=== PATIENT | male | born 1955 | race Caucasian/White ===

== ENCOUNTER 2017-08-30 18:12 | Observation (INO) | payer SELFPAY ==
[~2017-08-30] VITALS: Ht 167.6 cm; Wt 107.2 kg
[~2017-08-30 18:12] MED LIST: ALBUTEROL SULF8.5 GM INH; AMOXICILLIN500 MG PO; ASPIRIN EC81 MG PO; BENZONATATE100 MG PO; BUPROPION HCL100 MG PO; CARDIZEM CD120 MG PO; ELIQUIS5 MG PO; FLECAINIDE ACE150 MG PO; IBUPROFEN600 MG PO; LIPITOR20 MG PO; LISINOPRIL10 MG PO; NORCO 10-325 T1 EACH PO; NORCO 5-325 TA1 EACH PO; PRADAXA75 MG PO; PREDNISONE20 MG PO; TAMIFLU75 MG PO; VENTOLIN HFA18 GM INH; ZYRTEC10 MG PO
[2017-08-30] MEDS ORDERED: OXYCODONE HCL5 MG PO (18:23)
[2017-08-30] MEDS ORDERED: LISINOPRIL10 MG PO (18:23)
--- NOTE | 2017-08-30 22:35 | NUR ---
PT HAS ARRIVED ON FLOOR.
--- NOTE | 2017-08-30 23:25 | NUR ---
TOOK PT A SAND BOX AND A FRUIT PLATE PER HIS RN. PT REQUESTED A WARM BLANKET. I GOT HIM TWO. PT NEEDS NOTHING ELSE AT THIS TIME. CALL LIGHT AND BEDSIDE TABLE WITHIN REACH.
--- NOTE | 2017-08-31 01:01 | NUR ---
PT AT THIS TIME IS AWAKE IN BED.
--- NOTE | 2017-08-31 01:04 | NUR ---
PT IS SLEEPING AT THIS TIME.
--- NOTE | 2017-08-31 02:10 | NUR ---
MD JOSHI WAS CALLED DUE TO LOW SBP AND DBP WITH ORTHO V/S. I WAS ADVISED TO KEEP MONITORING.
--- NOTE | 2017-08-31 04:01 | NUR ---
PT IS SLEEPING AT THIS TIME.
--- NOTE | 2017-08-31 06:06 | NUR ---
V/S ARE WDL, PT HAS BEEN SLEEPING MOST OF THIS SHIFT. ORTHO V/S WERE DONE, MD JOSHI WAS CALLED IN REGARDS TO LOW SBP/DBP. MD JOSHI SAID TO MONITOR. IV BOLUS WAS GIVEN, URINE OUTPUT IS ADEQUATE, ALL LOBES ARE CLEAR, NO EDEMA NOTED, IV FLUIDS ARE RUNNING. PT IS ON 2L OF O2 NC.
--- NOTE | 2017-08-31 06:44 | NUR ---
MANUAL BP WAS TAKEN THIS MORNING DUE TO LOW BP PER MONITOR. MANUAL BP WAS 94/62, MD JOSHI ORDERED ANOTHER LR 1000ML BOLUS/HR. BP HAS TO BE RETAKEN WHEN BOLUS IS DONE. ALSO, HOLD 0900 LISINOPRIL TODAY.
--- NOTE | 2017-08-31 07:00 | NUR ---
PRIMARY RN NIGHAT NOTIFIED DR JOSHI VIA PHONE ABOUT PT C/O "SEEING DOUBLE OF EVERYTHING". MDS RESPONSE, RECHECK BP". PRIMARY RN AND ONCOMING AM RN IN ROOM ASSESSING PT
--- NOTE | 2017-08-31 07:16 | NUR ---
RECIEVED BEDSIDE REPORT FROM LUCERO GARCIA. PT AWAKE AND ALERT AT THIS TIME. MANUAL BP 100/64. O2 AT 2L BY NC. LR BOLUS RUNNING. TELE #3, HR 95, IRREGULAR. PT REPORTS DOUBLE VISION, MD AWARE. ORTHO BP DUE AT 1400.
--- NOTE | 2017-08-31 07:19 | NUR ---
BP WAS 100/64 AT THIS TIME. MD JOSHI WILL BE CALLED.
--- NOTE | 2017-08-31 10:06 | NUR ---
PATIENT WENT TO GET A MRI DONE. CHANGED BED LINENS. SET HIM UP FOR A SHOWER TODAY.
--- NOTE | 2017-08-31 11:20 | NUR ---
PT REPORTS FEELING DIZZY AFTER HIS MRI. MANUAL BP TAKEN, 100/58. NO OTHER COMPLAINTS OTHER THAN DIZZINESS. PT IS HOLDING OFF ON A SHOWER FOR NOW. WILL REAPPROCH LATER.
[2017-08-31] MEDS ORDERED: ZYRTEC10 MG PO (11:58)
[2017-08-31] MEDS ORDERED: ASPIR 8181 MG PO (11:58)
[2017-08-31] MEDS ORDERED: NORCO 5-325 TA1 EACH PO (11:59)
--- NOTE | 2017-08-31 13:56 | NUR ---
PT INDEPENDENTLY CHANGES POSITION IN BED. COMPLAINTS OF PAIN ADDRESSED WITH DR. JOSHI OXYCONTIN 5MG RESUMED. PT REPORTS DOUBLE VISION REMAINS, OTHERWISE FEELS "NORMAL". RESULTS OF MRI NOT RETUNED OF YET.
--- NOTE | 2017-08-31 14:09 | NUR ---
PT SITTING IN CHAIR-ALERT ADN ORIENTED. WELCOMED ME INTO HIS RM, HE SEEMED COMFORTABLE AROUND ME. HE SEEMED VERY EAGER TO GET A CUP OF COFFEE. I WAS ABLE TO HAVE HIS RN SANDRINE BRING HIM ONE AND LUNCH CAME ABOUT THE SAME TIME. HE SEEMED HAPPY, I LET HIM ENJOY HIS LUNCH. WILL CHECK BACK
--- NOTE | 2017-08-31 14:22 | NUR ---
NEW BAG OF IV FLUID HUNG AND 300 MLS OF CLEAR YELLOW URINE EMPTIED AT THIS TIME. PATIENT GIVEN THE MENU SO HE COULD ORDER A SNACK BEFORE DINNER TIME.
--- NOTE | 2017-08-31 15:53 | NUR ---
BROUGHT PATIENT A CUP OF COFFEE AND REFILLED ICE WATER GLASS.
--- NOTE | 2017-08-31 17:20 | NUR ---
PT REPORTS DOUBLE VISION AND DIZZINESS THIS SHIFT, BOTH RESOLVING WITH TIME. MRI SHOWS NO ACUTE CHANGES TO BRAIN. LR AT 125ML/HR. NEW IV IN LEFT FOREARM PER PT REQUEST. NEURO CHECKS WNL. PT ANXIOUS TO GO HOME. PT REPORTED PAIN "IN FEET, MY NORMAL PAIN", 5MG OXY RESUMED.
--- NOTE | 2017-08-31 18:23 | NUR ---
TELE SHOWING HR 105-128. RN REASSESSED AND REPLACED TELE LEADS. HR BY RADIAL PALPATION 60.
--- NOTE | 2017-08-31 18:35 | NUR ---
PATIENT ASKED FOR 2 WARM BLANKETS. SHOWER WAS DONE.
--- NOTE | 2017-08-31 19:20 | NUR ---
BEDSIDE REPORT RECEIVED FROM JOSE DELUCA. PT LYING IN BED, NO COMPLAINTS OF DIZZINESS AT THIS TIME, PT REQUESTING TO GO HOME. PT ON ROOM AIR AT THIS TIME, STATES PAIN IS "OKAY". CALL LIGHT IN REACH. IVF INFUSING WNL AT 125 ML/HR.
--- NOTE | 2017-08-31 20:36 | NUR ---
BROUGHT PT FRESH ICE WATER, COFFEE. PT REPORTS PAIN 5/10 IN FEET, SHOULDERS. ADMINISTERED SCHEDULED OXYCODONE. PT HAS NO ADDITIONAL REQUESTS, IVF INFUSING. WILL CONTINUE TO MONITOR, CALL LIGHT IN REACH.
--- NOTE | 2017-08-31 21:57 | NUR ---
VITALS AND I&OS DONE. BEDSIDE TABLE AND CALL LIGHT WITHIN REACH. PT NEEDS NOTHING AT THIS TIME.
--- NOTE | 2017-08-31 22:30 | NUR ---
PT ASSESSMENT COMPLETE. PT ALERT AND ORIENTED X 3, DENIES DIZZINESS, DENIES DOUBLE VISION. PERRL. PT HAS DENTURES OUT AT THIS TIME. LUNGS CLEAR THROUGHOUT ALL LOBES, DIMINISHED THROUGHOUT. HR IRREGULAR. PULSES STRONG BILATERALLY UPPER AND LOWER. PT IV SALINE LOCKED WNL. PT REQUESTS SANDWICH, FRUIT, PHONE CALL TO HEATING ELEMENT REPAIRER TO DELIEVER. NO ADDITIONAL REQUESTS AT THIS TIME, CALL LIGHT IN REACH.
--- NOTE | 2017-08-31 22:59 | EKG ---
[facility] [address] [place] [address] Signed Atrial fibrillation Nonspecific ST and T wave abnormality Abnormal ECG No previous ECGs available Confirmed by BEVERLY JOSHI MD ([id number]) on 08/31/2017 10:58:56 PM Electronically Signed By: BEVERLY JOSHI MD 08/31/17 2259 PATIENT NAME: ADRIA GLORIA Electrocardiogram DATE OF : 59 PHYSICIAN: BEVERLY JOSHI MD REPORT #: [id number] REPORT IS CONFIDENTIAL AND NOT TO BE RELEASED WITHOUT AUTHORIZATION
--- NOTE | 2017-09-01 00:09 | NUR ---
CHECKED ON PT. PT ATE SANDWICH AND FRUIT, LYING IN BED. EMPTIED PT'S URINAL 300 ML YELLOW URINE. PT HAS CALL LIGHT IN REACH, WATCHING TV, NO REQUESTS AT THIS TIME.
--- NOTE | 2017-09-01 02:07 | NUR ---
VITALS DONE AND CHARTED. PT NEEDS NOTHING AT THIS TIME. CALL LIGHT AND BEDSIDE TABLE IN REACH.
--- NOTE | 2017-09-01 02:14 | NUR ---
PT AWAKENS FROM SLEEP TO VOICE, BP 145/73 (88), HR 79-92 IRREGULAR. ASSESSMENT COMPLETE, LUNGS SOUND CLEAR, DIMINISHED THROUGHOUT ALL LOBES. NO EDEMA NOTED BILATERALLY UPPER AND LOWER EXTREMITIES, PULSES STRONG BILATERALLY UPPER AND LOWER EXTREMITIES. ADMINISTERED SCHEDULED METOPROLOL, PROVIDED EDUCATION TO PT, PT VERBALIZED UNDERSTANDING. LIGHTS OFF IN PT ROOM, PT HAS NO REQUESTS AT THIS TIME, CALL LIGHT IN REACH.
--- NOTE | 2017-09-01 04:04 | NUR ---
PT SLEEPING, EYES CLOSED,LIGHTS OFF IN ROOM, BREATHING VISIBLE FROM DOORWAY, PT SNORING.
--- NOTE | 2017-09-01 05:21 | NUR ---
ANSWERED PT CALL LIGHT, EMPTIED URINAL, PT REQUESTED COFFEE, NO ADDITIONAL REQUESTS. LYING IN BED WATCHING TV. CALL LIGHT IN REACH.
--- NOTE | 2017-09-01 05:22 | NUR ---
PT HAS USED CALL LIGHT APPROPRIATELY THROUGHOUT SHIFT, HAS DENIED DIZZINESS AND DOUBLE VISION THROUGHOUT SHIFT. SCHEDULED OXYCODONE EFFECTIVELY MANAGED PT REPORTED CHRONIC PAIN. PT INDEPENDENT IN ROOM THROUGHOUT SHIFT, SALINE LOCKED, UP USING URINAL FOR QUANITY SUFFICIENT VOIDS. HR REMAINS IRREGULAR, ON TELE 3.
--- NOTE | 2017-09-01 06:06 | NUR ---
WILLA DECEMBER IN ROOM WITH RN DELL PERFORMING ORTHOSTATIC BPS. PT DENIES DIPLOPIA, DENIES DIZZINESS. PTS LUNGS DIMINISHED, CLEAR THROUGHOUT ALL LOBES. HR REMAINS IRREGULAR MID 70S-90S ON MONITOR. BOWEL TONES ACTIVE X 4. PT BACK IN BED, LIGHTS OFF IN ROOM. CALL LIGHT IN REACH.
--- NOTE | 2017-09-01 06:23 | NUR ---
I&OS DONE. ORTHO VITALS DONE BY RN. PT NEEDS NOTHING ELSE AT THIS TIME. BEDSIDE TABLE AND CALL LIGHT WITHIN REACH.
--- NOTE | 2017-09-01 08:18 | NUR ---
PT UP IN BED FOR BREAKFAST. COMPLAINS OF 5/10 PAIN. PT ON TELE 3. HR IRREGULAR VIA TELE. HR BETWEEN 80-85. SL IN LEFT FOREARM. FLUSHED WELL. PERSONAL ITEMS AT BEDSIDE. CALL LIGHT WITHIN REACH
--- NOTE | 2017-09-01 08:39 | NUR ---
ccu called patients heart rate was at 120, i went and checked on him and he was up using the urinal.
--- NOTE | 2017-09-01 09:31 | NUR ---
pateint is ambulating, 2 laps
--- NOTE | 2017-09-01 09:36 | NUR ---
PT WALKED 3 FULL LAPS AND IS NOW SITTING UP IN HIS CHAIR RESTING SAFELY WITH CALL LIGHT IN REACH. PT ASKED FOR A CUP OF COFFEE
--- NOTE | 2017-09-01 10:19 | NUR ---
CHANGED TELE BATTERY ON PATIENT.
--- NOTE | 2017-09-01 10:22 | NUR ---
ROUNDED WITH DR JOSHI. TALKED TO PT ABOUT DISCHARGE PLANNED FOR TODAY. CHANGES IN B/P AD HR MEDICATION. DC LISINOPRIL, START METOPROLOL. DAILY ASPRIN. DISCUSSED SIGNS AND SYPTOMS TO RETURN TO EMERGENCY ROOM FOR. TALKED ABOUT NEED FOR INSURANCE. PT RECIEVED INFORMATION FOR INSURANCE. DR TO WRITE NOTE FOR RETURN TO WORK.
[2017-09-01] MEDS ORDERED: NICORETTE2 MG MM (10:23)
[2017-09-01] MEDS ORDERED: ASPIRIN EC325 MG PO (10:24)
[2017-09-01] MEDS ORDERED: METOPROLOL TART25 MG PO (10:24)
--- NOTE | 2017-09-01 10:33 | NUR ---
PT IS SITTING UP IN CHAIR WITH CALL LIGHT IN REACH. PT HAS ASKED IF HE IS BEING DISCHARGED, WILL ASK NURSE. VITALS TAKEN BY ME AND CHARTED BY WILLA HO
== END 2017-09-01 11:57 | disposition home or self-care (01) ==
LOC: ED 18:12 → MS 18:14
PROVIDERS: ADMIT Internal Medicine
DX: R55 Syncope and collapse (principal); I48.2 Chronic atrial fibrillation; I10 Essential (primary) hypertension; G45.0 Vertebro-basilar artery syndrome; F17.200 Nicotine dependence, unspecified, uncomplicated; J44.9 Chronic obstructive pulmonary disease, unspecified; B18.2 Chronic viral hepatitis C; E78.5 Hyperlipidemia, unspecified; Z59.6 Low income; Z79.891 Long term (current) use of opiate analgesic; Z79.899 Other long term (current) drug therapy
CPT/HCPCS: 36415; 70551; 71010; 80053; 84484; 85025; 85379; 86703; 86704; 86706; 86709; 86803; 87340; 93005; 93010; 96361; 96372; 96374; 96375; 99285; G0378; J1650; J2405; J7120

== ENCOUNTER 2018-10-16 11:51 | Emergency (ER) | payer BC ==
[~2018-10-16] VITALS: Ht 167.6 cm; Wt 113.5 kg
[~2018-10-16 11:51] MED LIST changes: +ASPIR 8181 MG PO; +ASPIRIN EC325 MG PO; +METOPROLOL TART25 MG PO; +NICORETTE2 MG MM; +OXYCODONE HCL5 MG PO
--- OUTSIDE RECORDS SUMMARY | 2018-10-16 11:54 | XMS ---
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 Cassie VISIT COUNT (12 MO.) 1 [facility] Shanks TOTAL 1 NOTE: Visits indicate total known visits. ED/UCC VISIT TRACKING (12 MO.) 10/16/2018 11:[address] [facility] TYPE: Emergency COMPLAINT: - SOB/COUGH INPATIENT VISIT TRACKING (12 MO.) No inpatient visits to display in this time frame [email or web address]
[2018-10-16] MEDS ORDERED: ALBUTEROL HFA INH (2 (12:08)
[2018-10-16] MEDS ORDERED: LISINOPRIL10 MG PO (12:09)
[2018-10-16] MEDS ORDERED: PREDNISONE10 MG PO (14:22)
--- NOTE | 2018-10-17 16:51 | EKG ---
[facility] [address] [place] [address] Signed Atrial fibrillation with premature ventricular or aberrantly conducted complexes and with ventricular escape complexes Rightward axis Incomplete right bundle branch block Nonspecific T wave abnormality Abnormal ECG When compared with ECG of 30-AUG-2017 18:19, Sinus rhythm is now with ventricular escape complexes Confirmed by MINA MANCILLA DO ([id number]) on 10/17/2018 4:51:44 PM Electronically Signed By: MINA MANCILLA DO 10/17/18 1651 PATIENT NAME: GLORIAADRIA Electrocardiogram DATE OF : 59 PHYSICIAN: MINA MANCILLA DO REPORT #: [id number] REPORT IS CONFIDENTIAL AND NOT TO BE RELEASED WITHOUT AUTHORIZATION
== END 2018-10-16 14:41 | disposition home or self-care (01) ==
LOC: ED 11:51
DX: J98.01 Acute bronchospasm (principal); I48.91 Unspecified atrial fibrillation; J44.9 Chronic obstructive pulmonary disease, unspecified; I10 Essential (primary) hypertension; F17.200 Nicotine dependence, unspecified, uncomplicated; Z79.899 Other long term (current) drug therapy; Z79.82 Long term (current) use of aspirin
CPT/HCPCS: 71045; 80053; 83605; 83880; 84484; 85025; 93005; 93010; 94640; 96374; 99283-25; 99406; J2930

== ENCOUNTER 2020-01-09 19:55 | Inpatient (IN) | payer BC ==
[~2020-01-09] VITALS: Ht 167.6 cm; Wt 119.8 kg
--- OUTSIDE RECORDS SUMMARY | ~2020-01-09 | XMS | Encounter Summary ---
Demographics + + + | Address | [address] | | | [place] [address] | + + + | Home Phone | | + + + | Preferred Language | Unknown | + + + | Marital Status | Single | + + + | Christian Affiliation | Unknown | + + + | Race | Unknown | + + + | Ethnic Group | Unknown | + + + Author + + + | Author | [facility] | | | and [place] | + + + | Organization | [facility] | | | and [place] | + + + | Address | Unknown | + + + | Phone | Unavailable | + + + Support + + + + + | Name | Relationship | Address | Phone | + + + + + | Shawanda Hirsch | ECON | [address] | | | | | [place] | | | | | [phone] | | + + + + + Care Team Providers + +------+ + | Care Farmworker Poultry Name | Role | Phone | + +------+ + PCP | Unavailable | + +------+ + Encounter Details +--------+ + + + + | Date | Type | Department | Care Team | Description | +--------+ + + + + | 10/23/ | Hospital | [facility] | Stacey Sadler, | Atrial fibrillation | | 2015 - | Encounter | [facility] | MD [address] | with rapid | | | | CARE [address]LO[address] | [place] [address] | ventricular response | | 10/26/ | | [address] | [phone] | ([facility]); Dyspnea | | 2015 | | [place], [place] | | | | | | [address] | | | | | | [phone] | | | +--------+ + + + + Social History + +-------+ +--------+------+ | Tobacco Use | Types | Packs/Day | Years | Date | | | | | Used | | + +-------+ +--------+------+ | Never Assessed | | | | | + +-------+ +--------+------+ + + + | Sex Assigned at | Date Recorded | | | | + + + | Not on file | | + + + + + + + | Job Start Date | Occupation | Industry | + + + + | Not on file | Not on file | Not on file | + + + + + + + + | Travel History | Travel Start | Travel End | + + + + + + | No recent travel history available. | + + documented as of this encounter Progress Notes Conversion Transaction, Provider Unknown - 10/26/2014 12:03 PM PSTFormatting of this note m ight be different from the original. Progress Notes by Doris Becker RN at 10/26/141202 Author: Doris Becker RN Service: (none) Author Type: Registered Nurse Filed: 10/26/141207 Date of Service: 10/26/141202 Status: Signed Liaison Planner: Doris Becker RN (Registered Nurse) Pt discharged home via private vehicle with . Discharge instructions including follow u p appointments, medications, prescriptions and at home monitoring reviewed with pt, pt alberto lized understanding of this teaching. No questions at this time. RN stressed the importance of the need to Eliquis as prescribed until follow up with Dr Ramirez. Pt had 7 day supply of El iquis and 30 day coupon for Eliquis at time of discharge (provided by Dr Ramirez). Doris Becker RN onver kevin Transaction, Provider Unknown - 10/26/2014 8:53 AM PST Case Management by ASHA Aponte at 10/26/14 0853 Author: ASHA Aponte Service: (none) Author Type: Garage Door Installer Filed: 10/26/14 0854 Date of Service: 10/26/14852 Status: Signed Liaison Planner: ASHA Aponte (Garage Door Installer) CM met w/ pt regarding Advanced Directives. CM gave pt information on POA and Adv. Directi ves. CM discusses plan for pt to return home. Pt reports he has plenty of support at home. No other d/c needs at this time. ASHA Aponte Marco Plata i, MD - 10/25/2014 11:46 AM PST Progress Notes by Marco Otto MD at 10/25/14 1146 Author: Marco Otto MD Service: Hospitalist Author Type: Physician Filed: 10/25/14 1157 Date of Service: 10/25/14 1146 Status: Signed Liaison Planner: Maroc Otto MD (Physician) [facility] Service: Hospitalist Progress Note Hospital Day: LOS: 2 days Post-Op Day: * No surgery found * SUBJECTIVE Patient Summary: Events Overnight: Patient underwent MANOHAR followed by cardioversion yesterday. After the procedure he remained in NSR for 4 hours and went back into A. Fib. Patient had a long paus e of around 4.5 seconds this morning around 0429 but he remained asymptomatic. C/O nasal con gestion but feels better after he received Afrin nasal spray and Zyrtec last night. Still laura s wheezing and SOB. No chest pain. Scheduled Medications albuterol 2.5 mg Nebulization Q4H While awake apixaban 5 mg Oral BID cetirizine 10 mg Oral Daily flecainide 100 mg Oral 2 times per day heparin (porcine) 5000 unit/0.5mL 5,000 Units Subcutaneous Q8H oxymetazoline 2 spray Each Nare BID sodium chloride (PF) 10 mL Intravenous Q8H Continuous Infusions PRN Medications acetaminophen OR acetaminophen, diltiazem, fentaNYL, HYDROcodone-acetaminophen OR H YDROcodone-acetaminophen, LORazepam OR LORazepam, midazolam, ondansetron OR ondanset darci, polyethylene glycol, zolpidem OBJECTIVE Vital Signs: BP 141/91 | Pulse 89 | Temp(Src) 98.5 F (36.9 C) (Oral) | Resp 20 | Ht 1.676 m (5' 6") | Wt 118 kg (260 lb 2.3 oz) | BMI 42.01 kg/m2 | SpO2 96% Temp: [98 F (36.7 C)-98.5 F (36.9 C)] 98.5 F (36.9 C) (10/25 699) BP: (107-150)/(54-95) 141/91 mmHg (10/25 699) Heart Rate: [72-108] 89 (10/25 699) Resp: [8-20] 20 (10/25 699) SpO2: [79 %-99 %] 96 % (10/25 699) Weight: [118 kg (260 lb 2.3 oz)] 118 kg (260 lb 2.3 oz) (10/25 247) Intake/Output Summary (Last 24 hours) at 10/25/14 1146 Last data filed at 10/25/14 0249 Gross per 24 hour Intake 400 ml Output 200 ml Net 200 ml Physical Exam Constitutional: He is oriented to person, place, and time. He appears well-developed and we ll-nourished. HENT: Head: Normocephalic and atraumatic. Mouth/Throat: No oropharyngeal exudate. Eyes: Pupils are equal, round, and reactive to light. No scleral icterus. Neck: Neck supple. No JVD present. Cardiovascular: Normal rate, normal heart sounds and intact distal pulses. Exam reveals no gallop and no friction rub. No murmur heard. Irregular rate Pulmonary/Chest: Diminished air entry bilaterally. Diffuse rhonchi all over chest. Abdominal: Soft. Bowel sounds are normal. He exhibits no distension and no mass. There is n o tenderness. There is no rebound and no guarding. No hernia. Musculoskeletal: He exhibits no tenderness. Trace bilateral LE edema. Neurological: He is alert and oriented to person, place, and time. No cranial nerve deficit . Skin: Skin is warm and dry. No rash noted. He is not diaphoretic. No pallor. Psychiatric: He has a normal mood and affect. His behavior is normal. Judgment and thought content normal. Vitals reviewed. DATA CBC: Lab Results Component Value Date WBC 9.7 10/25/2014 RBC 4.64 10/25/2014 HGB 15.2 10/25/2014 HCT 44.8 10/25/2014 MCV 96.7 10/25/2014 MCH 32.7 10/25/2014 MCHC 33.9 10/25/2014 RDW 42.4 10/25/2014 PLT 214 10/25/2014 MPV 8.2 10/25/2014 DIFFTYPE AUTOMATED 10/25/2014 CMP: Lab Results Component Value Date NA 136 10/25/2014 K 4.1 10/25/2014 CL 105 10/25/2014 CO2 26 10/25/2014 ANIONGAP 9 10/25/2014 GLUF 103* 10/25/2014 BUN 24 10/25/2014 CREATININE 0.85 10/25/2014 BCR 28 10/25/2014 CA 9.2 10/25/2014 PROT 6.4 10/25/2014 ALB 3.8 10/25/2014 GLOB 2.6 10/25/2014 BILITOT 0.4 10/25/2014 ALP 53 10/25/2014 AST 51* 10/25/2014 ALT 88* 10/25/2014 EGFR >60 10/25/2014 PT/INR: Lab Results Component Value Date INR 1.1 10/24/2014 Troponin: Lab Results Component Value Date TROPONINI <0.020 10/24/2014 Last 3 Troponin: Lab Results Component Value Date TROPONINI <0.020 10/24/2014 TROPONINI <0.020 10/23/2014 TROPONINI <0.020 10/23/2014 CPK: No results found for this basename: CKTOTAL CKMB: No results found for this basename: CKMB Troponin I: Lab Results Component Value Date TROPONINI <0.020 10/24/2014 Xr Chest Ap Portable 10/23/2014 1. No acute cardiopulmonary process. LEM LIST Principal Problem: Atrial fibrillation Active Problems: Skipped heart beats SOB (shortness of breath) Tobacco use disorder Morbid obesity ASSESSMENT & PLAN 1. Atrial fibrillation with bradycardia and pauses. Failed cardioversion. Now on Eliquis an d tambocor. MPI studies done this morning and report is pending. Discussed with Dr. Ramirez who thinks that long pauses are due to TARA but patient denies loud snoring. Nocturnal pulse oxi metry done last night. Report not yet available. 2. Acute bronchitis. History of jail smoking. He may have COPD. Will continue predniso ne and nebulized treatment. No need for antibiotics and elevated white count is likely due t o steroids and resolved today. 3. Tobacco use. Patient extensively counseled. I again offered him nicotine patches but pat ramirez refused. 4. Morbid obesity with BMI of 42.00. Will need counseling upon discharge. 5. DVT prophylaxis with S/Q heparin. Disposition: Code Status: Full Code Marco Otto MD 10/25/2014 Gregorio Scales MD - 10/24/2014 9:21 AM PSTFormatting of this note might be different from the [place] d[place]. Progress Notes by Marco Otto MD at 10/24/14920 Author: Marco tOto MD Service: Hospitalist Author Type: Physician Filed: 10/24/14 0939 Date of Service: 10/24/14920 Status: Signed Liaison Planner: Marco Otto MD (Physician) [facility] Service: Hospitalist Progress Note Hospital Day: LOS: 1 day Post-Op Day: * No surgery found * SUBJECTIVE Patient Summary: Events Overnight: Patient has episodes of bradycardia during night with HR as low as 20 but patient remained asymptomatic with no dizziness or lightheadedness. He has SOB, mild chest pain with cough. He is coughing up mucoid phlegm and has significant wheezing. No feve r, chills or N/V. Scheduled Medications heparin (porcine) 5000 unit/0.5mL 5,000 Units Subcutaneous Q8H sodium chloride (PF) 10 mL Intravenous Q8H Continuous Infusions PRN Medications acetaminophen OR acetaminophen, albuterol, diltiazem, HYDROcodone-acetaminophen OR HYDROcodone-acetaminophen, LORazepam OR LORazepam, ondansetron OR ondansetron, polye thylene glycol, zolpidem OBJECTIVE Vital Signs: BP 132/84 | Pulse 62 | Temp(Src) 98.2 F (36.8 C) (Oral) | Resp 18 | Ht 1.676 m (5' 6") | Wt 118.6 kg (261 lb 7.5 oz) | BMI 42.22 kg/m2 | SpO2 96% Temp: [97 F (36.1 C)-99.3 F (37.4 C)] 98.2 F (36.8 C) (10/24 715) BP: (130-171)/(59-85) 132/84 mmHg (10/24 715) Heart Rate: [60-107] 62 (10/24 825) Resp: [18-22] 18 (10/24 825) SpO2: [94 %-96 %] 96 % (10/24 819) Height: [167.6 cm (5' 6")] 167.6 cm (5' 6") (10/23 1731) Weight: [118.6 kg (261 lb 7.5 oz)-118.8 kg (261 lb 14.5 oz)] 118.6 kg (261 lb 7.5 oz) (341) Intake/Output Summary (Last 24 hours) at 10/24/14 0931 Last data filed at 10/24/14 0345 Gross per 24 hour Intake 610 ml Output 0 ml Net 610 ml Physical Exam Constitutional: He is oriented to person, place, and time. He appears well-developed and we ll-nourished. HENT: Head: Normocephalic and atraumatic. Mouth/Throat: No oropharyngeal exudate. Eyes: Pupils are equal, round, and reactive to light. No scleral icterus. Neck: Neck supple. No JVD present. Cardiovascular: Normal rate, normal heart sounds and intact distal pulses. Exam reveals no gallop and no friction rub. No murmur heard. Irregular rate Pulmonary/Chest: Tachypneic. RR 26. Diminished air entry bilaterally. Diffuse rhonchi all over chest. Abdominal: Soft. Bowel sounds are normal. He exhibits no distension and no mass. There is n o tenderness. There is no rebound and no guarding. No hernia. Musculoskeletal: He exhibits no tenderness. Trace bilateral LE edema. Neurological: He is alert and oriented to person, place, and time. No cranial nerve deficit . Skin: Skin is warm and dry. No rash noted. He is not diaphoretic. No pallor. Psychiatric: He has a normal mood and affect. His behavior is normal. Judgment and thought content normal. DATA CBC: Lab Results Component Value Date WBC 15.3* 10/24/2014 RBC 4.43 10/24/2014 HGB 14.4 10/24/2014 HCT 42.4 10/24/2014 MCV 95.9 10/24/2014 MCH 32.6 10/24/2014 MCHC 34.0 10/24/2014 RDW 43.3 10/24/2014 PLT 219 10/24/2014 MPV 8.6 10/24/2014 DIFFTYPE AUTOMATED 10/24/2014 CMP: Lab Results Component Value Date NA 136 10/24/2014 K 4.5 10/24/2014 CL 103 10/24/2014 CO2 25 10/24/2014 ANIONGAP 13 10/24/2014 GLUF 121* 10/24/2014 BUN 24 10/24/2014 CREATININE 0.80 10/24/2014 BCR 30 10/24/2014 CA 9.6 10/24/2014 PROT 6.8 10/24/2014 ALB 4.0 10/24/2014 GLOB 2.8 10/24/2014 BILITOT 0.3 10/24/2014 ALP 52 10/24/2014 AST 27 10/24/2014 ALT 33 10/24/2014 EGFR >60 10/24/2014 PT/INR: Lab Results Component Value Date INR 1.1 10/24/2014 Troponin: Lab Results Component Value Date TROPONINI <0.020 10/24/2014 Last 3 Troponin: Lab Results Component Value Date TROPONINI <0.020 10/24/2014 TROPONINI <0.020 10/23/2014 TROPONINI <0.020 10/23/2014 CPK: No results found for this basename: CKTOTAL CKMB: No results found for this basename: CKMB Troponin I: Lab Results Component Value Date TROPONINI <0.020 10/24/2014 Xr Chest Ap Portable 10/23/2014 1. No acute cardiopulmonary process. LEM LIST Principal Problem: Atrial fibrillation Active Problems: Skipped heart beats SOB (shortness of breath) Tobacco use disorder Morbid obesity ASSESSMENT & PLAN 1. Atrial fibrillation with bradycardia and pauses. Patient appears to be unduly sensitive to calcium channel sintia diltiazem. Will change schedules dose of diltiazem to as needed i f heart rate goes above 110. I spoke with Dr. Ramirez and plan is to perform MANOHAR and then cardi overt him. May need pacemaker. Appreciate consult by Dr. Ramirez and will follow his recommenda tions. 2. Acute bronchitis. History of jail smoking. He may have COPD. Will continue predniso ne and nebulized treatment. No need for antibiotics and elevated white count is likely due t o steroids. 3. Tobacco use. Patient extensively counseled. I offered him nicotine patches but patient r efused. 4. Morbid obesity with BMI of 42.00. Will need counseling upon discharge. 5. DVT prophylaxis with S/X heparin. Disposition: Code Status: Full Code Marco Otto MD 10/24/2014 onversion Tra nsaction, Provider Unknown - 10/23/2014 8:19 PM PSTFormatting of this note might be differe nt from the original. Progress Notes by Janine Cowart RPH at 10/23/142018 Author: Janine Cowart RPH Service: (none) Author Type: Pharmacist Filed: 10/23/142018 Date of Service: 10/23/142018 Status: Signed Liaison Planner: Janine Cowart RPH (Pharmacist) Clinical Pharmacy Note: Renal Monitoring Adria Gloria 58 y.o. male Ht Readings from Last 1 Encounters: 10/23/14 1.676 m (5' 6") Wt Readings from Last 1 Encounters: 10/23/14 118.8 kg (261 lb 14.5 oz) Creatinine clearance cannot be calculated (Patient has no serum creatinine result on file.) Pharmacy dosing for renal function per Dr. Sadler. Currently, there are no labs. Pharmacy will adjust medications, if necessary, in AM when la bs are reported. Janine Cowart RPh 10/23/2014 8:19 PM onver kevin Quezada, Provider Unknown - 10/23/2014 4:16 PM PST Case Management by ASHA Arora at 10/23/14 1616 Author: ASHA Arora Service: (none) Author Type: Developing Machine Tender Filed: 10/23/14 7961 Date of Service: 10/23/14 1616 Status: Signed Liaison Planner: ASHA Arora (Developing Machine Tender) 10/23/14 1600 Discharge Planning Evaluation Admitting Diagnosis Afib Readmission No Living Arrangements Spouse/significant other (Ludmila Hirsch [phone]) Type of Residence Private residence House type Mobile home Steps to enter 3 Independent with ADL's Yes Independent with Mobility Yes Home Care Services No Mental Status Oriented 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 Pt is a 58 y.o., male who is a current everyday smoker, 1 ppd. Patient's PCP is: Denisa Wharton Patient's insurance: Medicaid - [facility] FNP Coverage concerns: n Medication coverage/concerns: y/n [employer] Bedside Delivery: n Community resources utilized / needed: tbd Assistance in transportation: girlfriend Identification of any specific education / training: tbd Barriers to Discharge / Alternative housing needed: Nothing identified Anticipated DCP: Return home Ana BARRY docume nted in this encounter Plan of Treatment Not on filedocumented as of this encounter Procedures + +--------+ + + + | Procedure Name | Priori | Date/Time | Associated Diagnosis | Comments | | | ty | | | | + +--------+ + + + | ECG 12 LEAD | Routin | 10/26/2014 | | Results for this | | | e | 10:07 AM | | procedure are in the | | | | PST | | results section. | + +--------+ + + + | ECG 12 LEAD | Routin | 10/26/2014 | | Results for this | | | e | 7:51 AM | | procedure are in the | | | | PST | | results section. | + +--------+ + + + | CV EP PROCEDURE | Routin | 10/26/2014 | | Results for this | | | e | 7:39 AM | | procedure are in the | | | | PST | | results section. | + +--------+ + + + | EXTERNAL LAB: CBC | Routin | 10/26/2014 | | Results for this | | | e | 4:29 AM | | procedure are in the | | | | PST | | results section. | + +--------+ + + + | COMPREHENSIVE | Routin | 10/26/2014 | | Results for this | | METABOLIC PANEL | e | 4:29 AM | | procedure are in the | | | | PST | | results section. | + +--------+ + + + | ECG 12 LEAD | Routin | 10/25/2014 | | Results for this | | | e | 1:45 PM | | procedure are in the | | | | PST | | results section. | + +--------+ + + + | NM MYOCARDIAL | Routin | 10/25/2014 | | Results for this | | PERFUSION MULT SPECT | e | 11:12 AM | | procedure are in the | | | | PST | | results section. | + +--------+ + + + | EXTERNAL LAB: CBC | Routin | 10/25/2014 | | Results for this | | | e | 3:34 AM | | procedure are in the | | | | PST | | results section. | + +--------+ + + + | COMPREHENSIVE | Routin | 10/25/2014 | | Results for this | | METABOLIC PANEL | e | 3:34 AM | | procedure are in the | | | | PST | | results section. | + +--------+ + + + | ECG 12 LEAD | Routin | 10/24/2014 | | Results for this | | | e | 4:31 PM | | procedure are in the | | | | PST | | results section. | + +--------+ + + + | ECHO TRANSESOPHAGEAL | Routin | 10/24/2014 | | Results for this | | (MANOHAR) | e | 12:11 PM | | procedure are in the | | | | PST | | results section. | + +--------+ + + + | EXTERNAL LAB: CBC | Routin | 10/24/2014 | | Results for this | | | e | 4:14 AM | | procedure are in the | | | | PST | | results section. | + +--------+ + + + | LIPID PANEL | Routin | 10/24/2014 | | Results for this | | | e | 4:14 AM | | procedure are in the | | | | PST | | results section. | + +--------+ + + + | PTT | Routin | 10/24/2014 | | Results for this | | | e | 4:14 AM | | procedure are in the | | | | PST | | results section. | + +--------+ + + + | PROTIME INR | Routin | 10/24/2014 | | Results for this | | | e | 4:14 AM | | procedure are in the | | | | PST | | results section. | + +--------+ + + + | TSH | Routin | 10/24/2014 | | Results for this | | | e | 4:14 AM | | procedure are in the | | | | PST | | results section. | + +--------+ + + + | PHOSPHORUS | Routin | 10/24/2014 | | Results for this | | | e | 4:14 AM | | procedure are in the | | | | PST | | results section. | + +--------+ + + + | MAGNESIUM | Routin | 10/24/2014 | | Results for this | | | e | 4:14 AM | | procedure are in the | | | | PST | | results section. | + +--------+ + + + | HEMOGLOBIN A1C | Routin | 10/24/2014 | | Results for this | | | e | 4:14 AM | | procedure are in the | | | | PST | | results section. | + +--------+ + + + | COMPREHENSIVE | Routin | 10/24/2014 | | Results for this | | METABOLIC PANEL | e | 4:14 AM | | procedure are in the | | | | PST | | results section. | + +--------+ + + + | TROPONIN I | Routin | 10/24/2014 | | Results for this | | | e | 12:29 AM | | procedure are in the | | | | PST | | results section. | + +--------+ + + + | TROPONIN I | Routin | 10/23/2014 | | Results for this | | | e | 6:18 PM | | procedure are in the | | | | PST | | results section. | + +--------+ + + + | TROPONIN I | Routin | 10/23/2014 | | Results for this | | | e | 2:43 PM | | procedure are in the | | | | PST | | results section. | + +--------+ + + + | XR CHEST 1 VIEW | Routin | 10/23/2014 | | Results for this | | | e | 2:16 PM | | procedure are in the | | | | PST | | results section. | + +--------+ + + + | ECG 12 LEAD | Routin | 10/23/2014 | | Results for this | | | e | 2:11 PM | | procedure are in the | | | | PST | | results section. | + +--------+ + + + | XR CHEST 1 VIEW | Routin | 10/22/2014 | | Results for this | | | e | 11:01 PM | | procedure are in the | | | | PST | | results section. | + +--------+ + + + | XR CHEST 2 VIEWS | Routin | 11/28/2011 | | Results for this | | | e | 11:02 PM | | procedure are in the | | | | PDT | | results section. | + +--------+ + + + documented in this encounter Results ECG 12 lead (10/26/2014 10:07 AM PST) + + + + + + | Component | Value | Ref Range | Performed | Pathologist | | | | | At | Signature | + + + + + + | DIAGNOSIS: | Atrial fibrillation with | | EXTERNAL | | | | moderate ventricular | | LAB | | | | rateIncomplete right | | | | | | bundle branch blockST & | | | | | | T wave abnormality, | | | | | | consider inferior | | | | | | ischemiaAbnormal ECGWhen | | | | | | compared with ECG of | | | | | | 26-OCT-2014 07:51,Atrial | | | | | | fibrillation with | | | | | | moderate ventricular | | | | | | rate has replaced Sinus | | | | | | rhythmNonspecific ST | | | | | | and/or T wave | | | | | | abnormalitiesnew or more | | | | | | evident since previous | | | | | | ECGConfirmed by LIANET | | | | | | ARLEY ([id number]) on 10/26/2014 | | | | | | 4:41:03 PM | | | | + + + + + + + + | Specimen | + + | | + + + + + | Narrative | Performed At | + + + | Historically converted procedure from [facility] environment | EXTERNAL LAB | + + + + +---------+ + + | Performing | Address | City/State/Zipcode | Phone Number | | Organization | | | | + +---------+ + + | EXTERNAL LAB | | | | + +---------+ + + ECG 12 lead (10/26/2014 7:51 AM PST) + + + + + + | Component | Value | Ref Range | Performed | Pathologist | | | | | At | Signature | + + + + + + | DIAGNOSIS: | Sinus rhythm with | | EXTERNAL | | | | Premature atrial | | LAB | | | | complexesPossible Left | | | | | | atrial enlargementRight | | | | | | bundle branch block, | | | | | | incompleteNonspecific ST | | | | | | and/or T wave | | | | | | abnormalitiesBorderline | | | | | | ECGWhen compared with | | | | | | ECG of 25-OCT-2014 | | | | | | 13:45,Sinus rhythm has | | | | | | replaced Atrial | | | | | | fibrillationConfirmed by | | | | | | ARLEY MARTINI ([id number]) on | | | | | | 10/26/2014 4:37:57 PM | | | | + + + + + + + + | Specimen | + + | | + + + + + | Narrative | Performed At | + + + | Historically converted procedure from [facility] environment | EXTERNAL LAB | + + + + +---------+ + + | Performing | Address | City/State/Zipcode | Phone Number | | Organization | | | | + +---------+ + + | EXTERNAL LAB | | | | + +---------+ + + CV EP PROCEDURE (10/26/2014 7:39 AM PST) + + | Specimen | + + | | + + + + + | Narrative | Performed At | + + + | | | | | | | PREPROCEDURE DIAGNOSIS Atrial fibrillation, persistent. | | | POSTPROCEDURE DIAGNOSIS Atrial fibrillation, persistent. | | | PROCEDURE Electrocardioversion DESCRIPTION A 58-year-old white | | | male, new onset atrial fibrillation, previous electrocardioversion | | | initially successful, but went back to atrial fibrillation. Now has | | | been on flecainide for 48 hours, cardioversion discussed last night | | | with patient, and again this a.m., informed consent obtained. | | | Present is RT and mechanical laboratory technician nurse. For cardioversion, patches | | | placed A-P, given 100 mg propofol IVP. Then, synchronized | | | electrocardioversion with 120 J/biphasic, shock * 1, converts to | | | sinus rhythm. No immediate untoward effects. Read by JUSTIN Smith | | | DO JAMES 10/26/2014 08:06 A | | + + + + + | Procedure Note | + + | Kenan Kennedy Conversion - 04/23/2019 2:43 PM PDT | | | | PREPROCEDURE DIAGNOSIS | | Atrial fibrillation, persistent. | | | | POSTPROCEDURE DIAGNOSIS | | Atrial fibrillation, persistent. | | | | PROCEDURE | | Electrocardioversion | | | | DESCRIPTION | | A 58-year-old white male, new onset atrial fibrillation, previous | | electrocardioversion initially successful, but went back to atrial | | fibrillation. Now has been on flecainide for 48 hours, cardioversion | | discussed last night with patient, and again this a.m., informed consent | | obtained. | | Present is RT and mechanical laboratory technician nurse. | | | | For cardioversion, patches placed A-P, given 100 mg propofol IVP. Then, | | synchronized electrocardioversion with 120 J/biphasic, shock * 1, converts | | to sinus rhythm. No immediate untoward effects. | | | | Read by JUSTIN RAMIREZ DO 10/26/2014 08:06 A | | | | | + + External Lab: CBC (10/26/2014 4:29 AM PST) + + + + + + | Component | Value | Ref Range | Performed | Pathologist | | | | | At | Signature | + + + + + + | WBC | 10.5Comment: Testing | 3.8 - 11.0 K/uL | EXTERNAL | | | | performed at [facility], [address] | | LAB | | | | [address], | | | | | | [place] [address] | | | | + + + + + + | Red Blood | 4.74Comment: Testing | 4.20 - 5.70 | EXTERNAL | | | Cells | performed at [facility], [address] | M/uL | LAB | | | Counted | [address], | | | | | | [place] [address] | | | | + + + + + + | Hemoglobin | 15.4Comment: Testing | 13.2 - 17.0 | EXTERNAL | | | | performed at [facility], [address] | g/dL | LAB | | | | [address], | | | | | | [place] [address] | | | | + + + + + + | Hematocrit, | 45.7Comment: Testing | 39.0 - 50.0 % | EXTERNAL | | | POC | performed at [facility], [address] | | LAB | | | | [address], | | | | | | [place] [address] | | | | + + + + + + | MCV | 96.5Comment: Testing | 80.0 - 100.0 fl | EXTERNAL | | | | performed at [facility], [address] | | LAB | | | | [address], | | | | | | [place] [address] | | | | + + + + + + | MCH | 32.5Comment: Testing | 27.0 - 34.0 pg | EXTERNAL | | | | performed at [facility], [address] | | LAB | | | | [address], | | | | | | [place] [address] | | | | + + + + + + | MCHC | 33.7Comment: Testing | 32.0 - 35.5 | EXTERNAL | | | | performed at [facility], [address] | g/dL | LAB | | | | [address], | | | | | | [place] [address] | | | | + + + + + + | RDW-CV | 42.4Comment: Testing | 37 - 53 fl | EXTERNAL | | | | performed at [facility], [address] | | LAB | | | | [address], | | | | | | [place] [address] | | | | + + + + + + | Platelet | 235Comment: Testing | 150 - 400 K/uL | EXTERNAL | | | Count | performed at [facility], [address] | | LAB | | | Plasma | [address], | | | | | | [place] [address] | | | | + + + + + + | MPV | 8.3Comment: Testing | fl | EXTERNAL | | | | performed at [facility], [address] | | LAB | | | | [address], | | | | | | [place] [address] | | | | + + + + + + | Differentia | AUTOMATEDComment: | | EXTERNAL | | | l Type | Testing performed at | | LAB | | | | [facility], [address] | | | | | | [place] | | | | | | [address] | | | | + + + + + + | % Segmented | 60.3Comment: Testing | % | EXTERNAL | | | | performed at [facility], [address] | | LAB | | | Neutrophils | [address], | | | | | | [place] [address] | | | | + + + + + + | % | 25.4Comment: Testing | % | EXTERNAL | | | Lymphocytes | performed at [facility], [address] | | LAB | | | | [address], | | | | | | [place] [address] | | | | + + + + + + | % Monocytes | 8.6Comment: Testing | % | EXTERNAL | | | | performed at [facility], [address] | | LAB | | | | [address], | | | | | | [place] [address] | | | | + + + + + + | % | 4.8Comment: Testing | % | EXTERNAL | | | Eosinophils | performed at [facility], [address] | | LAB | | | | [address], | | | | | | [place] [address] | | | | + + + + + + | % Basophils | 0.9Comment: Testing | % | EXTERNAL | | | | performed at [facility], [address] | | LAB | | | | [address], | | | | | | [place] [address] | | | | + + + + + + | Absolute | 6.3Comment: Testing | 1.9 - 7.4 K/uL | EXTERNAL | | | Segmented | performed at [facility], [address] | | LAB | | | Neutrophils | [address], | | | | | | [place] [address] | | | | + + + + + + | Absolute | 2.7Comment: Testing | 1.0 - 3.9 K/uL | EXTERNAL | | | Lymphocytes | performed at [facility], [address] | | LAB | | | | [address], | | | | | | [place] [address] | | | | + + + + + + | Absolute | 0.9 (H)Comment: Testing | 0 - 0.8 K/uL | EXTERNAL | | | Monocytes | performed at [facility], [address] | | LAB | | | | [address], | | | | | | [place] [address] | | | | + + + + + + | Absolute | 0.5Comment: Testing | 0 - 0.5 K/uL | EXTERNAL | | | Eosinophils | performed at [facility], [address] | | LAB | | | | [address], | | | | | | [place] [address] | | | | + + + + + + | Absolute | 0.1Comment: Testing | 0 - 0.1 K/uL | EXTERNAL | | | Basophils | performed at [facility], [address] | | LAB | | | | [address], | | | | | | [place] [address] | | | | + + + + + + + + | Specimen | + + | Blood specimen | | (specimen) | + + + +---------+ + + | Performing | Address | City/State/Zipcode | Phone Number | | Organization | | | | + +---------+ + + | EXTERNAL LAB | | | | + +---------+ + + Comprehensive Metabolic Panel (10/26/2014 4:29 AM PST) + + + + + + | Component | Value | Ref Range | Performed | Pathologist | | | | | At | Signature | + + + + + + | Na | 136Comment: Testing | 135 - 143 | EXTERNAL | | | | performed at [facility], [address] | mmol/L | LAB | | | | [address], | | | | | | [place] [address] | | | | + + + + + + | K | 3.9Comment: Testing | 3.5 - 4.9 | EXTERNAL | | | | performed at [facility], [address] | mmol/L | LAB | | | | [address], | | | | | | [place] [address] | | | | + + + + + + | Cl | 103Comment: Testing | 99 - 109 mmol/L | EXTERNAL | | | | performed at [facility], [address] | | LAB | | | | [address], | | | | | | [place] [address] | | | | + + + + + + | CO2 | 30Comment: Testing | 23 - 32 mmol/L | EXTERNAL | | | | performed at [facility], [address] | | LAB | | | | [address], | | | | | | [place] [address] | | | | + + + + + + | Anion Gap | 7Comment: Testing | 5 - 20 mmol/L | EXTERNAL | | | | performed at [facility], [address] | | LAB | | | | [address], | | | | | | [place] [address] | | | | + + + + + + | Glucose, | 124 (H)Comment: Testing | 65 - 99 mg/dL | EXTERNAL | | | Fasting | performed at [facility], [address] | | LAB | | | | [address], | | | | | | [place] [address] | | | | + + + + + + | BUN | 18Comment: Testing | 8 - 25 mg/dL | EXTERNAL | | | | performed at [facility], [address] | | LAB | | | | [address], | | | | | | [place] [address] | | | | + + + + + + | Creatinine | 0.97Comment: Testing | 0.70 - 1.30 | EXTERNAL | | | | performed at [facility], [address] | mg/dL | LAB | | | | [address], | | | | | | [place] [address] | | | | + + + + + + | BUN/Creatin | 19Comment: Testing | | EXTERNAL | | | ine Ratio | performed at [facility], [address] | | LAB | | | | [address], | | | | | | [place] [address] | | | | + + + + + + | Calcium | 9.4Comment: Testing | 8.5 - 10.5 | EXTERNAL | | | | performed at [facility], [address] | mg/dL | LAB | | | | [address], | | | | | | [place] [address] | | | | + + + + + + | Protein, | 6.6Comment: Testing | 6.3 - 8.2 g/dL | EXTERNAL | | | Total | performed at [facility], [address] | | LAB | | | | [address], | | | | | | [place] [address] | | | | + + + + + + | Albumin | 3.8Comment: Testing | 3.6 - 5.0 g/dL | EXTERNAL | | | | performed at [facility], [address] | | LAB | | | | [address], | | | | | | [place] [address] | | | | + + + + + + | Globulin | 2.8Comment: Testing | 1.3 - 4.9 g/dL | EXTERNAL | | | | performed at [facility], [address] | | LAB | | | | [address], | | | | | | [place] [address] | | | | + + + + + + | A/G Ratio | 1.4Comment: Testing | 1.0 - 2.4 | EXTERNAL | | | | performed at [facility], [address] | | LAB | | | | [address], | | | | | | [place] [address] | | | | + + + + + + | Bilirubin | 0.4Comment: Testing | 0.1 - 1.5 mg/dL | EXTERNAL | | | Total | performed at [facility], [address] | | LAB | | | | [address], | | | | | | [place] [address] | | | | + + + + + + | ALP, | 56Comment: Testing | 35 - 115 U/L | EXTERNAL | | | External | performed at [facility], [address] | | LAB | | | | [address], | | | | | | [place] [address] | | | | + + + + + + | AST | 35Comment: Testing | 10 - 45 U/L | EXTERNAL | | | | performed at [facility], [address] | | LAB | | | | [address], | | | | | | [place] [address] | | | | + + + + + + | ALT | 81 (H)Comment: Testing | 10 - 65 U/L | EXTERNAL | | | | performed at [facility], [address] | | LAB | | | | [address], | | | | | | [place] [address] | | | | + + + + + + | Estimated | >60Comment: GFR <60: | mL/min/1.73m2 | EXTERNAL | | | GFR | CHRONIC KIDNEY DISEASE, | | LAB | | | | IF FOUND OVER A 3 MONTH | | | | | | PERIOD.GFR <15: KIDNEY | | | | | | FAILURE.FOR | | | | | | AMERICANS, MULTIPLY THE | | | | | | CALCULATED GFR BY | | | | | | 1.210.Testing performed | | | | | | at [facility], [address] | | | | | | [address], | | | | | | [place] [address] | | | | + + + + + + + + | Specimen | + + | Blood specimen | | (specimen) | + + + +---------+ + + | Performing | Address | City/State/Zipcode | Phone Number | | Organization | | | | + +---------+ + + | EXTERNAL LAB | | | | + +---------+ + + ECG 12 lead (10/25/2014 1:45 PM PST) + + + + + + | Component | Value | Ref Range | Performed | Pathologist | | | | | At | Signature | + + + + + + | DIAGNOSIS: | Atrial | | EXTERNAL | | | | fibrillationIncomplete | | LAB | | | | right bundle branch | | | | | | blockNonspecific ST | | | | | | and/or T wave | | | | | | abnormalitiesAbnormal | | | | | | ECGWhen compared with | | | | | | ECG of 25-OCT-2014 | | | | | | 10:28,No significant | | | | | | change was | | | | | | foundConfirmed by | | | | | | ARLEY MARTINI ([id number]) on | | | | | | 10/25/2014 5:20:27 PM | | | | + + + + + + + + | Specimen | + + | | + + + + + | Narrative | Performed At | + + + | Historically converted procedure from [facility] environment | EXTERNAL LAB | + + + + +---------+ + + | Performing | Address | City/State/Zipcode | Phone Number | | Organization | | | | + +---------+ + + | EXTERNAL LAB | | | | + +---------+ + + NM Myocardial Perfusion Mult SPECT (10/25/2014 11:12 AM PST) + + | Specimen | + + | | + + + + + | Impressions | Performed At | + + + | 1. Diaphragmatic artifact, without convincing fixed or reversible | | | defect 2. Chamber is generous but within normal limits. Normal | | | wall motion and ejection fraction, although at the lower limits of | | | normal 3. A small amount of right ventricular uptake can't be | | | excluded Electronically signed by Justin Moon MD on | | | 10/25/2014 12:17 PM | | + + + + + + | Narrative | Performed At | + + + | HISTORY: 58-year-old male with chest pain TECHNIQUE: Stress/rest | | | cardiac scintigram, using administration of chemical agents, to mimic | | | physiologic stress. Imaging agents: 10 mCi of technetium 99m | | | Myoview for rest imaging. Dose was 42 mCi for stress imaging. | | | Gated multiplanar and SPECT images of the heart. Chemical stress | | | agent -- .4 mg of Regadenson patient exercised for 1 minutes work | | | level Max METs 1. Heart rate of 82 deidre to 155 beats/min. 94% | | | maximum age-predicted heart rate. Resting blood pressure of 144/87 | | | changed to 156/90. Protocol complete. No significant arrhythmias or ST | | | segment changes. FINDINGS: End-diastolic volume at rest -- | | | 108 cc. 108 cc during stress. End systolic volume at rest -- 61 cc. | | | 60 cc during stress. Ejection fraction was 43% at rest, 44% during | | | stress. Ventricular measurements and ejection fraction normal | | | TID. 1.06 Wall motion was normal. Cardiac scintigram | | | demonstrates photopenia about the inferior wall, especially near the | | | apex. Prone imaging rescues is substantially, thought to be | | | predominately or exclusively diaphragmatic artifact. No evidence of | | | reversible defects over the stress portion of the examination. There | | | may be a small amount of right ventricular uptake | | + + + + + | Procedure Note | + + | Kenan Kennedy Conversion - 04/18/2019 7:41 AM PDT HISTORY: 58-year-old male with chest | | pain TECHNIQUE: Stress/rest cardiac scintigram, using administration of chemical agents, | | to mimic physiologic stress. Imaging agents:10 mCi of technetium 99m Myoview for rest | | imaging. Dose was 42 mCi for stress imaging. Gated multiplanar and SPECT images of the | | heart. Chemical stress agent -- .4 mg of Regadensonpatient exercised for 1 minutes work | | level Max METs 1. Heart rate of 82 deidre to 155 beats/min. 94% maximum age-predicted | | heart rate. Resting blood pressure of 144/87 changed to 156/90. Protocol complete. No | | significant arrhythmias or ST segment changes. FINDINGS: End-diastolic volume at rest -- | | 108 cc. 108 cc during stress.End systolic volume at rest -- 61 cc. 60 cc during stress. | | Ejection fraction was 43% at rest, 44% during stress. Ventricular measurements and | | ejection fraction normal TID. 1.06 Wall motion was normal. Cardiac scintigram | | demonstrates photopenia about the inferior wall, especially near the apex. Prone imaging | | rescues is substantially, thought to be predominately or exclusively diaphragmatic | | artifact. No evidence of reversible defects over the stress portion of the examination. | | There may be a small amount of right ventricular uptake IMPRESSION: 1. Diaphragmatic | | artifact, without convincing fixed or reversible defect 2. Chamber is generous but | | within normal limits. Normal wall motion and ejection fraction, although at the lower | | limits of normal 3. A small amount of right ventricular uptake can't be excluded | | | |Ejection fraction was 43% at rest, 44% during stress. | | | |Ventricular measurements and ejection fraction normal | | | |TID. 1.06 | | | |Wall motion was normal. | | | |Cardiac scintigram demonstrates photopenia about the inferior wall, especially near the ape x. Prone imaging rescues is substantially, thought to be predominately or exclusively diaphr agmatic artifact. No evidence of reversible defects over the stress | |portion of the examination. There may be a small amount of right ventricular uptake | | | |IMPRESSION: | | | |1. Diaphragmatic artifact, without convincing fixed or reversible defect | | | |2. Chamber is generous but within normal limits. Normal wall motion and ejection fraction, although at the lower limits of normal | | | |3. A small amount of right ventricular uptake can't be excluded | | | | | + + External Lab: CBC (10/25/2014 3:34 AM PST) + + + + + + | Component | Value | Ref Range | Performed | Pathologist | | | | | At | Signature | + + + + + + | WBC | 9.7Comment: Testing | 3.8 - 11.0 K/uL | EXTERNAL | | | | performed at [facility], [address] | | LAB | | | | [address], | | | | | | [place] [address] | | | | + + + + + + | Red Blood | 4.64Comment: Testing | 4.20 - 5.70 | EXTERNAL | | | Cells | performed at [facility], [address] | M/uL | LAB | | | Counted | [address], | | | | | | [place] [address] | | | | + + + + + + | Hemoglobin | 15.2Comment: Testing | 13.2 - 17.0 | EXTERNAL | | | | performed at [facility], [address] | g/dL | LAB | | | | [address], | | | | | | [place] [address] | | | | + + + + + + | Hematocrit, | 44.8Comment: Testing | 39.0 - 50.0 % | EXTERNAL | | | POC | performed at [facility], [address] | | LAB | | | | [address], | | | | | | [place] [address] | | | | + + + + + + | MCV | 96.7Comment: Testing | 80.0 - 100.0 fl | EXTERNAL | | | | performed at [facility], [address] | | LAB | | | | [address], | | | | | | [place] [address] | | | | + + + + + + | MCH | 32.7Comment: Testing | 27.0 - 34.0 pg | EXTERNAL | | | | performed at [facility], [address] | | LAB | | | | [address], | | | | | | [place] [address] | | | | + + + + + + | MCHC | 33.9Comment: Testing | 32.0 - 35.5 | EXTERNAL | | | | performed at [facility], [address] | g/dL | LAB | | | | [address], | | | | | | [place] [address] | | | | + + + + + + | RDW-CV | 42.4Comment: Testing | 37 - 53 fl | EXTERNAL | | | | performed at [facility], [address] | | LAB | | | | [address], | | | | | | [place] [address] | | | | + + + + + + | Platelet | 214Comment: Testing | 150 - 400 K/uL | EXTERNAL | | | Count | performed at [facility], [address] | | LAB | | | Plasma | [address], | | | | | | [place] [address] | | | | + + + + + + | MPV | 8.2Comment: Testing | fl | EXTERNAL | | | | performed at [facility], [address] | | LAB | | | | [address], | | | | | | [place] [address] | | | | + + + + + + | Differentia | AUTOMATEDComment: | | EXTERNAL | | | l Type | Testing performed at | | LAB | | | | [facility], [address] | | | | | | [place] | | | | | | [address] | | | | + + + + + + | % Segmented | 58.6Comment: Testing | % | EXTERNAL | | | | performed at [facility], [address] | | LAB | | | Neutrophils | [address], | | | | | | [place] [address] | | | | + + + + + + | % | 27.8Comment: Testing | % | EXTERNAL | | | Lymphocytes | performed at [facility], [address] | | LAB | | | | [address], | | | | | | [place] [address] | | | | + + + + + + | % Monocytes | 8.5Comment: Testing | % | EXTERNAL | | | | performed at [facility], [address] | | LAB | | | | [address], | | | | | | [place] [address] | | | | + + + + + + | % | 4.3Comment: Testing | % | EXTERNAL | | | Eosinophils | performed at [facility], [address] | | LAB | | | | [address], | | | | | | [place] [address] | | | | + + + + + + | % Basophils | 0.8Comment: Testing | % | EXTERNAL | | | | performed at [facility], [address] | | LAB | | | | [address], | | | | | | [place] [address] | | | | + + + + + + | Absolute | 5.7Comment: Testing | 1.9 - 7.4 K/uL | EXTERNAL | | | Segmented | performed at [facility], [address] | | LAB | | | Neutrophils | [address], | | | | | | [place] [address] | | | | + + + + + + | Absolute | 2.7Comment: Testing | 1.0 - 3.9 K/uL | EXTERNAL | | | Lymphocytes | performed at [facility], [address] | | LAB | | | | [address], | | | | | | [place] [address] | | | | + + + + + + | Absolute | 0.8Comment: Testing | 0 - 0.8 K/uL | EXTERNAL | | | Monocytes | performed at [facility], [address] | | LAB | | | | [address], | | | | | | [place] [address] | | | | + + + + + + | Absolute | 0.4Comment: Testing | 0 - 0.5 K/uL | EXTERNAL | | | Eosinophils | performed at [facility], [address] | | LAB | | | | [address], | | | | | | [place] [address] | | | | + + + + + + | Absolute | 0.1Comment: Testing | 0 - 0.1 K/uL | EXTERNAL | | | Basophils | performed at [facility], [address] | | LAB | | | | [address], | | | | | | [place] [address] | | | | + + + + + + + + | Specimen | + + | Blood specimen | | (specimen) | + + + +---------+ + + | Performing | Address | City/State/Zipcode | Phone Number | | Organization | | | | + +---------+ + + | EXTERNAL LAB | | | | + +---------+ + + Comprehensive Metabolic Panel (10/25/2014 3:34 AM PST) + + + + + + | Component | Value | Ref Range | Performed | Pathologist | | | | | At | Signature | + + + + + + | Na | 136Comment: Testing | 135 - 143 | EXTERNAL | | | | performed at [facility], [address] | mmol/L | LAB | | | | [address], | | | | | | [place] [address] | | | | + + + + + + | K | 4.1Comment: Testing | 3.5 - 4.9 | EXTERNAL | | | | performed at [facility], [address] | mmol/L | LAB | | | | [address], | | | | | | [place] [address] | | | | + + + + + + | Cl | 105Comment: Testing | 99 - 109 mmol/L | EXTERNAL | | | | performed at [facility], [address] | | LAB | | | | [address], | | | | | | [place] [address] | | | | + + + + + + | CO2 | 26Comment: Testing | 23 - 32 mmol/L | EXTERNAL | | | | performed at [facility], [address] | | LAB | | | | [address], | | | | | | [place] [address] | | | | + + + + + + | Anion Gap | 9Comment: Testing | 5 - 20 mmol/L | EXTERNAL | | | | performed at [facility], [address] | | LAB | | | | [address], | | | | | | [place] [address] | | | | + + + + + + | Glucose, | 103 (H)Comment: Testing | 65 - 99 mg/dL | EXTERNAL | | | Fasting | performed at [facility], [address] | | LAB | | | | [address], | | | | | | [place] [address] | | | | + + + + + + | BUN | 24Comment: Testing | 8 - 25 mg/dL | EXTERNAL | | | | performed at [facility], [address] | | LAB | | | | [address], | | | | | | [place] [address] | | | | + + + + + + | Creatinine | 0.85Comment: Testing | 0.70 - 1.30 | EXTERNAL | | | | performed at [facility], [address] | mg/dL | LAB | | | | [address], | | | | | | [place] [address] | | | | + + + + + + | BUN/Creatin | 28Comment: Testing | | EXTERNAL | | | ine Ratio | performed at [facility], [address] | | LAB | | | | [address], | | | | | | [place] [address] | | | | + + + + + + | Calcium | 9.2Comment: Testing | 8.5 - 10.5 | EXTERNAL | | | | performed at [facility], [address] | mg/dL | LAB | | | | [address], | | | | | | [place] [address] | | | | + + + + + + | Protein, | 6.4Comment: Testing | 6.3 - 8.2 g/dL | EXTERNAL | | | Total | performed at [facility], [address] | | LAB | | | | [address], | | | | | | [place] [address] | | | | + + + + + + | Albumin | 3.8Comment: Testing | 3.6 - 5.0 g/dL | EXTERNAL | | | | performed at [facility], [address] | | LAB | | | | [address], | | | | | | [place] [address] | | | | + + + + + + | Globulin | 2.6Comment: Testing | 1.3 - 4.9 g/dL | EXTERNAL | | | | performed at [facility], [address] | | LAB | | | | [address], | | | | | | [place] [address] | | | | + + + + + + | A/G Ratio | 1.5Comment: Testing | 1.0 - 2.4 | EXTERNAL | | | | performed at [facility], [address] | | LAB | | | | [address], | | | | | | [place] [address] | | | | + + + + + + | Bilirubin | 0.4Comment: Testing | 0.1 - 1.5 mg/dL | EXTERNAL | | | Total | performed at [facility], [address] | | LAB | | | | [address], | | | | | | [place] [address] | | | | + + + + + + | ALP, | 53Comment: Testing | 35 - 115 U/L | EXTERNAL | | | External | performed at [facility], [address] | | LAB | | | | [address], | | | | | | [place] [address] | | | | + + + + + + | AST | 51 (H)Comment: Testing | 10 - 45 U/L | EXTERNAL | | | | performed at [facility], [address] | | LAB | | | | [address], | | | | | | [place] [address] | | | | + + + + + + | ALT | 88 (H)Comment: Testing | 10 - 65 U/L | EXTERNAL | | | | performed at [facility], [address] | | LAB | | | | [address], | | | | | | [place] [address] | | | | + + + + + + | Estimated | >60Comment: GFR <60: | mL/min/1.73m2 | EXTERNAL | | | GFR | CHRONIC KIDNEY DISEASE, | | LAB | | | | IF FOUND OVER A 3 MONTH | | | | | | PERIOD.GFR <15: KIDNEY | | | | | | FAILURE.FOR | | | | | | AMERICANS, MULTIPLY THE | | | | | | CALCULATED GFR BY | | | | | | 1.210.Testing performed | | | | | | at [facility], [address] | | | | | | [address], | | | | | | [place] [address] | | | | + + + + + + + + | Specimen | + + | Blood specimen | | (specimen) | + + + +---------+ + + | Performing | Address | City/State/Zipcode | Phone Number | | Organization | | | | + +---------+ + + | EXTERNAL LAB | | | | + +---------+ + + ECG 12 lead (10/24/2014 4:31 PM PST) + + + + + + | Component | Value | Ref Range | Performed | Pathologist | | | | | At | Signature | + + + + + + | DIAGNOSIS: | Normal sinus rhythmT | | EXTERNAL | | | | wave abnormality, | | LAB | | | | consider inferior | | | | | | ischemiaAbnormal ECGWhen | | | | | | compared with ECG of | | | | | | 23-OCT-2014 14:11,Sinus | | | | | | rhythm has replaced | | | | | | Atrial | | | | | | fibrillationConfirmed by | | | | | | ARLEY MARTINI ([id number]) on | | | | | | 10/24/2014 5:05:15 PM | | | | + + + + + + + + | Specimen | + + | | + + + + + | Narrative | Performed At | + + + | Historically converted procedure from [facility] environment | EXTERNAL LAB | + + + + +---------+ + + | Performing | Address | City/State/Zipcode | Phone Number | | Organization | | | | + +---------+ + + | EXTERNAL LAB | | | | + +---------+ + + ECHO Transesophageal (MANOHAR) (10/24/2014 12:11 PM PST) + + | Specimen | + + | | + + + + + | Impressions | Performed At | + + + | 1. Successful electrical cardioversion was done for atrial | | | fibrillation. 2. Overall left ventricular systolic function is normal | | | with, an EF between 60 - 65 %. 3. No LA/ JOSEPH thrombus. 4. The right | | | ventricular systolic pressure, as measured by Doppler, is 36.85mmHg. | | + + + + + + | Narrative | Performed At | + + + | Patient Name: ADRIA GLORIA Date of : 1955 | | | Performing Physician: Matthew Zabala MD | | | | | | INDICATIONS A-Fib / Cardioversion CONCLUSIONS | | | 1. Successful electrical cardioversion was done for | | | atrial fibrillation. 2. Overall left ventricular systolic function is | | | normal with, an EF between 60 - 65 %. 3. No LA/ JOSEPH thrombus. 4. | | | The right ventricular systolic pressure, as measured by Doppler, is | | | 36.85mmHg. FINDINGS -------- Procedure: Transesophageal | | | echocardiogram with spectral and color flow Doppler was performed. MANOHAR | | | was done at the bedside Procedure: in the fasting state. Informed | | | consent was obtained after benefits and risks of the procedure were | | | discussed with the patient including but not limited to the potential | | | for esophageal puncture and . The oropharynx was anesthetized | | | with 1% Hurricane spray. After conscious sedation, the | | | transesophageal probe was advanced and placed in the esophagus and | | | multiple projections of the cardiovascular structures were acquired | | | and recorded. This was followed by advancement of the probe into | | | the stomach for transgastric imaging. Finally, interrogation of the | | | descending aorta and arch was performed. The probe was removed. | | | The patient tolerated the procedure well. There were no immediate | | | complications. 2 D, pulsed and continuous wave form and color | | | images were interpreted in real time. Procedure: Successful | | | electrical cardioversion was done for atrial fibrillation. | | | Medications: 5 mg of Versed and Medications: 100 mcg of Fentanyl was | | | given intraveonously for conscious sedation. Study quality: This was | | | a technically adequate study. Left Ventricle: The left ventricle size | | | is normal. Left Ventricle: Left Ventricle: Overall left ventricular | | | systolic function is normal with, an EF between 60 - 65 %. Left | | | Atrium: Mild spontaneous echo contrast in the left atrial appendage. | | | Left Atrium: No LA/ JOSEPH thrombus. Right Ventricle: The right | | | ventricle is normal in size measuring < 33 mm. Right Atrium: The | | | right atrial size is normal. Interatrial Septum: No shunt seen with | | | color Doppler. Interatrial Septum: No shunt seen with bubble study. | | | Aortic Valve: Aortic valve is trileaflet and is mildly thickened. | | | Aortic Valve: There is no evidence of aortic regurgitation. Aortic | | | Valve: There is no evidence of aortic stenosis. Mitral Valve: The | | | mitral valve is normal. Mitral Valve: Mild mitral regurgitation is | | | present. Tricuspid Valve: The tricuspid valve appears structurally | | | normal. Tricuspid Valve: Mild tricuspid regurgitation present. | | | Tricuspid Valve: The right ventricular systolic pressure, as measured | | | by Doppler, is 36.85mmHg. Pulmonic Valve: The pulmonic valve is | | | normal. Pulmonic Valve: Trace pulmonic regurgitation. Aorta: | | | Ascending aorta, aortic arch and descending thoracic aorta are of | | | normal caliber with no significant atherosclerotic disease. Pulmonary | | | Veins: All pulmonary veins appear normal. Pericardium: There is no | | | pericardial effusion. MEASUREMENTS LVEF MOD A2C: | | | 54.60 % SV MOD A2C: 52.39 ml LVEF MOD A4C: 69.01 % SV MOD | | | A4C: 55.44 ml EF Biplane: 63.21 % LVEDV MOD BP: 88.54 ml | | | LVESV MOD BP: 32.57 ml LVEDV MOD A2C: 95.94 ml LVLd A2C: | | | 8.35 cm LVEDV MOD A4C: 80.33 ml LVLd A4C: 8.66 cm LVESV MOD | | | A2C: 43.55 ml LVLs A2C: 6.59 cm LVESV MOD A4C: 24.89 ml | | | LVLs A4C: 6.68 cm RAP: 5 mmHg RVSP: 36.85 mmHg TR maxPG: | | | 31.85 mmHg TR Vmax: 2.82 m/s Gas Engineer: BEBETO Authenticated | | | by: Matthew Zabala MD Report Date/Time: 10-24-2014 14:27:54 | | + + + + + | Procedure Note | + + | Brent, Rad Conversion - 04/18/2019 7:41 AM PDT Patient Name: Pablo GLORIA | | : 1955 Performing Physician: Matthew Zabala | | MD INDICATIONS A | | -Fib / Cardioversion CONCLUSIONS 1. Successful electrical cardioversion was | | done for atrial fibrillation.2. Overall left ventricular systolic function is normal | | with, an EF between 60 - 65 %.3. No LA/ JOSEPH thrombus.4. The right ventricular systolic | | pressure, as measured by Doppler, is 36.85mmHg. FINDINGS--------Procedure: | | Transesophageal echocardiogram with spectral and color flow Doppler was performed. MANOHAR | | was done at the bedsideProcedure: in the fasting state. Informed consent was obtained | | after benefits and risks of the procedure were discussed with the patient including but | | not limited to the potential for esophageal puncture and . The oropharynx was | | anesthetized with 1% Hurricane spray. After conscious sedation, the transesophageal | | probe was advanced and placed in the esophagus and multiple projections of the | | cardiovascular structures were acquired and recorded. This was followed by advancement | | of the probe into the stomach for transgastric imaging. Finally, interrogation of the | | descending aorta and arch was performed. The probe was removed. The patient tolerated | | the procedure well. There were no immediate complications. 2 D, pulsed and | | continuous wave form and color images were interpreted in real time.Procedure: | | Successful electrical cardioversion was done for atrial fibrillation.Medications: 5 mg | | of Versed andMedications: 100 mcg of Fentanyl was given intraveonously for conscious | | sedation.Study quality: This was a technically adequate study.Left Ventricle: The left | | ventricle size is normal.Left Ventricle:Left Ventricle: Overall left ventricular | | systolic function is normal with, an EF between 60 - 65 %.Left Atrium: Mild spontaneous | | echo contrast in the left atrial appendage.Left Atrium: No LA/ JOSEPH thrombus.Right | | Ventricle: The right ventricle is normal in size measuring < 33 mm.Right Atrium: The | | right atrial size is normal.Interatrial Septum: No shunt seen with color | | Doppler.Interatrial Septum: No shunt seen with bubble study.Aortic Valve: Aortic valve | | is trileaflet and is mildly thickened.Aortic Valve: There is no evidence of aortic | | regurgitation.Aortic Valve: There is no evidence of aortic stenosis.Mitral Valve: The | | mitral valve is normal.Mitral Valve: Mild mitral regurgitation is present.Tricuspid | | Valve: The tricuspid valve appears structurally normal.Tricuspid Valve: Mild tricuspid | | regurgitation present.Tricuspid Valve: The right ventricular systolic pressure, as | | measured by Doppler, is 36.85mmHg.Pulmonic Valve: The pulmonic valve is normal.Pulmonic | | Valve: Trace pulmonic regurgitation.Aorta: Ascending aorta, aortic arch and descending | | thoracic aorta are of normal caliber with no significant atherosclerotic | | disease.Pulmonary Veins: All pulmonary veins appear normal.Pericardium: There is no | | pericardial effusion. MEASUREMENTS LVEF MOD A2C: 54.60 %SV MOD A2C: | | 52.39 mlLVEF MOD A4C: 69.01 %SV MOD A4C: 55.44 mlEF Biplane: 63.21 %LVEDV MOD BP: | | 88.54 mlLVESV MOD BP: 32.57 mlLVEDV MOD A2C: 95.94 mlLVLd A2C: 8.35 cmLVEDV MOD | | A4C: 80.33 mlLVLd A4C: 8.66 cmLVESV MOD A2C: 43.55 mlLVLs A2C: 6.59 cmLVESV MOD | | A4C: 24.89 mlLVLs A4C: 6.68 cmRAP: 5 mmHgRVSP: 36.85 mmHgTR maxP.85 | | mmHgTR Vmax: 2.82 m/s Gas Engineer: GDAuthenticated by: Matthew Holman | | Date/Time: 10-24-2014 14:27:54 IMPRESSION: 1. Successful electrical cardioversion was | | done for atrial fibrillation.2. Overall left ventricular systolic function is normal | | with, an EF between 60 - 65 %.3. No LA/ JOSEPH thrombus.4. The right ventricular systolic | | pressure, as measured by Doppler, is 36.85mmHg. | |Mitral Valve: Mild mitral regurgitation is present. | |Tricuspid Valve: The tricuspid valve appears structurally normal. | |Tricuspid Valve: Mild tricuspid regurgitation present. | |Tricuspid Valve: The right ventricular systolic pressure, as measured by Doppler, is 36.85m mHg. | |Pulmonic Valve: The pulmonic valve is normal. | |Pulmonic Valve: Trace pulmonic regurgitation. | |Aorta: Ascending aorta, aortic arch and descending thoracic aorta are of normal caliber wit h no significant atherosclerotic disease. | |Pulmonary Veins: All pulmonary veins appear normal. | |Pericardium: There is no pericardial effusion. | | | |MEASUREMENTS | | | |LVEF MOD A2C: 54.60 % | |SV MOD A2C: 52.39 ml | |LVEF MOD A4C: 69.01 % | |SV MOD A4C: 55.44 ml | |EF Biplane: 63.21 % | |LVEDV MOD BP: 88.54 ml | |LVESV MOD BP: 32.57 ml | |LVEDV MOD A2C: 95.94 ml | |LVLd A2C: 8.35 cm | |LVEDV MOD A4C: 80.33 ml | |LVLd A4C: 8.66 cm | |LVESV MOD A2C: 43.55 ml | |LVLs A2C: 6.59 cm | |LVESV MOD A4C: 24.89 ml | |LVLs A4C: 6.68 cm | |RAP: 5 mmHg | |RVSP: 36.85 mmHg | |TR maxP.85 mmHg | |TR Vmax: 2.82 m/s | | | |Gas Engineer: BEBETO | |Authenticated by: Matthew Zabala MD | |Report Date/Time: 10-24-2014 14:27:54 | | | |IMPRESSION: | |1. Successful electrical cardioversion was done for atrial fibrillation. | |2. Overall left ventricular systolic function is normal with, an EF between 60 - 65 %. | |3. No LA/ JOSEPH thrombus. | |4. The right ventricular systolic pressure, as measured by Doppler, is 36.85mmHg. | + + PTT (10/24/2014 4:14 AM PST) + + + + + + | Component | Value | Ref Range | Performed | Pathologist | | | | | At | Signature | + + + + + + | aPTT, | 22 (L)Comment: Testing | 23 - 32 seconds | EXTERNAL | | | Patient | performed at [facility] | | LAB | | | | [address];[place] | | | | | | [address] | | | | + + + + + + + + | Specimen | + + | Blood specimen | | (specimen) | + + + +---------+ + + | Performing | Address | City/State/Zipcode | Phone Number | | Organization | | | | + +---------+ + + | EXTERNAL LAB | | | | + +---------+ + + Protime INR (10/24/2014 4:14 AM PST) + + + + + + | Component | Value | Ref Range | Performed | Pathologist | | | | | At | Signature | + + + + + + | INR | 1.1Comment: REFERENCE | | EXTERNAL | | | | RANGE:0.9 - 1.2 | | LAB | | | | NON-ANTICOAGULATED2.0 | | | | | | - 3.0 ALL OTHER | | | | | | THERAPEUTIC | | | | | | INDICATIONS2.5 - 3.5 | | | | | | MECHANICAL HEART VALVES, | | | | | | RECURRENT OR SYSTEMIC | | | | | | EMBOLISMTesting | | | | | | performed at [facility];[address] | | | | | | [address];[place], [place] | | | | | | [address] | | | | + + + + + + + + | Specimen | + + | Blood specimen | | (specimen) | + + + +---------+ + + | Performing | Address | City/State/Zipcode | Phone Number | | Organization | | | | + +---------+ + + | EXTERNAL LAB | | | | + +---------+ + + External Lab: CBC (10/24/2014 4:14 AM PST) + + + + + + | Component | Value | Ref Range | Performed | Pathologist | | | | | At | Signature | + + + + + + | WBC | 15.3 (H)Comment: Testing | 3.8 - 11.0 K/uL | EXTERNAL | | | | performed at [facility], [address] | | LAB | | | | [address], | | | | | | [place] [address] | | | | + + + + + + | Red Blood | 4.43Comment: Testing | 4.20 - 5.70 | EXTERNAL | | | Cells | performed at [facility], [address] | M/uL | LAB | | | Counted | [address], | | | | | | [place] [address] | | | | + + + + + + | Hemoglobin | 14.4Comment: Testing | 13.2 - 17.0 | EXTERNAL | | | | performed at [facility], [address] | g/dL | LAB | | | | [address], | | | | | | [place] [address] | | | | + + + + + + | Hematocrit, | 42.4Comment: Testing | 39.0 - 50.0 % | EXTERNAL | | | POC | performed at [facility], [address] | | LAB | | | | [address], | | | | | | [place] [address] | | | | + + + + + + | MCV | 95.9Comment: Testing | 80.0 - 100.0 fl | EXTERNAL | | | | performed at [facility], [address] | | LAB | | | | [address], | | | | | | [place] [address] | | | | + + + + + + | MCH | 32.6Comment: Testing | 27.0 - 34.0 pg | EXTERNAL | | | | performed at [facility], [address] | | LAB | | | | [address], | | | | | | [place] [address] | | | | + + + + + + | MCHC | 34.0Comment: Testing | 32.0 - 35.5 | EXTERNAL | | | | performed at [facility], [address] | g/dL | LAB | | | | [address], | | | | | | [place] [address] | | | | + + + + + + | RDW-CV | 43.3Comment: Testing | 37 - 53 fl | EXTERNAL | | | | performed at [facility], [address] | | LAB | | | | [address], | | | | | | [place] [address] | | | | + + + + + + | Platelet | 219Comment: Testing | 150 - 400 K/uL | EXTERNAL | | | Count | performed at [facility], [address] | | LAB | | | Plasma | [address], | | | | | | [place] [address] | | | | + + + + + + | MPV | 8.6Comment: Testing | fl | EXTERNAL | | | | performed at [facility], [address] | | LAB | | | | [address], | | | | | | [place] [address] | | | | + + + + + + | Differentia | AUTOMATEDComment: | | EXTERNAL | | | l Type | Testing performed at | | LAB | | | | [facility], [address] | | | | | | [place] | | | | | | [address] | | | | + + + + + + | % Segmented | 83.8Comment: Testing | % | EXTERNAL | | | | performed at [facility], [address] | | LAB | | | Neutrophils | [address], | | | | | | [place] [address] | | | | + + + + + + | % | 8.6Comment: Testing | % | EXTERNAL | | | Lymphocytes | performed at [facility], [address] | | LAB | | | | [address], | | | | | | [place] [address] | | | | + + + + + + | % Monocytes | 7.0Comment: Testing | % | EXTERNAL | | | | performed at [facility], [address] | | LAB | | | | [address], | | | | | | [place], [place] [address] | | | | + + + + + + | % | 0.4Comment: Testing | % | EXTERNAL | | | Eosinophils | performed at [facility], [address] | | LAB | | | | [address], | | | | | | [place] [address] | | | | + + + + + + | % Basophils | 0.2Comment: Testing | % | EXTERNAL | | | | performed at [facility], [address] | | LAB | | | | [address], | | | | | | [place] [address] | | | | + + + + + + | Absolute | 12.9 (H)Comment: Testing | 1.9 - 7.4 K/uL | EXTERNAL | | | Segmented | performed at [facility], [address] | | LAB | | | Neutrophils | [address], | | | | | | [place] [address] | | | | + + + + + + | Absolute | 1.3Comment: Testing | 1.0 - 3.9 K/uL | EXTERNAL | | | Lymphocytes | performed at [facility], [address] | | LAB | | | | [address], | | | | | | [place] [address] | | | | + + + + + + | Absolute | 1.1 (H)Comment: Testing | 0 - 0.8 K/uL | EXTERNAL | | | Monocytes | performed at [facility], [address] | | LAB | | | | [address], | | | | | | [place] [address] | | | | + + + + + + | Absolute | 0.1Comment: Testing | 0 - 0.5 K/uL | EXTERNAL | | | Eosinophils | performed at [facility], [address] | | LAB | | | | [address], | | | | | | [place] [address] | | | | + + + + + + | Absolute | 0.0Comment: Testing | 0 - 0.1 K/uL | EXTERNAL | | | Basophils | performed at [facility], [address] | | LAB | | | | [address], | | | | | | [place] [address] | | | | + + + + + + + + | Specimen | + + | Blood specimen | | (specimen) | + + + +---------+ + + | Performing | Address | City/State/Zipcode | Phone Number | | Organization | | | | + +---------+ + + | EXTERNAL LAB | | | | + +---------+ + + TSH (10/24/2014 4:14 AM PST) + + + + + + | Component | Value | Ref Range | Performed | Pathologist | | | | | At | Signature | + + + + + + | TSH | 0.68Comment: Testing | 0.45 - 5.10 | EXTERNAL | | | | performed at [facility], [address] | uIU/mL | LAB | | | | [address], | | | | | | [place] [address] | | | | + + + + + + + + | Specimen | + + | Blood specimen | | (specimen) | + + + +---------+ + + | Performing | Address | City/State/Zipcode | Phone Number | | Organization | | | | + +---------+ + + | EXTERNAL LAB | | | | + +---------+ + + Phosphorus (10/24/2014 4:14 AM PST) + + + + + + | Component | Value | Ref Range | Performed | Pathologist | | | | | At | Signature | + + + + + + | PHOSPHORUS | 3.7Comment: Testing | 2.3 - 4.8 mg/dL | EXTERNAL | | | | performed at [facility], [address] | | LAB | | | | [address], | | | | | | [place] [address] | | | | + + + + + + + + | Specimen | + + | Blood specimen | | (specimen) | + + + +---------+ + + | Performing | Address | City/State/Zipcode | Phone Number | | Organization | | | | + +---------+ + + | EXTERNAL LAB | | | | + +---------+ + + Magnesium (10/24/2014 4:14 AM PST) + + + + + + | Component | Value | Ref Range | Performed | Pathologist | | | | | At | Signature | + + + + + + | Magnesium | 2.2Comment: Testing | 1.7 - 2.4 mg/dL | EXTERNAL | | | | performed at [facility], [address] | | LAB | | | | [address], | | | | | | [place] [address] | | | | + + + + + + + + | Specimen | + + | Blood specimen | | (specimen) | + + + +---------+ + + | Performing | Address | City/State/Zipcode | Phone Number | | Organization | | | | + +---------+ + + | EXTERNAL LAB | | | | + +---------+ + + Hemoglobin A1C (10/24/2014 4:14 AM PST) + + + + + + | Component | Value | Ref Range | Performed | Pathologist | | | | | At | Signature | + + + + + + | Hemoglobin | 5.6Comment: The [place] | 4.0 - 6.0 % | EXTERNAL | | | A1c | Diabetes Association | | LAB | | | | considers a hemoglobin | | | | | | A1c result of <7.0% to | | | | | | be the goal of diabetic | | | | | | therapy. When results | | | | | | are consistently >8.0%, | | | | | | the ADA suggests | | | | | | reevaluation of the | | | | | | treatment regimen. The | | | | | | testing method used is | | | | | | certified traceable to | | | | | | the Diabetes Control and | | | | | | Complications Trial | | | | | | reference method.Testing | | | | | | performed at [facility], [address] | | | | | [address] [facility], | | | | | | [place] [address] | | | | + + + + + + | Glycohemogl | 114Comment: The ADA | mg/dL | EXTERNAL | | | obin | considers an eAG result | | LAB | | | (GHb),Total | of LT 154 mg/dL to be | | | | | | the goal of diabetic | | | | | | therapy. Estimated | | | | | | Average Glucose | | | | | | calculated from | | | | | | hemoglobin A1c by use of | | | | | | the ADA recommended | | | | | | formula.Testing | | | | | | performed at [facility], [address] | | | | | | [address] [facility], | | | | | | [place] [address] | | | | + + + + + + + + | Specimen | + + | Blood specimen | | (specimen) | + + + +---------+ + + | Performing | Address | City/State/Zipcode | Phone Number | | Organization | | | | + +---------+ + + | EXTERNAL LAB | | | | + +---------+ + + Lipid Panel (10/24/2014 4:14 AM PST) + + + + + + | Component | Value | Ref Range | Performed | Pathologist | | | | | At | Signature | + + + + + + | Cholesterol | 165Comment: Testing | mg/dL | EXTERNAL | | | | performed at [facility], [address] | | LAB | | | | [address], | | | | | | [place] [address] | | | | + + + + + + | Triglycerid | 127Comment: Testing | mg/dL | EXTERNAL | | | es | performed at [facility], [address] | | LAB | | | | [address], | | | | | | [place] [address] | | | | + + + + + + | HDL | 36 (L)Comment: Testing | mg/dL | EXTERNAL | | | | performed at [facility], [address] | | LAB | | | | [address], | | | | | | [place] [address] | | | | + + + + + + | LDL, | 104 (H)Comment: Testing | mg/dL | EXTERNAL | | | Calculated | performed at [facility], [address] | | LAB | | | | [address], | | | | | | [place] [address] | | | | + + + + + + + + | Specimen | + + | | + + + +---------+ + + | Performing | Address | City/State/Zipcode | Phone Number | | Organization | | | | + +---------+ + + | EXTERNAL LAB | | | | + +---------+ + + Comprehensive Metabolic Panel (10/24/2014 4:14 AM PST) + + + + + + | Component | Value | Ref Range | Performed | Pathologist | | | | | At | Signature | + + + + + + | Na | 136Comment: Testing | 135 - 143 | EXTERNAL | | | | performed at [facility], [address] | mmol/L | LAB | | | | [address], | | | | | | [place] [address] | | | | + + + + + + | K | 4.5Comment: Testing | 3.5 - 4.9 | EXTERNAL | | | | performed at [facility], [address] | mmol/L | LAB | | | | [address], | | | | | | [place] [address] | | | | + + + + + + | Cl | 103Comment: Testing | 99 - 109 mmol/L | EXTERNAL | | | | performed at [facility], [address] | | LAB | | | | [address], | | | | | | [place] [address] | | | | + + + + + + | CO2 | 25Comment: Testing | 23 - 32 mmol/L | EXTERNAL | | | | performed at [facility], [address] | | LAB | | | | [address], | | | | | | [place] [address] | | | | + + + + + + | Anion Gap | 13Comment: Testing | 5 - 20 mmol/L | EXTERNAL | | | | performed at [facility], [address] | | LAB | | | | [address], | | | | | | [place] [address] | | | | + + + + + + | Glucose, | 121 (H)Comment: Testing | 65 - 99 mg/dL | EXTERNAL | | | Fasting | performed at [facility], [address] | | LAB | | | | [address], | | | | | | [place] [address] | | | | + + + + + + | BUN | 24Comment: Testing | 8 - 25 mg/dL | EXTERNAL | | | | performed at [facility], [address] | | LAB | | | | [address], | | | | | | [place] [address] | | | | + + + + + + | Creatinine | 0.80Comment: Testing | 0.70 - 1.30 | EXTERNAL | | | | performed at [facility], [address] | mg/dL | LAB | | | | [address], | | | | | | [place] [address] | | | | + + + + + + | BUN/Creatin | 30Comment: Testing | | EXTERNAL | | | ine Ratio | performed at [facility], [address] | | LAB | | | | [address], | | | | | | [place] [address] | | | | + + + + + + | Calcium | 9.6Comment: Testing | 8.5 - 10.5 | EXTERNAL | | | | performed at [facility], [address] | mg/dL | LAB | | | | [address], | | | | | | [place] [address] | | | | + + + + + + | Protein, | 6.8Comment: Testing | 6.3 - 8.2 g/dL | EXTERNAL | | | Total | performed at [facility], [address] | | LAB | | | | [address], | | | | | | [place] [address] | | | | + + + + + + | Albumin | 4.0Comment: Testing | 3.6 - 5.0 g/dL | EXTERNAL | | | | performed at [facility], [address] | | LAB | | | | [address], | | | | | | [place] [address] | | | | + + + + + + | Globulin | 2.8Comment: Testing | 1.3 - 4.9 g/dL | EXTERNAL | | | | performed at [facility], [address] | | LAB | | | [address], | | | | | | [place] [address] | | | | + + + + + + | A/G Ratio | 1.4Comment: Testing | 1.0 - 2.4 | EXTERNAL | | | | performed at [facility], [address] | | LAB | | | | [address], | | | | | | [place] [address] | | | | + + + + + + | Bilirubin | 0.3Comment: Testing | 0.1 - 1.5 mg/dL | EXTERNAL | | | Total | performed at [facility], [address] | | LAB | | | | [address], | | | | | | [place] [address] | | | | + + + + + + | ALP, | 52Comment: Testing | 35 - 115 U/L | EXTERNAL | | | External | performed at [facility], [address] | | LAB | | | | [address], | | | | | | [place] [address] | | | | + + + + + + | AST | 27Comment: Testing | 10 - 45 U/L | EXTERNAL | | | | performed at [facility], [address] | | LAB | | | | [address], | | | | | | [place] [address] | | | | + + + + + + | ALT | 33Comment: Testing | 10 - 65 U/L | EXTERNAL | | | | performed at [facility], [address] | | LAB | | | | [address], | | | | | | [place] [address] | | | | + + + + + + | Estimated | >60Comment: GFR <60: | mL/min/1.73m2 | EXTERNAL | | | GFR | CHRONIC KIDNEY DISEASE, | | LAB | | | | IF FOUND OVER A 3 MONTH | | | | | | PERIOD.GFR <15: KIDNEY | | | | | | FAILURE.FOR | | | | | | AMERICANS, MULTIPLY THE | | | | | | CALCULATED GFR BY | | | | | | 1.210.Testing performed | | | | | | at [facility], [address] | | | | | | [address], | | | | | | [place] [address] | | | | + + + + + + + + | Specimen | + + | Blood specimen | | (specimen) | + + + +---------+ + + | Performing | Address | City/State/Zipcode | Phone Number | | Organization | | | | + +---------+ + + | EXTERNAL LAB | | | | + +---------+ + + Troponin I (10/24/2014 12:29 AM PST) + + + + + + | Component | Value | Ref Range | Performed | Pathologist | | | | | At | Signature | + + + + + + | Troponin I, | <0.020Comment: 0.00 to | 0.00 - 0.10 | EXTERNAL | | | Qual | 0.10 CONSISTENT WITH | ng/mL | LAB | | | | NORMAL POPULATION0.11 | | | | | | to 0.60 CONSISTENT | | | | | | WITH INCREASED RISK FOR | | | | | | ADVERSE OUTCOMES> 0.60 | | | | | | CONSISTENT | | | | | | WITH WHO CRITERIA FOR | | | | | | ACUTE OR Testing | | | | | | performed at [facility];[address] | | | | | | [address];[place], [place] | | | | | | [address] | | | | + + + + + + + + | Specimen | + + | Blood specimen | | (specimen) | + + + +---------+ + + | Performing | Address | City/State/Zipcode | Phone Number | | Organization | | | | + +---------+ + + | EXTERNAL LAB | | | | + +---------+ + + Troponin I (10/23/2014 6:18 PM PST) + + + + + + | Component | Value | Ref Range | Performed | Pathologist | | | | | At | Signature | + + + + + + | Troponin I, | <0.020Comment: 0.00 to | 0.00 - 0.10 | EXTERNAL | | | Qual | 0.10 CONSISTENT WITH | ng/mL | LAB | | | | NORMAL POPULATION0.11 | | | | | | to 0.60 CONSISTENT | | | | | | WITH INCREASED RISK FOR | | | | | | ADVERSE OUTCOMES> 0.60 | | | | | | CONSISTENT | | | | | | WITH WHO CRITERIA FOR | | | | | | ACUTE OR Testing | | | | | | performed at [facility];[address] | [address] | [address];[place], [place] | | | | | | [id number] | | | | + + + + + + + + | Specimen | + + | Blood specimen | | (specimen) | + + + +---------+ + + | Performing | Address | City/State/Zipcode | Phone Number | | Organization | | | | + +---------+ + + | EXTERNAL LAB | | | | + +---------+ + + Troponin I (10/23/2014 2:43 PM PST) + + + + + + | Component | Value | Ref Range | Performed | Pathologist | | | | | At | Signature | + + + + + + | Troponin I, | <0.020Comment: 0.00 to | 0.00 - 0.10 | EXTERNAL | | | Qual | 0.10 CONSISTENT WITH | ng/mL | LAB | | | | NORMAL POPULATION0.11 | | | | | | to 0.60 CONSISTENT | | | | | | WITH INCREASED RISK FOR | | | | | | ADVERSE OUTCOMES> 0.60 | | | | | | CONSISTENT | | | | | | WITH WHO CRITERIA FOR | | | | | | ACUTE OR Testing | | | | | | performed at [facility];[address] | | | [facility];[place], [place] | | | | | | [address] | | | | + + + + + + + + | Specimen | + + | Blood specimen | | (specimen) | + + + +---------+ + + | Performing | Address | City/State/Zipcode | Phone Number | | Organization | | | | + +---------+ + + | EXTERNAL LAB | | | | + +---------+ + + XR Chest 1 Vw (10/23/2014 2:16 PM PST) + + | Specimen | + + | | + + + + + | Impressions | Performed At | + + + | 1. No acute cardiopulmonary process. | | + + + + + + | Narrative | Performed At | + + + | [facility] 1955 58 years XR CHEST 1 VIEW 10/23/2014 2:16 PM | | | INDICATION: Shortness of breath COMPARISON: None TECHNIQUE: | | | Chest 1 view, AP view of the chest FINDINGS: The | | | cardiomediastinal contours are normal. There is no pneumothorax or | | | effusion. The lungs are clear without focal consolidation. There is | | | mild bilateral acromioclavicular osteoarthritis. | | + + + + + | Procedure Note | + + | Kenan Kennedy Conversion - 04/18/2019 7:41 AM KAL GLORIA/[id number] yearsXR CHEST 1 | | VIEW10/23/2014 2:16 PM INDICATION: Shortness of breath COMPARISON: None TECHNIQUE: Chest | | 1 view, AP view of the chest FINDINGS: The cardiomediastinal contours are normal. | | There is no pneumothorax or effusion. The lungs are clear without focal consolidation. | | There is mild bilateral acromioclavicular osteoarthritis. IMPRESSION: 1. No acute | | cardiopulmonary process. | | PM | | | |COMPARISON: None | | | |TECHNIQUE: Chest 1 view, AP view of the chest | | | |FINDINGS: The cardiomediastinal contours are normal. There is no pneumothorax or effusion . The lungs are clear without focal consolidation. 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 | | | |IMPRESSION: | |1. No acute cardiopulmonary process. | | | | | + + ECG 12 lead (10/23/2014 2:11 PM PST) + + + + + + | Component | Value | Ref Range | Performed | Pathologist | | | | | At | Signature | + + + + + + | DIAGNOSIS: | Atrial | | EXTERNAL | | | | fibrillationNonspecific | | LAB | | | | T wave | | | | | | abnormalityAbnormal | | | | | | ECGNo previous ECGs | | | | | | availableThis ECG | | | | | | contains Unconfirmed | | | | | | Interpretation | | | | | | Statements. See ED | | | | | | Record for Physician | | | | | | Interpretation. | | | | | | Confirmed by MUSE READ | | | | | | ONLY, -COMPUTER ([id number]), | | | | | | editor house organ YUVAL CARRERA (2) | | | | | | on 10/23/2014 2:34:16 PM | | | | | | | | | | + + + + + + + + | Specimen | + + | | + + + + + | Narrative | Performed At | + + + | [facility] | EXTERNAL LAB | + + + + +---------+ + + | Performing | Address | City/State/Zipcode | Phone Number | | Organization | | | | + +---------+ + + | EXTERNAL LAB | | | | + +---------+ + + XR Chest 1 Vw (10/22/2014 11:01 PM PST) + + | Specimen | + + | | + + + + + | Narrative | Performed At | + + + | This is a non-reportable procedure without a radiologist report and | | | is used for image storage only | | + + + + + | Procedure Note | + + | Kenan Kennedy - 04/18/2019 7:41 AM PDT This is a non-reportable procedure | | without a radiologist report and isused for image storage only | + + XR Chest 2 Vws (11/28/2011 11:02 PM PDT) + + | Specimen | + + | | + + + + + | Narrative | Performed At | + + + | This is a non-reportable procedure without a radiologist report and | | | is used for image storage only | | + + + + + | Procedure Note | + + | Kenan Kennedy - 04/18/2019 7:41 AM PDT This is a non-reportable procedure | | without a radiologist report and isused for image storage only | + + documented in this encounter Visit Diagnoses + + | Diagnosis | + + | Atrial fibrillation with rapid ventricular response (HCC) Atrial fibrillation | + + | Dyspnea Other dyspnea and respiratory abnormality | + + documented in this encounter
--- OUTSIDE RECORDS SUMMARY | ~2020-01-09 | XMS | Encounter Summary ---
Demographics + + + | Address | [address] | | | [place] [address] | + + + | Home Phone | | + + + | Preferred Language | Unknown | + + + | Marital Status | Single | + + + | Uatsdin Affiliation | Unknown | + + + | Race | Unknown | + + + | Ethnic Group | Unknown | + + + Author + + + | Author | [facility] | | | and [place] | + + + | Organization | [facility] | | | and [place] | + + + | Address | Unknown | + + + | Phone | Unavailable | + + + Support + + + + + | Name | Relationship | Address | Phone | + + + + + | Dennise Hirsch | ECON | [address] | | | | | [place] | | | | | [phone] | | + + + + + Care Team Providers + +------+ + | Care Maturity Checker Name | Role | Phone | + +------+ + | Ashleigh Benavides | PCP | | | PA-Phillip | | | + +------+ + Reason for Visit + + + | Reason | Comments | + + + | Follow-up, Office | Cardioversion, ER follow up | | Visit | | + + + Encounter Details +--------+---------+ + + + | Date | Type | Department | Care Team | Description | +--------+---------+ + + + | 08/28/ | Office | [facility] | Jed Citlali | Paroxysmal atrial | | 2019 | Visit | [facility] | [address] | fibrillation (HCC) | | | | [address] | [address]EV[address] | (Primary Dx); Mixed | | | | [address] | [place] [address] | hyperlipidemia; | | | | [place], [place] | [phone] | Essential | | | | [address] | | hypertension; | | | | [phone] | | History of | | | | | | cardioversion; | | | | | | Chronic diastolic | | | | | | heart failure (HCC); | | | | | | Moderate to severe | | | | | | pulmonary | | | | | | hypertension (HCC); | | | | | | Chronic obstructive | | | | | | pulmonary disease, | | | | | | unspecified COPD | | | | | | type (HCC); Current | | | | | | every day smoker; On | | | | | | apixaban therapy; | | | | | | Chronic hepatitis C | | | | | | without hepatic coma | | | | | | (HCC); Obstructive | | | | | | sleep apnea syndrome | +--------+---------+ + + + Social History + +-------+ [...] | | | + +------+---+---+ + + | Tobacco Cessation: Ready to Quit: No; Counseling Given: Yes | + + + + +---------+ + | Alcohol Use [...] + + documented as of this encounter Last Filed Vital Signs + + + + + | Vital Sign | Reading | Time Taken | Comments | + + + + + | Blood Pressure | 140/74 | 08/28/2019 1:18 PM | | | | | PST | | + + + + + | Pulse | 83 | 08/28/2019 1:18 PM | | | | | PST | | + + + + + | Temperature | - | - | | + + + + + | Respiratory Rate | - | - | | + + + + + | Oxygen Saturation | 96% | 08/28/2019 1:18 PM | | | | | PST | | + + + + + | Inhaled Oxygen | - | - | | | Concentration | | | | + + + + + | Weight | 122 kg (269 lb) | 08/28/2019 1:18 PM | | | | | PST | | + + + + + | Height | 166.4 cm (5' 5.5") | 08/28/2019 1:18 PM | | | | | PST | | + + + + + | Body Mass Index | 44.08 | 08/28/2019 1:18 PM | | | | | PST | | + + + + + documented in this encounter Patient Instructions Patient Instructions Citlali Adkins FNP - 08/28/2019 1:30 PM PST I made changes to medications: take magnesium oxide 400 mg once a day , but can take twice a day if still having cramps. See a urologist, as I think having problems emptying your bladder Your beer and cigarettes are increasing your heart disease, keep working on quitting. How to Quit Smoking Smoking is one of the hardest habits to break. About half of allpeople who have ever smok ed have been able to quit. Most peoplewho still smoke want to quit. Here are some of the b est ways to stop smoking. Keep trying Most smokers make many attempts at quitting before they are successful. It s important no t to give up. Go cold turkey Mostformer smokers quit cold turkey (all at once). Trying to cut back gradually doesn't s eem to work as well, perhaps because it continues the smoking habit. Also, it is possible to inhale more while smoking fewer cigarettes. This results in the same amount of nicotine in your body. Get support Support programs can be a big help, especially for heavy smokers. These groups offer lectur es, ways to change behavior, and peer support. Here are some ways to find a support program: Free national quitline: 072-LIUU-LNJ (509-713-8704). [facility] quit-smoking programs. [place] [employer]: (181.365.6238). [place] [employer] (079-670-3505). Support at home is important too. Nonsmokers can offer praise and encouragement. If the smo ker in your life finds it hard to quit, encourage them to keep trying. Embl-mwr-sosdufn medicines Nicotine replacement therapymay make quittingeasier. Certain aids, such as the nicotine patch, gum, and lozenges, are available without a prescription. Itis best to use these un mariana a doctor s care, though. The skin patch provides a steady supply of nicotine. Nicotine gum and lozenges givetemporary bursts of low levels of nicotine. Both methods reduce the craving for cigarettes. Warning: If youhave nausea, vomiting, dizziness, weakness, or a fa st heartbeat, stop using these products and see your doctor. Prescription medicines After reviewingyour smoking patterns and past attempts to quit, your doctor may offer a p rescription medicine such as bupropion, varenicline, a nicotine inhaler, or nasal spray. Eac h has advantages and side effects. Your doctor can review these with you. Health benefits of quitting The benefits of quitting start right away and keep improving the longer you go without smok ing.These benefits occur at any age. So whether you are 17 or 70, quitting is a good dec ision. Some of the benefits include: 20 minutes: Blood pressure and pulse return to normal. 8 hours: Oxygen levels return to normal. 2 days: Ability to smell and taste begin to improve as damaged nerves regrow. 2 to 3 weeks: Circulation and lung function improve. 1 to 9 months: Coughing, congestion, and shortness of breath decrease; tiredness decreas es. 1 year: Risk of heart attack decreases by half. 5 years: Risk of lung cancer decreases by half; risk of stroke becomes the same as a non smoker s. For more on how to quit smoking, try these online resources: Inquirly.gov "Clearing the Air" booklet from the National [employer] [place]: Geofusionee.gov/sites/defau lt/files/pdf/cddlsotf-yhm-jaq-accessible.pdf Date Last Reviewed: 11/01/201619996424-7703 [facility]. [address] [place] [address]. All righ ts reserved. This information is not intended as a substitute for professional medical care. Always follow your healthcare professional's instructions. documented in this encounter Progress Notes Citlali Adkins FNP - 08/28/2019 1:30 PM PSTFormatting of this note might be differe nt from the original. Date of visit: 08/28/2019 Primary Care Physician: Ashleigh Benavides PA-C CHIEF COMPLAINT: Chief Complaint Patient presents with Follow-up, Office Visit Cardioversion, ER follow up HISTORY OF PRESENT ILLNESS: Boyd Andersen is a 63 year old man who is here today as overdue for follow up. 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 Caldera. Today, I reviewed all previous documentation available to me in electronic medical ayanna rds and from external sources. He has a history of paroxysmal atrial fib ,hypertension, hyperlipidemia , diastolic heart failure with preserved EF, severe pulmonary hypertension, sleep apnea not corrected by CPAP , current Smoker who also chews tobacco, COPD, and current hepatitis C infection. When seen by Dr. Stringer, she had ordered him a cardioversion, and started him on Eliquis 5 m g BID, and continued Metoprolol 100 mg daily , and lisinopril 10 mg daily , and ordered 21 m g nicotine patch and nicorette gum to help him quit smoking. He was cardioverted by Dr. Molina 02/11/2019, and was supposed to follow up one month af ter cardioversion, but did make appointment, and then was to be seen 07/10/[address] Stringer . His current and previous testing and procedures are detailed below He was seen in the emergency room, and admitted to the hospital at [facility] from [facility] 2018 with Sukhjinder redmond with RVR and notes reviewed. Echo performed at the time is detailed below, and fairly normal with normal EF but diasto lic dysfunction, and severe pulmonary hypertension His lab work is also detailed below and notable for mildly elevated liver enzymes and winifred rderline troponin elevation, and also known to have chronic hep C with detectable viral load , low magnesium , and acute on chronic diastolic heart failure. He was treated with IV Cardizem and started on increasing doses of metoprolol during h is 5 day hospitalization with total daily dose of 200 mg of oral metoprolol . His heart rate remained under control in 70 to 80 bpm range. He was also started on Eliquis 5 mg twice daily and was diuresed from 121.4 kg down to 1 05 kg and was discharged on furosemide twice daily and not requiring any potassium supplemen tation. He as also noted not to be compliant to CPAP with history of sleep apnea, and suggested f ind a mask he could tolerate. They also suggested a PCP referral to electric plater or infecti ous disease specialist for treatment of his hep C. He was discharged on Eliquis 5 mg twice daily, metoprolol succinate 200 mg nightly, furosemide 40 mg twice daily,and potassium 10 m Eq daily He reports today that he continues to drink 3-6 beers every night, continues to smoke a pac k a day and has been unsuccessful in quitting using nicotine replacement therapy, or Chantix in his past. He also chews tobacco. He also finds it difficult to quit as his also s mokes. He also consumes edible marijuana in [employer] about once a month, but denies any current [facility] of other recreational or illicit drugs. He reported he did not follow-up on getting a referral to treat his hepatitis C, as he was told he would need to stop smoking and drinking alcohol for treatment to be effective, and h e does not wish to do this. He reports he has intermittent palpitations and fast heart rates, but nothing like he exper ienced prior to being admitted in April. He reports mild pedal edema after he has been standing all day at work, and also has occasi onal orthostatic lightheadedness, but denies any ongoing dizziness, or any syncope. He repo rts he mainly notices central edema when fluid overloaded. He also denies any signs or symptoms of stroke or TIA, or any bleeding since he has been on Eliquis. He brought his medications to the clinic today and reports he only takes his furosemide w hen he works, but not on his days off and he works 5 days a week for 6 hours at [employer]. He complains that he urinate small amounts constantly after he takes his diuretic, and a lso has urgency. He drinks coffee all day long when he works at [employer]. REVIEW OF SYSTEMS: Negative except for pertinent items noted in HPI. Constitutional: Denies fatigue or unexplained weight loss. Appetite is good. Weight is la bile with fluid retention. Dry weight 231 lbs Denies night sweats fevers or chills HENT: Denies nosebleeds. Denies hearing problems. Denies dysphagia Eyes: Denies visual disturbance or double vision. Respiratory/Sleep::COPD. Sleep apnea , not on CPAP. VELASQUEZ. Frequent cough, sometime producti ve Denies hemoptysis or excessive sputum production. Denies orthopnea, reports PND. Cardiovascular: Intermittent palpitations, fast heart rates. Occasional mild pedal edema. Denies chest pain.Denies history of rheumatic fever. Denies claudication . Gastrointestinal: Hx Hep C unsuccessfully treated with interferon many years ago. Denies G ERD . Denies nausea, vomiting, abdominal pain and blood in stool. Genitourinary: Denies Hematuria.Urinary frequency and urgency,, some stress incontinence Musculoskeletal: Arthritis with arthralgias to feet . Denies myalgias, back pain Skin: Denies color change. Denies rash or lesions Neurological: Denies history of stroke/Transient ischemic attack.Denies history of seizures . Denies dizziness, syncope and numbness. Hematological/Oncology . Bruises easily. Denies bleeding Denies history of cancer Endocrine: Denies diabetes or thyroid disease. Denies excessive thirst or hunger. Psychiatric/Behavioral: denies any history of depression or anxiety or other psychiatric il lness. Vaccines: Current on flu vaccine 06/2019. Current on pneumonia vaccine. Habits/Social : Current smoker, started 1960, smokes 1 ppd . Chews tobacco EtOH use: 3-6 b eers per day. Drinks 8-10 servings of caffeine daily .Uses marijuana, previously abuses coca ine, methamphetamine . Denies current illicit drug use. . Lives in [place]. Works At [employer], 5 days per week for 6 hrs, : 4:30- 1300, uses marijuana Flowity once a month.. Outpatient Medications Prior to Visit Medication Sig Dispense Refill albuterol 90 mcg/puff inhaler Inhale 2 puffs into the lungs every 4 (four) hours as nee ded for Wheezing. apixaban (ELIQUIS) 5 mg tablet Take 1 tablet by mouth 2 (two) times daily. 60 tablet 5 cetirizine (ZYRTEC) 10 mg tablet Take 10 mg by mouth Daily. fluticasone-salmeterol (ADVAIR DISKUS) 250-50 mcg/puff diskus inhaler Inhale 1 puff int o the lungs 2 (two) times daily. furosemide (LASIX) 40 mg tablet Take 40 mg by mouth 2 times daily. Takes 5 days per wee k HYDROcodone-acetaminophen (NORCO) 5-325 mg per tablet Take 1 tablet by mouth every 6 (s ix) hours as needed for Pain. (Patient taking differently: Take 1 tablet by mouth 3 times da beba.) ibuprofen (ADVIL, MOTRIN) 200 mg tablet Take 200 mg by mouth every 6 (six) hours as nee ded for Pain. (Patient taking differently: Take 200 mg by mouth 3 times daily.) lisinopril (PRINIVIL, ZESTRIL) 10 mg tablet Take 10 mg by mouth daily. metoprolol succinate (TOPROL-XL) 100 mg ER tablet Take 1 tablet by mouth daily. (Patien t taking differently: Take 200 mg by mouth At Bedtime.) 30 tablet 5 metoprolol succinate (TOPROL-XL) 200 mg ER tablet Take 200 mg by mouth nightly. potassium chloride (KLOR-CON) 10 MEQ ER tablet Take 10 mEq by mouth 2 times daily. umeclidinium (INCRUSE ELLIPTA) 62.5 mcg/puff inhaler Inhale 1 puff into the lungs Daily . No facility-administered medications prior to visit. PHYSICAL EXAM: Wt Readings from Last 3 Encounters: 08/28/19 122 kg (269 lb) 01/16/19 110.5 kg (243 lb 11.2 oz) Temp Readings from Last 3 Encounters: No data found for Temp BP Readings from Last 3 Encounters: 08/28/19 140/74 01/16/19 140/60 Pulse Readings from Last 3 Encounters: 08/28/19 83 01/16/19 96 Vital signs: 11/10/2015: WT: 273 LB. BP: 128/68. Pulse 72 GENERAL: Well developed, well nourished, man in no distress. Appears approximately stated age.Florid complexion HEENT: Normocephalic, atraumatic. EYES: PERRL, EOM normal. MOUTH: Oral mucosae moist, dentition adequate, no lesions noted NECK: No JVD, lymphadenopathy, thyromegaly, bruits. Carotid pulses are 2+ bilaterally LUNGS/CHEST: Clear bilaterally, with no rales, rhonchi or wheezing noted, respirations unl abored HEART: Nondisplaced PMI, regular rate and rhythm, S1, S2 normal. No murmurs, rubs or gall ops noted. ABDOMEN: Soft, nontender, no organomegaly, masses or bruits. Bowel sounds are normal in a ll 4 quadrants. The abdominal aortic pulsation is not palpable. EXTREMITIES: No edema. Radial pulses 2+ bilaterally. Femoral pulses are 2+ bilaterally wi thout bruits. DP and PT pulses are 2+ bilaterally. No clubbing..varicosities to both ankle s SKIN: Warm and dry, capillary refill is normal, no lesions. NEUROLOGIC: Awake, alert and oriented x 3. No focal motor or sensory deficits. PSYCHIATRIC: Appropriate, affect appears normal DATA: Blood tests: Lab Results Component Value Date WBC 10.5 10/26/2014 RBC 4.74 10/26/2014 HGB 15.4 10/26/2014 Lab Results Component Value Date NA 136 10/26/2014 K 3.9 10/26/2014 CL 103 10/26/2014 CO2 30 10/26/2014 ANIONGAP 7 10/26/2014 GLUF 124 (H) 10/26/2014 BUN 18 10/26/2014 EGFR >60 10/26/2014 Lab Results Component Value Date CHOL 165 10/24/2014 TRIG 127 10/24/2014 GLUF 124 (H) 10/26/2014 Lab Results Component Value Date TSH 0.68 10/24/2014 No results found for: TOTEPI CARDIAC PROCEDURES/IMAGING Last Stress Test, 10/25/2014: Lexiscan, images benign, LVEF 44% Last cardioversion : 02/11/2019: Synchronized cardioversion 150 J of biphasic. Converted to sinus rhythm Cardioversion 10/26/2014 1 synchronized cardioversion with 120 J biphasic shock and converte d to sinus rhythm VASCULAR TESTING AND PROCEDURES ECHO Echo: 04/16/2019: [facility]: Atrial fibrillation. TDS. EF 55%, LV normal in size and wall thickn ess, no regional wall motion abnormalities. Mild RVE with mildly impaired systolic function . Both atria mildly enlarged. Aortic valve trileaflet, no AI, valve mildly calcified, no s tenosis. Mitral valve normal, no MR. Tricuspid valve normal, mild to moderate TR. Severe pulmonary hypertension, RVSP 61.66 mmHg. Trace VT. No pericardial effusion. IVC dilated c onsistent with CVP 15-20. Ascending aorta not well seen. No mass, no clot, no ASD, no VSD Echo, 10/24/2014 ([facility]): LVEF 60-65%, no thrombus in LA, RA/RV NML, mild MR, mild TR, trace PI, est systolic PAP 3+CVP. EKG/EVENT MONITOR EKG,: 04/08/2015: sinus rhythm, non-spec ST-T changes, QTC 364 msec. EK10/30/2015: Atrial flutter with 2:1 AV conduction, v-rate 133 bpm, non-spec ST-T change s. EK02/11/2019: Post cardioversion: Normal sinus rhythm low voltage QRS possible LAE nonspe cific T wave abnormalities. Rate 76 bpm, VT 188 ms, QRS 88 lorna-seconds, QTC 423 ms, dennise ng personally reviewed by me EK04/15/2019 ([facility] ER) atrial fib with RVR, ST and T wave abnormalities to anterolateral leads. Rate 118 bpm, QRS 84 ms, QTC 442 ms tracing personally reviewed by me EK08/28/2019: Sinus rhythm, nonspecific ST-T wave abnormalities to anterolateral leads. Rate 79 bpm, QRS 86 ms, QTC 373 ms, tracing personally reviewed by me and compared to EKG p erformed in April in the [place] emergency room, sinus rhythm has replaced atrial f ibrillation LABS Labs: 04/15/2019: [facility] ER: CBC: WBC 6.1, RBC 3.96, hemoglobin 13.4, hematocrit 40.3, platelet s 154. CMP: glucose 144, BUN 18, creatinine 1.06, GFR 71 sodium 141 potassium 0.8, chloride 106 magnesium 1.5, albumin 3.8, total bili 0.7, AST 50, ALT 43, alk phos 53, troponin T 0.0 12 BNP 208 Labs: 05/27/2019: BMP: Sodium 141, potassium 4.5, chloride 104, glucose 106, calcium 9.3, BU N 13, creatinine 0.88, GFR 88. BNP: 101 Labs: 07/15/2019: Lipids:( no statin) Cholesterol 153, triglycerides 161, HDL 39.3, LDL 82 . ( 18% 10 yr CVD risk) CMP: Sodium 141, potassium 4.7, chloride 103, glucose 86, BUN 17, creatinine 0.95, GFR 81, AST 54, ALT 82, alk phos 57, total bili 0.7, albumin 3.7. Magnesiu m 1.9. Thyroid: TSH 1.51. CBC: BC 6.6, RBC 4.26, hemoglobin 14.5, hematocrit 42.5, platele ts 189 ASSESSMENT & PLAN: He was here today as overdue for follow-up on his atrial fibrillation and heart failure, as well as February cardioversion, and April hospitalization for A. fib with RVR and diastolic heart failure exacerbation. He has problems as detailed below. His EKG performed in the clinic today shows he is maintaining sinus rhythm at 79 bpm on il toprolol 200 mg nightly. His Labs performed on July 15 show his CMP normal except for mildly elevated AST and ALT, magnesium on the low side at 1.9, normal thyroid function, and normal CBC. His lipids are fairly well controlled without a statin except for mildly elevated triglycerides of 161, and his 10-year CVD risk is 18%, but with his diagnosis of active hepatitis C and mildly el evated liver enzymes,and daily alcohol use, he is not a statin candidate currently. He seems to be fluid overloaded, as his dry weight is probably around 230-233 pounds, but h e has difficulty taking his furosemide on a daily basis due to problems with frequency and u rgency, though does take it 5 days/week. He seems to have difficulty completely emptying his bladder, and I have strongly recommende d he get a referral to see a urologist. He continues to smoke a pack a day, and also to chew tobacco, and drink 3-6 beers daily, and I discussed with him his ongoing risk of heart attack and stroke with his ongoing smoki ng, and that smoking and alcohol contribute to atrial fibrillation. I have encouraged him t o continue to work to quit smoking, as he would like to quit, but has failed NRT, and Chanti x in his past, and I have strongly recommended smoking cessation programs, and also given sarah uribe suggestions and handouts to help him quit smoking. He has not pursued any further treatment of his hepatitis C, as he was told he would need t o stop drinking, and smoking in order for treatment to be effective. He also has uncorrected sleep apnea, which is contributing to both his atrial fibrillatio n, and his severe pulmonary hypertension, and I have suggested he consider seeing Dr. Prakash at the sleep disorders clinic to see if he can get further assistance in using CPAP . I made no changes to cardiac medications today , and he should continue furosemide 40 mg twice daily and get a urology consult as discussed, metoprolol XL 200 mg nightly, Eliquis 5 mg twice daily for stroke prevention, potassium 10 mEq twice daily for potassium suppleme ntation, and I have also suggested magnesium oxide at least 400 mg a day for low magnesium l evels with leg cramps. He would likely benefit from hydralazine to help with his pulmonary hypertension, but will wait until he get a urology consult, as may worsen his problems. I have also cautioned him against combining alcohol with narcotics, as he takes Gillespie 3 micheal es per day, and drinks beer every night. I had a long discussion with him on his increased risk for heart attack and stroke and ca ncer with his ongoing smoking, and have encouraged him to try and make better lifestyle camargo toshia to improve his long-term quality of life, and decrease his cardiovascular risk factors I will see him back in 3 months to follow up on ,but sooner if needed 1. Paroxysmal atrial fibrillation (HCC) 2. Mixed hyperlipidemia 3. Essential hypertension 4. History of cardioversion 5. Chronic diastolic heart failure (HCC) 6. Moderate to severe pulmonary hypertension (HCC) 7. Chronic obstructive pulmonary disease, unspecified COPD type (HCC) 8. Current every day smoker 9. On apixaban therapy 10. Chronic hepatitis C without hepatic coma (HCC) 11. Obstructive sleep apnea syndrome Orders Placed This Encounter Procedures ECG 12 lead The following portions of the patient's history were personally reviewed by me and updated as appropriate: EKG tracings, other specialty provider and PCP notes,any Hospital admission and discharge summaries, any ER records , current and previous cardiac testing and procedure reports and d vickie, medication bottles brought to visit today personally reviewed by me. Allergies, current medications.labs Family history, past medical history, past social history, past surgical history. Problem list. This encounter was dictated with voice recognition software and may contain inadvertent rec ognition errors. Abdias MCKINNEY [facility] Cardiology 08/28/2019 docum ented in this encounter Plan of Treatment Not on filedocumented as of this encounter Procedures + +--------+ + + + | Procedure Name | Priori | Date/Time | Associated Diagnosis | Comments | | | ty | | | | + +--------+ + + + | LABS - EXTERNAL SCAN | | 09/17/2019 | | Results for this | | | | 12:00 AM | | procedure are in the | | | | PST | | results section. | + +--------+ + + + | ECG 12 LEAD | Routin | 08/28/2019 | Paroxysmal atrial | Results for this | | | e | 1:28 PM | fibrillation (HCC) | procedure are in the | | | | PST | Mixed hyperlipidemia | results section. | | | | | Essential | | | | | | hypertension | | | | | | History of | | | | | | cardioversion | | | | | | Chronic diastolic | | | | | | heart failure (HCC) | | | | | | Moderate to severe | | | | | | pulmonary | | | | | | hypertension (HCC) | | | | | | Chronic obstructive | | | | | | pulmonary disease, | | | | | | unspecified COPD | | | | | | type (HCC) Current | | | | | | every day smoker On | | | | | | apixaban therapy | | | | | | Chronic hepatitis C | | | | | | without hepatic coma | | | | | | (HCC) Obstructive | | | | | | sleep apnea syndrome | | + +--------+ + + + documented in this encounter Results LABS - EXTERNAL SCAN (09/17/2019 12:00 AM PST) + + + | Narrative | Performed At | + + + | Ordered by an | | | unspecified provider. | | + + + ECG 12 lead (08/28/2019 1:28 PM PST) + + + + + + | Component | Value | Ref Range | Performed | Pathologist | | | | | At | Signature | + + + + + + | VENTRICULAR | 79 | BPM | [facility] | | | RATE EKG | | | | | + + + + + + | ATRIAL RATE | 78 | BPM | [facility] | | + + + + + + | QRS | 86 | ms | [facility] | | | DURATION | | | | | + + + + + + | Q-T | 326 | ms | [facility] | | | INTERVAL | | | | | + + + + + + | Q-T | 373 | ms | [facility] | | | INTERVAL | | | | | | (CORRECTED) | | | | | + + + + + + | QRS AXIS | 96 | degrees | [facility] | | + + + + + + | T AXIS | -26 | degrees | [facility] | | + + + + + + | INTERPRETAT | Please refer to | | [facility] | | | ION TEXT | Providers office visit | | | | | | note for Providers | | | | | | Interpretation.Confirmed | | | | | | by [facility] Kinsley Read Only, | | | | | | [facility] Kevin ([id number]), | | | | | | graphics editor Jairon Amin | | | | | | ([id number]) on 09/04/2019 | | | | | | 8:47:11 AM | | | | + + + + + + + + | Specimen | + + | | + + + + + | Narrative | Performed At | + + + | | | + + + + +---------+ + + | Performing | Address | City/State/Zipcode | Phone Number | | Organization | | | | + +---------+ + + | [facility] | | | | + +---------+ + + documented in this encounter Visit Diagnoses + + | Diagnosis | + + | Paroxysmal atrial fibrillation (HCC) - Primary Atrial fibrillation | + + | Mixed hyperlipidemia | + + | Essential hypertension Unspecified essential hypertension | + + | History of cardioversion | + + | Chronic diastolic heart failure (HCC) Chronic diastolic heart failure | + + | Moderate to severe pulmonary hypertension (HCC) Other chronic pulmonary heart | | diseases | + + | Chronic obstructive pulmonary disease, unspecified COPD type (HCC) | + + | Current every day smoker Tobacco use disorder | + + | On apixaban therapy | + + | Chronic hepatitis C without hepatic coma (HCC) | + + | Obstructive sleep apnea syndrome Obstructive sleep apnea (adult) (pediatric) | + + documented in this encounter
--- OUTSIDE RECORDS SUMMARY | ~2020-01-09 | XMS | Encounter Summary ---
Demographics + + + | Address | [address] | | | [place] [address] | + + + | Home Phone | | + + + | Preferred Language | Unknown | + + + | Marital Status | Single | + + + | Druze Affiliation | Unknown | + + + | Race | Unknown | + + + | Ethnic Group | Unknown | + + + Author + + + | Author | [facility] | | | and [place] | + + + | Organization | [facility] | | | and [place] | + + + | Address | Unknown | + + + | Phone | Unavailable | + + + Support + + + + + | Name | Relationship | Address | Phone | + + + + + | Dennise Hirsch | ECON | [id number] | | | | | [place] | | | | | [address] | | + + + + + Care Team Providers + +------+ + | Care Leasing Manager Name | Role | Phone | + +------+ + | Ashleigh Benavides | PCP | | | PAGail | | | + +------+ + Reason for Visit + + + | Reason | Comments | + + + | Follow-up, Office | 3 month | | Visit | | + + + Encounter Details +--------+---------+ + + + | Date | Type | Department | Care Team | Description | +--------+---------+ + + + | 11/23/ | Office | [facility] | Citlali Adkins | Paroxysmal atrial | | 2020 | Visit | [facility] | [address] | fibrillation (HCC) | | | | [address] | [address] | (Primary Dx); | | | | [address] | [place] [address] | History of | | | | [place], [place] | [phone] | cardioversion; | | | | [address] | | Chronic diastolic | | | | [phone] | | heart failure (HCC); | | | | | | Moderate to severe | | | | | | pulmonary | | | | | | hypertension (HCC); | | | | | | Essential | | | | | | hypertension; Mixed | | | | | | hyperlipidemia; On | | | | | | apixaban therapy; | | | | | | Obstructive sleep | | | | | | apnea syndrome; | | | | | | Chronic hepatitis C | | | | | | without hepatic coma | | | | | | (HCC); Chronic | | | | | | obstructive | | | | | | pulmonary disease, | | | | | | unspecified COPD | | | | | | type (HCC); Current | | | | | | every day smoker | +--------+---------+ + + + Social History [...] + + + | Blood Pressure | 114/68 | 11/24/2019 1:52 PM | | | | | PDT | | + + + + + | Pulse | 91 | 11/24/2019 1:52 PM | | | | | PDT | | + + + + + | Temperature | 36.2 C (97.1 F) | 11/24/2019 1:52 PM | | | | | PDT | | + + + + + | Respiratory Rate | - | - | | + + + + + | Oxygen Saturation | 93% | 11/24/2019 1:52 PM | | | | | PDT | | + + + + + | Inhaled Oxygen | - | - | | | Concentration | | | | + + + + + | Weight | 123.5 kg (272 lb 4.8 | 11/24/2019 1:52 PM | | | | oz) | PDT | | + + + + + | Height | 166.4 cm (5' 5.5") | 11/24/2019 1:52 PM | | | | | PDT | | + + + + + | Body Mass Index | 44.62 | 11/24/2019 1:52 PM | | | | | PDT | | + + + + + documented in this encounter Patient Instructions Patient Instructions Citlali Adkins FNP - 11/24/2019 2:00 PM PDTI made changes to m edications: take magnesium oxide 400 mg twice a day to help with cramps. See a urologist, and can ask your PCP Ashleigh Benavides to refer you as I think having prob lems emptying your bladder Your beer and cigarettes are increasing your heart disease, keep working on quitting. Elect ronically signed by RENO Hays at 11/24/2019 2:21 PM PDT documented in this encounter Progress Notes Citlali Adkins FNP - 11/24/2019 2:00 PM PDTFormatting of this note might be differe nt from the original. Date of visit: 11/24/2019 Primary Care Physician: Ashleigh Benavides PA-C CHIEF COMPLAINT: Chief Complaint Patient presents with Follow-up, Office Visit 3 month HISTORY OF PRESENT ILLNESS: Boyd Andersen is a 63 year old man who is here today for 3 month follow up . 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 Caldera. Today, I reviewed all previous [...] one month af ter cardioversion, but did not make appointment, and then was to be seen 07/10/[address] Fr thapa, but that appointment also missed . He was last seen in the emergency room, and admitted to the hospital at [facility] April 15-2018 with A. fib with RVR. Echo performed at the time is detailed below, a nd normal EF but diastolic dysfunction, and severe pulmonary hypertension His lab [...] not requiring any potassium supplemen tation. He was also noted not to be compliant to CPAP with history of sleep apnea, and suggested find a mask he could tolerate. They also suggested a PCP referral to batch unloader or infect ious disease specialist for treatment of his hep C. He was discharged on Eliquis 5 mg twice daily, metoprolol succinate 200 mg nightly, furosemide 40 mg twice daily,and potassium 10 mEq daily. His current and previous testing and procedures are detailed below I saw him last 08/28/2019 when I suggested that he take his furosemide on a daily basis, a nd was mildly fluid overloaded, to try magnesium oxide 400 mg 1-2 times daily to remedy depl etion from diuretic as well as leg cramps , and to get a referral to urologist for difficult y emptying his bladder, and strongly encouraged him to stop drinking excessive amounts of be er and smoking due to increased cardiac and cancer risk. He reports today that he has intermittent palpitations and fast heart rates, but nothing like he experienced prior to being admitted in April. He [...] since he has been on Eliquis. He reports that he continues to drink 3-6 beers every night, continues to smoke a pack a day and has been unsuccessful in quitting using nicotine replacement therapy, or Chantix in his past. He also chews tobacco. He also finds it difficult to quit as his also smoke s. He also never tried the magnesium oxide as I had suggested, still does not take his furosem huma on his days off, and still has not pursued any updated sleep apnea treatment or evaluati on He also consumes edible marijuana in [employer] about once a month, but denies any current us e of other recreational or illicit drugs. He reported he still did not follow-up on getting a referral to treat his hepatitis C, as h e was told he would need to stop smoking and drinking alcohol for treatment to be effective, and he does not wish to do this. He reports his major robert in life is drinking beer, and rid ing his Shawn. He brought his medications to the clinic today and reports he still only takes his furos emide when he works, but not on his days off and he works 5 days a week for 6 hours at [employer]. He complains that he urinate small amounts constantly after he takes his diuretic, and a lso has urgency, and did not seek urology consult for further evaluation. He drinks coffee all day long when he works at [employer]. REVIEW OF SYSTEMS: Negative except for pertinent [...] in stool. Genitourinary: Denies Hematuria.Urinary frequency and urgency, some stress incontinence Musculoskeletal: Arthritis with arthralgias [...] pneumonia vaccine. Habits/Social : Current smoker, started 1959, smokes 1 ppd . Chews tobacco EtOH use: 3-6 b eers per day. Drinks 8-10 servings of caffeine daily .Uses marijuana, previously abuses coca ine, methamphetamine . Denies current illicit drug use. . Lives in [place]. Works At [employer], 5 days per week for 6 hrs, : 4:30- 1300, uses marijuana [employer] once a month.. Outpatient Medications Prior to Visit Medication Sig Dispense Refill albuterol 90 mcg/puff inhaler Inhale 2 puffs into the lungs every 4 (four) hours as nee ded for Wheezing. apixaban (ELIQUIS) 5 mg tablet Take 1 tablet by mouth 2 (two) times daily. 60 tablet 5 cetirizine (ZYRTEC) 10 mg tablet Take 10 mg by mouth Daily. furosemide (LASIX) 40 mg tablet Take 40 mg by mouth 2 times daily. Takes 5 days per wee k HYDROcodone-acetaminophen (NORCO) 5-325 mg per tablet Take 1 tablet by mouth every 6 (s ix) hours as needed for Pain. (Patient taking differently: Take 1 tablet by mouth every 8 ho urs as needed.) ibuprofen (ADVIL, MOTRIN) 200 mg tablet Take 200 mg by mouth every 6 (six) hours as nee ded for Pain. (Patient taking differently: Take 200 mg by mouth 3 times daily.) metoprolol succinate (TOPROL-XL) 200 mg ER tablet Take 200 mg by mouth nightly. potassium chloride (KLOR-CON) 10 MEQ ER tablet Take 10 mEq by mouth 2 times daily. umeclidinium (INCRUSE ELLIPTA) 62.5 mcg/puff inhaler Inhale 1 puff into the lungs Daily . No facility-administered medications prior to visit. PHYSICAL EXAM: Wt Readings from Last 3 Encounters: 11/24/19 123.5 kg (272 lb 4.8 oz) 08/28/19 122 kg (269 lb) 01/16/19 110.5 kg (243 lb 11.2 oz) Temp Readings from Last 3 Encounters: 11/24/19 36.2 C (97.1 F) BP Readings from Last 3 Encounters: 11/24/19 114/68 08/28/19 140/74 01/16/19 140/60 Pulse Readings from Last 3 Encounters: 11/24/19 91 08/28/19 83 01/16/19 96 Vital signs: 11/10/2015: WT: 273 LB. BP: 128/68. Pulse 72 GENERAL: Well developed, well nourished, man in no distress. Appears older than stated ag e.Douglas complexion HEENT: Normocephalic, atraumatic. EYES: PERRL, EOM [...] abdominal aortic pulsation is not palpable. EXTREMITIES: Trace to mild pedal edema. Radial pulses 2+ bilaterally. Femoral pulses are 2+ bilaterally without bruits. DP and PT pulses are 2+ bilaterally. No clubbing..varicosit ies to both ankles SKIN: Warm and dry, capillary refill is [...] Date CHOL 165 10/24/2014 TRIG 127 10/24/2014 LDL 104 (H) 10/24/2014 GLUF 124 (H) 10/26/2014 Lab Results [...] Severe pulmonary hypertension, RVSP 61.66 mmHg. Trace FL. No pericardial effusion. IVC dilated c onsistent [...] cific T wave abnormalities. Rate 76 bpm, FL 188 ms, QRS 88 lorna-seconds, QTC 423 ms, dennise wong personally reviewed by me EK04/15/2019 ([facility]) atrial fib with RVR, ST and T wave abnormalities to anterolateral leads. Rate 118 bpm, QRS 84 ms, QTC 442 ms tracing personally reviewed by me EK08/28/2019: Sinus rhythm, nonspecific ST-T wave abnormalities to anterolateral leads. Rate 79 bpm, QRS 86 ms, QTC 373 ms, tracing personally reviewed by me and compared to EKG p erformed in April in the [facility] emergency room, sinus rhythm has replaced atrial fibr illation LABS Labs: 04/15/2019: [facility]: CBC: WBC 6.1, RBC 3.96, hemoglobin [...] ASSESSMENT & PLAN: He was here today for 3 month follow up to his increased cardiac risk from smoking, and a lcohol. He has problems as detailed below. Though asymptomatic, and heart rate and blood pressure overall seem well controlled, he is more fluid overloaded than when I saw him last, and weight has increased. His dry weight is probably around 230-233 pounds, He still is not taking his diuretic on a daily basis as I had suggested when I saw him la st or taking increased doses when he is fluid overloaded. He also did not follow-up with a urology consult, as I suspected part of his difficulty with his diuretic that he was unable to empty his bladder completely, and I have again suggested that he look into this. He continues to smoke a pack a day, and also to chew tobacco, and drink 3-6 beers daily, and I again discussed with him his ongoing risk of heart attack and stroke with his ongoing smoking, and that smoking and alcohol contribute to atrial fibrillation. I have encouraged him to continue to work to quit smoking, but has failed NRT, and Chant ix in his past, and I have again strongly recommended smoking cessation programs. He has not pursued any further treatment of his hepatitis C, as he was told he would need t o stop drinking, and smoking in order for treatment to be effective. He also has uncorrected sleep apnea, which is contributing to both his atrial fibrillatio n, and his severe pulmonary hypertension, and I have again suggested he consider seeing Dr. Prakash at [...] to help with his pulmonary hypertension, but suresh l wait until he get a urology consult, as may worsen his problems. I have also cautioned him against combining alcohol with narcotics, as he takes Lowry 3 micheal es per day, and drinks beer every night. I again encouraged him to try and make better lifestyle choices to improve his long-term quality of life, and decrease his cardiovascular and cancer risk factors. I will see him back in 6 months to follow up on, and he is aware future visits may be aff ected by Covid-19 restrictions, and may also be performed telephonically. 1. Paroxysmal atrial fibrillation (HCC) 2. History of cardioversion 3. Chronic diastolic heart failure (HCC) 4. Moderate to severe pulmonary hypertension (HCC) 5. Essential hypertension 6. Mixed hyperlipidemia 7. On apixaban therapy 8. Obstructive sleep apnea syndrome 9. Chronic hepatitis C without hepatic coma (HCC) 10. Chronic obstructive pulmonary disease, unspecified COPD type (HCC) 11. Current every day smoker No orders of the defined types were placed in this encounter. The following portions of the patient's history [...] and may contain inadvertent rec ognition errors. Portions of this chart may have been copied from previous notes for continuity of care purp maci MCKINNEY [facility] 11/24/2019 docume nted in this encounter Plan of Treatment Not on filedocumented as of this encounter Visit Diagnoses + + | Diagnosis | + + | Paroxysmal atrial fibrillation (HCC) - Primary Atrial fibrillation | + + | History of cardioversion | + + | Chronic diastolic heart failure (HCC) Chronic diastolic heart failure | + + | Moderate to severe pulmonary hypertension (HCC) Other chronic pulmonary heart | | diseases | + + | Essential hypertension Unspecified essential hypertension | + + | Mixed hyperlipidemia | + + | On apixaban therapy | + + | Obstructive sleep apnea syndrome Obstructive sleep apnea (adult) (pediatric) | + + | Chronic hepatitis C without hepatic coma (HCC) | + + | Chronic obstructive pulmonary disease, unspecified COPD type (HCC) | + + | Current every day smoker Tobacco use disorder | + + documented in this encounter
--- OUTSIDE RECORDS SUMMARY | ~2020-01-09 | XMS | Encounter Summary ---
Demographics + + + | Address | [address] | | | [place] [address] | + + + | Home Phone | | + + + | Preferred Language | Unknown | + + + | Marital Status | Single | + + + | Pentecostalism Affiliation | Unknown | + + + | Race | Unknown | + + + | Ethnic Group | Unknown | + + + Author + + + | Author | [facility] | | | and [place] | + + + | Organization | [facility] | | | and [place] | + + + | Address | Unknown | + + + | Phone | Unavailable | + + + Support + + + + + | Name | Relationship | Address | Phone | + + + + + | Shawanda Hirsch | ECON | [address] | | | | | [place] | | | | | [phone] | | + + + + + Care Team Providers + +------+ + | Care Caltrans Equipment Operator Name | Role | Phone | + +------+ + | Ashleigh Benavides | PCP | | | TOMÁS | | | + +------+ + Encounter Details +--------+ + + + + | Date | Type | Department | Care Team | Description | +--------+ + + + + | 04/16/ | Orders Only | [facility] | Cleopatra Lopez V, | | | 2018 | | CONVERSION [address] | MD [address] | | | | | [address] | [address] [place], [place] | | | | | [place], [place] | [address] | | | | | [address] | | | | | | [phone] | | | +--------+ + + + [...] as of this encounter Plan of Treatment Not on filedocumented as of this encounter Procedures + +--------+ + + + | Procedure Name | Priori | Date/Time | Associated Diagnosis | Comments | | | ty | | | | + +--------+ + + + | ECHO INTERPRETATION | Routin | 04/16/2019 | | Results for this | | OF OUTSIDE FILMS | e | 11:18 AM | | procedure are in the | | | | PDT | | results section. | + +--------+ + + + documented in this encounter Results ECHO Interpretation of Outside Films (04/16/2019 11:18 AM PDT) + + | Specimen | + + | | + + + + + | Impressions | Performed At | + + + | 1. Atrial fibrillation. 2. This was a technically difficult study | | | with suboptimal views. 3. Overall left ventricular systolic function | | | is normal with, an EF about 55 %. 4. The right ventricle is mildly | | | enlarged. 5. The right ventricular systolic function is mildly | | | impaired. 6. The left atrium is mildly enlarged. 7. The right atrium | | | is mildly enlarged. 8. Ilfq-mt-mlxwylfk tricuspid regurgitation | | | present. 9. The right ventricular systolic pressure (pulmonary artery | | | systolic pressure), as measured by Doppler, is 61.66mmHg. | | + + + + + + | Narrative | Performed At | + + + | Patient Name: BOYD GLORIA Date of : 1955 | | | Performing Physician: Jenn Stringer MD | | | | | | INDICATIONS A-fib, dyspnea CONCLUSIONS | | | 1. Atrial fibrillation. 2. This was a technically difficult study | | | with suboptimal views. 3. Overall left ventricular systolic function | | | is normal with, an EF about 55 %. 4. The right ventricle is mildly | | | enlarged. 5. The right ventricular systolic function is mildly | | | impaired. 6. The left atrium is mildly enlarged. 7. The right atrium | | | is mildly enlarged. 8. Wzwa-yz-vwastwce tricuspid regurgitation | | | present. 9. The right ventricular systolic pressure (pulmonary artery | | | systolic pressure), as measured by Doppler, is 61.66mmHg. | | | FINDINGS -------- ECG rhythm: Atrial fibrillation. Study: A | | | 2-dimensional transthoracic echocardiogram with m-mode, spectral and | | | color flow Doppler was perfomed. Study: Definity contrast agent was | | | used to better delineate the left ventricular wall segments. Study: | | | This was a technically difficult study with suboptimal views. Left | | | Ventricle: Overall left ventricular systolic function is normal with, | | | an EF about 55 %. Left Ventricle: The left ventricle cavity size is | | | normal. Left Ventricle: Left ventricular wall thickness is normal. | | | Left Ventricle: No regional wall motion abnormalities. Right | | | Ventricle: The right ventricle is mildly enlarged. Right Ventricle: | | | The right ventricular systolic function is mildly impaired. Left | | | Atrium: The left atrium is mildly enlarged. Right Atrium: The right | | | atrium is mildly enlarged. Aortic Valve: The aortic valve appears to | | | be trileaflet. Aortic Valve: There is no evidence of aortic | | | regurgitation. Aortic Valve: The aortic valve is mildly calcified. | | | Aortic Valve: There is no evidence of aortic stenosis. Mitral Valve: | | | The mitral valve is normal. Mitral Valve: No mitral regurgitation. | | | Tricuspid Valve: The tricuspid valve appears structurally normal. | | | Equivocal Tricuspid Valve: Qfxs-ms-sovzplzq tricuspid regurgitation | | | present. Tricuspid Valve: The right ventricular systolic pressure | | | (pulmonary artery systolic pressure), as measured by Doppler, is | | | 61.66mmHg. Tricuspid Valve: There is moderate to severe pulmonary | | | hypertension. Pulmonic Valve: Trace pulmonic regurgitation. | | | Pericardium: There is no pericardial effusion. IVC/Hepatic Veins: The | | | IVC is dilated (>2.5cm) and collapses <50% with sniff, consistent | | | with central venous pressures of 15-20mmHg. Aorta: Ascending aorta | | | not well seen. Mass: No mass visualized Thrombus: No clot visualized | | | Thrombus: No vegetation visualized. Septum: No ASD observed. | | | Septum: No VSD observed. Contrast: Poor visualization. Definity was | | | used to opacify the left ventricular chamber and improve delineation | | | of the endocardial border. MEASUREMENTS Ao Diam: | | | 3.21 cm Ao sinus: 3.[address] junct: 2.61 cm IVC: | | | 2.68 cm LA Major: 5.23 cm EDV(Teich): 88.89 ml IVSd: 1.01 | | | cm LVIDd: 4.42 cm LVPWd: 1.01 cm LVOT Diam: 2.24 cm %FS: | | | 26.21 % EF(Teich): 51.59 % ESV(Teich): 43.02 ml LVIDs: | | | 3.26 cm SV(Teich): 45.87 ml RA Major: 5.29 cm RV Major: | | | 8.95 cm RV Minor: 3.70 cm RV Minor: 3.49 cm LVEF MOD A2C: | | | 54.17 % SV MOD A2C: 44.14 ml LVEF MOD A4C: 59.76 % SV MOD | | | A4C: 69.75 ml EF Biplane: 55.06 % LVEDV MOD BP: 104.33 ml | | | LVESV MOD BP: 46.88 ml LVEDV MOD A2C: 81.48 ml LVLd A2C: | | | 7.99 cm LVEDV MOD A4C: 116.70 ml LVLd A4C: 9.25 cm LVESV MOD | | | A2C: 37.33 ml LVLs A2C: 6.14 cm LVESV MOD A4C: 46.95 ml | | | LVLs A4C: 7.77 cm LAESV(A-L): 86.06 ml LAESV Index (A-L): | | | 39.12 ml/m2 LAAs A2C: 23.51 cm2 LAESV A-L A2C: 79.84 ml LAESV | | | MOD A2C: 77.46 ml LALs A2C: 5.88 cm LAAs A4C: 25.35 cm2 | | | LAESV A-L A4C: 92.54 ml LAESV MOD A4C: 85.89 ml LALs A4C: | | | 5.89 cm RAAs: 19.13 cm2 RAESV A-L: 55.80 ml RAESV MOD: | | | 54.64 ml RALs: 5.57 cm TAPSE: 1.70 cm AV Env.Ti: 243.99 ms | | | AV maxP.60 mmHg AV meanP.43 mmHg AV Vmax: 1.77 | | | m/s AV Vmean: 1.17 m/s AV VTI: 28.74 cm MARIO Vmax: 1.68 cm2 | | | MARIO (VTI): 1.96 cm2 AVAI Vmax: 0.00 cm2/m2 AVAI (VTI): | | | 0.00 cm2/m2 LVOT Env.Ti: 249.53 ms LVOT maxP.29 mmHg LVOT | | | meanP.38 mmHg LVSI Dopp: 25.66 ml/m2 LVSV Dopp: 56.46 | | | ml LVOT Vmax: 0.75 m/s LVOT Vmean: 0.57 m/s LVOT VTI: | | | 14.25 cm MV E Aram: 1.08 m/s RAP: 15 mmHg RV S': 0.09 m/s | | | RVSP: 61.65 mmHg TR maxP.65 mmHg TR Vmax: 3.41 m/s | | | Duplicator Punch Operator: Authenticated by: Jenn Stringer MD Report Date/Time: | | | -- [id number] | | + + + + + | Procedure Note | + + | Kenan Kennedy Conversion - 05/09/2019 9:34 AM PDT Patient Name: Alec GLORIA of | | : 1955 Performing Physician: Jenn Stringer | | MD INDICATIONS A | | -fib, dyspnea CONCLUSIONS 1. Atrial fibrillation.2. This was a technically | | difficult study with suboptimal views.3. Overall left ventricular systolic function is | | normal with, an EF about 55 %.4. The right ventricle is mildly enlarged.5. The right | | ventricular systolic function is mildly impaired.6. The left atrium is mildly | | enlarged.7. The right atrium is mildly enlarged.8. Wfsv-kr-ixhtbioc tricuspid | | regurgitation present.9. The right ventricular systolic pressure (pulmonary artery | | systolic pressure), as measured by Doppler, is 61.66mmHg. FINDINGS--------ECG rhythm: | | Atrial fibrillation.Study: A 2-dimensional transthoracic echocardiogram with m-mode, | | spectral and color flow Doppler was perfomed.Study: Definity contrast agent was used to | | better delineate the left ventricular wall segments.Study: This was a technically | | difficult study with suboptimal views.Left Ventricle: Overall left ventricular systolic | | function is normal with, an EF about 55 %.Left Ventricle: The left ventricle cavity size | | is normal.Left Ventricle: Left ventricular wall thickness is normal.Left Ventricle: No | | regional wall motion abnormalities.Right Ventricle: The right ventricle is mildly | | enlarged.Right Ventricle: The right ventricular systolic function is mildly | | impaired.Left Atrium: The left atrium is mildly enlarged.Right Atrium: The right atrium | | is mildly enlarged.Aortic Valve: The aortic valve appears to be trileaflet.Aortic Valve: | | There is no evidence of aortic regurgitation.Aortic Valve: The aortic valve is mildly | | calcified.Aortic Valve: There is no evidence of aortic stenosis.Mitral Valve: The mitral | | valve is normal.Mitral Valve: No mitral regurgitation.Tricuspid Valve: The tricuspid | | valve appears structurally normal. EquivocalTricuspid Valve: Mhzs-zt-nnrxwhge tricuspid | | regurgitation present.Tricuspid Valve: The right ventricular systolic pressure | | (pulmonary artery systolic pressure), as measured by Doppler, is 61.66mmHg.Tricuspid | | Valve: There is moderate to severe pulmonary hypertension.Pulmonic Valve: Trace | | pulmonic regurgitation.Pericardium: There is no pericardial effusion.IVC/Hepatic Veins: | | The IVC is dilated (>2.5cm) and collapses <50% with sniff, consistent with central | | venous pressures of 15-20mmHg.Aorta: Ascending aorta not well seen.Mass: No mass | | visualizedThrombus: No clot visualizedThrombus: No vegetation visualized.Septum: No ASD | | observed.Septum: No VSD observed.Contrast: Poor visualization. Definity was used to | | opacify the left ventricular chamber and improve delineation of the endocardial border. | | MEASUREMENTS Ao Diam: 3.21 cmAo sinus: 3.[address] junct: 2.61 cmIVC: | | 2.68 cmLA Major: 5.23 cmEDV(Teich): 88.89 mlIVSd: 1.01 cmLVIDd: 4.42 cmLVPWd: | | 1.01 cmLVOT Diam: 2.24 cm%FS: 26.21 %EF(Teich): 51.59 %ESV(Teich): 43.02 | | mlLVIDs: 3.26 cmSV(Teich): 45.87 mlRA Major: 5.29 cmRV Major: 8.95 cmRV Minor: | | 3.70 cmRV Minor: 3.49 cmLVEF MOD A2C: 54.17 %SV MOD A2C: 44.14 mlLVEF MOD A4C: | | 59.76 %SV MOD A4C: 69.75 mlEF Biplane: 55.06 %LVEDV MOD BP: 104.33 mlLVESV MOD BP: | | 46.88 mlLVEDV MOD A2C: 81.48 mlLVLd A2C: 7.99 cmLVEDV MOD A4C: 116.70 mlLVLd | | A4C: 9.25 cmLVESV MOD A2C: 37.33 mlLVLs A2C: 6.14 cmLVESV MOD A4C: 46.95 mlLVLs | | A4C: 7.77 cmLAESV(A-L): 86.06 mlLAESV Index (A-L): 39.12 ml/m2LAAs A2C: 23.51 | | [id number] A-L A2C: 79.84 mlLAESV MOD A2C: 77.46 mlLALs A2C: 5.88 cmLAAs A4C: | | 25.35 [id number] A-L A4C: 92.54 mlLAESV MOD A4C: 85.89 mlLALs A4C: 5.89 cmRAAs: | | 19.13 [id number] A-L: 55.80 mlRAESV MOD: 54.64 mlRALs: 5.57 cmTAPSE: 1.70 cmAV | | Env.Ti: 243.99 msAV maxP.60 mmHgAV meanP.43 mmHgAV Vmax: 1.77 m/Edgardo | | Vmean: 1.17 m/Edgardo VTI: 28.74 cmAVA Vmax: 1.68 cm2AVA (VTI): 1.96 [id number] Vmax: | | 0.00 cm2/m2AVAI (VTI): 0.00 cm2/m2LVOT Env.Ti: 249.53 msLVOT maxP.29 mmHgLVOT | | meanP.38 mmHgLVSI Dopp: 25.66 ml/m2LVSV Dopp: 56.46 mlLVOT Vmax: 0.75 | | m/sLVOT Vmean: 0.57 m/sLVOT VTI: 14.25 cmMV E Aram: 1.08 m/sRAP: 15 mmHgRV S': | | 0.09 m/sRVSP: 61.65 mmHgTR maxP.65 mmHgTR Vmax: 3.41 m/s | | Duplicator Punch Operator:Authenticated by: Jenn TONYeport Date/Time: -- [id number] | | IMPRESSION: 1. Atrial fibrillation.2. This was a technically difficult study with | | suboptimal views.3. Overall left ventricular systolic function is normal with, an EF | | about 55 %.4. The right ventricle is mildly enlarged.5. The right ventricular systolic | | function is mildly impaired.6. The left atrium is mildly enlarged.7. The right atrium is | | mildly enlarged.8. Erog-tl-vxoabmyw tricuspid regurgitation present.9. The right | | ventricular systolic pressure (pulmonary artery systolic pressure), as measured by | | Doppler, is 61.66mmHg. | |MEASUREMENTS | | | |Ao Diam: 3.21 cm | |Ao sinus: 3.24 cm | |Ao st junct: 2.61 cm | |IVC: 2.68 cm | |LA Major: 5.23 cm | |EDV(Teich): 88.89 ml | |IVSd: 1.01 cm | |LVIDd: 4.42 cm | |LVPWd: 1.01 cm | |LVOT Diam: 2.24 cm | |%FS: 26.21 % | |EF(Teich): 51.59 % | |ESV(Teich): 43.02 ml | |LVIDs: 3.26 cm | |SV(Teich): 45.87 ml | |RA Major: 5.29 cm | |RV Major: 8.95 cm | |RV Minor: 3.70 cm | |RV Minor: 3.49 cm | |LVEF MOD A2C: 54.17 % | |SV MOD A2C: 44.14 ml | |LVEF MOD A4C: 59.76 % | |SV MOD A4C: 69.75 ml | |EF Biplane: 55.06 % | |LVEDV MOD BP: 104.33 ml | |LVESV MOD BP: 46.88 ml | |LVEDV MOD A2C: 81.48 ml | |LVLd A2C: 7.99 cm | |LVEDV MOD A4C: 116.70 ml | |LVLd A4C: 9.25 cm | |LVESV MOD A2C: 37.33 ml | |LVLs A2C: 6.14 cm | |LVESV MOD A4C: 46.95 ml | |LVLs A4C: 7.77 cm | |LAESV(A-L): 86.06 ml | |LAESV Index (A-L): 39.12 ml/m2 | |LAAs A2C: 23.51 cm2 | |LAESV A-L A2C: 79.84 ml | |LAESV MOD A2C: 77.46 ml | |LALs A2C: 5.88 cm | |LAAs A4C: 25.35 cm2 | |LAESV A-L A4C: 92.54 ml | |LAESV MOD A4C: 85.89 ml | |LALs A4C: 5.89 cm | |RAAs: 19.13 cm2 | |RAESV A-L: 55.80 ml | |RAESV MOD: 54.64 ml | |RALs: 5.57 cm | |TAPSE: 1.70 cm | |AV Env.Ti: 243.99 ms | |AV maxP.60 mmHg | |AV meanP.43 mmHg | |AV Vmax: 1.77 m/s | |AV Vmean: 1.17 m/s | |AV VTI: 28.74 cm | |MARIO Vmax: 1.68 cm2 | |MARIO (VTI): 1.96 cm2 | |AVAI Vmax: 0.00 cm2/m2 | |AVAI (VTI): 0.00 cm2/m2 | |LVOT Env.Ti: 249.53 ms | |LVOT maxP.29 mmHg | |LVOT meanP.38 mmHg | |LVSI Dopp: 25.66 ml/m2 | |LVSV Dopp: 56.46 ml | |LVOT Vmax: 0.75 m/s | |LVOT Vmean: 0.57 m/s | |LVOT VTI: 14.25 cm | |MV E Aram: 1.08 m/s | |RAP: 15 mmHg | |RV S': 0.09 m/s | |RVSP: 61.65 mmHg | |TR maxP.65 mmHg | |TR Vmax: 3.41 m/s | | | |Duplicator Punch Operator: | |Authenticated by: Jenn Stringer MD | |Report Date/Time: -- [id number] | | | |IMPRESSION: | |1. Atrial fibrillation. | |2. This was a technically difficult study with suboptimal views. | |3. Overall left ventricular systolic function is normal with, an EF about 55 %. | |4. The right ventricle is mildly enlarged. | |5. The right ventricular systolic function is mildly impaired. | |6. The left atrium is mildly enlarged. | |7. The right atrium is mildly enlarged. | |8. Bace-zb-qcxuzktp tricuspid regurgitation present. | |9. The right ventricular systolic pressure (pulmonary artery systolic pressure), as measure d by Doppler, is 61.66mmHg. | + + documented in this encounter Visit Diagnoses Not on filedocumented in this encounter"
--- OUTSIDE RECORDS SUMMARY | ~2020-01-09 | XMS | Encounter Summary ---
Demographics + + + | Address | [address] | | | [place] [address] | + + + | Home Phone | | + + + | Preferred Language | Unknown | + + + | Marital Status | Single | + + + | Mu-Ism Affiliation | Unknown | + + + | Race | Unknown | + + + | Ethnic Group | Unknown | + + + Author + + + | Author | [facility] | | | and [place] | + + + | Organization | [facility] | | | and [place] | + + + | Address | Unknown | + + + | Phone | Unavailable | + + + Support + + + + + | Name | Relationship | Address | Phone | + + + + + | Shawanda Hirsch | ECON | [address] | | | | | [place] | | | | | [phone] | | + + + + + Care Team Providers + +------+ + | Care Histologist Technologist Name | Role | Phone | + [...] Provider Unknown | | | | | [place], [place] | [phone] | | | | | [address] | | | | | | [phone] | | | +--------+ + + + [...] filedocumented as of this encounter Visit Diagnoses Not on filedocumented in this encounter"
--- OUTSIDE RECORDS SUMMARY | ~2020-01-09 | XMS | Encounter Summary ---
Demographics + + + | Address | [address] | | | [place] [address] | + + + | Home Phone [...] + + + | Author | [facility] | | | and [place] | + + + | Organization | [facility] | | | and [place] | + + + | Address | Unknown | + + + | Phone | Unavailable | + + + Support + + + + + | Name | Relationship | Address | Phone | + + + + + | Dennise Hirsch | ECON | [address] | | | | | [place] | | | | | [phone] | | + + + + + Care Team Providers + +------+ + | Care Spool Carrier Name | Role | Phone | + [...] + + | 11/23/ | Office | [facility] | Citlali Adkins | Paroxysmal atrial | | 2020 | Visit | [facility] | [address] | fibrillation (HCC) | | | | [address] | KEVIN ARREOLA [address] | (Primary Dx); | | | | [address] | [place] [address] | History of | | | | [place], [place] | [phone] | cardioversion; | | | | [phone] | | Chronic diastolic | | | | [phone] | | heart failure (HCC); | | [...] 01/16/2019, and also 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 Caldera. Today, I reviewed all previous [...] room, and admitted to the hospital at [facility] April 15-2018 with A. fib with RVR. [...] They also suggested a PCP referral to compensation adjuster or infect ious disease specialist for treatment [...] on He also consumes edible marijuana in [employer] about once a month, but denies any [...] days a week for 6 hours at [employer]. He complains that he urinate small amounts constantly after he takes his diuretic, and a lso has urgency, and did not seek urology consult for further evaluation. He drinks coffee all day long when he works at [employer]. REVIEW OF SYSTEMS: Negative except for pertinent [...] current illicit drug use. . Lives in [place]. Works At [employer], 5 days per week for 6 hrs, : 4:30- 1300, uses marijuana [facility] once a month.. Outpatient Medications Prior to [...] Severe pulmonary hypertension, RVSP 61.66 mmHg. Trace MA. No pericardial effusion. IVC dilated c onsistent [...] cific T wave abnormalities. Rate 76 bpm, MA 188 ms, QRS 88 lorna-seconds, QTC 423 ms, dennise wong personally reviewed by me EK04/15/2019 ([facility] ER) atrial fib with RVR, ST and T wave abnormalities to anterolateral leads. Rate 118 bpm, QRS 84 ms, QTC 442 ms tracing personally reviewed by me EK08/28/2019: Sinus rhythm, nonspecific ST-T wave abnormalities to anterolateral leads. Rate 79 bpm, QRS 86 ms, QTC 373 ms, tracing personally reviewed by me and compared to EKG p erformed in April in the [facility] emergency room, sinus rhythm has replaced atrial fibr illation LABS Labs: 04/15/2019: [facility] ER: CBC: WBC 6.1, RBC 3.96, hemoglobin [...] combining alcohol with narcotics, as he takes [place] 3 micheal es per day, and drinks [...] for continuity of care purp maci [facility] 11/24/2019 docume nted in this [...]
--- OUTSIDE RECORDS SUMMARY | ~2020-01-09 | XMS | Clinical Summary ---
Demographics + + + | Address | [address] | | | [place] [address] | + + + | Home Phone | | + + + | Preferred Language | Unknown | + + + | Marital Status | Single | + + + | Zoroastrianism Affiliation | Unknown | + + + | Race | Unknown | + + + | Ethnic Group | Unknown | + + + Author + + + | Author | [facility] | | | and [place] | + + + | Organization | [facility] | | | and [place] | + + + | Address | Unknown | + + + | Phone | Unavailable | + + + Support + + + + + | Name | Relationship | Address | Phone | + + + + + | Shawanda Hirsch | ECON | [address] | | | | | [place] | | | | | [address] | | + + + + + Care Team Providers + +------+ + | Care Dog Behaviorist Name | Role | Phone | + +------+ + | Ashleigh Benavides | PCP | | | PA-C | | | + +------+ + Allergies No Known Allergies Medications + + + +---------+------+------+-------+ | Medication | Sig | Dispensed | Refills | Star | End | Statu | | | | | | t | Date | s | | | | | | Date | | | + + + +---------+------+------+-------+ | | Take 1 tablet by | | 0 | 03/0 | | Activ | | HYDROcodone-acetamin | mouth every 6 (six) | | | 9/20 | | e | | ophen (NORCO) 5-325 | hours as needed for | | | 16 | | | | mg per tablet | Pain. | | | | | | + + + +---------+------+------+-------+ | ibuprofen (ADVIL, | Take 200 mg by mouth | | 0 | 05/1 | | Activ | | MOTRIN) 200 mg | every 6 (six) hours | | | 6/20 | | e | | tablet | as needed for Pain. | | | 19 | | | + + + +---------+------+------+-------+ | albuterol 90 | Inhale 2 puffs into | | 0 | 05/1 | | Activ | | mcg/puff inhaler | the lungs every 4 | | | 6/20 | | e | | | (four) hours as | | | 19 | | | | | needed for Wheezing. | | | | | | + + + +---------+------+------+-------+ | apixaban (ELIQUIS) | Take 1 tablet by | 60 | 5 | 05/1 | | Activ | | 5 mg tablet | mouth 2 (two) times | tablet | | 6/20 | | e | | | daily. | | | 19 | | | + + + +---------+------+------+-------+ | cetirizine | Take 10 mg by mouth | | 0 | | | Activ | | (ZYRTEC) 10 mg | Daily. | | | | | e | | tablet | | | | | | | + + + +---------+------+------+-------+ | potassium chloride | Take 10 mEq by mouth | | 0 | | | Activ | | (KLOR-CON) 10 MEQ | 2 times daily. | | | | | e | | ER tablet | | | | | | | + + + +---------+------+------+-------+ | furosemide (LASIX) | Take 40 mg by mouth | | 0 | | | Activ | | 40 mg tablet | 2 times daily. Takes | | | | | e | | | 5 days per week | | | | | | + + + +---------+------+------+-------+ | metoprolol | Take 200 mg by mouth | | 0 | | | Activ | | succinate | nightly. | | | | | e | | (TOPROL-XL) 200 mg | | | | | | | | ER tablet | | | | | | | + + + +---------+------+------+-------+ Active Problems + + + | Problem | Noted Date | + + + | Essential hypertension | 08/28/2019 | + + + | Current every day smoker | 08/28/2019 | + + + | History of cardioversion | 08/28/2019 | + + + | Chronic hepatitis C without hepatic coma | 08/28/2019 | + + + | Obstructive sleep apnea syndrome | 08/28/2019 | + + + | Chronic diastolic heart failure | 08/28/2019 | + + + | Moderate to severe pulmonary hypertension | 08/28/2019 | + + + | COPD (chronic obstructive pulmonary disease) | 10/29/2014 | + + + | HLD (hyperlipidemia) | 10/29/2014 | + + + | Acute bronchitis | 10/26/2014 | + + + | Atrial fibrillation | 10/23/2014 | + + + | Skipped heart beats | 10/23/2014 | + + + | SOB (shortness of breath) | 10/23/2014 | + + + | Tobacco use disorder | 10/23/2014 | + + + | Morbid obesity | 10/23/2014 | + + + Encounters +--------+---------+ + + + | Date | Type | Specialty | Care Team | Description | +--------+---------+ + + + | 11/23/ | Office | Cardiology | Citlali Adkins | Paroxysmal atrial | | 2020 | Visit | | [place] | fibrillation (HCC) | | | | | | (Primary Dx); | | | | | | History [...] day smoker | +--------+---------+ + + + from Last 3 Months Family History + + +------+ + | Medical History | Relation | Name | Comments | + + +------+ + | Cancer | Father | | | + + +------+ + | Cancer | Mother | | | + + +------+ + + +------+ + + | Relation | Name | Status | Comments | + +------+ + + | Father | | | lung cancer | | | | (Age | | | | | 67) | | + +------+ + + | Father | | | | + +------+ + + | Mother | | | breast cancer | | | | (Age | | | | | 67) | | + +------+ + + | Mother | | | | + +------+ + + Social History + +-------+ +--------+ [...] recent travel history available. | + + Last Filed Vital Signs + + + [...] + + + | Respiratory Rate | 18 | 02/11/2019 11:36 AM | | | | | PDT | [...] | | + + + + + Plan of Treatment + + + + + | Health Maintenance | Due Date | Last Done | Comments | + + + + + | Vaccine: | | | | | Pneumococcal 19-64 | 4 | | | | (1 of 1 - PPSV23) | | | | + + + + + | Vaccine: | | | | | Dtap/Tdap/Td (1 - | 9 | | | | Tdap) | | | | + + + + + | Colorectal Cancer | | | | | Screening | 8 | | | | (Colonoscopy) | | | | + + + + + | Vaccine: Zoster (1 | | | | | of 2) | 8 | | | + + + + + | Lung Cancer | | | | | Screening | 3 | | | + + + + + | Vaccine: Influenza | Completed | 06/04/2019 | | + + + + + | Hepatitis C | Completed | 11/24/2019, 08/28/2019, | | | Screening | | 08/28/2019 | | + + + + + Results Not on filefrom Last 3 Months Insurance + +--------+ +--------+ +---------+--------+ | Payer | Benefi | Subscriber | Effect | Phone | Address | Type | | | t Plan | ID | hussein | | | | | | / | | Dates | | | | | | Group | | | | | | + +--------+ +--------+ +---------+--------+ | BCBS | BCBS | [id number] | 09/03/19 | | | POS | | | OOS | 9 | 19-Pre | | | | | | POS | | sent | | | | + +--------+ +--------+ +---------+--------+ | [employer] | MODA | [id number] | | [phone] | | Medica | | MEDICAID HMO | HEALTH | | 016-Pr | 1 | | id | | | MDCD | | esent | | | | | | [place]MO [place] | | | | | | + +--------+ +--------+ +---------+--------+ + +--------+ +--------+ + + | Guarantor Name | Accoun | Relation to | Date | Phone | Billing Address | | | t Type | Patient | of | | | | | | | | | | + +--------+ +--------+ + + | Boyd Ortega | Person | Self [birth year] | [address] | | | al/Fam | | 1956 | [phone] | [place], [place] | | | beba | | | 2 (Home) | [phone] | + +--------+ +--------+ + + | Boyd Ortega | Person | Self | [birth year] | | [address] | | | al/Fam | | 1956 | [phone] | [place], [place] | | | beba | | | 2 (Home) | [phone] | + +--------+ +--------+ + + Advance Directives + + + + + | Type | Date Recorded | Patient | Explanation | | | | Instrument Maker | | + + + + + | Power of | | | | | Padder | | | | + + + + + | Advance | | | | | Directive | | | | + + + + +
--- OUTSIDE RECORDS SUMMARY | ~2020-01-09 | XMS | Encounter Summary ---
Demographics + + + | Address | [address] | | | [place] [address] | + + + | Home Phone | | + + + | Preferred Language | Unknown | + + + | Marital Status | Single | + + + | Latter Day Affiliation | Unknown | + + + | Race | Unknown | + + + | Ethnic Group | Unknown | + + + Author + + + | Author | [facility] | | | and [place] | + + + | Organization | [facility] | | | and [place] | + + + | Address | Unknown | + + + | Phone | Unavailable | + + + Support + + + + + | Name | Relationship | Address | Phone | + + + + + | Shawanda Hirsch | ECON | [address] | | | | | [place] | | | | | [address] | | + + + + + Care Team Providers + +------+ + | Care Bundle Breaker Name | Role | Phone | + [...] | | | [address] | [address] [place], [place] | | | | | [place], [place] | [address] | | | | | [address] | | | | | | [phone] | | | +--------+ + + + [...] | | | is mildly enlarged. 8. Epfp-ir-dylqrfzh tricuspid regurgitation | | | present. 9. [...] | | | is mildly enlarged. 8. Svsn-hr-bikiuqkg tricuspid regurgitation | | | present. 9. [...] normal. | | | Equivocal Tricuspid Valve: Hjxu-am-zqlyhbtu tricuspid regurgitation | | | present. Tricuspid [...] TR Vmax: 3.41 m/s | | | Shipfitter Apprentice: Authenticated by: Jenn Stringer MD Report Date/Time: | | | -- [id number]:0 | | + + + + + | Procedure Note | + + | Kenan Kennedy Conversion - 05/09/2019 9:34 AM PDT Patient Name: Alec GLORIA of | | : 1955 Performing Physician: Jenn Stirnger | | MD INDICATIONS A | | [...] enlarged.7. The right atrium is mildly enlarged.8. Wiyb-ly-plmkvlcz tricuspid | | regurgitation present.9. The right [...] | valve appears structurally normal. EquivocalTricuspid Valve: Lmyy-hb-nibtjohx tricuspid | | regurgitation present.Tricuspid Valve: The [...] (A-L): 39.12 ml/m2LAAs A2C: 23.51 | | [id number] A-L A2C: 79.84 mlLAESV MOD A2C: 77.46 mlLALs A2C: 5.88 cmLAAs A4C: | | 25.35 he1BXXUN A-L A4C: 92.54 mlLAESV MOD A4C: 85.89 mlLALs A4C: 5.89 cmRAAs: | | 19.13 [id number] A-L: 55.80 mlRAESV MOD: 54.64 mlRALs: 5.57 cmTAPSE: 1.70 cmAV | | Env.Ti: 243.99 msAV maxP.60 mmHgAV meanP.43 mmHgAV Vmax: 1.77 m/Edgardo | | Vmean: 1.17 m/Edgardo VTI: 28.74 cmAVA Vmax: 1.68 cm2AVA (VTI): 1.96 fw4LTBL Vmax: | | 0.00 cm2/m2AVAI (VTI): 0.00 cm2/m2LVOT Env.Ti: 249.53 msLVOT maxP.29 mmHgLVOT | | meanP.38 mmHgLVSI Dopp: 25.66 ml/m2LVSV Dopp: 56.46 mlLVOT Vmax: 0.75 | | m/sLVOT Vmean: 0.57 m/sLVOT VTI: 14.25 cmMV E Aram: 1.08 m/sRAP: 15 mmHgRV S': | | 0.09 m/sRVSP: 61.65 mmHgTR maxP.65 mmHgTR Vmax: 3.41 m/s | | Shipfitter Apprentice:Authenticated by: Jenn TONYeport Date/Time: -- [id number] | | IMPRESSION: 1. Atrial fibrillation.2. This was a technically difficult study with | | suboptimal views.3. Overall left ventricular systolic function is normal with, an EF | | about 55 %.4. The right ventricle is mildly enlarged.5. The right ventricular systolic | | function is mildly impaired.6. The left atrium is mildly enlarged.7. The right atrium is | | mildly enlarged.8. Znix-gb-piuxuaei tricuspid regurgitation present.9. The right | | [...] |TR Vmax: 3.41 m/s | | | |Shipfitter Apprentice: | |Authenticated by: Jenn Stringer MD | |Report Date/Time: -- [id number] | | | |IMPRESSION: | |1. Atrial [...] right atrium is mildly enlarged. | |8. Ykfh-fj-hojhkdkq tricuspid regurgitation present. | |9. The right ventricular systolic pressure (pulmonary artery systolic pressure), as measure d by Doppler, is 61.66mmHg. | + + documented in this encounter Visit Diagnoses Not on filedocumented in this encounter"
--- OUTSIDE RECORDS SUMMARY | ~2020-01-09 | XMS | Encounter Summary ---
Demographics + + + | Address | [address] | | | [place] [address] | + + + | Home Phone | | + + + | Preferred Language | Unknown | + + + | Marital Status | Single | + + + | Confucianist Affiliation | Unknown | + + + | Race | Unknown | + + + | Ethnic Group | Unknown | + + + Author + + + | Author | [facility] | | | and [place] | + + + | Organization | [facility] | | | and [place] | + + + | Address | Unknown | + + + | Phone | Unavailable | + + + Support + + + + + | Name | Relationship | Address | Phone | + + + + + | Shawanda Hirsch | ECON | [address] | | | | | [place] | | | | | [address] | | + + + + + Care Team Providers + +------+ + | Care Record Tester Name | Role | Phone | + +------+ + | Ashleigh Benavides | PCP | | | TOMÁS | | | + +------+ + Encounter Details +--------+ + + + + | Date | Type | Department | Care Team | Description | +--------+ + + + + | 11/09/ | Orders Only | [facility] | Conversion | | | 2016 | | CONVERSION [address] | Transaction, | | | | | [address] | Provider Unknown | | | | | [place], [place] | [phone] | | | | | [address] | | | | | | [phone] | | | +--------+ + + + [...]
--- OUTSIDE RECORDS SUMMARY | ~2020-01-09 | XMS | Encounter Summary ---
Demographics + + + | Address | [address] | | | [place] [address] | + + + | Home Phone | | + + + | Preferred Language | Unknown | + + + | Marital Status | Single | + + + | Holiness Affiliation | Unknown | + + + | Race | Unknown | + + + | Ethnic Group | Unknown | + + + Author + + + | Author | [facility] | | | and [place] | + + + | Organization | [facility] | | | and [place] | + + + | Address | Unknown | + + + | Phone | Unavailable | + + + Support + + + + + | Name | Relationship | Address | Phone | + + + + + | Shawanda Hirsch | ECON | [address] | | | | | [place] | | | | | [address] | | + + + + + Care Team Providers + +------+ + | Care Allergist Immunologist Name | Role | Phone | + +------+ + | Ashleigh Benavides | PCP | | | TOMÁS | | | + +------+ + Encounter Details +--------+--------+ + + + | Date | Type | Department | Care Team | Description | +--------+--------+ + + + | 01/09/ | Intake | [facility] | | N/A | | 2019 | | TRANSF[address] [address] | | | | | | [facility] | | | | | | [place], [place] | | | | | | [address] | | | | | | [phone] | | | +--------+--------+ + + + Social History + +-------+ [...]
--- OUTSIDE RECORDS SUMMARY | ~2020-01-09 | XMS | Encounter Summary ---
Demographics + + + | Address | [address] | | | [place] [address] | + + + | Home Phone | | + + + | Preferred Language | Unknown | + + + | Marital Status | Single | + + + | Anabaptism Affiliation | Unknown | + + + | Race | Unknown | + + + | Ethnic Group | Unknown | + + + Author + + + | Author | [facility] | | | and [place] | + + + | Organization | [facility] | | | and [place] | + + + | Address | Unknown | + + + | Phone | Unavailable | + + + Support + + + + + | Name | Relationship | Address | Phone | + + + + + | Shawanda Hirsch | ECON | [address] | | | | | [place] | | | | | [address] | | + + + + + Care Team Providers + +------+ + | Care Staker Surveying Name | Role | Phone | + [...] Provider Unknown | | | | | [place], [place] | [phone] | | | | | [address] | | | | | | [phone] | | | +--------+ + + + [...]
--- OUTSIDE RECORDS SUMMARY | ~2020-01-09 | XMS | Encounter Summary ---
Demographics + + + | Address | [address] | | | [place] [address] | + + + | Home Phone | | + + + | Preferred Language | Unknown | + + + | Marital Status | Single | + + + | Yarsanism Affiliation | Unknown | + + + | Race | Unknown | + + + | Ethnic Group | Unknown | + + + Author + + + | Author | [facility] | | | and [place] | + + + | Organization | [facility] | | | and [place] | + + + | Address | Unknown | + + + | Phone | Unavailable | + + + Support + + + + + | Name | Relationship | Address | Phone | + + + + + | Dennise Hirsch | ECON | [address] | | | | | [place] | | | | | [address] | | + + + + + Care Team Providers + +------+ + | Care Custodian Manager Name | Role | Phone | [...] + + | 08/28/ | Office | [facility] | Jed Citlali | Paroxysmal atrial | | 2019 | Visit | [facility] [place] | [address] | fibrillation (HCC) | | | | [address] | KEVIN ARREOLA [address] | (Primary Dx); Mixed | | | | [address] | [place] [address] | hyperlipidemia; | | | | [place], [place] | [phone] | Essential | | | | [address] | | hypertension; | | | | [phone] | | History of | | | [...] find a support program: Free national quitline: 769-ALKQ-WRW (229-194-2665). [facility] quit-smoking programs. [place] [employer]: (391.161.5240). [place] [employer] (626-677-8549). Support at home is important too. Nonsmokers can offer praise and encouragement. If the smo ker in your life finds it hard to quit, encourage them to keep trying. Zkjb-tir-pruqhav medicines Nicotine replacement therapymay make quittingeasier. Certain [...] to quit smoking, try these online resources: [employer] "Clearing the Air" booklet from the National Cancer Nezperce: Flowonixee.gov/sites/defau lt/files/pdf/jisvrnli-lcg-zvm-accessible.pdf Date Last Reviewed: 11/01/201619990807-[address] [place] [address]. All righ ts reserved. 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 Today, I reviewed all previous [...] room, and admitted to the hospital at [facility] from [facility] 2018 with Sukhjinder redmond with RVR and [...] They also suggested a PCP referral to methods specialist or infecti ous disease specialist for treatment [...] mokes. He also consumes edible marijuana in [employer] about once a month, but denies any current [facility] of other recreational or illicit drugs. He [...] days a week for 6 hours at [employer]. He complains that he urinate small amounts constantly after he takes his diuretic, and a lso has urgency. He drinks coffee all day long when he works at [employer]. REVIEW OF SYSTEMS: Negative except for pertinent [...] current illicit drug use. . Lives in [place]. Works At [employer], 5 days per week for 6 hrs, : 4:30- 1300, uses marijuana [employer] once a month.. Outpatient Medications Prior to [...] Severe pulmonary hypertension, RVSP 61.66 mmHg. Trace RI. No pericardial effusion. IVC dilated c onsistent [...] cific T wave abnormalities. Rate 76 bpm, RI 188 ms, QRS 88 lorna-seconds, QTC 423 ms, dennise ng personally reviewed by me EK04/15/2019 ([facility] ER) atrial fib with RVR, ST and T wave abnormalities to anterolateral leads. Rate 118 bpm, QRS 84 ms, QTC 442 ms tracing personally reviewed by me EK08/28/2019: Sinus rhythm, nonspecific ST-T wave abnormalities to anterolateral leads. Rate 79 bpm, QRS 86 ms, QTC 373 ms, tracing personally reviewed by me and compared to EKG p erformed in April in the [place] emergency room, sinus rhythm has replaced atrial [...] maintaining sinus rhythm at 79 bpm on ak toprolol 200 mg nightly. His Labs performed [...] combining alcohol with narcotics, as he takes [place] 3 micheal es per day, and drinks [...] contain inadvertent rec ognition errors. Abdias MCKINNEY [facility] 08/28/2019 docum ented in this [...] | | | | | by [facility] [place] Read Only, | | | | | | [facility] Kevin ([id number]), | | | | | | video editor Jairon Amin | | | | | | ([id number]) on 09/04/2019 | | | | | [...]
--- OUTSIDE RECORDS SUMMARY | ~2020-01-09 | XMS | Encounter Summary ---
Demographics + + + | Address | [address] | | | [place] [address] | + + + | Home Phone | | + + + | Preferred Language | Unknown | + + + | Marital Status | Single | + + + | Quaker Affiliation | Unknown | + + + | Race | Unknown | + + + | Ethnic Group | Unknown | + + + Author + + + | Author | [facility] | | | and [place] | + + + | Organization | [facility] | | | and [place] | + + + | Address | Unknown | + + + | Phone | Unavailable | + + + Support + + + + + | Name | Relationship | Address | Phone | + + + + + | Shawanda Hirsch | ECON | [address] | | | | | [place] | | | | | [address] | | + + + + + Care Team Providers + +------+ + | Care Wool Carder Name | Role | Phone | + +------+ + | Ashleigh Benavides | PCP | | | TOMÁS | | | + +------+ + Encounter Details +--------+ + + + + | Date | Type | Department | Care Team | Description | +--------+ + + + + | 10/14/ | Orders Only | [facility] | Conversion | | | 2016 | | CONVERSION [address] | Transaction, | | | | | [address] | Provider Unknown | | | | | [place], [place] | [phone] | | | | | [address] | | | | | | [phone] | | | +--------+ + + + [...]
--- OUTSIDE RECORDS SUMMARY | ~2020-01-09 | XMS | Clinical Summary ---
Demographics + + + | Address | [address] | | | [place] [address] | + + + | Home Phone | | + + + | Preferred Language | Unknown | + + + | Marital Status | Single | + + + | Nondenominational Affiliation | Unknown | + + + [...] + | Shawanda Hirsch | ECON | [address] | | | | | [place] | | | | | [address] | | + + + + + Care Team Providers + +------+ + | Care Learning Center Coordinator Name | Role | Phone | + [...] Description | +--------+---------+ + + + | 01/09/ | Intake | | | N/A | | 2020 | | | | | +--------+---------+ + + + | 11/23/ [...] +--------+ +---------+--------+ | BCBS | BCBS | [id number] | 09/03/19 | | | POS | | | OOS | 9 | 19-Pre | | | | | | POS | | sent | | | | + +--------+ +--------+ +---------+--------+ | [employer] | MODA | [id number] | | [phone] | | Medica | [...] Person | Self | [birth year] | [address] | | | al/Fam | | 8 | [phone] | [place], [place] | | | [place]ba | | | 2 (Home) | [address] | + +--------+ +--------+ + + | Boyd Ortega | Person | Self | [birth year] | | [address] | | | al/Fam | | 1956 | [phone] | [place], [place] | | | [place] | | | 2 (Home) | [address] | + +--------+ +--------+ + + Advance Directives + + + + + | Type | Date Recorded | Patient | Explanation | | | | Orthotic And Prosthetic Technician | | + + + + + | Power of | | | | | Residential Sales Rep | | | | + + + + + | Advance | | | | | Directive | | | | + + + + +
--- OUTSIDE RECORDS SUMMARY | ~2020-01-09 | XMS | Encounter Summary ---
Demographics + + + | Address | [address] | | | [place] [address] | + + + | Home Phone | | + + + | Preferred Language | Unknown | + + + | Marital Status | Single | + + + | Catholic Affiliation | Unknown | + + + | Race | Unknown | + + + | Ethnic Group | Unknown | + + + Author + + + | Author | [facility] | | | and [place] | + + + | Organization | [facility] | | | and [place] | + + + | Address | Unknown | + + + | Phone | Unavailable | + + + Support + + + + + | Name | Relationship | Address | Phone | + + + + + | Dennise Hirsch | ECON | [address] | | | | | [place] | | | | | [phone] | | + + + + + Care Team Providers + +------+ + | Care Interventional Cardiologist Name | Role | Phone | + [...] + + | 08/28/ | Office | [facility] | Jed Citlali | Paroxysmal atrial | | 2019 | Visit | [facility] | [address] | fibrillation (HCC) | | | | [address] | [address]EVIN [address]OL[address] | (Primary Dx); Mixed | | | | [address] | [place] [address] | hyperlipidemia; | | | | [place], [place] | [phone] | Essential | | | | [address] | | hypertension; | | | | [phone] | | History of | | | [...] find a support program: Free national quitline: 814-KGWZ-NUK (694-053-6503). [facility] quit-smoking programs. [employer]: (105.122.4568). [employer] (181-260-6158). Support at home is important too. Nonsmokers can offer praise and encouragement. If the smo ker in your life finds it hard to quit, encourage them to keep trying. Wkgz-woq-xfjtrle medicines Nicotine replacement therapymay make quittingeasier. Certain [...] to quit smoking, try these online resources: [employer] "Clearing the Air" booklet from the National [employer]: [employer]gov/sites/defau lt/files/pdf/jhgnccfl-avj-cpm-accessible.pdf Date Last Reviewed: 11/01/201619997246-[address] [employer] [place] [address]. All righ ts reserved. 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 Caldera. Today, I reviewed all previous [...] admitted to the hospital at [facility] from [facility] 2018 with Sukhjinder redmond with [facility] and [...] They also suggested a PCP referral to wound care technician or infecti ous disease specialist for treatment [...] mokes. He also consumes edible marijuana in [place] about once a month, but denies any current [facility] of other recreational or illicit drugs. He [...] days a week for 6 hours at [employer]. He complains that he urinate small amounts constantly after he takes his diuretic, and a lso has urgency. He drinks coffee all day long when he works at [employer]. REVIEW OF SYSTEMS: Negative except for pertinent [...] current illicit drug use. . Lives in [place]. Works At [employer], 5 days per week for 6 hrs, : 4:30- 1300, uses marijuana [employer] once a month.. Outpatient Medications Prior to [...] Severe pulmonary hypertension, RVSP 61.66 mmHg. Trace OH. No pericardial effusion. IVC dilated c onsistent [...] cific T wave abnormalities. Rate 76 bpm, OH 188 ms, QRS 88 lorna-seconds, QTC 423 ms, dennise ng personally reviewed by me EK04/15/2019 ([facility]) atrial fib with RVR, ST and T wave abnormalities to anterolateral leads. Rate 118 bpm, QRS 84 ms, QTC 442 ms tracing personally reviewed by me EK08/28/2019: Sinus rhythm, nonspecific ST-T wave abnormalities to anterolateral leads. Rate 79 bpm, QRS 86 ms, QTC 373 ms, tracing personally reviewed by me and compared to EKG p erformed in April in the [facility] emergency room, sinus rhythm has replaced atrial [...] maintaining sinus rhythm at 79 bpm on ia toprolol 200 mg nightly. His Labs performed [...] combining alcohol with narcotics, as he takes [place] 3 micheal es per day, and drinks [...] contain inadvertent rec ognition errors. Abdias MCKINNEY [facility] 08/28/2019 docum ented in this encounter [...] | | | | | by [facility] [employer] Read Only, | | | | | | [facility] Kevin ([id number]), | | | | | | commissioning editor Jairon Amin | | | | | | ([id number]) on 09/04/2019 | | | | | [...]
--- OUTSIDE RECORDS SUMMARY | ~2020-01-09 | XMS | Encounter Summary ---
Demographics + + + | Address | [address] | | | [place] [address] | + + + | Home Phone | | + + + | Preferred Language | Unknown | + + + | Marital Status | Single | + + + | Pentecostal Affiliation | Unknown | + + + | Race | Unknown | + + + | Ethnic Group | Unknown | + + + Author + + + | Author | [facility] | | | and [place] | + + + | Organization | [facility] | | | and [place] | + + + | Address | Unknown | + + + | Phone | Unavailable | + + + Support + + + + + | Name | Relationship | Address | Phone | + + + + + | Shawanda Hirsch | ECON | [address] | | | | | [place] | | | | | [address] | | + + + + + Care Team Providers + +------+ + | Care Tyre Retreader Name | Role | Phone | + +------+ + PCP | Unavailable | + +------+ + Encounter Details +--------+ + + + + | Date | Type | Department | Care Team | Description | +--------+ + + + + | 10/23/ | Hospital | [facility] | Stacey Sadler, | Atrial fibrillation | | 2015 - | Encounter | [facility] | MD [address] | with rapid | | | | CARE [address]LO[address] | [place] [address] | ventricular response | | 10/26/ | | [address] | [phone] | ([facility]); Dyspnea | | 2015 | | [place], [place] | | | | | | [address] | | | | | | [phone] | | | +--------+ + + + [...] 10/26/141207 Date of Service: 10/26/141202 Status: Signed Cereal Popper: Doris Becker RN (Registered Nurse) Pt discharged [...] ASHA Aponte Service: (none) Author Type: Supervisor [employer] Filed: 10/26/14 0854 Date of Service: 10/26/14852 Status: Signed Cereal Popper: ASHA Aponte (Supervisor [employer]) CM met w/ pt regarding Advanced Directives. [...] Date of Service: 10/25/14 1146 Status: Signed Cereal Popper: Marco Otto MD (Physician) [facility] Service: Hospitalist Progress Note Hospital Day: [...] yet available. 2. Acute bronchitis. History of assisted smoking. He may have COPD. Will continue [...] 0939 Date of Service: 10/24/14920 Status: Signed Cereal Popper: Marco Otto MD (Physician) [facility] Service: Hospitalist Progress Note Hospital Day: [...] recommenda tions. 2. Acute bronchitis. History of assisted smoking. He may have COPD. Will continue [...] 10/23/142018 Date of Service: 10/23/142018 Status: Signed Cereal Popper: Janine Cowart RPH (Pharmacist) Clinical Pharmacy Note: [...] Author: ASHA Arora Service: (none) Author Type: Carroting Machine Operator Filed: 10/23/14 9525 Date of Service: 10/23/14 1616 Status: Signed Cereal Popper: ASHA Arora (Carroting Machine Operator) 10/23/14 1600 Discharge Planning Evaluation Admitting Diagnosis Afib Readmission No Living Arrangements Spouse/significant other (Ludmila Hirsch [phone]) Type of Residence Private residence House type Mobile home Steps to enter 3 Independent with ADL's Yes Independent with Mobility Yes Home Care Services No Mental Status Oriented 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 Pt is a 58 y.o., male who is a current everyday smoker, 1 ppd. 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 For cardioversion, patches | [...] obtained. 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 | | | | [...] EXTERNAL | | | | performed at [facility], [address] | | LAB | | | | [address], | | | | | | [place] [address] | | | | + + + + + + | Red Blood | 4.74Comment: Testing | 4.20 - 5.70 | EXTERNAL | | | Cells | performed at [facility], [address] | M/uL | LAB | | | Counted | [address], | | | | | | [place] [address] | | | | + + + + + + | Hemoglobin | 15.4Comment: Testing | 13.2 - 17.0 | EXTERNAL | | | | performed at [facility], [address] | g/dL | LAB | | | | [address], | | | | | | [place] [address] | | | | + + + + + + | Hematocrit, | 45.7Comment: Testing | 39.0 - 50.0 % | EXTERNAL | | | POC | performed at [facility], [address] | | LAB | | | | [address], | | | | | | [place] [address] | | | | + + + + + + | MCV | 96.5Comment: Testing | 80.0 - 100.0 fl | EXTERNAL | | | | performed at [facility], [address] | | LAB | | | | [address], | | | | | | [place] [address] | | | | + + + + + + | MCH | 32.5Comment: Testing | 27.0 - 34.0 pg | EXTERNAL | | | | performed at [facility], [address] | | LAB | | | | [address], | | | | | | [place] [address] | | | | + + + + + + | MCHC | 33.7Comment: Testing | 32.0 - 35.5 | EXTERNAL | | | | performed at [facility], [address] | g/dL | LAB | | | | [address], | | | | | | [place] [address] | | | | + + + + + + | RDW-CV | 42.4Comment: Testing | 37 - 53 fl | EXTERNAL | | | | performed at [facility], [address] | | LAB | | | | [address], | | | | | | [place] [address] | | | | + + + + + + | Platelet | 235Comment: Testing | 150 - 400 K/uL | EXTERNAL | | | Count | performed at [facility], [address] | | LAB | | | Plasma | [address], | | | | | | [place] [address] | | | | + + + + + + | MPV | 8.3Comment: Testing | fl | EXTERNAL | | | | performed at [facility], [address] | | LAB | | | | [address], | | | | | | [place] [address] | | | | + + + + + + | Differentia | AUTOMATEDComment: | | EXTERNAL | | | l Type | Testing performed at | | LAB | | | | [facility], [address] | | | | | | [place] | | | | | | [address] | | | | + + + + + + | % Segmented | 60.3Comment: Testing | % | EXTERNAL | | | | performed at [facility], [address] | | LAB | | | Neutrophils | [address], | | | | | | [place] [address] | | | | + + + + + + | % | 25.4Comment: Testing | % | EXTERNAL | | | Lymphocytes | performed at [facility], [address] | | LAB | | | | [address], | | | | | | [place] [address] | | | | + + + + + + | % Monocytes | 8.6Comment: Testing | % | EXTERNAL | | | | performed at [facility], [address] | | LAB | | | | [address], | | | | | | [place] [address] | | | | + + + + + + | % | 4.8Comment: Testing | % | EXTERNAL | | | Eosinophils | performed at [facility], [address] | | LAB | | | | [address], | | | | | | [place] [address] | | | | + + + + + + | % Basophils | 0.9Comment: Testing | % | EXTERNAL | | | | performed at [facility], [address] | | LAB | | | | [address], | | | | | | [place] [address] | | | | + + + + + + | Absolute | 6.3Comment: Testing | 1.9 - 7.4 K/uL | EXTERNAL | | | Segmented | performed at [facility], [address] | | LAB | | | Neutrophils | [address], | | | | | | [place] [address] | | | | + + + + + + | Absolute | 2.7Comment: Testing | 1.0 - 3.9 K/uL | EXTERNAL | | | Lymphocytes | performed at [facility], [address] | | LAB | | | | [address], | | | | | | [place] [address] | | | | + + + + + + | Absolute | 0.9 (H)Comment: Testing | 0 - 0.8 K/uL | EXTERNAL | | | Monocytes | performed at [facility], [address] | | LAB | | | | [address], | | | | | | [place] [address] | | | | + + + + + + | Absolute | 0.5Comment: Testing | 0 - 0.5 K/uL | EXTERNAL | | | Eosinophils | performed at [facility], [address] | | LAB | | | | [address], | | | | | | [place] [address] | | | | + + + + + + | Absolute | 0.1Comment: Testing | 0 - 0.1 K/uL | EXTERNAL | | | Basophils | performed at [facility], [address] | | LAB | | | | [address], | | | | | | [place] [address] | | | | + + + [...] | | | | | [place] [address] | | | | + + + + + + | K | 3.9Comment: Testing | 3.5 - 4.9 | EXTERNAL | | | | performed at [facility], [address] | mmol/L | LAB | | | | [address], | | | | | | [place] [address] | | | | + + + + + + | Cl | 103Comment: Testing | 99 - 109 mmol/L | EXTERNAL | | | | performed at [facility], [address] | | LAB | | | | [address], | | | | | | [place] [address] | | | | + + + + + + | CO2 | 30Comment: Testing | 23 - 32 mmol/L | EXTERNAL | | | | performed at [facility], [address] | | LAB | | | | [address], | | | | | | [place] [address] | | | | + + + + + + | Anion Gap | 7Comment: Testing | 5 - 20 mmol/L | EXTERNAL | | | | performed at [facility], [address] | | LAB | | | | [address], | | | | | | [place] [address] | | | | + + + + + + | Glucose, | 124 (H)Comment: Testing | 65 - 99 mg/dL | EXTERNAL | | | Fasting | performed at [facility], [address] | | LAB | | | | [address], | | | | | | [place] [address] | | | | + + + + + + | BUN | 18Comment: Testing | 8 - 25 mg/dL | EXTERNAL | | | | performed at [facility], [address] | | LAB | | | | [address], | | | | | | [place] [address] | | | | + + + + + + | Creatinine | 0.97Comment: Testing | 0.70 - 1.30 | EXTERNAL | | | | performed at [facility], [address] | mg/dL | LAB | | | | [address], | | | | | | [place] [address] | | | | + + + + + + | BUN/Creatin | 19Comment: Testing | | EXTERNAL | | | ine Ratio | performed at [facility], [address] | | LAB | | | | [address], | | | | | | [place] [address] | | | | + + + + + + | Calcium | 9.4Comment: Testing | 8.5 - 10.5 | EXTERNAL | | | | performed at [facility], [address] | mg/dL | LAB | | | | [address], | | | | | | [place] [address] | | | | + + + + + + | Protein, | 6.6Comment: Testing | 6.3 - 8.2 g/dL | EXTERNAL | | | Total | performed at [facility], [address] | | LAB | | | | [address], | | | | | | [place] [address] | | | | + + + + + + | Albumin | 3.8Comment: Testing | 3.6 - 5.0 g/dL | EXTERNAL | | | | performed at [facility], [address] | | LAB | | | | [address], | | | | | | [place] [address] | | | | + + + + + + | Globulin | 2.8Comment: Testing | 1.3 - 4.9 g/dL | EXTERNAL | | | | performed at [facility], [address] | | LAB | | | | [address], | | | | | | [place] [address] | | | | + + + + + + | A/G Ratio | 1.4Comment: Testing | 1.0 - 2.4 | EXTERNAL | | | | performed at [facility], [address] | | LAB | | | | [address], | | | | | | [place] [address] | | | | + + + + + + | Bilirubin | 0.4Comment: Testing | 0.1 - 1.5 mg/dL | EXTERNAL | | | Total | performed at [facility], [address] | | LAB | | | | [address], | | | | | | [place] [address] | | | | + + + + + + | ALP, | 56Comment: Testing | 35 - 115 U/L | EXTERNAL | | | External | performed at [facility], [address] | | LAB | | | | [address], | | | | | | [place] [address] | | | | + + + + + + | AST | 35Comment: Testing | 10 - 45 U/L | EXTERNAL | | | | performed at [facility], [address] | | LAB | | | | [address], | | | | | | [place] [address] | | | | + + + + + + | ALT | 81 (H)Comment: Testing | 10 - 65 U/L | EXTERNAL | | | | performed at [facility], [address] | | LAB | | | | [address], | | | | | | [place] [address] | | | | + + + [...] | | | | | | at [facility], [address] | | | | | | [address], | | | | | | [place] [address] | | | | + + + [...] + + | Historically converted procedure from [facility] environment | EXTERNAL LAB | + + [...] EXTERNAL | | | | performed at [facility], [address] | | LAB | | | | [address], | | | | | | [place] [address] | | | | + + + + + + | Red Blood | 4.64Comment: Testing | 4.20 - 5.70 | EXTERNAL | | | Cells | performed at [facility], [address] | M/uL | LAB | | | Counted | [address], | | | | | | [place] [address] | | | | + + + + + + | Hemoglobin | 15.2Comment: Testing | 13.2 - 17.0 | EXTERNAL | | | | performed at [facility], [address] | g/dL | LAB | | | | [address], | | | | | | [place] [address] | | | | + + + + + + | Hematocrit, | 44.8Comment: Testing | 39.0 - 50.0 % | EXTERNAL | | | POC | performed at [facility], [address] | | LAB | | | | [address], | | | | | | [place] [address] | | | | + + + + + + | MCV | 96.7Comment: Testing | 80.0 - 100.0 fl | EXTERNAL | | | | performed at [facility], [address] | | LAB | | | | [address], | | | | | | [place] [address] | | | | + + + + + + | MCH | 32.7Comment: Testing | 27.0 - 34.0 pg | EXTERNAL | | | | performed at [facility], [address] | | LAB | | | | [address], | | | | | | [place] [address] | | | | + + + + + + | MCHC | 33.9Comment: Testing | 32.0 - 35.5 | EXTERNAL | | | | performed at [facility], [address] | g/dL | LAB | | | | [address], | | | | | | [place] [address] | | | | + + + + + + | RDW-CV | 42.4Comment: Testing | 37 - 53 fl | EXTERNAL | | | | performed at [facility], [address] | | LAB | | | | [address], | | | | | | [place] [address] | | | | + + + + + + | Platelet | 214Comment: Testing | 150 - 400 K/uL | EXTERNAL | | | Count | performed at [facility], [address] | | LAB | | | Plasma | [address], | | | | | | [place] [address] | | | | + + + + + + | MPV | 8.2Comment: Testing | fl | EXTERNAL | | | | performed at [facility], [address] | | LAB | | | | [address], | | | | | | [place] [address] | | | | + + + + + + | Differentia | AUTOMATEDComment: | | EXTERNAL | | | l Type | Testing performed at | | LAB | | | | [facility], [address] | | | | | | [place] | | | | | | [address] | | | | + + + + + + | % Segmented | 58.6Comment: Testing | % | EXTERNAL | | | | performed at [facility], [address] | | LAB | | | Neutrophils | [address], | | | | | | [place] [address] | | | | + + + + + + | % | 27.8Comment: Testing | % | EXTERNAL | | | Lymphocytes | performed at [facility], [address] | | LAB | | | | [address], | | | | | | [place] [address] | | | | + + + + + + | % Monocytes | 8.5Comment: Testing | % | EXTERNAL | | | | performed at [facility], [address] | | LAB | | | | [address], | | | | | | [place] [address] | | | | + + + + + + | % | 4.3Comment: Testing | % | EXTERNAL | | | Eosinophils | performed at [facility], [address] | | LAB | | | | [address], | | | | | | [place] [address] | | | | + + + + + + | % Basophils | 0.8Comment: Testing | % | EXTERNAL | | | | performed at [facility], [address] | | LAB | | | | [address], | | | | | | [place] [address] | | | | + + + + + + | Absolute | 5.7Comment: Testing | 1.9 - 7.4 K/uL | EXTERNAL | | | Segmented | performed at [facility], [address] | | LAB | | | Neutrophils | [address], | | | | | | [place] [address] | | | | + + + + + + | Absolute | 2.7Comment: Testing | 1.0 - 3.9 K/uL | EXTERNAL | | | Lymphocytes | performed at [facility], [address] | | LAB | | | | [address], | | | | | | [place] [address] | | | | + + + + + + | Absolute | 0.8Comment: Testing | 0 - 0.8 K/uL | EXTERNAL | | | Monocytes | performed at [facility], [address] | | LAB | | | | [address], | | | | | | [place] [address] | | | | + + + + + + | Absolute | 0.4Comment: Testing | 0 - 0.5 K/uL | EXTERNAL | | | Eosinophils | performed at [facility], [address] | | LAB | | | | [address], | | | | | | [place] [address] | | | | + + + + + + | Absolute | 0.1Comment: Testing | 0 - 0.1 K/uL | EXTERNAL | | | Basophils | performed at [facility], [address] | | LAB | | | | [address], | | | | | | [place] [address] | | | | + + + [...] | | | | | [place] [address] | | | | + + + + + + | K | 4.1Comment: Testing | 3.5 - 4.9 | EXTERNAL | | | | performed at [facility], [address] | mmol/L | LAB | | | | [address], | | | | | | [place] [address] | | | | + + + + + + | Cl | 105Comment: Testing | 99 - 109 mmol/L | EXTERNAL | | | | performed at [facility], [address] | | LAB | | | | [address], | | | | | | [place] [address] | | | | + + + + + + | CO2 | 26Comment: Testing | 23 - 32 mmol/L | EXTERNAL | | | | performed at [facility], [address] | | LAB | | | | [address], | | | | | | [place] [address] | | | | + + + + + + | Anion Gap | 9Comment: Testing | 5 - 20 mmol/L | EXTERNAL | | | | performed at [facility], [address] | | LAB | | | | [address], | | | | | | [place] [address] | | | | + + + + + + | Glucose, | 103 (H)Comment: Testing | 65 - 99 mg/dL | EXTERNAL | | | Fasting | performed at [facility], [address] | | LAB | | | | [address], | | | | | | [place] [address] | | | | + + + + + + | BUN | 24Comment: Testing | 8 - 25 mg/dL | EXTERNAL | | | | performed at [facility], [address] | | LAB | | | | [address], | | | | | | [place] [address] | | | | + + + + + + | Creatinine | 0.85Comment: Testing | 0.70 - 1.30 | EXTERNAL | | | | performed at [facility], [address] | mg/dL | LAB | | | | [address], | | | | | | [place] [address] | | | | + + + + + + | BUN/Creatin | 28Comment: Testing | | EXTERNAL | | | ine Ratio | performed at [facility], [address] | | LAB | | | | [address], | | | | | | [place] [address] | | | | + + + + + + | Calcium | 9.2Comment: Testing | 8.5 - 10.5 | EXTERNAL | | | | performed at [facility], [address] | mg/dL | LAB | | | | [address], | | | | | | [place] [address] | | | | + + + + + + | Protein, | 6.4Comment: Testing | 6.3 - 8.2 g/dL | EXTERNAL | | | Total | performed at [facility], [address] | | LAB | | | | [address], | | | | | | [place] [address] | | | | + + + + + + | Albumin | 3.8Comment: Testing | 3.6 - 5.0 g/dL | EXTERNAL | | | | performed at [facility], [address] | | LAB | | | | [address], | | | | | | [place] [address] | | | | + + + + + + | Globulin | 2.6Comment: Testing | 1.3 - 4.9 g/dL | EXTERNAL | | | | performed at [facility], [address] | | LAB | | | | [address], | | | | | | [place] [address] | | | | + + + + + + | A/G Ratio | 1.5Comment: Testing | 1.0 - 2.4 | EXTERNAL | | | | performed at [facility], [address] | | LAB | | | | [address], | | | | | | [place] [address] | | | | + + + + + + | Bilirubin | 0.4Comment: Testing | 0.1 - 1.5 mg/dL | EXTERNAL | | | Total | performed at [facility], [address] | | LAB | | | | [address], | | | | | | [place] [address] | | | | + + + + + + | ALP, | 53Comment: Testing | 35 - 115 U/L | EXTERNAL | | | External | performed at [facility], [address] | | LAB | | | | [address], | | | | | | [place] [address] | | | | + + + + + + | AST | 51 (H)Comment: Testing | 10 - 45 U/L | EXTERNAL | | | | performed at [facility], [address] | | LAB | | | | [address], | | | | | | [place] [address] | | | | + + + + + + | ALT | 88 (H)Comment: Testing | 10 - 65 U/L | EXTERNAL | | | | performed at [facility], [address] | | LAB | | | | [address], | | | | | | [place] [address] | | | | + + + [...] | | | | | | at [facility], [address] | | | | | | [address], | | | | | | [place] [address] | | | | + + + [...] + + | Historically converted procedure from [facility] environment | EXTERNAL LAB | + + [...] | 31.85 mmHg TR Vmax: 2.82 m/s Cooper Apprentice: BEBETO Authenticated | | | by: Matthew [...] maxP.85 | | mmHgTR Vmax: 2.82 m/s Cooper Apprentice: GDAuthenticated by: Matthew Holman | | Date/Time: [...] |TR Vmax: 2.82 m/s | | | |Cooper Apprentice: BEBETO | |Authenticated by: Matthew Zabala MD [...] | | | Patient | performed at [facility] | | LAB | | | | [address];[place] | | | | | | [address] | | | | + + + [...] | | | | | performed at [facility];[address] | | | | | | [address];[place], [place] | | | | | | [address] | | | | + + + [...] | | | | | | [place] [address] | | | | + + + + + + | Red Blood | 4.43Comment: Testing | 4.20 - 5.70 | EXTERNAL | | | Cells | performed at [facility], [address] | M/uL | LAB | | | Counted | [address], | | | | | | [place] [address] | | | | + + + + + + | Hemoglobin | 14.4Comment: Testing | 13.2 - 17.0 | EXTERNAL | | | | performed at [facility], [address] | g/dL | LAB | | | | [address], | | | | | | [place] [address] | | | | + + + + + + | Hematocrit, | 42.4Comment: Testing | 39.0 - 50.0 % | EXTERNAL | | | POC | performed at [facility], [address] | | LAB | | | | [address], | | | | | | [place] [address] | | | | + + + + + + | MCV | 95.9Comment: Testing | 80.0 - 100.0 fl | EXTERNAL | | | | performed at [facility], [address] | | LAB | | | | [address], | | | | | | [place] [address] | | | | + + + + + + | MCH | 32.6Comment: Testing | 27.0 - 34.0 pg | EXTERNAL | | | | performed at [facility], [address] | | LAB | | | | [address], | | | | | | [place] [address] | | | | + + + + + + | MCHC | 34.0Comment: Testing | 32.0 - 35.5 | EXTERNAL | | | | performed at [facility], [address] | g/dL | LAB | | | | [address], | | | | | | [place] [address] | | | | + + + + + + | RDW-CV | 43.3Comment: Testing | 37 - 53 fl | EXTERNAL | | | | performed at [facility], [address] | | LAB | | | | [address], | | | | | | [place] [address] | | | | + + + + + + | Platelet | 219Comment: Testing | 150 - 400 K/uL | EXTERNAL | | | Count | performed at [facility], [address] | | LAB | | | Plasma | [address], | | | | | | [place] [address] | | | | + + + + + + | MPV | 8.6Comment: Testing | fl | EXTERNAL | | | | performed at [facility], [address] | | LAB | | | | [address], | | | | | | [place] [address] | | | | + + + + + + | Differentia | AUTOMATEDComment: | | EXTERNAL | | | l Type | Testing performed at | | LAB | | | | [facility], [address] | | | | | | [place] | | | | | | [address] | | | | + + + + + + | % Segmented | 83.8Comment: Testing | % | EXTERNAL | | | | performed at [facility], [address] | | LAB | | | Neutrophils | [address], | | | | | | [place] [address] | | | | + + + + + + | % | 8.6Comment: Testing | % | EXTERNAL | | | Lymphocytes | performed at [facility], [address] | | LAB | | | | [address], | | | | | | [place] [address] | | | | + + + + + + | % Monocytes | 7.0Comment: Testing | % | EXTERNAL | | | | performed at [facility], [address] | | LAB | | | | [address], | | | | | | [place], [place] [address] | | | | + + + + + + | % | 0.4Comment: Testing | % | EXTERNAL | | | Eosinophils | performed at [facility], [address] | | LAB | | | | [address], | | | | | | [place] [address] | | | | + + + + + + | % Basophils | 0.2Comment: Testing | % | EXTERNAL | | | | performed at [facility], [address] | | LAB | | | | [address], | | | | | | [place] [address] | | | | + + + + + + | Absolute | 12.9 (H)Comment: Testing | 1.9 - 7.4 K/uL | EXTERNAL | | | Segmented | performed at [facility], [address] | | LAB | | | Neutrophils | [address], | | | | | | [place] [address] | | | | + + + + + + | Absolute | 1.3Comment: Testing | 1.0 - 3.9 K/uL | EXTERNAL | | | Lymphocytes | performed at [facility], [address] | | LAB | | | | [address], | | | | | | [place] [address] | | | | + + + + + + | Absolute | 1.1 (H)Comment: Testing | 0 - 0.8 K/uL | EXTERNAL | | | Monocytes | performed at [facility], [address] | | LAB | | | | [address], | | | | | | [place] [address] | | | | + + + + + + | Absolute | 0.1Comment: Testing | 0 - 0.5 K/uL | EXTERNAL | | | Eosinophils | performed at [facility], [address] | | LAB | | | | [address], | | | | | | [place] [address] | | | | + + + + + + | Absolute | 0.0Comment: Testing | 0 - 0.1 K/uL | EXTERNAL | | | Basophils | performed at [facility], [address] | | LAB | | | | [address], | | | | | | [place] [address] | | | | + + + [...] EXTERNAL | | | | performed at [facility], [address] | uIU/mL | LAB | | | | [address], | | | | | | [place] [address] | | | | + + + [...] EXTERNAL | | | | performed at [facility], [address] | | LAB | | | | [address], | | | | | | [place] [address] | | | | + + + [...] EXTERNAL | | | | performed at [facility], [address] | | LAB | | | | [address], | | | | | | [place] [address] | | | | + + + [...] + + | Hemoglobin | 5.6Comment: [facility] | 4.0 - 6.0 % | EXTERNAL [...] | | | | | performed at [facility], [address] | | | | | | [address] [facility], | | | | | | [place] [address] | | | | + + + [...] | | | | | performed at [facility], [address] | | | | | | [address] [facility], | | | | | | [place] [address] | | | | + + + [...] | | | | | [place] [address] | | | | + + + + + + | Triglycerid | 127Comment: Testing | mg/dL | EXTERNAL | | | es | performed at [facility], [address] | | LAB | | | | [address], | | | | | | [place] [address] | | | | + + + + + + | HDL | 36 (L)Comment: Testing | mg/dL | EXTERNAL | | | | performed at [facility], [address] | | LAB | | | | [address], | | | | | | [place] [address] | | | | + + + + + + | LDL, | 104 (H)Comment: Testing | mg/dL | EXTERNAL | | | Calculated | performed at [facility], [address] | | LAB | | | | [address], | | | | | | [place] [address] | | | | + + + [...] | | | | | [place] [address] | | | | + + + + + + | K | 4.5Comment: Testing | 3.5 - 4.9 | EXTERNAL | | | | performed at [facility], [address] | mmol/L | LAB | | | | [address], | | | | | | [place] [address] | | | | + + + + + + | Cl | 103Comment: Testing | 99 - 109 mmol/L | EXTERNAL | | | | performed at [facility], [address] | | LAB | | | | [address], | | | | | | [place] [address] | | | | + + + + + + | CO2 | 25Comment: Testing | 23 - 32 mmol/L | EXTERNAL | | | | performed at [facility], [address] | | LAB | | | | [address], | | | | | | [place] [address] | | | | + + + + + + | Anion Gap | 13Comment: Testing | 5 - 20 mmol/L | EXTERNAL | | | | performed at [facility], [address] | | LAB | | | | [address], | | | | | | [place] [address] | | | | + + + + + + | Glucose, | 121 (H)Comment: Testing | 65 - 99 mg/dL | EXTERNAL | | | Fasting | performed at [facility], [address] | | LAB | | | | [address], | | | | | | [place] [address] | | | | + + + + + + | BUN | 24Comment: Testing | 8 - 25 mg/dL | EXTERNAL | | | | performed at [facility], [address] | | LAB | | | | [address], | | | | | | [place] [address] | | | | + + + + + + | Creatinine | 0.80Comment: Testing | 0.70 - 1.30 | EXTERNAL | | | | performed at [facility], [address] | mg/dL | LAB | | | | [address], | | | | | | [place] [address] | | | | + + + + + + | BUN/Creatin | 30Comment: Testing | | EXTERNAL | | | ine Ratio | performed at [facility], [address] | | LAB | | | | [address], | | | | | | [place] [address] | | | | + + + + + + | Calcium | 9.6Comment: Testing | 8.5 - 10.5 | EXTERNAL | | | | performed at [facility], [address] | mg/dL | LAB | | | | [address], | | | | | | [place] [address] | | | | + + + + + + | Protein, | 6.8Comment: Testing | 6.3 - 8.2 g/dL | EXTERNAL | | | Total | performed at [facility], [address] | | LAB | | | | [address], | | | | | | [place] [address] | | | | + + + + + + | Albumin | 4.0Comment: Testing | 3.6 - 5.0 g/dL | EXTERNAL | | | | performed at [facility], [address] | | LAB | | | | [address], | | | | | | [place] [address] | | | | + + + + + + | Globulin | 2.8Comment: Testing | 1.3 - 4.9 g/dL | EXTERNAL | | | | performed at [facility], [address] | | LAB | | | | [address], | | | | | | [place] [address] | | | | + + + + + + | A/G Ratio | 1.4Comment: Testing | 1.0 - 2.4 | EXTERNAL | | | | performed at [facility], [address] | | LAB | | | | [address], | | | | | | [place] [address] | | | | + + + + + + | Bilirubin | 0.3Comment: Testing | 0.1 - 1.5 mg/dL | EXTERNAL | | | Total | performed at [facility], [address] | | LAB | | | | [address], | | | | | | [place] [address] | | | | + + + + + + | ALP, | 52Comment: Testing | 35 - 115 U/L | EXTERNAL | | | External | performed at [facility], [address] | | LAB | | | | [address], | | | | | | [place] [address] | | | | + + + + + + | AST | 27Comment: Testing | 10 - 45 U/L | EXTERNAL | | | | performed at [facility], [address] | | LAB | | | | [address], | | | | | | [place] [address] | | | | + + + + + + | ALT | 33Comment: Testing | 10 - 65 U/L | EXTERNAL | | | | performed at [facility], [address] | | LAB | | | | [address], | | | | | | [place] [address] | | | | + + + [...] Kelsie, | | | | | | [place] [address] | | | | + + + [...] | | | | | | ACUTE [facility] Testing | | | | | | performed at [facility] [place];[address] | | | | | | [address];[place], [place] | | | | | | [address] | | | | + + + [...] | | | | | | ACUTE VA Testing | | | | | | performed at [facility] [place];[address] | | | | | | [address];[place], [place] | | | | | | [address] | | | | + + + [...] | | | | | | ACUTE VA Testing | | | | | | performed at [facility] [place];[address] | | | | | | [facility];[place], [place] | | | | | | [address] | | | | + + + [...] Kennedy Conversion - 04/18/2019 7:41 AM KAL GLORIA/[id number] yearsXR CHEST 1 | | VIEW10/23/2014 2:16 [...] | | | | | ONLY, -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
--- OUTSIDE RECORDS SUMMARY | ~2020-01-09 | XMS | Encounter Summary ---
Demographics + + + | Address | [address] | | | [place] [address] | + + + | Home Phone | | + + + | Preferred Language | Unknown | + + + | Marital Status | Single | + + + | Spiritism Affiliation | Unknown | + + + | Race | Unknown | + + + | Ethnic Group | Unknown | + + + Author + + + | Author | [facility] | | | and [place] | + + + | Organization | [facility] | | | and [place] | + + + | Address | Unknown | + + + | Phone | Unavailable | + + + Support + + + + + | Name | Relationship | Address | Phone | + + + + + | Shawanda Hirsch | ECON | [address] | | | | | [place] | | | | | [address] | | + + + + + Care Team Providers + +------+ + | Care Ethernet Network Architect Name | Role | Phone | + [...] Provider Unknown | | | | | [place], [place] | [phone] | | | | | [address] | | | | | | [phone] | | | +--------+ + + + [...]
--- OUTSIDE RECORDS SUMMARY | ~2020-01-09 | XMS | Encounter Summary ---
Demographics + + + | Address | [address] | | | [place] [address] | + + + | Home Phone | | + + + | Preferred Language | Unknown | + + + | Marital Status | Single | + + + | Christianity Affiliation | Unknown | + + + | Race | Unknown | + + + | Ethnic Group | Unknown | + + + Author + + + | Author | [facility] | | | and [place] | + + + | Organization | [facility] | | | and [place] | + + + | Address | Unknown | + + + | Phone | Unavailable | + + + Support + + + + + | Name | Relationship | Address | Phone | + + + + + | Shawanda Hirsch | ECON | [address] | | | | | [place] | | | | | [phone] | | + + + + + Care Team Providers + +------+ + | Care Transportation Security Screener Name | Role | Phone | + +------+ + PCP | Unavailable | + +------+ + Encounter Details +--------+ + + + + | Date | Type | Department | Care Team | Description | +--------+ + + + + | 10/23/ | Hospital | [facility] | Stacey Sadler, | Atrial fibrillation | | 2015 - | Encounter | [facility] | MD [address] | with rapid | | | | CARE FLO[address] | [place] [address] | ventricular response | | 10/26/ | | [address] | [phone] | ([facility]); Dyspnea | | 2015 | | [place], [place] | | | | | | [address] | | | | | | [phone] | | | +--------+ + + + [...] 10/26/141207 Date of Service: 10/26/141202 Status: Signed Manager Digital: Doris Becker RN (Registered Nurse) Pt discharged [...] Author: ASHA Aponte Service: (none) Author Type: Tack Driller Filed: 10/26/14 0854 Date of Service: 10/26/14852 Status: Signed Manager Digital: ASHA Aponte (Tack Driller) CM met w/ pt regarding Advanced Directives. [...] Date of Service: 10/25/14 1146 Status: Signed Manager Digital: Marco Otto MD (Physician) [facility] Service: Hospitalist Progress Note Hospital Day: LOS: [...] yet available. 2. Acute bronchitis. History of fpc smoking. He may have COPD. Will continue [...] 0939 Date of Service: 10/24/14920 Status: Signed Manager Digital: Marco Otto MD (Physician) [facility] Service: Hospitalist Progress Note Hospital Day: LOS: [...] recommenda tions. 2. Acute bronchitis. History of fpc smoking. He may have COPD. Will continue [...] 10/23/142018 Date of Service: 10/23/142018 Status: Signed Manager Digital: Janine Cowart RPH (Pharmacist) Clinical Pharmacy Note: [...] Author: ASHA Arora Service: (none) Author Type: Media Aid Filed: 10/23/14 1381 Date of Service: 10/23/14 1616 Status: Signed Manager Digital: ASHA Arora (Media Aid) 10/23/14 1600 Discharge Planning Evaluation Admitting Diagnosis Afib Readmission No Living Arrangements Spouse/significant other (Ludmila Hirsch [phone]) Type of Residence Private residence House type Mobile home Steps to enter 3 Independent with ADL's Yes Independent with Mobility Yes Home Care Services No Mental Status Oriented 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 Pt is a 58 y.o., male who is a current everyday smoker, 1 ppd. 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 For cardioversion, patches | | | [...] obtained. 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 | | | | For cardioversion, [...] EXTERNAL | | | | performed at [facility], [address] | | LAB | | | | [address], | | | | | | [place] [address] | | | | + + + + + + | Red Blood | 4.74Comment: Testing | 4.20 - 5.70 | EXTERNAL | | | Cells | performed at [facility], [address] | M/uL | LAB | | | Counted | [address], | | | | | | [place] [address] | | | | + + + + + + | Hemoglobin | 15.4Comment: Testing | 13.2 - 17.0 | EXTERNAL | | | | performed at [facility], [address] | g/dL | LAB | | | | [address], | | | | | | [place] [address] | | | | + + + + + + | Hematocrit, | 45.7Comment: Testing | 39.0 - 50.0 % | EXTERNAL | | | POC | performed at [facility], [address] | | LAB | | | | [address], | | | | | | [place] [address] | | | | + + + + + + | MCV | 96.5Comment: Testing | 80.0 - 100.0 fl | EXTERNAL | | | | performed at [facility], [address] | | LAB | | | | [address], | | | | | | [place] [address] | | | | + + + + + + | MCH | 32.5Comment: Testing | 27.0 - 34.0 pg | EXTERNAL | | | | performed at [facility], [address] | | LAB | | | | [address], | | | | | | [place] [address] | | | | + + + + + + | MCHC | 33.7Comment: Testing | 32.0 - 35.5 | EXTERNAL | | | | performed at [facility], [address] | g/dL | LAB | | | | [address], | | | | | | [place] [address] | | | | + + + + + + | RDW-CV | 42.4Comment: Testing | 37 - 53 fl | EXTERNAL | | | | performed at [facility], [address] | | LAB | | | | [address], | | | | | | [place] [address] | | | | + + + + + + | Platelet | 235Comment: Testing | 150 - 400 K/uL | EXTERNAL | | | Count | performed at [facility], [address] | | LAB | | | Plasma | [address], | | | | | | [place] [address] | | | | + + + + + + | MPV | 8.3Comment: Testing | fl | EXTERNAL | | | | performed at [facility], [address] | | LAB | | | | [address], | | | | | | [place] [address] | | | | + + + + + + | Differentia | AUTOMATEDComment: | | EXTERNAL | | | l Type | Testing performed at | | LAB | | | | [facility], [address] | | | | | | [place] | | | | | | [address] | | | | + + + + + + | % Segmented | 60.3Comment: Testing | % | EXTERNAL | | | | performed at [facility], [address] | | LAB | | | Neutrophils | [address], | | | | | | [place] [address] | | | | + + + + + + | % | 25.4Comment: Testing | % | EXTERNAL | | | Lymphocytes | performed at [facility], [address] | | LAB | | | | [address], | | | | | | [place] [address] | | | | + + + + + + | % Monocytes | 8.6Comment: Testing | % | EXTERNAL | | | | performed at [facility], [address] | | LAB | | | | [address], | | | | | | [place] [address] | | | | + + + + + + | % | 4.8Comment: Testing | % | EXTERNAL | | | Eosinophils | performed at [facility], [address] | | LAB | | | | [address], | | | | | | [place] [address] | | | | + + + + + + | % Basophils | 0.9Comment: Testing | % | EXTERNAL | | | | performed at [facility], [address] | | LAB | | | | [address], | | | | | | [place] [address] | | | | + + + + + + | Absolute | 6.3Comment: Testing | 1.9 - 7.4 K/uL | EXTERNAL | | | Segmented | performed at [facility], [address] | | LAB | | | Neutrophils | [address], | | | | | | [place] [address] | | | | + + + + + + | Absolute | 2.7Comment: Testing | 1.0 - 3.9 K/uL | EXTERNAL | | | Lymphocytes | performed at [facility], [address] | | LAB | | | | [address], | | | | | | [place] [address] | | | | + + + + + + | Absolute | 0.9 (H)Comment: Testing | 0 - 0.8 K/uL | EXTERNAL | | | Monocytes | performed at [facility], [address] | | LAB | | | | [address], | | | | | | [place] [address] | | | | + + + + + + | Absolute | 0.5Comment: Testing | 0 - 0.5 K/uL | EXTERNAL | | | Eosinophils | performed at [facility], [address] | | LAB | | | | [address], | | | | | | [place] [address] | | | | + + + + + + | Absolute | 0.1Comment: Testing | 0 - 0.1 K/uL | EXTERNAL | | | Basophils | performed at [facility], [address] | | LAB | | | | [address], | | | | | | [place] [address] | | | | + + + [...] | | | | | [place] [address] | | | | + + + + + + | K | 3.9Comment: Testing | 3.5 - 4.9 | EXTERNAL | | | | performed at [facility], [address] | mmol/L | LAB | | | | [address], | | | | | | [place] [address] | | | | + + + + + + | Cl | 103Comment: Testing | 99 - 109 mmol/L | EXTERNAL | | | | performed at [facility], [address] | | LAB | | | | [address], | | | | | | [place] [address] | | | | + + + + + + | CO2 | 30Comment: Testing | 23 - 32 mmol/L | EXTERNAL | | | | performed at [facility], [address] | | LAB | | | | [address], | | | | | | [place] [address] | | | | + + + + + + | Anion Gap | 7Comment: Testing | 5 - 20 mmol/L | EXTERNAL | | | | performed at [facility], [address] | | LAB | | | | [address], | | | | | | [place] [address] | | | | + + + + + + | Glucose, | 124 (H)Comment: Testing | 65 - 99 mg/dL | EXTERNAL | | | Fasting | performed at [facility], [address] | | LAB | | | | [address], | | | | | | [place] [address] | | | | + + + + + + | BUN | 18Comment: Testing | 8 - 25 mg/dL | EXTERNAL | | | | performed at [facility], [address] | | LAB | | | | [address], | | | | | | [place] [address] | | | | + + + + + + | Creatinine | 0.97Comment: Testing | 0.70 - 1.30 | EXTERNAL | | | | performed at [facility], [address] | mg/dL | LAB | | | | [address], | | | | | | [place] [address] | | | | + + + + + + | BUN/Creatin | 19Comment: Testing | | EXTERNAL | | | ine Ratio | performed at [facility], [address] | | LAB | | | | [address], | | | | | | [place] [address] | | | | + + + + + + | Calcium | 9.4Comment: Testing | 8.5 - 10.5 | EXTERNAL | | | | performed at [facility], [address] | mg/dL | LAB | | | | [address], | | | | | | [place] [address] | | | | + + + + + + | Protein, | 6.6Comment: Testing | 6.3 - 8.2 g/dL | EXTERNAL | | | Total | performed at [facility], [address] | | LAB | | | | [address], | | | | | | [place] [address] | | | | + + + + + + | Albumin | 3.8Comment: Testing | 3.6 - 5.0 g/dL | EXTERNAL | | | | performed at [facility], [address] | | LAB | | | | [address], | | | | | | [place] [address] | | | | + + + + + + | Globulin | 2.8Comment: Testing | 1.3 - 4.9 g/dL | EXTERNAL | | | | performed at [facility], [address] | | LAB | | | | [address], | | | | | | [place] [address] | | | | + + + + + + | A/G Ratio | 1.4Comment: Testing | 1.0 - 2.4 | EXTERNAL | | | | performed at [facility], [address] | | LAB | | | | [address], | | | | | | [place] [address] | | | | + + + + + + | Bilirubin | 0.4Comment: Testing | 0.1 - 1.5 mg/dL | EXTERNAL | | | Total | performed at [facility], [address] | | LAB | | | | [address], | | | | | | [place] [address] | | | | + + + + + + | ALP, | 56Comment: Testing | 35 - 115 U/L | EXTERNAL | | | External | performed at [facility], [address] | | LAB | | | | [address], | | | | | | [place] [address] | | | | + + + + + + | AST | 35Comment: Testing | 10 - 45 U/L | EXTERNAL | | | | performed at [facility], [address] | | LAB | | | | [address], | | | | | | [place] [address] | | | | + + + + + + | ALT | 81 (H)Comment: Testing | 10 - 65 U/L | EXTERNAL | | | | performed at [facility], [address] | | LAB | | | | [address], | | | | | | [place] [address] | | | | + + + [...] | | | | | | at [facility], [address] | | | | | | [address], | | | | | | [place] [address] | | | | + + + [...] + + | Historically converted procedure from [facility] environment | EXTERNAL LAB | + + [...] EXTERNAL | | | | performed at [facility], [address] | | LAB | | | | [address], | | | | | | [place] [address] | | | | + + + + + + | Red Blood | 4.64Comment: Testing | 4.20 - 5.70 | EXTERNAL | | | Cells | performed at [facility], [address] | M/uL | LAB | | | Counted | [address], | | | | | | [place] [address] | | | | + + + + + + | Hemoglobin | 15.2Comment: Testing | 13.2 - 17.0 | EXTERNAL | | | | performed at [facility], [address] | g/dL | LAB | | | | [address], | | | | | | [place] [address] | | | | + + + + + + | Hematocrit, | 44.8Comment: Testing | 39.0 - 50.0 % | EXTERNAL | | | POC | performed at [facility], [address] | | LAB | | | | [address], | | | | | | [place] [address] | | | | + + + + + + | MCV | 96.7Comment: Testing | 80.0 - 100.0 fl | EXTERNAL | | | | performed at [facility], [address] | | LAB | | | | [address], | | | | | | [place] [address] | | | | + + + + + + | MCH | 32.7Comment: Testing | 27.0 - 34.0 pg | EXTERNAL | | | | performed at [facility], [address] | | LAB | | | | [address], | | | | | | [place] [address] | | | | + + + + + + | MCHC | 33.9Comment: Testing | 32.0 - 35.5 | EXTERNAL | | | | performed at [facility], [address] | g/dL | LAB | | | | [address], | | | | | | [place] [address] | | | | + + + + + + | RDW-CV | 42.4Comment: Testing | 37 - 53 fl | EXTERNAL | | | | performed at [facility], [address] | | LAB | | | | [address], | | | | | | [place] [address] | | | | + + + + + + | Platelet | 214Comment: Testing | 150 - 400 K/uL | EXTERNAL | | | Count | performed at [facility], [address] | | LAB | | | Plasma | [address], | | | | | | [place] [address] | | | | + + + + + + | MPV | 8.2Comment: Testing | fl | EXTERNAL | | | | performed at [facility], [address] | | LAB | | | | [address], | | | | | | [place] [address] | | | | + + + + + + | Differentia | AUTOMATEDComment: | | EXTERNAL | | | l Type | Testing performed at | | LAB | | | | [facility], [address] | | | | | | [place] | | | | | | [address] | | | | + + + + + + | % Segmented | 58.6Comment: Testing | % | EXTERNAL | | | | performed at [facility], [address] | | LAB | | | Neutrophils | [address], | | | | | | [place] [address] | | | | + + + + + + | % | 27.8Comment: Testing | % | EXTERNAL | | | Lymphocytes | performed at [facility], [address] | | LAB | | | | [address], | | | | | | [place] [address] | | | | + + + + + + | % Monocytes | 8.5Comment: Testing | % | EXTERNAL | | | | performed at [facility], [address] | | LAB | | | | [address], | | | | | | [place] [address] | | | | + + + + + + | % | 4.3Comment: Testing | % | EXTERNAL | | | Eosinophils | performed at [facility], [address] | | LAB | | | | [address], | | | | | | [place] [address] | | | | + + + + + + | % Basophils | 0.8Comment: Testing | % | EXTERNAL | | | | performed at [facility], [address] | | LAB | | | | [address], | | | | | | [place] [address] | | | | + + + + + + | Absolute | 5.7Comment: Testing | 1.9 - 7.4 K/uL | EXTERNAL | | | Segmented | performed at [facility], [address] | | LAB | | | Neutrophils | [address], | | | | | | [place] [address] | | | | + + + + + + | Absolute | 2.7Comment: Testing | 1.0 - 3.9 K/uL | EXTERNAL | | | Lymphocytes | performed at [facility], [address] | | LAB | | | | [address], | | | | | | [place] [address] | | | | + + + + + + | Absolute | 0.8Comment: Testing | 0 - 0.8 K/uL | EXTERNAL | | | Monocytes | performed at [facility], [address] | | LAB | | | | [address], | | | | | | [place] [address] | | | | + + + + + + | Absolute | 0.4Comment: Testing | 0 - 0.5 K/uL | EXTERNAL | | | Eosinophils | performed at [facility], [address] | | LAB | | | | [address], | | | | | | [place] [address] | | | | + + + + + + | Absolute | 0.1Comment: Testing | 0 - 0.1 K/uL | EXTERNAL | | | Basophils | performed at [facility], [address] | | LAB | | | | [address], | | | | | | [place] [address] | | | | + + + [...] | | | | | [place] [address] | | | | + + + + + + | K | 4.1Comment: Testing | 3.5 - 4.9 | EXTERNAL | | | | performed at [facility], [address] | mmol/L | LAB | | | | [address], | | | | | | [place] [address] | | | | + + + + + + | Cl | 105Comment: Testing | 99 - 109 mmol/L | EXTERNAL | | | | performed at [facility], [address] | | LAB | | | | [address], | | | | | | [place] [address] | | | | + + + + + + | CO2 | 26Comment: Testing | 23 - 32 mmol/L | EXTERNAL | | | | performed at [facility], [address] | | LAB | | | | [address], | | | | | | [place] [address] | | | | + + + + + + | Anion Gap | 9Comment: Testing | 5 - 20 mmol/L | EXTERNAL | | | | performed at [facility], [address] | | LAB | | | | [address], | | | | | | [place] [address] | | | | + + + + + + | Glucose, | 103 (H)Comment: Testing | 65 - 99 mg/dL | EXTERNAL | | | Fasting | performed at [facility], [address] | | LAB | | | | [address], | | | | | | [place] [address] | | | | + + + + + + | BUN | 24Comment: Testing | 8 - 25 mg/dL | EXTERNAL | | | | performed at [facility], [address] | | LAB | | | | [address], | | | | | | [place] [address] | | | | + + + + + + | Creatinine | 0.85Comment: Testing | 0.70 - 1.30 | EXTERNAL | | | | performed at [facility], [address] | mg/dL | LAB | | | | [address], | | | | | | [place] [address] | | | | + + + + + + | BUN/Creatin | 28Comment: Testing | | EXTERNAL | | | ine Ratio | performed at [facility], [address] | | LAB | | | | [address], | | | | | | [place] [address] | | | | + + + + + + | Calcium | 9.2Comment: Testing | 8.5 - 10.5 | EXTERNAL | | | | performed at [facility], [address] | mg/dL | LAB | | | | [address], | | | | | | [place] [address] | | | | + + + + + + | Protein, | 6.4Comment: Testing | 6.3 - 8.2 g/dL | EXTERNAL | | | Total | performed at [facility], [address] | | LAB | | | | [address], | | | | | | [place] [address] | | | | + + + + + + | Albumin | 3.8Comment: Testing | 3.6 - 5.0 g/dL | EXTERNAL | | | | performed at [facility], [address] | | LAB | | | | [address], | | | | | | [place] [address] | | | | + + + + + + | Globulin | 2.6Comment: Testing | 1.3 - 4.9 g/dL | EXTERNAL | | | | performed at [facility], [address] | | LAB | | | | [address], | | | | | | [place] [address] | | | | + + + + + + | A/G Ratio | 1.5Comment: Testing | 1.0 - 2.4 | EXTERNAL | | | | performed at [facility], [address] | | LAB | | | | [address], | | | | | | [place] [address] | | | | + + + + + + | Bilirubin | 0.4Comment: Testing | 0.1 - 1.5 mg/dL | EXTERNAL | | | Total | performed at [facility], [address] | | LAB | | | | [address], | | | | | | [place] [address] | | | | + + + + + + | ALP, | 53Comment: Testing | 35 - 115 U/L | EXTERNAL | | | External | performed at [facility], [address] | | LAB | | | | [address], | | | | | | [place] [address] | | | | + + + + + + | AST | 51 (H)Comment: Testing | 10 - 45 U/L | EXTERNAL | | | | performed at [facility], [address] | | LAB | | | | [address], | | | | | | [place] [address] | | | | + + + + + + | ALT | 88 (H)Comment: Testing | 10 - 65 U/L | EXTERNAL | | | | performed at [facility], [address] | | LAB | | | | [address], | | | | | | [place] [address] | | | | + + + [...] | | | | | | at [facility], [address] | | | | | | [address], | | | | | | [place] [address] | | | | + + + [...] + + | Historically converted procedure from [facility] environment | EXTERNAL LAB | + + [...] | 31.85 mmHg TR Vmax: 2.82 m/s Plant Taxonomist: BEBETO Authenticated | | | by: Matthew [...] maxP.85 | | mmHgTR Vmax: 2.82 m/s Plant Taxonomist: GDAuthenticated by: Matthew Holman | | Date/Time: [...] |TR Vmax: 2.82 m/s | | | |Plant Taxonomist: BEBETO | |Authenticated by: Matthew Zabala MD [...] | | | Patient | performed at [facility] | | LAB | | | | [address];[place] | | | | | | [address] | | | | + + + [...] | | | | | performed at [facility];[address] | | | | | | [address];[place], [place] | | | | | | [address] | | | | + + + [...] | | | | | | [place] [address] | | | | + + + + + + | Red Blood | 4.43Comment: Testing | 4.20 - 5.70 | EXTERNAL | | | Cells | performed at [facility], [address] | M/uL | LAB | | | Counted | [address], | | | | | | [place] [address] | | | | + + + + + + | Hemoglobin | 14.4Comment: Testing | 13.2 - 17.0 | EXTERNAL | | | | performed at [facility], [address] | g/dL | LAB | | | | [address], | | | | | | [place] [address] | | | | + + + + + + | Hematocrit, | 42.4Comment: Testing | 39.0 - 50.0 % | EXTERNAL | | | POC | performed at [facility], [address] | | LAB | | | | [address], | | | | | | [place] [address] | | | | + + + + + + | MCV | 95.9Comment: Testing | 80.0 - 100.0 fl | EXTERNAL | | | | performed at [facility], [address] | | LAB | | | | [address], | | | | | | [place] [address] | | | | + + + + + + | MCH | 32.6Comment: Testing | 27.0 - 34.0 pg | EXTERNAL | | | | performed at [facility], [address] | | LAB | | | | [address], | | | | | | [place] [address] | | | | + + + + + + | MCHC | 34.0Comment: Testing | 32.0 - 35.5 | EXTERNAL | | | | performed at [facility], [address] | g/dL | LAB | | | | [address], | | | | | | [place] [address] | | | | + + + + + + | RDW-CV | 43.3Comment: Testing | 37 - 53 fl | EXTERNAL | | | | performed at [facility], [address] | | LAB | | | | [address], | | | | | | [place] [address] | | | | + + + + + + | Platelet | 219Comment: Testing | 150 - 400 K/uL | EXTERNAL | | | Count | performed at [facility], [address] | | LAB | | | Plasma | [address], | | | | | | [place] [address] | | | | + + + + + + | MPV | 8.6Comment: Testing | fl | EXTERNAL | | | | performed at [facility], [address] | | LAB | | | | [address], | | | | | | [place] [address] | | | | + + + + + + | Differentia | AUTOMATEDComment: | | EXTERNAL | | | l Type | Testing performed at | | LAB | | | | [facility], [address] | | | | | | [place] | | | | | | [address] | | | | + + + + + + | % Segmented | 83.8Comment: Testing | % | EXTERNAL | | | | performed at [facility], [address] | | LAB | | | Neutrophils | [address], | | | | | | [place] [address] | | | | + + + + + + | % | 8.6Comment: Testing | % | EXTERNAL | | | Lymphocytes | performed at [facility], [address] | | LAB | | | | [address], | | | | | | [place] [address] | | | | + + + + + + | % Monocytes | 7.0Comment: Testing | % | EXTERNAL | | | | performed at [facility], [address] | | LAB | | | | [address], | | | | | | [place], [place] [address] | | | | + + + + + + | % | 0.4Comment: Testing | % | EXTERNAL | | | Eosinophils | performed at [facility], [address] | | LAB | | | [address], | | | | | | [place] [address] | | | | + + + + + + | % Basophils | 0.2Comment: Testing | % | EXTERNAL | | | | performed at [facility], [address] | | LAB | | | | [address], | | | | | | [place] [address] | | | | + + + + + + | Absolute | 12.9 (H)Comment: Testing | 1.9 - 7.4 K/uL | EXTERNAL | | | Segmented | performed at [facility], [address] | | LAB | | | [address]ils | [address], | | | | | | [place] [address] | | | | + + + + + + | Absolute | 1.3Comment: Testing | 1.0 - 3.9 K/uL | EXTERNAL | | | Lymphocytes | performed at [facility], [address] | | LAB | | | | [address], | | | | | | [place] [address] | | | | + + + + + + | Absolute | 1.1 (H)Comment: Testing | 0 - 0.8 K/uL | EXTERNAL | | | Monocytes | performed at [facility], [address] | | LAB | | | | [address], | | | | | | [place] [address] | | | | + + + + + + | Absolute | 0.1Comment: Testing | 0 - 0.5 K/uL | EXTERNAL | | | Eosinophils | performed at [facility], [address] | | LAB | | | | [address], | | | | | | [place] [address] | | | | + + + + + + | Absolute | 0.0Comment: Testing | 0 - 0.1 K/uL | EXTERNAL | | | Basophils | performed at [facility], [address] | | LAB | | | | [address], | | | | | | [place] [address] | | | | + + + [...] EXTERNAL | | | | performed at [facility], [address] | uIU/mL | LAB | | | | [address], | | | | | | [place] [address] | | | | + + + [...] EXTERNAL | | | | performed at [facility], [address] | | LAB | | | | [address], | | | | | | [place] [address] | | | | + + + [...] EXTERNAL | | | | performed at [facility], [address] | | LAB | | | | [address], | | | | | | [place] [address] | | | | + + + [...] + + | Hemoglobin | 5.6Comment: [place] | 4.0 - 6.0 % | EXTERNAL [...] | | | | | performed at [facility], [address] | | | | | | [facility], | | | | | | [place] [address] | | | | + + + [...] | | | | | performed at [facility], [address] | | | | | | [address] [facility], | | | | | | [place] [address] | | | | + + + [...] | | | | | [place] [address] | | | | + + + + + + | Triglycerid | 127Comment: Testing | mg/dL | EXTERNAL | | | es | performed at [facility], [address] | | LAB | | | | [address], | | | | | | [place] [address] | | | | + + + + + + | HDL | 36 (L)Comment: Testing | mg/dL | EXTERNAL | | | | performed at [facility], [address] | | LAB | | | | [address], | | | | | | [place] [address] | | | | + + + + + + | LDL, | 104 (H)Comment: Testing | mg/dL | EXTERNAL | | | Calculated | performed at [facility], [address] | | LAB | | | | [address], | | | | | | [place] [address] | | | | + + + [...] | | | | | [place] [address] | | | | + + + + + + | K | 4.5Comment: Testing | 3.5 - 4.9 | EXTERNAL | | | | performed at [facility], [address] | mmol/L | LAB | | | | [address], | | | | | | [place] [address] | | | | + + + + + + | Cl | 103Comment: Testing | 99 - 109 mmol/L | EXTERNAL | | | | performed at [facility], [address] | | LAB | | | | [address], | | | | | | [place] [address] | | | | + + + + + + | CO2 | 25Comment: Testing | 23 - 32 mmol/L | EXTERNAL | | | | performed at [facility], [address] | | LAB | | | | [address], | | | | | | [place] [address] | | | | + + + + + + | Anion Gap | 13Comment: Testing | 5 - 20 mmol/L | EXTERNAL | | | | performed at [facility], [address] | | LAB | | | | [address], | | | | | | [place] [address] | | | | + + + + + + | Glucose, | 121 (H)Comment: Testing | 65 - 99 mg/dL | EXTERNAL | | | Fasting | performed at [facility], [address] | | LAB | | | | [address], | | | | | | [place] [address] | | | | + + + + + + | BUN | 24Comment: Testing | 8 - 25 mg/dL | EXTERNAL | | | | performed at [facility], [address] | | LAB | | | | [address], | | | | | | [place] [address] | | | | + + + + + + | Creatinine | 0.80Comment: Testing | 0.70 - 1.30 | EXTERNAL | | | | performed at [facility], [address] | mg/dL | LAB | | | | [address], | | | | | | [place] [address] | | | | + + + + + + | BUN/Creatin | 30Comment: Testing | | EXTERNAL | | | ine Ratio | performed at [facility], [address] | | LAB | | | | [address], | | | | | | [place] [address] | | | | + + + + + + | Calcium | 9.6Comment: Testing | 8.5 - 10.5 | EXTERNAL | | | | performed at [facility], [address] | mg/dL | LAB | | | | [address], | | | | | | [place] [address] | | | | + + + + + + | Protein, | 6.8Comment: Testing | 6.3 - 8.2 g/dL | EXTERNAL | | | Total | performed at [facility], [address] | | LAB | | | | [address], | | | | | | [place] [address] | | | | + + + + + + | Albumin | 4.0Comment: Testing | 3.6 - 5.0 g/dL | EXTERNAL | | | | performed at [facility], [address] | | LAB | | | | [address], | | | | | | [place] [address] | | | | + + + + + + | Globulin | 2.8Comment: Testing | 1.3 - 4.9 g/dL | EXTERNAL | | | | performed at [facility], [address] | | LAB | | | | [address], | | | | | | [place] [address] | | | | + + + + + + | A/G Ratio | 1.4Comment: Testing | 1.0 - 2.4 | EXTERNAL | | | | performed at [facility], [address] | | LAB | | | | [address], | | | | | | [place] [address] | | | | + + + + + + | Bilirubin | 0.3Comment: Testing | 0.1 - 1.5 mg/dL | EXTERNAL | | | Total | performed at [facility], [address] | | LAB | | | | [address], | | | | | | [place] [address] | | | | + + + + + + | ALP, | 52Comment: Testing | 35 - 115 U/L | EXTERNAL | | | External | performed at [facility], [address] | | LAB | | | | [address], | | | | | | [place] [address] | | | | + + + + + + | AST | 27Comment: Testing | 10 - 45 U/L | EXTERNAL | | | | performed at [facility], [address] | | LAB | | | | [address], | | | | | | [place] [address] | | | | + + + + + + | ALT | 33Comment: Testing | 10 - 65 U/L | EXTERNAL | | | | performed at [facility], [address] | | LAB | | | | [address], | | | | | | [place] [address] | | | | + + + [...] | | | | | | [address], | | | | | | [place] [address] | | | | + + + [...] | | | | | | ACUTE IN Testing | | | | | | performed at [facility];[address] | | | | | | [address];[place], [place] | | | | | | [address] | | | | + + + [...] | | | | | | ACUTE IN Testing | | | | | | performed at [facility];[address] | | | | | | [address];[place], [place] | | | | | | [address] | | | | + + + [...] | | | | | | ACUTE IN Testing | | | | | | performed at [facility];[address] | | | | | | [facility];[place], [place] | | | | | | [address] | | | | + + + [...] Kennedy Conversion - 04/18/2019 7:41 AM KAL GLORIA/23/[id number] yearsXR CHEST 1 | | VIEW10/23/2014 2:16 [...] | | | | | ONLY, -COMPUTER ([id number]), | | | | | | purchasing expeditor YUVAL CARRERA (2) | | | | | | on 10/23/2014 2:34:16 PM | | | | | | | | | | + + + + + + + + | Specimen | + + | | + + + + + | Narrative | Performed At | + + + | [facility] | EXTERNAL LAB | [...]
--- OUTSIDE RECORDS SUMMARY | ~2020-01-09 | XMS | Clinical Summary ---
Demographics + + + | Address | [address] | | | [place] [address] | + + + | Home Phone | | + + + | Preferred Language | Unknown | + + + | Marital Status | Single | + + + | Jainism Affiliation | Unknown | + + + | Race | Unknown | + + + | Ethnic Group | Unknown | + + + Author + + + | Author | [facility] | | | and [place] | + + + | Organization | [facility] | | | and [place] | + + + | Address | Unknown | + + + | Phone | Unavailable | + + + Support + + + + + | Name | Relationship | Address | Phone | + + + + + | Shawanda Hirsch | ECON | [address] | | | | | [place] | | | | | [address] | | + + + + + Care Team Providers + +------+ + | Care Pocket Setter Lockstitch Name | Role | Phone | + [...] +--------+ +---------+--------+ | BCBS | BCBS | [id number] | 09/03/19 | | | POS | | | OOS | 9 | 19-Pre | | | | | | POS | | sent | | | | + +--------+ +--------+ +---------+--------+ | [employer] | MODA | [id number] | | [phone] | | Medica | [...] Person | Self [birth year] | [address] | | | al/Fam | | 1956 | [phone] | [place], [place] | | | beba | | | 2 (Home) | [address] | + +--------+ +--------+ + + | Boyd Ortega | Person | Self | [birth year] | | [address] | | | al/Fam | | 1956 | [phone] | [place], [place] | | | beba | | | 2 (Home) | [address] | + +--------+ +--------+ + + Advance Directives + + + + + | Type | Date Recorded | Patient | Explanation | | | | Sales Special Agent | | + + + + + | Power of | | | | | Environmental Science Professor | | | | + + + + + | Advance | | | | | Directive | | | | + + + + +
--- OUTSIDE RECORDS SUMMARY | ~2020-01-09 | XMS | Encounter Summary ---
Demographics + + + | Address | [address] | | | [place] [address] | + + + | Home Phone [...] + + + | Author | [facility] | | | and [place] | + + + | Organization | [facility] | | | and [place] | + + + | Address | Unknown | + + + | Phone | Unavailable | + + + Support + + + + + | Name | Relationship | Address | Phone | + + + + + | Shawanda Hirsch | ECON | [address] | | | | | [place] | | | | | [address] | | + + + + + Care Team Providers + +------+ + | Care Commercial Carpenter Name | Role | Phone | + +------+ + | Ashleigh Benavides | PCP | | | [place] | | | + +------+ + Encounter Details +--------+ + + + + | Date | Type | Department | Care Team | Description | +--------+ + + + + | 02/11/ | Hospital | [facility] | Conversion | Ventricular | | 2019 | Encounter | CENTER CV INTRA OP | Transaction, | premature | | | | [address] | Provider Unknown | depolarization | | | | [place], [place] | [phone] | | | | | [address] | | | | | | [phone] | Jenn Stringer DO | | | | | | [address] | | | | | | F [place], [place] | | | | | | [address] | | | | | | | [...] 2 puffs into | | 0 | 01/17/20 | | | mcg/puff inhaler | the [...] times | tablet | | 19 | | | | daily. | | | [...] (six) hours | | | 19 | | | tablet | as needed for [...] MD | | | | | | ([id number]) on 02/11/2019 | | | | | | 5:49:33 PM | | | | + + + + + + + + | Specimen | + + | | + + + + + | Narrative | Performed At | + + + | Historically converted procedure from [facility] | EXTERNAL LAB | + + [...]
--- OUTSIDE RECORDS SUMMARY | ~2020-01-09 | XMS | Encounter Summary ---
Demographics + + + | Address | [address] | | | [place] [address] | + + + | Home Phone | | + + + | Preferred Language | Unknown | + + + | Marital Status | Single | + + + | Faith Affiliation | Unknown | + + + | Race | Unknown | + + + | Ethnic Group | Unknown | + + + Author + + + | Author | [facility] | | | and [place] | + + + | Organization | [facility] | | | and [place] | + + + | Address | Unknown | + + + | Phone | Unavailable | + + + Support + + + + + | Name | Relationship | Address | Phone | + + + + + | Shawanda Hirsch | ECON | [address] | | | | | [place] | | | | | [address] | | + + + + + Care Team Providers + +------+ + | Care Rn Post Partum Name | Role | Phone | + [...] | | | [address] | Way [place], [place] | | | | | [place], [place] | [address] | | | | | [address] | | | | | | [phone] | | | +--------+ + + + [...] | | | is mildly enlarged. 8. Uuev-tg-zqpjqgqg tricuspid regurgitation | | | present. 9. [...] | | | is mildly enlarged. 8. Xhvh-pm-bxqqtxod tricuspid regurgitation | | | present. 9. [...] normal. | | | Equivocal Tricuspid Valve: Vvbz-tc-xchboaqm tricuspid regurgitation | | | present. Tricuspid [...] TR Vmax: 3.41 m/s | | | Teenage Program Director: Authenticated by: Jenn Stringer MD Report Date/Time: | | | -- [id number]:36:0 | | + + + + + [...] enlarged.7. The right atrium is mildly enlarged.8. Omje-xx-ywoflcqt tricuspid | | regurgitation present.9. The right [...] | valve appears structurally normal. EquivocalTricuspid Valve: Pmyz-gc-iugpspty tricuspid | | regurgitation present.Tricuspid Valve: The [...] (A-L): 39.12 ml/m2LAAs A2C: 23.51 | | [id number] A-L A2C: 79.84 mlLAESV MOD A2C: 77.46 mlLALs A2C: 5.88 cmLAAs A4C: | | 25.35 [id number] A-L A4C: 92.54 mlLAESV MOD A4C: 85.89 mlLALs A4C: 5.89 cmRAAs: | | 19.13 [id number] A-L: 55.80 mlRAESV MOD: 54.64 mlRALs: 5.57 cmTAPSE: 1.70 cmAV | | Env.Ti: 243.99 msAV maxP.60 mmHgAV meanP.43 mmHgAV Vmax: 1.77 m/Edgardo | | Vmean: 1.17 m/Edgardo VTI: 28.74 cmAVA Vmax: 1.68 cm2AVA (VTI): 1.96 [id number] Vmax: | | 0.00 cm2/m2AVAI (VTI): 0.00 cm2/m2LVOT Env.Ti: 249.53 msLVOT maxP.29 mmHgLVOT | | meanP.38 mmHgLVSI Dopp: 25.66 ml/m2LVSV Dopp: 56.46 mlLVOT Vmax: 0.75 | | m/sLVOT Vmean: 0.57 m/sLVOT VTI: 14.25 cmMV E Aram: 1.08 m/sRAP: 15 mmHgRV S': | | 0.09 m/sRVSP: 61.65 mmHgTR maxP.65 mmHgTR Vmax: 3.41 m/s | | Teenage Program Director:Authenticated by: Jenn TONYeport Date/Time: -- [id number]:36:0 | | IMPRESSION: 1. Atrial fibrillation.2. This was a technically difficult study with | | suboptimal views.3. Overall left ventricular systolic function is normal with, an EF | | about 55 %.4. The right ventricle is mildly enlarged.5. The right ventricular systolic | | function is mildly impaired.6. The left atrium is mildly enlarged.7. The right atrium is | | mildly enlarged.8. Eizi-be-nuarswwx tricuspid regurgitation present.9. The right | | [...] |TR Vmax: 3.41 m/s | | | |Teenage Program Director: | |Authenticated by: Jenn Stringer MD | |Report Date/Time: -- [id number]:0 | | | |IMPRESSION: | |1. Atrial [...] right atrium is mildly enlarged. | |8. Mspu-ag-dsdicyov tricuspid regurgitation present. | |9. The right ventricular systolic pressure (pulmonary artery systolic pressure), as measure d by Doppler, is 61.66mmHg. | + + documented in this encounter Visit Diagnoses Not on filedocumented in this encounter"
--- OUTSIDE RECORDS SUMMARY | ~2020-01-09 | XMS | Encounter Summary ---
Demographics + + + | Address | [address] | | | [place] [address] | + + + | Home Phone [...] + + + | Author | [facility] | | | and [place] | + + + | Organization | [facility] | | | and [place] | + + + | Address | Unknown | + + + | Phone | Unavailable | + + + Support + + + + + | Name | Relationship | Address | Phone | + + + + + | Shawanda Hirsch | ECON | [address] | | | | | [place] | | | | | [address] | | + + + + + Care Team Providers + +------+ + | Care Lump Receiver Name | Role | Phone | + +------+ + | Ashleigh Benavides | PCP | | | [place] | | | + +------+ + Encounter Details +--------+ + + + + | Date | Type | Department | Care Team | Description | +--------+ + + + + | 02/11/ | Hospital | [facility] | Conversion | Ventricular | | 2019 | Encounter | CENTER CV INTRA OP | Transaction, | premature | | | | [address] | Provider Unknown | depolarization | | | | [place], [place] | [phone] | | | | | [address] | | | | | | [phone] | Jenn Stringer DO | | | | | | [address] | | | | | | F [place], [place] | | | | | | [address] | | | | | | | [...] MD | | | | | | ([id number]) on 02/11/2019 | | | | | | 5:49:33 PM | | | | + + + + + + + + | Specimen | + + | | + + + + + | Narrative | Performed At | + + + | Historically converted procedure from [facility] | EXTERNAL LAB | + + + [...]
--- OUTSIDE RECORDS SUMMARY | ~2020-01-09 | XMS | Encounter Summary ---
Demographics + + + | Address | [address] | | | [place] [address] | + + + | Home Phone [...] + | Shawanda Hirsch | ECON | [address] | | | | | [place] | | | | | [address] | | + + + + + Care Team Providers + +------+ + | Care Director Career Services Name | Role | Phone | + +------+ + | Ashleigh Benavides | PCP | | | [place] | | | + +------+ + Encounter Details +--------+ + + + + | Date | Type | Department | Care Team | Description | +--------+ + + + + | 02/11/ | Hospital | [facility] | Conversion | Ventricular | | 2019 | Encounter | CENTER CV INTRA OP | Transaction, | premature | | | | [address] | Provider Unknown | depolarization | | | | [place], [place] | [phone] | | | | | [address] | | | | | | [phone] | Jenn Stringer DO | | | | | | [address] | | | | | | F [place], [place] | | | | | | [address] | | | | | | | [...] MD | | | | | | ([id number]) on 02/11/2019 | | | | | | 5:49:33 PM | | | | + + + + + + + + | Specimen | + + | | + + + + + | Narrative | Performed At | + + + | Historically converted procedure from [facility] | EXTERNAL LAB | + + [...]
--- OUTSIDE RECORDS SUMMARY | ~2020-01-09 | XMS | Encounter Summary ---
Demographics + + + | Address | [address] | | | [place] [address] | + + + | Home Phone | | + + + | Preferred Language | Unknown | + + + | Marital Status | Single | + + + | Methodist Affiliation | Unknown | + + + [...] + | Dennise Hirsch | ECON | [address] | | | | | [place] | | | | | [address] | | + + + + + Care Team Providers + +------+ + | Care Senior Net Software Engineer Name | Role | Phone | + [...] + + | 11/23/ | Office | [facility] | Citlali Adkins | Paroxysmal atrial | | 2020 | Visit | [facility] | [address] | fibrillation (HCC) | | | | [address] | [address] | (Primary Dx); | | | | [address] | [place] [address] | History of | | | | [place], [place] | [phone] | cardioversion; | | | | [address] | | Chronic diastolic | | | | [phone] | | heart failure (HCC); | | [...] 01/16/2019, and also seen by now retired brusher tender Dr. Caldera. Today, I reviewed all previous [...] admitted to the hospital at [facility] April 15-2018 with A. fib with [...] They also suggested a PCP referral to trumpet teacher or infect ious disease specialist for treatment [...] on He also consumes edible marijuana in [employer] about once a month, but denies any [...] days a week for 6 hours at [employer]. He complains that he urinate small amounts constantly after he takes his diuretic, and a lso has urgency, and did not seek urology consult for further evaluation. He drinks coffee all day long when he works at [employer]. REVIEW OF SYSTEMS: Negative except for pertinent [...] current illicit drug use. . Lives in [place]. Works At [employer], 5 days per week for 6 hrs, : 4:30- 1300, uses marijuana [employer] once a month.. Outpatient Medications Prior to [...] Severe pulmonary hypertension, RVSP 61.66 mmHg. Trace GA. No pericardial effusion. IVC dilated c onsistent [...] cific T wave abnormalities. Rate 76 bpm, GA 188 ms, QRS 88 lorna-seconds, QTC 423 ms, dennise wong personally reviewed by me EK04/15/2019 ([facility] ER) atrial fib with RVR, ST and T wave abnormalities to anterolateral leads. Rate 118 bpm, QRS 84 ms, QTC 442 ms tracing personally reviewed by me EK08/28/2019: Sinus rhythm, nonspecific ST-T wave abnormalities to anterolateral leads. Rate 79 bpm, QRS 86 ms, QTC 373 ms, tracing personally reviewed by me and compared to EKG p erformed in April in the [facility] emergency room, sinus rhythm has replaced atrial fibr illation LABS Labs: 04/15/2019: [facility] ER: CBC: WBC 6.1, RBC 3.96, hemoglobin [...] combining alcohol with narcotics, as he takes [place] 3 micheal es per day, and drinks [...] for continuity of care purp maci [facility] 11/24/2019 docume nted in this [...]
--- OUTSIDE RECORDS SUMMARY | ~2020-01-09 | XMS | Encounter Summary ---
Demographics + + + | Address | [address] | | | [place] [address] | + + + | Home Phone | | + + + | Preferred Language | Unknown | + + + | Marital Status | Single | + + + | Muslim Affiliation | Unknown | + + + | Race | Unknown | + + + | Ethnic Group | Unknown | + + + Author + + + | Author | [facility] | | | and [place] | + + + | Organization | [facility] | | | and [place] | + + + | Address | Unknown | + + + | Phone | Unavailable | + + + Support + + + + + | Name | Relationship | Address | Phone | + + + + + | Shawanda Hirsch | ECON | [address] | | | | | [place] | | | | | [address] | | + + + + + Care Team Providers + +------+ + | Care Passenger Interline Clerk Name | Role | Phone | [...] Provider Unknown | | | | | [place], [place] | [phone] | | | | | [address] | | | | | | [phone] | | | +--------+ + + + [...]
--- OUTSIDE RECORDS SUMMARY | ~2020-01-09 | XMS | Encounter Summary ---
Demographics + + + | Address | [address] | | | [place] [address] | + + + | Home Phone | | + + + | Preferred Language | Unknown | + + + | Marital Status | Single | + + + | Jain Affiliation | Unknown | + + + | Race | Unknown | + + + | Ethnic Group | Unknown | + + + Author + + + | Author | [facility] | | | and [place] | + + + | Organization | [facility] | | | and [place] | + + + | Address | Unknown | + + + | Phone | Unavailable | + + + Support + + + + + | Name | Relationship | Address | Phone | + + + + + | Shawanda Hirsch | ECON | [address] | | | | | [place] | | | | | [address] | | + + + + + Care Team Providers + +------+ + | Care Critical Care Physician Name | Role | Phone | + [...] Provider Unknown | | | | | [place], [place] | [phone] | | | | | [address] | | | | | | [phone] | | | +--------+ + + + [...]
--- OUTSIDE RECORDS SUMMARY | ~2020-01-09 | XMS | Clinical Summary ---
Demographics + + + | Address | [address] | | | [place] [address] | + + + | Home Phone | | + + + | Preferred Language | Unknown | + + + | Marital Status | Single | + + + | Samaritan Affiliation | Unknown | + + + | Race | Unknown | + + + | Ethnic Group | Unknown | + + + Author + + + | Author | [facility] (Historical as of | | | 04-19-19) | + + + | Organization | [facility] (Historical as of | | | 04-19-19) | + + + | Address | Unknown | + + + | Phone | Unavailable | + + + Support + + + + + | Name | Relationship | Address | Phone | + + + + + | Boyd Gloria | ECON | [address] | | | | | [place] | | | | | [address] | | + + + + + Care Team Providers + +------+ + | Care Control Systems Drafting Officer Name | Role | Phone | + +------+ + | Ashleigh Benavides PA-C | PP | | + +------+ + Allergies No Known Allergies Current Medications + + +--------+---------+------+------+-------+ | Prescription | Sig. | Disp. | Refills | Star | End | Statu | | | | | | t | Date | s | | | | | | Date | | | + + +--------+---------+------+------+-------+ | lisinopril | Take 10 mg by mouth | | | | | Activ | | (ZESTRIL) 10 MG | daily. | | | | | e | | tablet | | | | | | | + + +--------+---------+------+------+-------+ | | Inhale 1 puff into | | | | | Activ | | fluticasone-salmeter | the lungs 2 (two) | | | | | e | | ol (ADVAIR) 250-50 | times daily. | | | | | | | MCG/DOSE | | | | | | | + + +--------+---------+------+------+-------+ | | Take 1 tablet by | | | | | Activ | | HYDROcodone-acetamin | mouth every 6 (six) | | | | | e | | ophen (NORCO) 5-325 | hours as needed for | | | | | | | MG per tablet | Pain. | | | | | | + + +--------+---------+------+------+-------+ | ibuprofen (ADVIL) | Take 200 mg by mouth | | | | | Activ | | 200 MG tablet | every 6 (six) hours | | | | | e | | | as needed for Pain. | | | | | | + + +--------+---------+------+------+-------+ | albuterol | Inhale 2 puffs into | | | | | Activ | | (PROVENTIL | the lungs every 4 | | | | | e | | HFA;VENTOLIN HFA) | (four) hours as | | | | | | | 108 (90 Base) | needed for Wheezing. | | | | | | | MCG/ACT inhaler | | | | | | | + + +--------+---------+------+------+-------+ | metoprolol | Take 1 tablet by | 30 | 5 | 05/1 | | Activ | | (TOPROL-XL) 100 MG | mouth daily. | tablet | | 6/20 | | e | | 24 hr tablet | | | | 19 | | | + + +--------+---------+------+------+-------+ | apixaban (ELIQUIS) | Take 1 tablet by | 60 | 5 | 05/1 | | Activ | | 5 MG tablet | mouth 2 (two) times | tablet | | 6/20 | | e | | | daily. | | | 19 | | | + + +--------+---------+------+------+-------+ Active Problems + + + | Problem | Noted Date | + + + | COPD (chronic obstructive pulmonary disease) | 10/29/2014 | + + + + + | Last Assessment & Plan: COPD, bronchitis, managed by PCP. | + + + + + | HLD (hyperlipidemia) | 10/29/2014 | + + + + + | Last Assessment & Plan: Dyslipidemia, at goal, continue | | current meds at current dose (atorvastatin). Labs reviewed with | | patient.Lab, 08/17/2015: T Chol: 126, LDL-Chol: 73, HDL-Chol: 32, | | Tri Liver enzymes NML, K: 4.5, | | BUN/Cr: 17/0.9, glu: 110 TSH: 1.91, | | HgbA1c: 5.8, WBC: 6.6, H/H: 15.5/46.2, plt: 193Labs, 10/30/2015: | | Trop-T: <0.010, BNP: 78, AST/ALT: 45/71, K: 4.28 BUN/Cr: 19/1.1, | | glu: 92 WBC: 11.0, H/H: 15.3/47.8, | | plt: 225 | + + + + + | Acute bronchitis | 10/26/2014 | + + + | Atrial fibrillation (HCC) | 10/23/2014 | + + + + + | Last Assessment & Plan: Paroxysmal A fib, on ADD | | (flecainide), currently in sinus rhythm. CHADS2 Score 0, on ASA. | | 59yo WM, first office visit after hospitalization, | | briefly hospitalized because of severe cough, shortness of | | breath. Found to have bronchitis, was in atrial flutter at the | | time he was admitted to hospital. Heart rate controlled, treated | | medically improved and discharged, no falls the office. Today | | his heart rate is regular, at a rate more suggestive of sinus | | rhythm. He does not want to be anticoagulated. He tolerates the | | atrial flutter and previous atrial fibrillation relatively well, | | hemodynamically he is stable with atrial fibrillation and/or | | atrial flutter. He is slowly recovering from his bronchitis. | | Smoking is decreased, he is hoping to quit this time. Tolerating | | medications. No change in therapy at this time. Will be | | followed clinically.Hx ICD/Pacemaker: noLast Cath: naLast Echo, | | 10/24/2014 (MANOHAR): LVEF 60-65%, no thrombus in LA, RA/RV NML, mild | | MR, mild TR, trace PI, est systolic PAP 37mmHg+CVP.Last Stress | | Test, 10/25/2014: Lexiscan, images benign, LVEF 44%.ECG, 04/08/2015: | | sinus rhythm, non-spec ST-T changes, QTc 364msec.ECG, 10/30/2015: | | Atrial flutter with 2:1 AV conduction, v-rate 133bpm, non-spec | | ST-T changes. | + + + + + | Skipped heart beats | 10/23/2014 | + + + | SOB (shortness of breath) | 10/23/2014 | + + + | Tobacco use disorder | 10/23/2014 | + + + + + | Last Assessment & Plan: Still smoking, down to a third pack | | of cigarettes per day, is hoping to quit. | + + + + + | Morbid obesity (HCC) | 10/23/2014 | + + + Family History + + +------+ + | [...] 69) | | + +------+ + + Social History + + + +--------+ + | Tobacco Use | Types | Packs/Day | Years | Date | | | | | Used | | + + + +--------+ + | Current Every Day | Cigarettes | 1 | | Started: 09/03/1970 | | Smoker | | | | | + + + +--------+ + + +---+---+---+ | Smokeless Tobacco: | | | | | Current User | | | | + +---+---+---+ + + | Tobacco Cessation: Ready to Quit: No; Counseling Given: No | + + + + +---------+ + | Alcohol Use | Drinks/We | oz/Week | Comments | | | ek | | | + + +---------+ + | Yes | 21 Cans | 12.6 | (3-6 cans per day) | | | of beer | | | + + +---------+ + + + + | Sex Assigned at | Date Recorded | | | | + + + | Not on file | | + + + Last Filed Vital Signs + + + + | Vital Sign | Reading | Time Taken | + + + + | Blood Pressure | 132/71 | 02/11/2019 11:36 AM PDT | + + + + | Pulse | 74 | 02/11/2019 11:36 AM PDT | + + + + | Temperature | 36.3 C (97.4 F) | 02/11/2019 10:16 AM PDT | + + + + | Respiratory Rate | 18 | 02/11/2019 11:36 AM PDT | + + + + | Oxygen Saturation | 97% | 02/11/2019 11:36 AM PDT | + + + + | Inhaled Oxygen | - | - | | Concentration | | | + + + + | Weight | 108.9 kg (240 lb) | 02/11/2019 10:16 AM PDT | + + + + | Height | 165.1 cm (5' 5") | 02/11/2019 10:16 AM PDT | + + + + | Body Mass Index | 39.94 | 02/11/2019 10:16 AM PDT | + + + + Plan of Treatment [...] | | | | Pneumococcal 19-64 | 7 | | | | (PPSV23 only) Medium | | | | | Risk (1 of 1 - | | | | | PPSV23) | | | | + + + + + | Colon Cancer | | | | | Screening | 8 | | | | (Colonoscopy) | | | | + + + + + | Vaccine: Zoster (1 | | | | | of 2) | 8 | | | + + + + + | Vaccine: Influenza | | | | | (Season Ended) | 0 | | | + + + + + Results Not on filefrom Last 3 Months Insurance +---------+--------+ +------+-------+ + | Payer | Benefi | Subscriber | Type | Phone | Address | | | t Plan | ID | | | | | | / | | | | | | | Group | | | | | +---------+--------+ +------+-------+ + | PREMERA | PREMER | [id number] | | | [address] [address] | | | A BLUE | 9 | | | [place] | | | CARD | | | | [phone] | +---------+--------+ +------+-------+ + + +--------+ +--------+ + + | Guarantor Name | Accoun | Relation to | Date | Phone | Billing Address | | | t Type | Patient | of | | | | | | | | | | + +--------+ +--------+ + + | BOYD GLORIA | Person | Self [birth year] | Home: | [address] | | | al/Fam | | 1955 | [phone] | [place] | | | beba | | | [phone] | [phone] | + +--------+ +--------+ + +
--- OUTSIDE RECORDS SUMMARY | ~2020-01-09 | XMS | Encounter Summary ---
Demographics + + + | Address | [address] | | | [place] [address] | + + + | Home Phone | | + + + | Preferred Language | Unknown | + + + | Marital Status | Single | + + + | Sikhism Affiliation | Unknown | + + + [...] + | Shawanda Hirsch | ECON | [address] | | | | | [place] | | | | | [address] | | + + + + + Care Team Providers + +------+ + | Care Destaticizer Feeder Name | Role | Phone | + [...] | | | | [place], [place] | [phone] | | | | | [address] | | | | | | [phone] | | | +--------+ + + + [...]
--- OUTSIDE RECORDS SUMMARY | ~2020-01-09 | XMS | Encounter Summary ---
Demographics + + + | Address | [address] | | | [place] [address] | + + + | Home Phone | | + + + | Preferred Language | Unknown | + + + | Marital Status | Single | + + + | Yarsanism Affiliation | Unknown | + + + | Race | Unknown | + + + | Ethnic Group | Unknown | + + + Author + + + | Author | [facility] | | | and [place] | + + + | Organization | [facility] | | | and [place] | + + + | Address | Unknown | + + + | Phone | Unavailable | + + + Support + + + + + | Name | Relationship | Address | Phone | + + + + + | Shawanda Hirsch | ECON | [address] | | | | | [place] | | | | | [address] | | + + + + + Care Team Providers + +------+ + | Care Network Operations Analyst Name | Role | Phone | [...] Provider Unknown | | | | | [place], [place] | [phone] | | | | | [address] | | | | | | [phone] | | | +--------+ + + + [...]
--- OUTSIDE RECORDS SUMMARY | ~2020-01-09 | XMS | Clinical Summary ---
Demographics + + + | Address | [address] | | | [place] [address] | + + + | Home Phone | | + + + | Preferred Language | Unknown | + + + | Marital Status | Single | + + + | Sikhism Affiliation | Unknown | + + + | Race | Unknown | + + + | Ethnic Group | Unknown | + + + Author + + + | Author | [facility] (Historical as of | | | 04-19-19) | + + + | Organization | [facility] (Historical as of | | | 04-19-19) | + + + | Address | Unknown | + + + | Phone | Unavailable | + + + Support + + + + + | Name | Relationship | Address | Phone | + + + + + | Boyd Gloria | ECON | [address] | | | | | [place] | | | | | [phone] | | + + + + + Care Team Providers + +------+ + | Care District Sales Leader Name | Role | Phone | + [...] +------+-------+ + | PREMERA | PREMER | [id number] | | | [address] [address] | | | A BLUE | 9 | | | [place] | | | CARD | | | | [phone] | +---------+--------+ +------+-------+ + + +--------+ +--------+ + + | Guarantor Name | Accoun | Relation to | Date | Phone | Billing Address | | | t Type | Patient | of | | | | | | | | | | + +--------+ +--------+ + + | BOYD GLORIA | Person | Self | [birth year] | Home: | [address] | | | al/Fam | | 1955 | [phone] | [place] | | | beba | | | [phone] | [phone] | + +--------+ +--------+ + +
--- OUTSIDE RECORDS SUMMARY | ~2020-01-09 | XMS | Clinical Summary ---
Demographics + + + | Address | [address] | | | [place] [address] | + + + | Home Phone | | + + + | Preferred Language | Unknown | + + + | Marital Status | Single | + + + | Evangelical Affiliation | Unknown | + + + | Race | Unknown | + + + | Ethnic Group | Unknown | + + + Author + + + | Author | [facility] (Historical as of | | | 04-19-19) | + + + | Organization | [facility] (Historical as of | | | 04-19-19) | + + + | Address | Unknown | + + + | Phone | Unavailable | + + + Support + + + + + | Name | Relationship | Address | Phone | + + + + + | Boyd Gloria | ECON | [address] | | | | | [place] | | | | | [phone] | | + + + + + Care Team Providers + +------+ + | Care Ruby On Rails Software Developer Name | Role | Phone | [...] +------+-------+ + | PREMERA | PREMER | [id number] | | | [address] [address] | | | A BLUE | 9 | | | [place] | | | CARD | | | | [phone] | +---------+--------+ +------+-------+ + + +--------+ +--------+ + + | Guarantor Name | Accoun | Relation to | Date | Phone | Billing Address | | | t Type | Patient | of | | | | | | | | | | + +--------+ +--------+ + + | BOYD GLORIA | Person | Self | [birth year] | Home: | [address] | | | al/Fam | | 1955 | [phone] | [place] | | | beba | | | [phone] | [phone] | + +--------+ +--------+ + +
[~2020-01-09 19:55] MED LIST changes: +ADVIL200 M1 PO; +ALBUTEROL HFA INH (2; +ALLERGY RELIEF10 M1 PO; +FUROSEMIDE40 MG PO; +METOPROLOL SUC100 MG PO; +METOPROLOL SUC200 MG PO; +POTASSIUM CHLO10 MEQ PO; +PREDNISONE10 MG PO
--- OUTSIDE RECORDS SUMMARY | 2020-01-09 19:58 | XMS ---
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 EBenoit VISIT COUNT (12 MO.) 2 CLEMENTINE Shanks TOTAL 2 NOTE: Visits indicate total known visits. 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
--- NOTE | 2020-01-11 11:34 | EKG ---
[facility] [address] [facility] [place] [address] Signed Atrial fibrillation with rapid ventricular response Nonspecific ST abnormality Abnormal QRS-T angle, consider primary T wave abnormality Abnormal ECG When compared with ECG of 15-APR-2019 19:17, T wave inversion no longer evident in Lateral leads Confirmed by GORDON VALADEZ MD ([id number]) on 01/11/2020 11:34:32 AM Electronically Signed By: GORDON VALADEZ MD 01/11/20 1134 PATIENT NAME: GLORIAADRIA Electrocardiogram DATE OF : 59 PHYSICIAN: GORDON VALADEZ MD REPORT #: [id number] REPORT IS CONFIDENTIAL AND NOT TO BE RELEASED WITHOUT AUTHORIZATION
--- NOTE | 2020-01-11 11:35 | EKG ---
[facility] [address] [facility] [place] [address] \T\ T wave abnormality, consider inferior ischemia Abnormal ECG When compared with ECG of 09-JAN-2020 20:03, (Unconfirmed) Vent. rate has decreased BY 64 BPM T wave inversion more evident in Inferior leads Nonspecific T wave abnormality now evident in Lateral leads Confirmed by GORDON VALADEZ MD ([id number]) on 01/11/2020 11:35:15 AM Electronically Signed By: GORDON VALADEZ MD 01/11/20 1135 PATIENT NAME: ADRIA GLORIA Electrocardiogram DATE OF : [birth year] PHYSICIAN: GORDON VALADEZ MD REPORT #: [id number] REPORT IS CONFIDENTIAL AND NOT TO BE RELEASED WITHOUT AUTHORIZATION
== END 2020-01-11 13:15 | disposition home or self-care (01) | DRG 292 ==
LOC: ED 19:55 → CCU 01-10 14:23
PROVIDERS: ADMIT Internal Medicine
DX: I50.813 Acute on chronic right heart failure (principal); I48.20 Chronic atrial fibrillation, unspecified; Z68.41 Body mass index [BMI] 40.0-44.9, adult; I10 Essential (primary) hypertension; J44.9 Chronic obstructive pulmonary disease, unspecified; G47.33 Obstructive sleep apnea (adult) (pediatric); B19.20 Unspecified viral hepatitis C without hepatic coma; F17.200 Nicotine dependence, unspecified, uncomplicated; E66.01 Morbid (severe) obesity due to excess calories; R00.1 Bradycardia, unspecified; I07.1 Rheumatic tricuspid insufficiency; I27.29 Other secondary pulmonary hypertension; Z79.899 Other long term (current) drug therapy; Z79.01 Long term (current) use of anticoagulants; Z79.891 Long term (current) use of opiate analgesic; Z91.19 Patient's noncompliance with other medical treatment and regimen
CPT/HCPCS: 36415; 71045; 80048; 80053; 83735; 83880; 84484; 85025; 93005; 93010; 94640; 96374; 96375; 96376; 99285-25; J1940; J2930; J3490; U0002

== ENCOUNTER 2020-03-24 18:26 | Observation (INO) | payer BC, OTHER ==
[~2020-03-24] VITALS: Ht 167.6 cm; Wt 115.7 kg
--- OUTSIDE RECORDS SUMMARY | ~2020-03-24 | XMS | Encounter Summary ---
Demographics + + + | Address | [address] | | | [place] [address] | + + + | Home Phone | | + + + | Preferred Language | Unknown | + + + | Marital Status | Single | + + + | Islam Affiliation | Unknown | + + + | Race | Unknown | + + + | Ethnic Group | Unknown | + + + Author + + + | Author | [facility] | | | and [place] | + + + | Organization | [facility] | | | and [place] | + + + | Address | Unknown | + + + | Phone | Unavailable | + + + Support + + + + + | Name | Relationship | Address | Phone | + + + + + | Shawanda Hirsch | ECON | [address] | | | | | [place] | | | | | [address] | | + + + + + Care Team Providers + +------+ + | Care Blending Machine Operator Name | Role | Phone | + +------+ + | Ashleigh Benavides | PCP | | | PA-C | | | + +------+ + Reason for Visit + +--------+ + | Reason | Onset | Comments | | | Date | | + +--------+ + | Medication Question | 03/01/ | | | | 2019 | | + +--------+ + Encounter Details +--------+ + + + + | Date | Type | Department | Care Team | Description | +--------+ + + + + | 03/01/ | Telephone | [facility] | Citlali Adkins | Medication Question | | 2020 | | [facility] [place] | [address] | | | | | [address] | [address] | | | | | [facility] [place] | [place] [address] | | | | | [address] | [phone] | | | | | [phone] | | | +--------+ + + + + Social History + +-------+ +--------+ + | Tobacco Use | Types | Packs/Day | Years | Date | | | | | Used | | + +-------+ +--------+ + | Current Every Day | | 1 | 50 | Started: 1960 | | Smoker | | | | | + +-------+ +--------+ + + +------+---+---+ | Smokeless Tobacco: | Chew | | | | Current User | | | | + +------+---+---+ + + +---------+ + | Alcohol Use | Drinks/Week | oz/Week | Comments | + + +---------+ + | Yes | 30 Cans of beer | 30.0 | Alcoholic | | | | | Drinks/day: (3-6 | | | | | cans per day) | + + +---------+ + + + + + | Alcohol Habits | Answer | Date Recorded | + + + + | How often do you have a drink containing | 4 or more times a week | 08/28/2019 | | alcohol? | | | + + + + | How many drinks containing alcohol do you | 5 or 6 | 08/28/2019 | | have on a typical day when you are | | | | drinking? | | | + + + + | How often do you have six or more drinks on | Daily or almost daily | 08/28/2019 | | one occasion? | | | + + + + + + + | Sex Assigned at | Date Recorded | | | | + + + | Not on file | | + + + documented as of this encounter Miscellaneous Notes Telephone Encounter - Citlali Adkins FNP - 03/01/2020 11:42 AM PDTI called left a me ssage that I would decrease his torsemide to 20 mg once a day instead of 20 mg twice a day f or the decline in his renal function and to proceed with testing as ordered, with labs to be done in 4 weeks, around March 27 and to still see me back in 6 weeks. Continue the same dose of potassiumElectronically signed by RENO Hays at 11:46 AM PDTdocumented in this encounter Plan of Treatment +--------+---------+ + + + | Date | Type | Specialty | Care Team | Description | +--------+---------+ + + + | 05/13/ | Office | Cardiology | Citlali Adkins | | | 2019 | Visit | | [address] | | | | | | [address] | | | | | | [place] [address] | | | | | | [phone] | | | | | | | | +--------+---------+ + + + documented as of this encounter Visit Diagnoses Not on filedocumented in this encounter"
--- OUTSIDE RECORDS SUMMARY | ~2020-03-24 | XMS | Encounter Summary ---
Demographics + + + | Address | [address] | | | [place] [address] | + + + | Home Phone | | + + + | Preferred Language | Unknown | + + + | Marital Status | Single | + + + | Confucianist Affiliation | Unknown | + + + | Race | Unknown | + + + | Ethnic Group | Unknown | + + + Author + + + | Author | [facility] | | | and [place] | + + + | Organization | [facility] | | | and [place] | + + + | Address | Unknown | + + + | Phone | Unavailable | + + + Support + + + + + | Name | Relationship | Address | Phone | + + + + + | Shawanda Hirsch | ECON | [address] | | | | | [place] | | | | | [address] | | + + + + + Care Team Providers + +------+ + | Care Conservation Educator Name | Role | Phone | + +------+ + | Ashleigh Benavides | PCP | | | PAGail | | | + +------+ + Encounter Details +--------+ + + + + | Date | Type | Department | Care Team | Description | +--------+ + + + + | 01/16/ | Orders Only | [facility] | Conversion | | | 2019 | | CONVERSION [address] | Transaction, | | | | | [address] | Provider Unknown | | | | | [place], [place] | [phone] | | | | | [address] | | | | | | [phone] | | | +--------+ + + + + Social History + +-------+ +--------+------+ | Tobacco Use | Types | Packs/Day | Years | Date | | | | | Used | | + +-------+ +--------+------+ | Current Every Day | | 1 | | | | Smoker | | | | | + +-------+ +--------+------+ + + + | Sex Assigned at | Date Recorded | | | | + + + | Not on file | | + + + documented as of this encounter Plan of Treatment +--------+---------+ + + + | Date | Type | Specialty | Care Team | Description | +--------+---------+ + + + | 05/13/ | Office | Cardiology | Citlali Adkins | | | 2019 | Visit | | [address] | | | | | | [address] | | | | | | [place] [address] | | | | | | [phone] | | | | | | | | +--------+---------+ + + + documented as of this encounter Visit Diagnoses Not on filedocumented in this encounter"
--- OUTSIDE RECORDS SUMMARY | ~2020-03-24 | XMS | Encounter Summary ---
Demographics + + + | Address | [address] | | | [place] [address] | + + + | Home Phone | | + + + | Preferred Language | Unknown | + + + | Marital Status | Single | + + + | Sikh Affiliation | Unknown | + + + | Race | Unknown | + + + | Ethnic Group | Unknown | + + + Author + + + | Author | [facility] | | | and [place] | + + + | Organization | [facility] | | | and [place] | + + + | Address | Unknown | + + + | Phone | Unavailable | + + + Support + + + + + | Name | Relationship | Address | Phone | + + + + + | Dennise Hirsch | ECON | [address] | | | | | [place] | | | | | [phone] | | + + + + + Care Team Providers + +------+ + | Care Wringer Operator Name | Role | Phone | [...] + + | 11/23/ | Office | [facility] | Citlali Adkins | Paroxysmal atrial | | 2020 | Visit | [facility]Y [place] | [address] | fibrillation (HCC) | | | | [address] | [address] | (Primary Dx); | | | | [address] | [place] [address] | History of | | | | [place], [place] | [phone] | cardioversion; | | | | [address] | | Chronic diastolic | | | | [phone] | | heart failure (HCC); | | [...] Citlali Adkins FNP - 11/24/2019 2:00 PM KALI made changes to m edications: take magnesium oxide 400 mg twice a day to help with cramps. See a urologist, and can ask your PCP Ashleigh Benavides to refer you as I think having prob lems emptying your bladder Your beer and cigarettes are increasing your heart disease, keep working on quitting. Elect darciically signed by RENO Hays at 11/24/2019 2:21 PM PDT documented in this encounter Progress Notes Citlali Adkins BethRENO - 11/24/2019 2:00 PM PDTFormatting of this [...] 01/16/2019, and also seen by now retired clinical education assistant Dr. Caldera. Today, I reviewed all previous [...] room, and admitted to the hospital at [facility] 15-2018 with A. fib with RVR. [...] They also suggested a PCP referral to dry heat room attendant or infect ious disease specialist for treatment [...] on He also consumes edible marijuana in brownies about once a month, but denies any [...] days a week for 6 hours at [employer]. He complains that he urinate small amounts constantly after he takes his diuretic, and a lso has urgency, and did not seek urology consult for further evaluation. He drinks coffee all day long when he works at [employer]. REVIEW OF SYSTEMS: Negative except for pertinent [...] current illicit drug use. . Lives in [place]. Works At [employer], 5 days per week for 6 hrs, : 4:30- 1300, uses marijuana brownie once a month.. Outpatient Medications Prior to [...] no distress. Appears older than stated ag Randolph complexion HEENT: Normocephalic, atraumatic. EYES: PERRL, EOM [...] Severe pulmonary hypertension, RVSP 61.66 mmHg. Trace TX. No pericardial effusion. IVC dilated c onsistent [...] cific T wave abnormalities. Rate 76 bpm, TX 188 ms, QRS 88 lorna-seconds, QTC 423 ms, dennise ng personally reviewed by me EK04/15/2019 ([facility]) atrial fib with RVR, ST and T wave abnormalities to anterolateral leads. Rate 118 bpm, QRS 84 ms, QTC 442 ms tracing personally reviewed by me EK08/28/2019: Sinus rhythm, nonspecific ST-T wave abnormalities to anterolateral leads. Rate 79 bpm, QRS 86 ms, QTC 373 ms, tracing personally reviewed by me and compared to EKG p erformed in April in the [facility] emergency room, sinus rhythm has replaced atrial fibr illation LABS Labs: 04/15/2019: [facility] ER: CBC: WBC 6.1, RBC 3.96, hemoglobin [...] had suggested when I saw him la or taking increased doses when he is [...] combining alcohol with narcotics, as he takes [place] 3 micheal es per day, and drinks [...] for continuity of care purp maci MCKINNEY [facility] 11/24/2019 dorene madison in this encounter Plan of Treatment +--------+---------+ + + + | Date | Type | Specialty | Care Team | Description | +--------+---------+ + + + | 05/13/ | Office | Cardiology | Jed[facility]lali | | | 2019 | Visit | | [address] | | | | | | [address] | | | | | | [place] [address] | | | | | | [phone] | | | | | | | | +--------+---------+ + + + documented as of this encounter Visit Diagnoses + [...]
--- OUTSIDE RECORDS SUMMARY | ~2020-03-24 | XMS | Encounter Summary ---
Demographics + + + | Address | [address] | | | [place] [address] | + + + | Home Phone | | + + + | Preferred Language | Unknown | + + + | Marital Status | Single | + + + | Taoism Affiliation | Unknown | + + + | Race | Unknown | + + + | Ethnic Group | Unknown | + + + Author + + + | Author | [facility] | | | and [place] | + + + | Organization | [facility] | | | and [place] | + + + | Address | Unknown | + + + | Phone | Unavailable | + + + Support + + + + + | Name | Relationship | Address | Phone | + + + + + | Shawanda Hirsch | ECON | [address] | | | | | [place] | | | | | [address] | | + + + + + Care Team Providers + +------+ + | Care Cma Or Lpn Name | Role | Phone | + [...] + + | 03/01/ | Telephone | [facility] | Citlali Adkins | Medication Question | | 2020 | | [facility]IOLOGY [place] | [address] | | | | | [address] | [address] | | | | | [facility] [address] | [place] [address] | | | | | [address] | [phone] | | | | | [phone] | | | +--------+ + + + [...] F | | | | | | [place] [address] | | | | | | [phone] | | | | | | | | +--------+---------+ + + + documented as of this encounter Visit Diagnoses Not on filedocumented in this encounter"
--- OUTSIDE RECORDS SUMMARY | ~2020-03-24 | XMS | Encounter Summary ---
Demographics + + + | Address | [address] | | | [place] [address] | + + + | Home Phone | | + + + | Preferred Language | Unknown | + + + | Marital Status | Single | + + + | Uatsdin Affiliation | Unknown | + + + | Race | Unknown | + + + | Ethnic Group | Unknown | + + + Author + + + | Author | [facility] | | | and [place] | + + + | Organization | [facility] | | | and [place] | + + + | Address | Unknown | + + + | Phone | Unavailable | + + + Support + + + + + | Name | Relationship | Address | Phone | + + + + + | Shawanda Hirsch | ECON | [address] | | | | | [place] | | | | | [address] | | + + + + + Care Team Providers + +------+ + | Care Lofter Name | Role | Phone | + +------+ + PCP | Unavailable | + +------+ + Encounter Details +--------+ + + + + | Date | Type | Department | Care Team | Description | +--------+ + + + + | 10/23/ | [facility] | [facility] | Stacey Sadler, | Atrial fibrillation | | 2015 - | Encounter | [facility] | MD [address] | with rapid | | | | C[address]LO[address] | [place] [address] | ventricular response | | 10/26/ | | [address] | [phone] | ([facility]); Dyspnea | | 2014 | | [place], [place] | | | | | | [address] | | | | | | [phone] | | | +--------+ + + + [...] Progress Notes by Doris Becker RN at 10/26/14 120 Author: Doris Becker RN Service: (none) Author Type: Registered Nurse Filed: 10/26/14 1208 Date of Service: 10/26/141202 Status: Signed Applicator Sprayer: Doris Becker RN (Registered Nurse) Pt discharged home via private vehicle with . Discharge instructions including follow u p appointments, medications, prescriptions and at home monitoring reviewed with pt, pt alberto smithed understanding of this teaching. No questions at [...] Author: ASHA Aponte Service: (none) Author Type: Supervisor Beam Department Filed: 10/26/14 0854 Date of Service: 10/26/14852 Status: Signed Applicator Sprayer: ASHA Aponte (Supervisor Beam Department) CM met w/ pt regarding Advanced Directives. [...] Service: Hospitalist Author Type: Physician Filed: 10/25/14 1151 Date of Service: 10/25/141145 Status: Signed Applicator Sprayer: Marco Otto MD (Physician) [facility] Service: Hospitalist Progress Note Hospital Day: LOS: [...] (36.9 C)] 98.5 F (36.9 C) (10/25 0700) BP: (107-150)/(54-95) 141/91 mmHg (10/25 0700) Heart Rate: [72-108] 89 (10/25 0700) Resp: [8-20] 20 (10/25 699) SpO2: [79 %-99 %] 96 % (10/25 699) Weight: [118 kg (260 lb 2.3 oz)] 118 kg (260 lb 2.3 oz) (10/25 0248) Intake/Output Summary (Last 24 hours) at 10/25/14 [...] yet available. 2. Acute bronchitis. History of group home smoking. He may have COPD. Will continue predniso ne and nebulized treatment. No need for antibiotics and elevated white count is likely due t o steroids and resolved today. 3. Tobacco use. Patient extensively counseled. I again offered him nicotine patches but pat ient refused. 4. Morbid obesity with BMI of 42.00. Will need counseling upon discharge. 5. DVT prophylaxis with S/Q heparin. Disposition: Code Status: Full Code Marco Otto MD 10/25/2014 iryani, Gregorio Hanley MD - 10/24/2014 9:21 AM PSTFormatting of this note might be different from the [place] darian. Progress Notes by Marco Otto MD at 10/24/14920 Author: Marco Otto MD Service: Hospitalist Author Type: Physician Filed: 10/24/14938 Date of Service: 10/24/14920 Status: Signed Applicator Sprayer: Marco Otto MD (Physician) [facility] Service: Hospitalist Progress Note Hospital Day: LOS: [...] SpO2: [94 %-96 %] 96 % (10/24 0820) Height: [167.6 cm (5' 6")] 167.6 cm (5' 6") (10/23 1731) Weight: [118.6 kg (261 lb 7.5 oz)-118.8 kg (261 lb 14.5 oz)] 118.6 kg (261 lb 7.5 oz) ( 0342) Intake/Output Summary (Last 24 hours) at 10/24/14 [...] recommenda tions. 2. Acute bronchitis. 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 He may have COPD. Will continue [...] 10/23/142018 Date of Service: 10/23/142018 Status: Signed Applicator Sprayer: Janine Cowart RPH (Pharmacist) Clinical Pharmacy Note: Renal Monitoring Boyd Gloria 58 y.o. male Ht Readings from [...] Cowart RPh 10/23/2014 8:19 PM onver kevin Transaction, Provider Unknown - 10/23/2014 4:16 PM PST Case Management by ASHA Arora at 10/23/14 1616 Author: ASHA Arora Service: (none) Author Type: Production Control Coordinating Clerk Filed: 10/23/14 9957 Date of Service: 10/23/14 1616 Status: Signed Applicator Sprayer: ASHA Arora (Production Control Coordinating Clerk) 10/23/14 1600 Discharge Planning Evaluation Admitting Diagnosis Afib Readmission No Living Arrangements Spouse/significant other (Ludmila Hirsch [phone]) Type of Residence Private residence House type Mobile home Steps to enter 3 Independent with ADL's Yes Independent with Mobility Yes Home Care Services No Mental Status Oriented 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 Pt is a 58 y.o., male who is a current everyday smoker, 1 ppd. 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 H&P by Stacey Sadler MD at 10/23/14 5253 Author: Stacey Sadler MD Service: Hospitalist Author Type: Physician Filed: 10/23/142002 Date of Service: 10/23/14 6943 Status: Signed Applicator Sprayer: Stacey Sadler MD (Physician) Related Notes: Original Note by Stacey Sadler MD (Physician) filed at 10/23/14 9979 [facility] Service: Hospitalist Admission History & Physical Pt: Boyd Gloria AGE/SEX: 58 y.o. male Date of Admission: 10/23/2014 Chief Complaint: Sob w a fib History of Present Illness: The patient is a 58 y.o. male with significant past medical history of Shortness of breath from [facility] where he went for treatment. He was found to be in atrial fibrill ation and RVR. The patient had Cardizem drip overnight and then placed on 30 mg p.o. Cardize m at noon today. However, it was noted that the patient also had 3 to 6 second pauses and th erefore was transferred here for further evaluation by cardiology and possible defibrillator pacemaker placement. The patient is not on any medication such as beta blockers. 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 He states that he is very healthy. He does smoke a pack of to bacco a day. He does not believe he has COPD, but he states that for the last 24 hours [facility] he was ambulating or sitting still that he had significant shortness of breath. He was no t able to lie flat in his bed. He denies any chest pain, palpitations. No recent colds, flus , or fevers. He was seen by his primary care physician, was given medication, though he does not believe he had any antibiotic but was told that he had pneumonia. He also stated that sabi denton had a cough and was given cough syrup. Cough syrup is the only medication the patient naheed prince that he knows what he was given. No other recent colds, flus, or fevers. PMHx: Past Medical History Diagnosis Date Hepatitis C 1999 PSHx: Past Surgical History Procedure Laterality Date Orthopedic surgery Left hand Tonsillectomy Appendectomy Tympanostomy tube placement Bilateral as a child Prior To admission Meds: Prior to Admission medications Medication Sig Start Date End Date Taking? Authorizing Provider ibuprofen (ADVIL) 200 MG tablet Take 400 mg by mouth every 6 (six) hours as needed for Pain . Yes Historical Provider Allergies: No Known Allergies Family Hx: History reviewed. No pertinent family history. Social Hx: History Substance Use Topics Smoking status: Current Every Day Smoker -- 1.00 packs/day Smokeless tobacco: Not on file Alcohol Use: 0.0 oz/week 3-6 Cans of beer per week Comment: per day Review of Symptoms: Review of Systems Constitutional: Negative. HENT: Negative. Eyes: Negative. Respiratory: Positive for cough and shortness of breath. Negative for wheezing. Cardiovascular: Negative. Gastrointestinal: Negative. Musculoskeletal: Negative. Skin: Negative. Neurological: Negative. Psychiatric/Behavioral: Negative. Objective: Vital Signs: There were no vitals taken for this visit.Vitals were reviewed from [facility] and no abnormalities noted. Physical Exam: Physical Exam Constitutional: He is oriented to person, place, and time and well-developed, well-nourishe d, and in no distress. No distress. HENT: Head: Normocephalic and atraumatic. Eyes: EOM are normal. Pupils are equal, round, and reactive to light. Cardiovascular: Normal rate and regular rhythm. Pulmonary/Chest: Effort normal and breath sounds normal. No respiratory distress. He has no wheezes. Abdominal: Soft. Bowel sounds are normal. Musculoskeletal: Normal range of motion. He exhibits no edema or tenderness. Neurological: He is alert and oriented to person, place, and time. Skin: Skin is warm and dry. He is not diaphoretic. Psychiatric: Mood and affect normal. Nursing note and vitals reviewed. Data: Admission on 10/23/2014 Component Date Value Ref Range Status Ventricular Rate 10/23/2014 80 Final Atrial Rate 10/23/2014 288 Final QRS Duration 10/23/2014 86 Final Q-T Interval 10/23/2014 364 Final QTC Calculation (Bezet) 10/23/2014 419 Final Calculated R [place] 10/23/2014 65 Final Calculated T [place] 10/23/2014 -84 Final Diagnosis 10/23/2014 Final Value:Atrial fibrillation Nonspecific T wave abnormality Abnormal ECG No previous ECGs available This ECG contains Unconfirmed Interpretation Statements. See ED Record for Physician Inter pretation. Confirmed by MUSE READ ONLY, -COMPUTER ([id number]), medical editor YUVAL CARRERA (2) on 10/23/2014 2:34:16 PM ] IMAGING: Xr Chest Ap Portable 10/23/2014 1. No acute cardiopulmonary process. Problem List: Principal Problem: Atrial fibrillation Active Problems: Skipped heart beats SOB (shortness of breath) Tobacco use disorder Morbid obesity Assessment and Plan: 1. Atrial fibrillation with a history of RVR at [facility]. Currently, the sohan ent is rate controlled. He has been placed on 30 mg of Cardizem at noon today with excellent results. We will continue to monitor. He may require Coumadin use in the future. Will defer to cardiology, Dr. Saulo Ramirez, for this decision. With history of 3 to 6-second pauses, also cardiology consult for possible defibrillator pacemaker placement. The patient does not appe ar to be on any medications such as beta blockers at this time. 2. Shortness of breath with tobacco use disorder. He smokes 1 pack a day. His lungs current ly are clear, and he is saturating in the upper 90s. I do not think that this is a COPD exac erbation, but we will closely monitor. If the patient becomes short of breath, we can have b lood gases at that time. For the meantime, we will continue with albuterol nebulizers p.r.n. We will consider, based on blood gases or further clinical treatment, steroids and/or antib iotics in the future but, again, I believe his shortness of breath is mostly related to his atrial fibrillation. The patient will also have an echocardiogram. 3. Morbid obesity. The patient has been educated. We will continue to monitor. Daily labs w ill be a CBC, CMP, lipid panel, and TSH, magnesium, and phosphorus. He will be anticoagulati on with Lovenox. Code Status: No Order Primary Care Physician: No primary provider on file. Stacey Sadler MD 10/23/2014 2:49 PM This entry has been created using [employer] Speech Recognition software and [employer]. The entry has been reviewed and there may still exist sound alike word errors. documented in t his encounter Procedure Notes Nicole Ramirez MD - 10/26/2014 8:02 AM PSTFormatting of this note might be differ ent from the original. Procedures by Nicole Ramirez DO at 10/26/14801 Author: Nicole Ramirez DO Service: Cardiology Author Type: Physician Filed: 10/26/14805 Date of Service: 10/26/14801 Status: Signed Applicator Sprayer: Nicole Ramirez DO (Physician) Pre-procedure Diagnoses: 1. Atrial fibrillation, persistent (HCC) [427.31] Post-procedure Diagnoses: 1. Atrial fibrillation, persistent (HCC) [427.31] Procedures: 1. ELECTROCARDIOVERSION [UWB018] Pre-procedure Diagnoses Atrial fibrillation, new onset [427.31] Post-procedure Diagnoses Atrial fibrillation, new onset [427.31] Procedures ELECTROCARDIOVERSION [VFY107] Expand All Collapse All 58yo WM, new onset Atrial fibrillation, previous electrocardioversion initially succesful, but went back into A fib. Now has been on flecainide 48hrs, cardioversion discussed last ni t with patient, and again this AM, informed consent obtained. 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 For cardioversion, patches placed A-P, given 100mg propafol IVP. Then, synchronized electro cardioversion with 120J/biphasic, shock *1, converts to sinus rhythm. No immediate untoward effects. TTKC. Allyssa Anderson ARNP - 10/25/2014 10:28 AM PSTFormatting of this note might be different from the [place] gibhaskar. Procedures by FAYE Ann at 10/25/14 1028 Author: FAYE Ann Service: Radiology Author Type: Advanced Registered Nurse John elizalde Filed: 10/25/14 1029 Date of Service: 10/25/14 1028 Status: Signed Applicator Sprayer: FAYE Ann (Advanced Registered Nurse Practitioner) Pre-procedure Diagnoses: 1. New onset a-fib (HCC) [427.31] Post-procedure Diagnoses: 1. New onset a-fib (HCC) [427.31] Procedures: 1. NM MYOCARDIAL PERFUSION SPECT - STRESS AND REST [JXB125 (Custom)] [facility] Service: Diagnostic Imaging/Nuclear Medicine Cardiac Stress Test Note Type of Stress Test performed (protocol): Pharmacologic stress test Joaquim protocol time (if applicable): N/A Rhythm changes: None Ectopy: None Symptoms experienced during exam: None ST/T wave changes: None Medications administered: Lexiscan 0.4 mg Hewitt Treadmill Score: N/A FAYE Ann 10/25/2014 10:28 AM Nicole Madera MD - 10/24/2014 1:52 PM PSTFormatting of this note might be different from the origina l. Procedures by Nicole Ramirez DO at 10/24/14 1352 Author: Nicole Ramirez DO Service: Cardiology Author Type: Physician Filed: 10/24/14 4592 Date of Service: 10/24/14 1352 Status: Signed Applicator Sprayer: Nicole Ramirez DO (Physician) Pre-procedure Diagnoses: 1. Atrial fibrillation, new onset (HCC) [427.31] Post-procedure Diagnoses: 1. Atrial fibrillation, new onset (HCC) [427.31] Procedures: 1. ELECTROCARDIOVERSION [DVJ224] 58yo WM, new onset Atrial fibrillation, less than 48hrs. MANOHAR-guided cardioversion discusse d last night with patient, and again this AM, informed consent obtained. MANOHAR performed by Dr Zabala, no thrombus in [place]. Had been given Versed/Fentanyl. For cardioversion, patches placed A-P, given 100mg propafol IVP. Then, synchronized electr ocardioversion with 120J/biphasic, shock *1, converts to sinus rhythm. No immediate untowar d effects. TTKC. documente d in this encounter Consult Notes Nicole Ramirez MD - 10/25/2014 5:38 PM PSTFormatting of this note might be differ ent from the original. Consults by Nicole Ramirez DO at 10/25/14 1733 Author: Nicole Ramirez DO Service: Cardiology Author Type: Physician Filed: 10/25/14 1743 Date of Service: 10/25/141737 Status: Signed Applicator Sprayer: Nicole Ramirez DO (Physician) [facility] Service: Cardiology Progress Note Hospital Day: LOS: 2 days Post-Op Day: * No surgery found * SUBJECTIVE Patient Summary: 58yo WM, new onset A. fib, multiple pauses, asymptomatic. Events Overnight: Reviewed Scheduled Medications albuterol 2.5 mg Nebulization Q4H While awake apixaban 5 mg Oral BID atorvastatin 20 mg Oral Nightly cetirizine 10 mg Oral Daily flecainide 100 mg Oral 2 times per day heparin (porcine) 5000 unit/0.5mL 5,000 Units Subcutaneous Q8H oxymetazoline 2 spray Each Nare BID sodium chloride (PF) 10 mL Intravenous Q8H Continuous Infusions PRN Medications acetaminophen OR acetaminophen, diltiazem, fentaNYL, HYDROcodone-acetaminophen OR H YDROcodone-acetaminophen, LORazepam OR LORazepam, midazolam, ondansetron OR ondanset darci, polyethylene glycol, zolpidem OBJECTIVE Vital Signs: BP 152/68 | Pulse 102 | Temp(Src) 97.7 F (36.5 C) (Oral) | Resp 20 | Ht 1.676 m (5' 6") | Wt 118 kg (260 lb 2.3 oz) | BMI 42.01 kg/m2 | SpO2 97% Temp: [97.7 F (36.5 C)-98.5 F (36.9 C)] 97.7 F (36.5 C) (10/25 1648) BP: (132-152)/(62-95) 152/68 mmHg (10/25 1648) Heart Rate: [78-108] 102 (10/25 1648) Resp: [16-20] 20 (10/25 1648) SpO2: [93 %-100 %] 97 % (10/25 1648) Weight: [118 kg (260 lb 2.3 oz)] 118 kg (260 lb 2.3 oz) (10/25 247) Intake/Output Summary (Last 24 hours) at 10/25/14 1738 Last data filed at 10/25/14 1650 Gross per 24 hour Intake 1650 ml Output 200 ml Net 1450 ml 118 kg (260 lb 2.3 oz) Exam Cardivascular: No JVD. Carotid upstrokes brisk and without bruits. No abdominal bruits. No femoral bruits. Peripheral pulses normal. PMI localized. Auscultated in the sitting and supine position reveals irregular rate and rhythm, S1 and S2 normal, no murmur, rub or gal lop Lungs: scattered rhonchi and wheezes bilaterally, respirations unlabored Extremities: Extremities normal, atraumatic, no cyanosis or edema DATA CBC: Lab Results Component Value Date [...] 10/25/2014 ALT 88* 10/25/2014 EGFR >60 10/25/2014 CPK: No results found for this basename: CKTOTAL Troponin I: Lab Results Component Value Date TROPONINI <0.020 10/24/2014 TSH: Lab Results Component Value Date TSH 0.68 10/24/2014 No results found for this basename: bnp Assessment ASSESSMENT & PLAN 1. New-onset atrial fibrillation, multiple pauses, but I suspect these are due to sleep ap darlin. He was cardioverted yesterday, but now has gone back in atrial fibrillation, we starte d him on flecainide, plan was to cardiovert him again tomorrow. ECG today shows a QTc 397ms ec. I did review his nuclear perfusion studies, I suspect he has mild inferior ischemia, but he is asymptomatic, medical therapy is warranted. At this time he's on Eliquis, so aspirin will be held. After his cardioversion, we'll try to have him on low-dose diltiazem. And t chas we started him on a statin. 2. History of tobacco use, smoking cessation encouraged this can also be reinforced in out patient setting. Code Status: Full Code Nicole Ramirez DO 10/25/2014 Saulo Hayward MD - 10/24/2014 4:11 PM PSTFormatting of this note might be different from paola castillo original. Consults by Nicole Ramirez DO at 10/24/14 1611 Author: Nicole Ramirez DO Service: Cardiology Author Type: Physician Filed: 10/24/14 1613 Date of Service: 10/24/14 1611 Status: Signed Applicator Sprayer: Nicole Ramirez DO (Physician) 10/24/2014 Deferring pacemaker, will monitor rhythm. I am concerned that patient has sleep apnea, and that this may be causing episodes of bradycardia. I have also ordered an MPI. TTKC Saulo Hayward MD - 10/23/2014 9:29 PM PSTFormatting of this note might be different from t jonathan original. Consults by Nicole Ramirez DO at 10/23/142128 Author: Nicole Ramirez DO Service: Cardiology Author Type: Physician Filed: 10/23/142138 Date of Service: 10/23/142128 Status: Signed Applicator Sprayer: Nicole Ramirez DO (Physician) [facility] Service: Cardiology Initial Consult Note Boyd Gloria 1955 Identification: Boyd Gloria 58 y.o. male, with new onset A fib. CARDIOLOGY CONSULTATION REQUESTED BY: Dr Sadler ,Hospitalist CHIEF COMPLAINT: 58yo WM, was early this morning with coughing, coughing was quite severe, but nonproductive. He was unaware of any fevers, chills, or rigors. He was aware of palpit ations, his heart pounding hard and fast, but he did not go to emergency room, and submitted point with his PCP. At that time, she directed him to emergency room, he was found to be i n atrial fibrillation with rapid heart rate. He was admitted, started on IV diltiazem, and then this morning transition to oral dose. During this time, he had multiple pauses, and it was our impression that this was a relatively small dose of diltiazem. With this sensitivi ty to that drug, or initial thought was that he would ultimately a pacemaker. Patient denie s any prior history of palpitations, denies any prior history of coronary artery disease, my ocardial infarction, congestive heart failure, congenital heart disease, rheumatic heart dis ease, palpitations, or syncope. He does have a long history of smoking, one to 2 packs of c igarettes per year 40 years, history of hepatitis C. There is no prior history of hyperte nsion, diabetes, TIAs, or strokes. No history of cancer. He is relatively active, no prior history of chest discomfort. Past Medical History Diagnosis Date Hepatitis C 1999 Past Surgical History Procedure Laterality Date Orthopedic surgery Left hand Tonsillectomy Appendectomy Tympanostomy tube placement Bilateral as a child No Known Allergies Prescriptions prior to admission Medication Sig Dispense Refill ibuprofen (ADVIL) 200 MG tablet Take 400 mg by mouth every 6 (six) hours as needed for Pain. History reviewed. No pertinent family history. History Smoking status Current Every Day Smoker -- 1.00 packs/day Smokeless tobacco Not on file History Alcohol Use 12.6 oz/week 21 Cans of beer per week Comment: (3-6 cans per day) History Drug Use No Patient currently lives with family in their own home Scheduled Medications diltiazem 30 mg Oral 4 times per day heparin (porcine) 5000 unit/0.5mL 5,000 Units Subcutaneous Q8H sodium chloride (PF) 10 mL Intravenous Q8H Continuous Infusions PRN Medications acetaminophen OR acetaminophen, albuterol, HYDROcodone-acetaminophen OR HYDROcodone -acetaminophen, LORazepam OR LORazepam, ondansetron OR ondansetron, polyethylene gly col, zolpidem REVIEW OF SYSTEMS CONSTITUTIONAL: negative for fevers, chills, weight loss and weight gain. HEENT: negative for hearing loss, earaches, voice change and headaches RESPIRATORY: negative for wheezing, hemoptysis and orthopnea or PND. CARDIOVASCULAR: See chief complaint GASTROINTESTINAL: negative for nausea, diarrhea, constipation, hematemesis, hemtochezia an d melena. GENITOURINARY: negative for dysuria and hematuria INTEGUMENT/BREAST: negative for rash MUSCULOSKELETAL: negative for myalgias NEUROLOGICAL: negative for headaches, numbness, tingling BEHAVIOR/PSYCH: Denies psychiatric history Endocrine: negative All other systems reviewed and were negative. PHYSICAL EXAM Vital Signs: BP 135/85 | Pulse 107 | Temp(Src) 97.8 F (36.6 C) (Oral) | Resp 22 | Ht 1.676 m (5' 6") | Wt 118.8 kg (261 lb 14.5 oz) | BMI 42.29 kg/m2 | SpO2 96% General Appearance: Alert, cooperative, no distress, appears stated age Head: Normocephalic, without obvious abnormality, atraumatic Eyes: PERRL, conjunctiva/corneas clear, EOM's intact, Ears: Nose: No drainage Throat: Lips, mucosa, and tongue normal; partial upper and partial lower dentures Neck: Supple, symmetrical, trachea midline, no adenopathy; thyroid: No enlargement/tenderness/nodules Back: Symmetric, no curvature, ROM normal, no CVA tenderness Lungs: respirations unlabored, exp wheezes, katty Chest wall: No tenderness or deformity Cardivascular: No JVD. Carotid upstrokes brisk and without bruits. No abdominal bruits. No femoral bruits. Peripheral pulses normal. PMI localized. Auscultated in the sitting and s upine position reveals regular rate and rhythm, S1 and S2 normal, no murmur, rub or gallop Abdomen: Soft, non-tender, bowel sounds active all four quadrants, no masses, no hepatomegaly, splenomegaly, palpable masses. Extremities: Extremities normal, atraumatic, no cyanosis or edema Skin: Skin color, texture, turgor normal, no rashes or lesions. Tattos*2, chest Lymph nodes: Cervical, supraclavicular, and axillary nodes normal Muscular: Gait normal and unassisted. Strength normal. Neurologic: Normal strength, sensation and reflexes throughout DATA CBC: No results found for this basename: WBC, RBC, HGB, HCT, MCV, MCH, MCHC, RDW, PLT, MPV, DIFF TYPE CMP: No results found for this basename: NA, K, CL, CO2, ANIONGAP, GLUF, BUN, CREATININE, BCR, C A, PROT, ALB, GLOB, AGRATIO, BILITOT, ALP, AST, ALT, EGFR CPK: No results found for this basename: CKTOTAL Troponin I: Lab Results Component Value Date TROPONINI <0.020 10/23/2014 TSH: No results found for this basename: TSH, TSHNEO, TSHREFLEX No results found for this basename: bnp PROBLEM LIST Principal Problem: Atrial fibrillation Active Problems: Skipped heart beats SOB (shortness of breath) Tobacco use disorder Morbid obesity ASSESSMENT & PLAN 1. Will discussed with hospitalitist in AM 2. A fib, new onset, apparently was on IV diltiazem, then transition to oral Cardizem then had long pauses. Would recommend MANOHAR-guided electro-cardioversion, followed by monitoring. 3. COPD, smoking cessation strongly encouraged. 4. Hx Hep-C. Code Status: Full Code Primary Care Physician: Denisa Wharton Thank you for allowing me to participate in the care of this patient. I will continue to follow with you. Nicole Ramirez, 10/23/2014 documente d in this encounter ED Notes Conversion Transaction, Provider Unknown - 10/23/2014 1:47 PM PSTFormatting of this note m ight be different from the original. ED Notes by Cecilio Villasenor RN at 10/23/14 0838 Author: Cecilio Villasenor RN Service: (none) Author Type: Registered Nurse Filed: 10/23/14 6355 Date of Service: 10/23/14 1347 Status: Addendum Applicator Sprayer: Cecilio Villasenor RN (Registered Nurse) Related Notes: Original Note by Cecilio Villasenor RN (Registered Nurse) filed at 10/23/14 134 9 Patient reports shortness of breath starting on Sunday. Patient was seen by his primary care doctor, who then sent him to the ED in [place] to be worked up for pneumonia. Hospita l workup showed no pnemonia, but acute bronchitis and afib with rvr with multiple 2.5 second pauses. Cecilio Villasenor RN 10/23/14 6701 Meir Del Rio DO - 10/23/2014 1:46 PM PSTFormatting of this note might be different from t he original. ED Provider Notes by Meir Cantu DO at 10/23/14 8490 Author: Meir Cantu DO Service: Emergency Department Author Type: Physician Filed: 10/24/14 0842 Date of Service: 10/23/14 1346 Status: Signed Applicator Sprayer: Meir Cantu DO (Physician) [facility] Department of Emergency Medicine [facility] Pertinent History and Concerns: dyspnea since yesterday, a fib with RVR, admitted overnight on cardizem drip, now having pauses up to 3.6 seconds Relevant Labs or Studies: labs and D dimer negative Currently Involved Consultants at [facility]: Dr. Ramirez, recommended admit to hospitalist (10/23/14 1157 : Yogesh Sosa MD) 1:46 PM History of Present Illness Patient Identification Boyd Gloria is a 58 y.o. male. Patient information was obtained from patient. History/Exam limitations: none. Patient presented to the Emergency Department by: [place] [facility] History of Presenting Illness The patient is a 58 y.o. year old male presenting with Chief Complaint Patient presents with Shortness of Breath . Location- pulmonary Onset- 2 days ago Duration- improving Severity/Character- moderate Worse with- exertion Denies- fever, chills, nausea, vomiting, diaphoresis Context- Pt is a transfer from [facility]. Pt was seen yesterday by his PCP for SOB, at [facility] time he was referred to [facility] ED for pneumonia. Upon arrival to their ED pt was noted to be in A-fib with RVR, new onset. Pt was admitted at that time. Pt was noted to have up to 3.6 second pauses on the secured entrance monitor, pt was then transferred to our facility wit h cardiology consult. James Baez, production sorter is aware of case. Virgilina's dx pt with new onset A-fib with RVR and acute bronchitis. Pt states that he was having some chest pain with a cough, pt denies outright chest pain. Pt states that for the past 2 days, he has had SOB, which he reports worsening with exertion. Pt is a current everyday smoker, 1 ppd. PCP: Denisa Wharton Past Medical History Diagnosis Date Hepatitis C 1999 Past Surgical History Procedure Laterality Date Orthopedic surgery Left hand Tonsillectomy Appendectomy Tympanostomy tube placement Bilateral as a child Prior to Admission medications Medication Sig Start Date End Date Taking? Authorizing Provider ibuprofen (ADVIL) 200 MG tablet Take 400 mg by mouth every 6 (six) hours as needed for Pain . Yes Historical Provider No Known Allergies History Social History Marital Status: Single Spouse Name: N/A Number of Children: N/A Years of Education: N/A Occupational History Not on file. Social History Main Topics Smoking status: Current Every Day Smoker -- 1.00 packs/day Smokeless tobacco: Not on file Alcohol Use: 12.6 oz/week 21 Cans of beer per week Comment: (3-6 cans per day) Drug Use: No Sexual Activity: Not on file Other Topics Concern Not on file Social History Narrative No narrative on file History reviewed. No pertinent family history. Review of Systems Constitutional: Negative for fever, chills Eyes: Negative for vision changes Nose: Negative for congestion, nosebleeds Throat: Negative for sore throat CV/Resp: Positive for ekchapael-ks-iywsyu, cough, chest pain with cough GI: Negative for abdominal pain, nausea, vomiting, or diarrhea : Negative for urinary problems Musculoskeletal: Negative for back pain, joint pain Skin: Negative for rash Neuro/Psych: Negative for headache Endo/heme/Lymph: Negative for swollen lymph nodes, easy bruising All other systems reviewed and negative except as noted. Physical Exam BP 171/75 | Pulse 75 | Resp 18 | SpO2 95% Vital signs interpretation: hypertensive, otherwise WNL Pulse Oximetry interpretation: Normal General: Alert, in no apparent distress Eyes: Normal inspection, pupils equal and round, non-icteric ENT: Ears normal Nose normal Moist mucous membranes Neck: Normal inspection Supple Cardiovasc: Irregular heart rhythm, normal rate No murmurs Respiratory: Expiratory wheezing No rales or rhonchi Abdomen: Soft, non-tender, non-distended No guarding or rebound Back: Normal inspection Extremities: No swelling or redness No lower extremity edema Skin: Color normal Warm and dry No rash Neuro: Alert, no AMS No gross motor/sensory deficits Moving all extremities Medical Decision Making and Emergency Department Course ED Department Course Patient presents to ED with complaints of SOB, new onset A-fib with RVR. Pt is a transfer f [facility]. After taking a thorough history and prior to performing a physical exam, symptomatically treating the patient, and ordering any necessary labs or diagnostic studies that may aid in narrowing my differential, my initial DDx includes, but is not limited to: b ronchitis, cardiac arrhythmia, pneumonia, vs others. Will order troponin, CXR, and reevaluat e the patient. Relevant lab from [facility]: BMP WNL. CBC WNL. Glucose 170 mg/dL. Troponin <0.010 U/L. BNP 69 pg/ml. TSH 1.33 ulU/ml. PT 14.4 sec. INR 1.0. PTT 23.7 sec. D-d rubi (<400) <100. Influenza A negative and Influenza B negative. Review of vitals BP 171/75 | Pulse 75 | Resp 18 | SpO2 95% 2:15 PM. Discussed pt's case with Dr. Sadler, hopsitalist, who accepts the pt for admiss n. 2:30 PM. Reviewed imaging. CXR report is negative. 3:35 PM. Reviewed labs. Troponin is negative. Pt admitted to [facility] bed 4453. Boyd was evaluated in the emergency department through taking thorough history of present il lness, past medical history including medical conditions, current medications, allergies to medications, social history, and family history. A physical exam was performed. Through i ncorporating the history of present illness and physical exam findings, clinical judgment wa s used to determine if any diagnostic tests or imaging was necessary. Once the workup was c omplete, appropriate consults were obtained as above and Boyd was admitted to the hospital fo r further treatment and diagnosis. Although I have many worrisome diagnoses listed above in my initial differential, my differ ential has been narrowed through taking a history of present illness, performing a physical exam, and interpreting any labs and/or diagonstic studies that may have been ordered and at this time I feel the patient most likely has A-fib with RVR and AV block and I will treat ac cordingly. Filed Vitals: 10/24/14 0342 10/24/14 0716 10/24/14 0820 10/24/14 0826 BP: 133/68 132/84 Pulse: 84 78 60 62 Temp: 97 F (36.1 C) 98.2 F (36.8 C) TempSrc: Oral Oral Resp: 20 20 18 18 Height: Weight: 118.6 kg (261 lb 7.5 oz) SpO2: 96% 94% 96% Records Reviewed Old medical records. Nursing notes. No previous [facility] [place] visits available in [facility] for review. Laboratory Evaluation Results Procedure Component Value Ref Range Date/Time Troponin I, Lab [[id number]] Collected: 10/23/14 1443 Order Status: Completed Updated: 10/23/14 1512 Specimen Information: Blood TROPONIN I <0.020 0.00 - 0.10 ng/mL I personally reviewed the lab results and they have been posted to the chart. Pertinent po sitive and negative findings have been addressed appropriately and I have discussed any abno rmal labs with the patient. Radiology and EKG Evaluation Imaging Results XR chest AP portable (Final result) Result time: 10/23/14 16:53:21 ED Interpretation Documented by Meir Cantu DO (10/23/14 16:53:21, [facility] Emergency Department, Emergency Medicine) No acute findings. That preliminary note below was entered in on a wrong patient. ED Interpretation Documented by Meir Cantu DO (10/23/14 15:49:59, [facility] Emergency Department, Emergency Medicine) Cardiomegaly. Mediastinum has normal contours is not widened. Right-sided moderate pleural effusion. Focal lung consolidation in the right lung field. Impression: Cardiomegaly with right-sided pleural effusion and possibility of right-sided volume overload versus infectious etiology. Final result by Rad Results In [place] (10/23/14 14:30:51) Impression: 1. No acute cardiopulmonary process. Narrative: BOYD GLORIA 1955 58 years XR CHEST 1 VIEW 10/23/2014 2:16 PM INDICATION: Shortness of breath COMPARISON: None TECHNIQUE: Chest 1 view, AP view of the chest FINDINGS: The cardiomediastinal contours are normal. There is no pneumothorax or effusion . The lungs are clear without focal consolidation. 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 ED Diagnoses Final diagnoses Atrial fibrillation with rapid ventricular response Dyspnea Disposition: ED Disposition Admit/Observation Bed request special needs: None Diagnosis?: Atrial Fibrillation with RVR and AV Block Follow-up Information None Discharge Medications: Current Discharge Medication List This chart has been created using [employer] Speech Recognition software. The chart has been reviewed and there may still exist sound alike word errors. Procedures Additional Documentation Procedures Attending Note: Documentation assistance provided by Sarah Sánchez and Yudith Hansen (Scribe). Information recorded by the scribe has been reviewed and validated by me. Laura negron with its contents. DO Meir Ham DO 10/24/14 0842 onversio n Transaction, Provider Unknown - 10/23/2014 1:35 PM PSTFormatting of this note might be di fferent from the original. ED Notes by Tania Segal RN at 10/23/14 8189 Author: Tania Segal RN Service: (none) Author Type: Registered Nurse Filed: 10/23/14 6279 Date of Service: 10/23/147 Status: Signed Applicator Sprayer: Tania Segal RN (Registered Nurse) Bed: 1109 Expected date: Expected time: Means of arrival: Comments: Annabelle madison in this encounter Plan of Treatment +--------+---------+ + + + | Date | Type | Specialty | Care Team | Description | +--------+---------+ + + + | 05/13/ | Office | Cardiology | Citlali Adkins | | | 2019 | Visit | | [address] | | | | | | [address] | | | | | | [place] [address] | | | | | | [phone] | | | | | | | | +--------+---------+ + + + documented as of this encounter Procedures + +--------+ [...] + + | Historically converted procedure from [facility] environment | EXTERNAL LAB | + + [...] + + | Historically converted procedure from [facility] | EXTERNAL LAB | + + + [...] | | | 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 For cardioversion, patches | | | placed A-P, given 100 mg propofol IVP. Then, synchronized | | | electrocardioversion with 120 J/biphasic, shock * 1, converts to | | | sinus rhythm. No immediate untoward effects. Read by NICOLE Smith | | | DO JAMES 10/26/2014 [...] obtained. | | 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 | | | | For cardioversion, patches placed A-P, given 100 mg propofol IVP. Then, | | synchronized electrocardioversion with 120 J/biphasic, shock * 1, converts | | to sinus rhythm. No immediate untoward effects. | | | | Read by NICOLE RAMIREZ DO 10/26/2014 08:06 A | | | | | + + External Lab: [facility] (10/26/2014 4:29 AM PST) + + + [...] | | | | | [place] [address] | | | | + + + + + + | Non- | 4.74Comment: Testing | 4.20 - 5.70 | EXTERNAL | | | Red Blood | performed at [facility], [address] | M/uL | LAB | | | Cells | [address], | | | | | Counted | [place] [address] | | | | + + + + + + | Hemoglobin | 15.4Comment: Testing | 13.2 - 17.0 | EXTERNAL | | | | performed at [facility], [address] | g/dL | LAB | | | | [address], | | | | | | [place] [address] | | | | + + + + + + | Hematocrit, | 45.7Comment: Testing | 39.0 - 50.0 % | EXTERNAL | | | POC | performed at [facility], [address] | | LAB | | | | [address], | | | | | | [place] [address] | | | | + + + + + + | MCV | 96.5Comment: Testing | 80.0 - 100.0 fl | EXTERNAL | | | | performed at [facility], [address] | | LAB | | | | [address], | | | | | | [place] [address] | | | | + + + + + + | MCH | 32.5Comment: Testing | 27.0 - 34.0 pg | EXTERNAL | | | | performed at [facility], [address] | | LAB | | | | [address], | | | | | | [place] [address] | | | | + + + + + + | MCHC | 33.7Comment: Testing | 32.0 - 35.5 | EXTERNAL | | | | performed at [facility], [address] | g/dL | LAB | | | | [address], | | | | | | [place] [address] | | | | + + + + + + | RDW-CV | 42.4Comment: Testing | 37 - 53 fl | EXTERNAL | | | | performed at [facility], [address] | | LAB | | | | [address], | | | | | | [place] [address] | | | | + + + + + + | Platelet | 235Comment: Testing | 150 - 400 K/uL | EXTERNAL | | | Count | performed at [facility], [address] | | LAB | | | Plasma | [address], | | | | | | [place] [address] | | | | + + + + + + | MPV | 8.3Comment: Testing | fl | EXTERNAL | | | | performed at [facility], [address] | | LAB | | | | [address], | | | | | | [place] [address] | | | | + + + + + + | Differentia | AUTOMATEDComment: | | EXTERNAL | | | l Type | Testing performed at | | LAB | | | | [facility], [address] | | | | | | [place] | | | | | | [address] | | | | + + + + + + | % Segmented | 60.3Comment: Testing | % | EXTERNAL | | | | performed at [facility], [address] | | LAB | | | Neutrophils | [address], | | | | | | [place] [address] | | | | + + + + + + | % | 25.4Comment: Testing | % | EXTERNAL | | | Lymphocytes | performed at [facility], [address] | | LAB | | | | [address], | | | | | | [place] [address] | | | | + + + + + + | % Monocytes | 8.6Comment: Testing | % | EXTERNAL | | | | performed at [facility], [address] | | LAB | | | | [address], | | | | | | [place] [address] | | | | + + + + + + | % | 4.8Comment: Testing | % | EXTERNAL | | | Eosinophils | performed at [facility], [address] | | LAB | | | | [address], | | | | | | [place] [address] | | | | + + + + + + | % Basophils | 0.9Comment: Testing | % | EXTERNAL | | | | performed at [facility], [address] | | LAB | | | | [address], | | | | | | [place] [address] | | | | + + + + + + | Absolute | 6.3Comment: Testing | 1.9 - 7.4 K/uL | EXTERNAL | | | Segmented | performed at [facility], [address] | | LAB | | | Neutrophils | [address], | | | | | | [place] [address] | | | | + + + + + + | Absolute | 2.7Comment: Testing | 1.0 - 3.9 K/uL | EXTERNAL | | | Lymphocytes | performed at [facility], [address] | | LAB | | | | [address], | | | | | | [place] [address] | | | | + + + + + + | Absolute | 0.9 (H)Comment: Testing | 0 - 0.8 K/uL | EXTERNAL | | | Monocytes | performed at [facility], [address] | | LAB | | | | [address], | | | | | | [place] [address] | | | | + + + + + + | Absolute | 0.5Comment: Testing | 0 - 0.5 K/uL | EXTERNAL | | | Eosinophils | performed at [facility], [address] | | LAB | | | | [address], | | | | | | [place] [address] | | | | + + + + + + | Absolute | 0.1Comment: Testing | 0 - 0.1 K/uL | EXTERNAL | | | Basophils | performed at [facility], [address] | | LAB | | | | [address], | | | | | | [place] [address] | | | | + + + [...] | | | | | [place] [address] | | | | + + + + + + | K | 3.9Comment: Testing | 3.5 - 4.9 | EXTERNAL | | | | performed at [facility], [address] | mmol/L | LAB | | | | [address], | | | | | | [place] [address] | | | | + + + + + + | Cl | 103Comment: Testing | 99 - 109 mmol/L | EXTERNAL | | | | performed at [facility], [address] | | LAB | | | | [address], | | | | | | [place] [address] | | | | + + + + + + | CO2 | 30Comment: Testing | 23 - 32 mmol/L | EXTERNAL | | | | performed at [facility], [address] | | LAB | | | | [address], | | | | | | [place] [address] | | | | + + + + + + | Anion Gap | 7Comment: Testing | 5 - 20 mmol/L | EXTERNAL | | | | performed at [facility], [address] | | LAB | | | | [address], | | | | | | [place] [address] | | | | + + + + + + | Glucose, | 124 (H)Comment: Testing | 65 - 99 mg/dL | EXTERNAL | | | Fasting | performed at [facility], [address] | | LAB | | | | [address], | | | | | | [place] [address] | | | | + + + + + + | BUN | 18Comment: Testing | 8 - 25 mg/dL | EXTERNAL | | | | performed at [facility], [address] | | LAB | | | | [address], | | | | | | [place] [address] | | | | + + + + + + | Creatinine | 0.97Comment: Testing | 0.70 - 1.30 | EXTERNAL | | | | performed at [facility], [address] | mg/dL | LAB | | | | [address], | | | | | | [place] [address] | | | | + + + + + + | BUN/Creatin | 19Comment: Testing | | EXTERNAL | | | ine Ratio | performed at [facility], [address] | | LAB | | | | [address], | | | | | | [place] [address] | | | | + + + + + + | Calcium | 9.4Comment: Testing | 8.5 - 10.5 | EXTERNAL | | | | performed at [facility], [address] | mg/dL | LAB | | | | [address], | | | | | | [place] [address] | | | | + + + + + + | Protein, | 6.6Comment: Testing | 6.3 - 8.2 g/dL | EXTERNAL | | | Total | performed at [facility], [address] | | LAB | | | | [address], | | | | | | [place] [address] | | | | + + + + + + | Albumin | 3.8Comment: Testing | 3.6 - 5.0 g/dL | EXTERNAL | | | | performed at [facility], [address] | | LAB | | | | [address], | | | | | | [place] [address] | | | | + + + + + + | Globulin | 2.8Comment: Testing | 1.3 - 4.9 g/dL | EXTERNAL | | | | performed at [facility], [address] | | LAB | | | | [address], | | | | | | [place] [address] | | | | + + + + + + | A/G Ratio | 1.4Comment: Testing | 1.0 - 2.4 | EXTERNAL | | | | performed at [facility], [address] | | LAB | | | | [address], | | | | | | [place] [address] | | | | + + + + + + | Bilirubin | 0.4Comment: Testing | 0.1 - 1.5 mg/dL | EXTERNAL | | | Total | performed at [facility], [address] | | LAB | | | | [address], | | | | | | [place] [address] | | | | + + + + + + | ALP, | 56Comment: Testing | 35 - 115 U/L | EXTERNAL | | | External | performed at [facility], [address] | | LAB | | | | [address], | | | | | | [place] [address] | | | | + + + + + + | AST | 35Comment: Testing | 10 - 45 U/L | EXTERNAL | | | | performed at [facility], [address] | | LAB | | | | [address], | | | | | | [place] [address] | | | | + + + + + + | ALT | 81 (H)Comment: Testing | 10 - 65 U/L | EXTERNAL | | | | performed at [facility], [address] | | LAB | | | | [address] [facility], | | | | | | [place] [address] | | | | + + + [...] | | | | | | at [facility], [address] | | | | | | [address] [facility], | | | | | | [place] [address] | | | | + + + [...] + + | Historically converted procedure from [facility] environment | EXTERNAL LAB | + + [...] | | | excluded Electronically signed by Nicole Moon MD on | | | 10/25/2014 [...] Rad Conversion - 04/18/2019 7:41 AM PDT HISTORY: [...] | | | + + External Lab: PSYCHIATRIC (10/25/2014 3:34 AM PST) + + + [...] | | | | | [place] [address] | | | | + + + + + + | Non- | 4.64Comment: Testing | 4.20 - 5.70 | EXTERNAL | | | Red Blood | performed at [facility], [address] | M/uL | LAB | | | Cells | [address], | | | | | Counted | [place] [address] | | | | + + + + + + | Hemoglobin | 15.2Comment: Testing | 13.2 - 17.0 | EXTERNAL | | | | performed at [facility], [address] | g/dL | LAB | | | | [address], | | | | | | [place] [address] | | | | + + + + + + | Hematocrit, | 44.8Comment: Testing | 39.0 - 50.0 % | EXTERNAL | | | POC | performed at [facility], [address] | | LAB | | | | [address], | | | | | | [place] [address] | | | | + + + + + + | MCV | 96.7Comment: Testing | 80.0 - 100.0 fl | EXTERNAL | | | | performed at [facility], [address] | | LAB | | | | [address], | | | | | | [place] [address] | | | | + + + + + + | MCH | 32.7Comment: Testing | 27.0 - 34.0 pg | EXTERNAL | | | | performed at [facility], [address] | | LAB | | | | [address], | | | | | | [place] [address] | | | | + + + + + + | MCHC | 33.9Comment: Testing | 32.0 - 35.5 | EXTERNAL | | | | performed at [facility], [address] | g/dL | LAB | | | | [address], | | | | | | [place] [address] | | | | + + + + + + | RDW-CV | 42.4Comment: Testing | 37 - 53 fl | EXTERNAL | | | | performed at [facility], [address] | | LAB | | | | [address], | | | | | | [place] [address] | | | | + + + + + + | Platelet | 214Comment: Testing | 150 - 400 K/uL | EXTERNAL | | | Count | performed at [facility], [address] | | LAB | | | Plasma | [address], | | | | | | [place] [address] | | | | + + + + + + | MPV | 8.2Comment: Testing | fl | EXTERNAL | | | | performed at [facility], [address] | | LAB | | | | [address], | | | | | | [place] [address] | | | | + + + + + + | Differentia | AUTOMATEDComment: | | EXTERNAL | | | l Type | Testing performed at | | LAB | | | | [facility], [address] | | | | | | [place] | | | | | | [address] | | | | + + + + + + | % Segmented | 58.6Comment: Testing | % | EXTERNAL | | | | performed at [facility], [address] | | LAB | | | Neutrophils | [address], | | | | | | [place] [address] | | | | + + + + + + | % | 27.8Comment: Testing | % | EXTERNAL | | | Lymphocytes | performed at [facility], [address] | | LAB | | | | [address], | | | | | | [place] [address] | | | | + + + + + + | % Monocytes | 8.5Comment: Testing | % | EXTERNAL | | | | performed at [facility], [address] | | LAB | | | | [address], | | | | | | [place] [address] | | | | + + + + + + | % | 4.3Comment: Testing | % | EXTERNAL | | | Eosinophils | performed at [facility], [address] | | LAB | | | | [address], | | | | | | [place] [address] | | | | + + + + + + | % Basophils | 0.8Comment: Testing | % | EXTERNAL | | | | performed at [facility], [address] | | LAB | | | | [address], | | | | | | [place], [place] [address] | | | | + + + + + + | Absolute | 5.7Comment: Testing | 1.9 - 7.4 K/uL | EXTERNAL | | | Segmented | performed at [facility], [address] | | LAB | | | Neutrophils | [address], | | | | | | [place], [place] [address] | | | | + + + + + + | Absolute | 2.7Comment: Testing | 1.0 - 3.9 K/uL | EXTERNAL | | | Lymphocytes | performed at [facility], [address] | | LAB | | | | [address], | | | | | | [place] [address] | | | | + + + + + + | Absolute | 0.8Comment: Testing | 0 - 0.8 K/uL | EXTERNAL | | | Monocytes | performed at [facility], [address] | | LAB | | | | [address], | | | | | | [place] [address] | | | | + + + + + + | Absolute | 0.4Comment: Testing | 0 - 0.5 K/uL | EXTERNAL | | | Eosinophils | performed at [facility], [address] | | LAB | | | | [address], | | | | | | [place] [address] | | | | + + + + + + | Absolute | 0.1Comment: Testing | 0 - 0.1 K/uL | EXTERNAL | | | Basophils | performed at [facility], [address] | | LAB | | | | [address], | | | | | | [place] [address] | | | | + + + [...] | | | | | [place] [address] | | | | + + + + + + | K | 4.1Comment: Testing | 3.5 - 4.9 | EXTERNAL | | | | performed at [facility], [address] | mmol/L | LAB | | | | [address], | | | | | | [place] [address] | | | | + + + + + + | Cl | 105Comment: Testing | 99 - 109 mmol/L | EXTERNAL | | | | performed at [facility], [address] | | LAB | | | | [address], | | | | | | [place] [address] | | | | + + + + + + | CO2 | 26Comment: Testing | 23 - 32 mmol/L | EXTERNAL | | | | performed at [facility], [address] | | LAB | | | | [address], | | | | | | [place] [address] | | | | + + + + + + | Anion Gap | 9Comment: Testing | 5 - 20 mmol/L | EXTERNAL | | | | performed at [facility], [address] | | LAB | | | | [address], | | | | | | [place] [address] | | | | + + + + + + | Glucose, | 103 (H)Comment: Testing | 65 - 99 mg/dL | EXTERNAL | | | Fasting | performed at [facility], [address] | | LAB | | | | [address], | | | | | | [place] [address] | | | | + + + + + + | BUN | 24Comment: Testing | 8 - 25 mg/dL | EXTERNAL | | | | performed at [facility], [address] | | LAB | | | | [address], | | | | | | [place] [address] | | | | + + + + + + | Creatinine | 0.85Comment: Testing | 0.70 - 1.30 | EXTERNAL | | | | performed at [facility], [address] | mg/dL | LAB | | | | [address], | | | | | | [place] [address] | | | | + + + + + + | BUN/Creatin | 28Comment: Testing | | EXTERNAL | | | ine Ratio | performed at [facility], [address] | | LAB | | | | [address], | | | | | | [place] [address] | | | | + + + + + + | Calcium | 9.2Comment: Testing | 8.5 - 10.5 | EXTERNAL | | | | performed at [facility], [address] | mg/dL | LAB | | | | [address], | | | | | | [place] [address] | | | | + + + + + + | Protein, | 6.4Comment: Testing | 6.3 - 8.2 g/dL | EXTERNAL | | | Total | performed at [facility], [address] | | LAB | | | | [address], | | | | | | [place] [address] | | | | + + + + + + | Albumin | 3.8Comment: Testing | 3.6 - 5.0 g/dL | EXTERNAL | | | | performed at [facility], [address] | | LAB | | | | [address], | | | | | | [place] [address] | | | | + + + + + + | Globulin | 2.6Comment: Testing | 1.3 - 4.9 g/dL | EXTERNAL | | | | performed at [facility], [address] | | LAB | | | | [address], | | | | | | [place] [address] | | | | + + + + + + | A/G Ratio | 1.5Comment: Testing | 1.0 - 2.4 | EXTERNAL | | | | performed at [facility], [address] | | LAB | | | | [address], | | | | | | [place] [address] | | | | + + + + + + | Bilirubin | 0.4Comment: Testing | 0.1 - 1.5 mg/dL | EXTERNAL | | | Total | performed at [facility], [address] | | LAB | | | | [address], | | | | | | [place] [address] | | | | + + + + + + | ALP, | 53Comment: Testing | 35 - 115 U/L | EXTERNAL | | | External | performed at [facility], [address] | | LAB | | | | [address], | | | | | | [place] [address] | | | | + + + + + + | AST | 51 (H)Comment: Testing | 10 - 45 U/L | EXTERNAL | | | | performed at [facility], [address] | | LAB | | | | [address], | | | | | | [place] [address] | | | | + + + + + + | ALT | 88 (H)Comment: Testing | 10 - 65 U/L | EXTERNAL | | | | performed at [facility], [address] | | LAB | | | | [address], | | | | | | [place] [address] | | | | + + + [...] [address], | | | | | | [place] [address] | | | | + + + [...] + + | Historically converted procedure from [facility] Epic environment | EXTERNAL LAB | + + [...] : 1955 | | | Performing Physician: Mtathew Zabala MD | | | | | [...] | 31.85 mmHg TR Vmax: 2.82 m/s Custodial Engineer: BEBETO Authenticated | | | by: Matthew Zabala MD Report Date/Time: 10-24-2014 14:27:54 | | + + + + + | Procedure Note | + + | Brent, Rad Conversion - 04/18/2019 7:41 AM PDT Patient Name: Alec GLORIA of | | : 1955 Performing Physician: Matthew Zabala | | INDICATIONS A | | -Fib / Cardioversion [...] maxP.85 | | mmHgTR Vmax: 2.82 m/s Custodial Engineer: BEBETOAuthenticated by: Matthew Holman | | Date/Time: 10-24-2014 [...] |TR Vmax: 2.82 m/s | | | |Custodial Engineer: BEBETO | |Authenticated by: Matthew Zabala [...] | | | Patient | performed at [facility];[address] | | LAB | | | | [address];[place], [place] | | | | | | [address] | | | | + + + [...] | | | | | performed at [facility];[address] | | | | | | [facility];[place], [place] | | | | | | [address] | | | | + + + [...] EXTERNAL | | | | performed at [facility], [address] | | LAB | | | | [address], | | | | | | [place] [address] | | | | + + + + + + | Non- | 4.43Comment: Testing | 4.20 - 5.70 | EXTERNAL | | | Red Blood | performed at [facility], [address] | M/uL | LAB | | | Cells | [address], | | | | | Counted | [place] [address] | | | | + + + + + + | Hemoglobin | 14.4Comment: Testing | 13.2 - 17.0 | EXTERNAL | | | | performed at [facility], [address] | g/dL | LAB | | | | [address], | | | | | | [place] [address] | | | | + + + + + + | Hematocrit, | 42.4Comment: Testing | 39.0 - 50.0 % | EXTERNAL | | | POC | performed at [facility], [address] | | LAB | | | | [address], | | | | | | [place] [address] | | | | + + + + + + | MCV | 95.9Comment: Testing | 80.0 - 100.0 fl | EXTERNAL | | | | performed at [facility], [address] | | LAB | | | | [address], | | | | | | [place] [address] | | | | + + + + + + | MCH | 32.6Comment: Testing | 27.0 - 34.0 pg | EXTERNAL | | | | performed at [facility], [address] | | LAB | | | | [address], | | | | | | [place] [address] | | | | + + + + + + | MCHC | 34.0Comment: Testing | 32.0 - 35.5 | EXTERNAL | | | | performed at [facility], [address] | g/dL | LAB | | | | [address], | | | | | | [place] [address] | | | | + + + + + + | RDW-CV | 43.3Comment: Testing | 37 - 53 fl | EXTERNAL | | | | performed at [facility], [address] | | LAB | | | | [address], | | | | | | [place] [address] | | | | + + + + + + | Platelet | 219Comment: Testing | 150 - 400 K/uL | EXTERNAL | | | Count | performed at [facility], [address] | | LAB | | | Plasma | [address], | | | | | | [place] [address] | | | | + + + + + + | MPV | 8.6Comment: Testing | fl | EXTERNAL | | | | performed at [facility], [address] | | LAB | | | | [address], | | | | | | [place] [address] | | | | + + + + + + | Differentia | AUTOMATEDComment: | | EXTERNAL | | | l Type | Testing performed at | | LAB | | | | [facility], [address] | | | | | | [place] | | | | | | [address] | | | | + + + + + + | % Segmented | 83.8Comment: Testing | % | EXTERNAL | | | | performed at [facility], [address] | | LAB | | | Neutrophils | [address], | | | | | | [place] [address] | | | | + + + + + + | % | 8.6Comment: Testing | % | EXTERNAL | | | Lymphocytes | performed at [facility], [address] | | LAB | | | | [address], | | | | | | [place] [address] | | | | + + + + + + | % Monocytes | 7.0Comment: Testing | % | EXTERNAL | | | | performed at [facility], [address] | | LAB | | | | [address], | | | | | | [place] [address] | | | | + + + + + + | % | 0.4Comment: Testing | % | EXTERNAL | | | Eosinophils | performed at [facility], [address] | | LAB | | | | [address], | | | | | | [place] [address] | | | | + + + + + + | % Basophils | 0.2Comment: Testing | % | EXTERNAL | | | | performed at [facility], [address] | | LAB | | | | [address], | | | | | | [place] [address] | | | | + + + + + + | Absolute | 12.9 (H)Comment: Testing | 1.9 - 7.4 K/uL | EXTERNAL | | | Segmented | performed at [facility], [address] | | LAB | | | Neut[address]ils | [address], | | | | | | [place] [address] | | | | + + + + + + | Absolute | 1.3Comment: Testing | 1.0 - 3.9 K/uL | EXTERNAL | | | Lymphocytes | performed at [facility], [address] | | LAB | | | | [address], | | | | | | [place] [address] | | | | + + + + + + | Absolute | 1.1 (H)Comment: Testing | 0 - 0.8 K/uL | EXTERNAL | | | Monocytes | performed at [facility], [address] | | LAB | | | | [address], | | | | | | [place] [address] | | | | + + + + + + | Absolute | 0.1Comment: Testing | 0 - 0.5 K/uL | EXTERNAL | | | Eosinophils | performed at [facility], [address] | | LAB | | | | [address], | | | | | | [place] [address] | | | | + + + + + + | Absolute | 0.0Comment: Testing | 0 - 0.1 K/uL | EXTERNAL | | | Basophils | performed at [facility], [address] | | LAB | | | | [address], | | | | | | [place] [address] | | | | + + + [...] EXTERNAL | | | | performed at [facility], [address] | uIU/mL | LAB | | | | [address], | | | | | | [place] [address] | | | | + + + [...] EXTERNAL | | | | performed at [facility], [address] | | LAB | | | | [facility], | | | | | | [place] [address] | | | | + + + [...] EXTERNAL | | | | performed at [facility], [address] | | LAB | | | | [address], | | | | | | [place] [address] | | | | + + + [...] + + | Hemoglobin | 5.6Comment: [place] | 4.0 - 6.0 % | EXTERNAL [...] | | | | | performed at [facility], [address] | | | | | | [address] [facility], | | | | | | [place] [address] | | | | + + + [...] | | | | | performed at [facility], [address] | | | | | | [facility], | | | | | | [place] [address] | | | | + + + [...] | | | | | [place] [address] | | | | + + + + + + | Triglycerid | 127Comment: Testing | mg/dL | EXTERNAL | | | es | performed at [facility], [address] | | LAB | | | | [address], | | | | | | [place] [address] | | | | + + + + + + | HDL | 36 (L)Comment: Testing | mg/dL | EXTERNAL | | | | performed at [facility], [address] | | LAB | | | | [address], | | | | | | [place] [address] | | | | + + + + + + | LDL, | 104 (H)Comment: Testing | mg/dL | EXTERNAL | | | Calculated | performed at [facility], [address] | | LAB | | | | [address], | | | | | | [place] [address] | | | | + + + [...] | | | | | [place] [address] | | | | + + + + + + | K | 4.5Comment: Testing | 3.5 - 4.9 | EXTERNAL | | | | performed at [facility], [address] | mmol/L | LAB | | | | [address], | | | | | | [place] [address] | | | | + + + + + + | Cl | 103Comment: Testing | 99 - 109 mmol/L | EXTERNAL | | | | performed at [facility], [address] | | LAB | | | | [address], | | | | | | [place] [address] | | | | + + + + + + | CO2 | 25Comment: Testing | 23 - 32 mmol/L | EXTERNAL | | | | performed at [facility], [address] | | LAB | | | | [address], | | | | | | [place] [address] | | | | + + + + + + | Anion Gap | 13Comment: Testing | 5 - 20 mmol/L | EXTERNAL | | | | performed at [facility], [address] | | LAB | | | | [address], | | | | | | [place] [address] | | | | + + + + + + | Glucose, | 121 (H)Comment: Testing | 65 - 99 mg/dL | EXTERNAL | | | Fasting | performed at [facility], [address] | | LAB | | | | [address], | | | | | | [place] [address] | | | | + + + + + + | BUN | 24Comment: Testing | 8 - 25 mg/dL | EXTERNAL | | | | performed at [facility], [address] | | LAB | | | | [address], | | | | | | [place] [address] | | | | + + + + + + | Creatinine | 0.80Comment: Testing | 0.70 - 1.30 | EXTERNAL | | | | performed at [facility], [address] | mg/dL | LAB | | | | [address], | | | | | | [place] [address] | | | | + + + + + + | BUN/Creatin | 30Comment: Testing | | EXTERNAL | | | ine Ratio | performed at [facility], [address] | | LAB | | | | [address], | | | | | | [place] [address] | | | | + + + + + + | Calcium | 9.6Comment: Testing | 8.5 - 10.5 | EXTERNAL | | | | performed at [facility], [address] | mg/dL | LAB | | | | [address], | | | | | | [place] [address] | | | | + + + + + + | Protein, | 6.8Comment: Testing | 6.3 - 8.2 g/dL | EXTERNAL | | | Total | performed at [facility], [address] | | LAB | | | | [address], | | | | | | [place] [address] | | | | + + + + + + | Albumin | 4.0Comment: Testing | 3.6 - 5.0 g/dL | EXTERNAL | | | | performed at [facility], [address] | | LAB | | | | [address], | | | | | | [place] [address] | | | | + + + + + + | Globulin | 2.8Comment: Testing | 1.3 - 4.9 g/dL | EXTERNAL | | | | performed at [facility], [address] | | LAB | | | | [address], | | | | | | [place] [address] | | | | + + + + + + | A/G Ratio | 1.4Comment: Testing | 1.0 - 2.4 | EXTERNAL | | | | performed at [facility], [address] | | LAB | | | | [address], | | | | | | [place] [address] | | | | + + + + + + | Bilirubin | 0.3Comment: Testing | 0.1 - 1.5 mg/dL | EXTERNAL | | | Total | performed at [facility], [address] | | LAB | | | | [address], | | | | | | [place] [address] | | | | + + + + + + | ALP, | 52Comment: Testing | 35 - 115 U/L | EXTERNAL | | | External | performed at [facility], [address] | | LAB | | | | [address], | | | | | | [place] [address] | | | | + + + + + + | AST | 27Comment: Testing | 10 - 45 U/L | EXTERNAL | | | | performed at [facility], [address] | | LAB | | | | [address], | | | | | | [place] [address] | | | | + + + + + + | ALT | 33Comment: Testing | 10 - 65 U/L | EXTERNAL | | | | performed at [facility], [address] | | LAB | | | | [address], | | | | | | [place] [address] | | | | + + + [...] | | | | | | [address], | | | | | | [place] [address] | | | | + + + [...] | | | | | | ACUTE [place] Testing | | | | | | performed at [facility] | | | | | | [facility];[place], [place] | | | | | | [address] | | | | + + + [...] | | | | | | ACUTE [place] Testing | | | | | | performed at [facility];[address] | | | | | | [facility];[place], [place] | | | | | | [address] | | | | + + + [...] | | | | | | ACUTE [place] Testing | | | | | | performed at 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
--- OUTSIDE RECORDS SUMMARY | ~2020-03-24 | XMS | Encounter Summary ---
Demographics + + + | Address | [address] | | | [place] [address] | + + + | Home Phone | | + + + | Preferred Language | Unknown | + + + | Marital Status | Single | + + + | Protestant Affiliation | Unknown | + + + | Race | Unknown | + + + | Ethnic Group | Unknown | + + + Author + + + | Author | [facility] | | | and [place] | + + + | Organization | [facility] | | | and [place] | + + + | Address | Unknown | + + + | Phone | Unavailable | + + + Support + + + + + | Name | Relationship | Address | Phone | + + + + + | Shawanda Hirsch | ECON | [address] | | | | | [place] | | | | | [address] | | + + + + + Care Team Providers + +------+ + | Care Heart Specialist Name | Role | Phone | + +------+ + | Ashleigh Benavides | PCP | | | PAGail | | | + +------+ + Encounter Details +--------+ + + + + | Date | Type | Department | Care Team | Description | +--------+ + + + + | 02/11/ | Hospital | [facility] | Conversion | Ventricular | | 2019 | Encounter | CENTER CV INTRA OP | Transaction, | premature | | | | [address] | Provider Unknown | depolarization | | | | [place], [place] | [phone] | | | | | [address] | | | | | | [phone] | Jenn Stringer DO | | | | | | [address] | | | | | | [place], [place] | | | | | | [address] | | | | | | | | +--------+ + + + [...] + + + | Blood Pressure | 132/71 | 02/11/2019 11:36 AM | | | | | PDT | | + + + + + | Pulse | 74 | 02/11/2019 11:36 AM | | | | | PDT | | + + + + + | Temperature | 36.3 C (97.4 F) | 02/11/2019 11:36 AM | | | | | PDT | | + + + + + | Respiratory Rate | 18 | 02/11/2019 11:36 AM | | | | | PDT | | + + + + + | Oxygen Saturation | - | - | | + + + + + | Inhaled Oxygen | - | - | | | Concentration | | | | + + + + + | Weight | 108.9 kg (240 lb) | 02/11/2019 11:36 AM | | | | | PDT | | + + + + + | Height | 165.1 cm (5' 5") | 02/11/2019 11:36 AM | | | | | PDT | | + + + + + | Body Mass Index | 39.94 | 02/11/2019 11:36 AM | | | | | PDT | | + + + + + documented in this encounter Medications at Time of Discharge + + + +---------+ + + | Medication | Sig | Dispensed | Refills | Start | End Date | | | | | | Date | | + + + +---------+ + + | albuterol 90 | Inhale 2 puffs into | | 0 | 05/16/20 | | | mcg/puff inhaler | the lungs every 4 | | | 19 | | | | (four) hours as | | | | | | | needed for Wheezing. | | | | | + + + +---------+ + + | | Take 1 tablet by | | 0 | 11/10/19 | | | HYDROcodone-acetamin | mouth every 6 (six) | | | 16 | | | ophen (NORCO) 5-325 | hours as needed for | | | | | | mg per tablet | Pain. | | | | | + + + +---------+ + + | apixaban (ELIQUIS) | Take 1 tablet by | 60 | 5 | 01/17/20 | | | 5 mg tablet | mouth 2 (two) times | tablet | | 19 | 0 | | | daily. | | | | | + + + +---------+ + + | | Inhale 1 puff into | | 0 | 11/10/19 | | | fluticasone-salmeter | the lungs 2 (two) | | | 16 | 9 | | ol (ADVAIR DISKUS) | times daily. | | | | | | 250-50 mcg/puff | | | | | | | diskus inhaler | | | | | | + + + +---------+ + + | ibuprofen (ADVIL, | Take 200 mg by mouth | | 0 | 01/17/20 | | | MOTRIN) 200 mg | every 6 (six) hours | | | 19 | 0 | | tablet | as needed for Pain. | | | | | + + + +---------+ + + | lisinopril | Take 10 mg by mouth | | 0 | 10/14/19 | | | (PRINIVIL, ZESTRIL) | daily. | | | 16 | 9 | | 10 mg tablet | | | | | | + + + +---------+ + + | metoprolol | Take 1 tablet by | 30 | 5 | 01/17/20 | | | succinate | mouth daily. | tablet | | 19 | 9 | | (TOPROL-XL) 100 mg | | | | | | | ER tablet | | | | | | + + + +---------+ + + documented as of this encounter H&P Notes Lucian Molina MD - 02/11/2019 11:40 AM PDTFormatting of this note might be differen t from the original. H&P by Lucian Molina MD at 02/11/19 1140 Author: Lucian Molina MD Service: Cardiology Author Type: Physician Filed: 02/11/19 1559 Date of Service: 02/11/19 1140 Status: Signed [facility] Cutter: Lucian Molina MD (Physician) [facility] Service: Cardiology Admission History & Physical Date of Admission: 02/11/2019 Requesting Physician: Dr. Jenn Stringer MD Reason for Admission: [facility] History Obtained From: patient CHIEF COMPLAINT: Fatigue HISTORY OF PRESENT ILLNESS 59-year-old male who was previously a patient of Dr. Caldera who presents to the cardiology of [facility] to establish care for history of paroxysmal atrial fibrillation. He was last seen on . At that time, he was on flecainide therapy for rhythm control. His [id number] was 0 and he was not on anticoagulation. He developed persistent atrial fibrillation noted when he was complaining fatigue, dyspnea on exertion- he was started in eliquis by Dr. Stringer and r lopez for elective cardioversion. He is compliant with medicaitons Review of Systems Constitutional:Positive for fatigue. HENT: Negative for nosebleeds. Eyes: Negative for visual disturbance. Respiratory: Positive for cough and shortness of breath. Cardiovascular: see HPI Gastrointestinal: Negative for nausea, vomiting, abdominal pain and blood in stool. Genitourinary: Negative for hematuria or dysuria. Musculoskeletal: Negative for myalgias, back pain and arthralgias. Skin: Negative for color change. Neurological: Negative for dizziness and numbness. Hematological: Does not bruise/bleed easily. Psychiatric/Behavioral: The patient is not nervous/anxious. PAST MEDICAL & SURGICAL HISTORY Past Medical History Diagnosis Date Arthralgia Atrial fibrillation (HCC) Cardiac arrhythmia COPD (chronic obstructive pulmonary disease) (HCC) Hepatitis C 2000 Hyperlipidemia Hypertension Tobacco use Past Surgical History Procedure Laterality Date APPENDECTOMY COLONOSCOPY ORTHOPEDIC SURGERY Left hand ROTATOR CUFF REPAIR Rt. shoulder TONSILLECTOMY TYMPANOSTOMY TUBE PLACEMENT Bilateral as a child UNLISTED PROCEDURE ARTHROSCOPY MEDICATIONS Home Medications EncounterMedications Outpatient Encounter Prescriptions as of 01/16/2019 Medication Sig Dispense Refill albuterol (PROVENTIL HFA;VENTOLIN HFA) 108 (90 Base) MCG/ACT inhaler Inhale 2 puffs int o the lungs every 4 (four) hours as needed for Wheezing. fluticasone-salmeterol (ADVAIR) 250-50 MCG/DOSE Inhale 1 puff into the lungs 2 (two) ti mes daily. HYDROcodone-acetaminophen (NORCO) 5-325 MG per tablet Take 1 tablet by mouth every 6 (s ix) hours as needed for Pain. ibuprofen (ADVIL) 200 MG tablet Take 200 mg by mouth every 6 (six) hours as needed for Pain. lisinopril (ZESTRIL) 10 MG tablet Take 10 mg by mouth daily. metoprolol (TOPROL-XL) 100 MG 24 hr tablet Take 1 tablet by mouth daily. 30 tablet 5 [DISCONTINUED] aspirin 325 MG tablet Take 325 mg by mouth daily with breakfast. [DISCONTINUED] diphenhydrAMINE (BENADRYL) 25 mg capsule Take 25 mg by mouth every 6 (si x) hours as needed for Itching. [DISCONTINUED] metoprolol (TOPROL-XL) 50 MG 24 hr tablet Take 50 mg by mouth daily. apixaban (ELIQUIS) 5 MG tablet Take 1 tablet by mouth 2 (two) times daily. 60 tablet 5 nicotine (NICODERM CQ) 21 MG/24HR Place 1 patch onto the skin daily for 30 days. 28 pat ch 0 nicotine polacrilex (NICORETTE) 4 MG gum Take 1 each by mouth as needed for Smoking toshia sation for up to 30 days. 100 tablet 0 [DISCONTINUED] amoxicillin (AMOXIL) 500 MG capsule Take 500 mg by mouth 3 (three) times daily. [DISCONTINUED] atorvastatin (LIPITOR) 20 MG tablet Take 20 mg by mouth nightly. [DISCONTINUED] buPROPion (WELLBUTRIN) 100 MG tablet Take 1 tablet by mouth 2 (two) time s daily. 60 tablet 6 [DISCONTINUED] cetirizine (ZYRTEC) 10 MG tablet Take 10 mg by mouth daily. [DISCONTINUED] diltiazem (CARDIZEM CD) 120 MG 24 hr capsule Take 120 mg by mouth daily. [DISCONTINUED] flecainide (TAMBOCOR) 150 MG tablet Take 1 tablet by mouth every 12 (twe lve) hours. 60 tablet 12 No facility-administered encounter medications on file as of 01/16/2019. 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 Social History Main Topics Smoking status: Current Every Day Smoker Packs/day: 1.00 Types: Cigarettes Start date: 09/03/1970 Smokeless tobacco: Current User Alcohol use 12.6 oz/week 21 Cans of beer per week Comment: (3-6 cans per day) Drug use: Yes Types: Marijuana Comment: in past hx., marijuana,cocaine, amphetamines Sexual activity: Not on file Other Topics Concern Not on file Social History Narrative No narrative on file PHYSICAL EXAM Vital Signs: BP 140/60 (BP Location: Left upper arm, Patient Position: Sitting) | Pulse 96 | Ht 1.664 m (5' 5.5") | Wt 110.5 kg (243 lb 11.2 oz) | SpO2 96% | BMI 39.94 kg/m Physical Exam GENERAL: Well developed, well nourished, in no distress. Appears approximately stated age . HEENT: Normocephalic, atraumatic. EYES: PERRL, sclerae anicteric, no xanthelsasmas NECK: No JVD, lymphadenopathy, thyromegaly, bruits. Carotid pulses are 2+ bilaterally LUNGS: Clear bilaterally, with no rales, rhonchi or wheezing noted, respirations unlabored HEART: Nondisplaced PMI, irreg irreg, S1, S2 normal. No murmurs, rubs or gallops noted. ABDOMEN: Soft, nontender, no organomegaly, masses or bruits. Bowel sounds are normal in a ll 4 quadrants. EXTREMITIES: No edema. Radial pulses 2+ bilaterally. DP and PT pulses are 2+ bilaterally. SKIN: Warm and dry, capillary refill is normal, no lesions. NEUROLOGIC: Awake, alert and oriented x 3. No focal motor deficits. PSYCHIATRIC: Appropriate, affect appears normal DATA Results for orders placed or performed during the hospital encounter of 02/11/19 (from the past 24 hour(s)) EKG STANDARD 12 LEAD Collection Time: 02/11/19 11:04 AM Result Value Ref Range Ventricular Rate 76 BPM Atrial Rate 76 BPM P-R Interval 188 ms QRS Duration 88 ms Q-T Interval 376 ms QTC Calculation (Bezet) 423 ms Calculated P [place] 76 degrees Calculated R [place] 73 degrees Calculated T [place] 120 degrees Diagnosis Normal sinus rhythm Possible Left atrial enlargement Nonspecific T wave abnormality Abnormal ECG When compared with ECG of 16-JAN-2019 09:36, Previous ECG has undetermined rhythm, needs review Nonspecific T wave abnormality has replaced inverted T waves in Inferior leads EK01/16/19 ordered and reviewed by myself. Atrial fibrillation with RVR 108 BPM, non spec ific ST-T wave abnormalities Last Echo: 10/24/14 Impression 1. Successful electrical cardioversion was done for atrial fibrillation. 2. Overall left ventricular systolic function is normal with, an EF between 60 - 65 %. 3. No LA/ JOSEPH thrombus. 4. The right ventricular systolic pressure, as measured by Doppler, is 36.85mmHg. Last stress test: 10/25/14 Impression 1. Diaphragmatic artifact, without convincing fixed or reversible defect 2. Chamber is generous but within normal limits. Normal wall motion and ejection fraction, although at the lower limits of normal 3. A small amount of right ventricular uptake can't be excluded Last cath: Carotid US: AAA screening: Lower extremity US: OTHERS: ASSESSMENT & PLAN 1. Paroxysmal afib 2. HLD 3. HTN 4. Tobacco habituation 5. COPD 6. Obesity Now presents for elective cardioversion, complaints of fatigue and dyspnea. On Eliquis for more than 4 weeks Discussed cardioversion, risks, benefits and alternatives. He consents to procedure verball y expressing understanding of the risks Will proceed. - Continue metoprolol 100mg po daily - Continue lisinopril 10mg po daily Code Status: Prior Primary Care Physician: Ashleigh Molina MD 02/11/2019 documented in t his encounter Procedure Notes Lucian oMlina MD - 02/11/2019 10:52 AM PDTFormatting of this note might be differen t from the original. Procedures by Lucian Molina MD at 02/11/191051 Author: Lucian Molina MD Service: Cardiology Author Type: Physician Filed: 02/11/19 1055 Date of Service: 02/11/191051 Status: Signed [employer] Cutter: Lucian Molina MD (Physician) Pre-procedure Diagnoses: 1. Paroxysmal atrial fibrillation (HCC) [I48.0] Post-procedure Diagnoses: 1. Paroxysmal atrial fibrillation (HCC) [I48.0] Procedures: 1. ELECTRICAL CARDIOVERSION [[id number] (Custom)] DATE OF SERVICE February 11, 2019 REFERRING PHYSICIAN Jenn Stringer MD SURGEON Lucian Molina MD PROCEDURE Elective direct current cardioversion. INDICATIONS Persistent atrial fibrillation. DESCRIPTION OF PROCEDURE After informed consent was obtained and on anticoagulation with Eliquis for over 4 weeks. H e was given moderate anesthesia/sedation with propafol with anesthesia support. Defibrillati ons pads were applied. Oxygen saturation and telemetry were monitored continuously. He was s hocked with 150J synchronized biphasic electrical counter shock and he successfully converte d to sinus. There were no complications, and he tolerated the procedure well. CONCLUSION Successful cardioversion to Sinus Continue Eliquis, Metoprolol Follow up with Dr. Stringer documented in t his encounter Plan of Treatment +--------+---------+ + + + | Date | Type | Specialty | Care Team | Description | +--------+---------+ + + + | 05/13/ | Office | Cardiology | Citlali Adkins | | | 2020 | Visit | | [address] | | | | | | [address] | | | | | | [place] [address] | | | | | | [phone] | | | | | | | | +--------+---------+ + + + documented as of this encounter Procedures + +--------+ + + + | Procedure Name | Priori | Date/Time | Associated Diagnosis | Comments | | | ty | | | | + +--------+ + + + | ECG 12 LEAD | Routin | 02/11/2019 | | Results for this | | | e | 11:04 AM | | procedure are in the | | | | PDT | | results section. | + +--------+ + + + documented in this encounter Results ECG 12 lead (02/11/2019 11:04 AM PDT) + + + + + + | Component | Value | Ref Range | Performed | Pathologist | | | | | At | Signature | + + + + + + | DIAGNOSIS: | Normal sinus | | EXTERNAL | | | | rhythmPossible Left | | LAB | | | | atrial | | | | | | enlargementNonspecific T | | | | | | wave | | | | | | abnormalityAbnormal | | | | | | ECGWhen compared with | | | | | | ECG of 16-JAN-2019 | | | | | | 09:36,Sinus rhythm has | | | | | | replaced Atrial | | | | | | fibrillationConfirmed by | | | | | | Michael Carr MD | | | | | | ([phone]) on 02/11/2019 | | | | | | 5:49:33 PM | | | | + + + + + + + + | Specimen | + + | | + + + + + | Narrative | Performed At | + + + | Historically converted procedure from [facility] Epic environment | EXTERNAL LAB | + + + + +---------+ + + | Performing | Address | City/State/Zipcode | Phone Number | | Organization | | | | + +---------+ + + | EXTERNAL LAB | | | | + +---------+ + + documented in this encounter Visit Diagnoses + + | Diagnosis | + + | Ventricular premature depolarization Other premature beats | + + documented in this encounter
--- OUTSIDE RECORDS SUMMARY | ~2020-03-24 | XMS | Encounter Summary ---
Demographics + + + | Address | [address] | | | [place] [address] | + + + | Home Phone | | + + + | Preferred Language | Unknown | + + + | Marital Status | Single | + + + | Mandaen Affiliation | Unknown | + + + | Race | Unknown | + + + | Ethnic Group | Unknown | + + + Author + + + | Author | [facility] | | | and [place] | + + + | Organization | [facility] | | | and [place] | + + + | Address | Unknown | + + + | Phone | Unavailable | + + + Support + + + + + | Name | Relationship | Address | Phone | + + + + + | Dennise Hirsch | ECON | [address] | | | | | [place] | | | | | [address] | | + + + + + Care Team Providers + +------+ + | Care Tube Man Name | Role | Phone | + [...] + + | 11/23/ | Office | [facility] | Citlali Adkins | Paroxysmal atrial | | 2020 | Visit | [facility] | [address] | fibrillation (HCC) | | | | [address] | [address] | (Primary Dx); | | | | [address] | [place] [address] | History of | | | | [place], [place] | [phone] | cardioversion; | | | | [address] | | Chronic diastolic | | | | [phone] | | heart failure (HCC); | | [...] 01/16/2019, and also 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 Today, I reviewed all previous [...] room, and admitted to the hospital at [facility] April 15-2018 with A. fib with RVR. [...] They also suggested a PCP referral to senior marketing analyst or infect ious disease specialist for treatment [...] days a week for 6 hours at [employer]. He complains that he urinate small amounts constantly after he takes his diuretic, and a lso has urgency, and did not seek urology consult for further evaluation. He drinks coffee all day long when he works at [employer]. REVIEW OF SYSTEMS: Negative except for pertinent [...] current illicit drug use. . Lives in [place]. Works [employer], 5 days per week for 6 hrs, [...] dennise ng personally reviewed by me EK04/15/2019 ([facility]) atrial fib with RVR, ST and T wave abnormalities to anterolateral leads. Rate 118 bpm, QRS 84 ms, QTC 442 ms tracing personally reviewed by me EK08/28/2019: Sinus rhythm, nonspecific ST-T wave abnormalities to anterolateral leads. Rate 79 bpm, QRS 86 ms, QTC 373 ms, tracing personally reviewed by me and compared to EKG p erformed in April in the [facility] emergency room, sinus rhythm has replaced atrial fibr illation LABS Labs: 04/15/2019: [facility] ER: CBC: WBC 6.1, RBC 3.96, [...] combining alcohol with narcotics, as he takes [place] 3 micheal es per day, and drinks [...] for continuity of care purp maci MCKINNEY [facility] 11/24/2019 dorene madison in this encounter Plan of Treatment +--------+---------+ + + + | Date | Type | Specialty | Care Team | Description | +--------+---------+ + + + | 05/13/ | Office | Cardiology | JedCitlali | | | 2019 | Visit | | [address] | | | | | | [address] | | | | | | [place] [address] | | | | | | [phone] | | | | | | | [...]
--- OUTSIDE RECORDS SUMMARY | ~2020-03-24 | XMS | Encounter Summary ---
Demographics + + + | Address | [address] | | | [place] [address] | + + + | Home Phone | | + + + | Preferred Language | Unknown | + + + | Marital Status | Single | + + + | Gnosticist Affiliation | Unknown | + + + | Race | Unknown | + + + | Ethnic Group | Unknown | + + + Author + + + | Author | [facility] | | | and [place] | + + + | Organization | [facility] | | | and [place] | + + + | Address | Unknown | + + + | Phone | Unavailable | + + + Support + + + + + | Name | Relationship | Address | Phone | + + + + + | Shawanda Hirsch | ECON | [address] | | | | | [place] | | | | | [address] | | + + + + + Care Team Providers + +------+ + | Care Associate Professor Of Literature Name | Role | Phone | + [...] Provider Unknown | | | | | [place], [place] | [phone] | | | | | [address] | | | | | | [phone] | | | +--------+ + + + [...] [address] | | | | | | [place] [address] | | | | | | [phone] | | | | | | | | +--------+---------+ + + + documented as of this encounter Visit Diagnoses Not on filedocumented in this encounter"
--- OUTSIDE RECORDS SUMMARY | ~2020-03-24 | XMS | Encounter Summary ---
Demographics + + + | Address | [address] | | | [place] [address] | + + + | Home Phone | | + + + | Preferred Language | Unknown | + + + | Marital Status | Single | + + + | Gnosticist Affiliation | Unknown | + + + | Race | Unknown | + + + | Ethnic Group | Unknown | + + + Author + + + | Author | [facility] | | | and [place] | + + + | Organization | [facility] | | | and [place] | + + + | Address | Unknown | + + + | Phone | Unavailable | + + + Support + + + + + | Name | Relationship | Address | Phone | + + + + + | Shawanda Hirsch | ECON | [address] | | | | | [place] | | | | | [address] | | + + + + + Care Team Providers + +------+ + | Care Oracle Technical Developer Name | Role | Phone | + [...] | | | [address] | [address] [place], [place] | | | | | [place], [place] | [address] | | | | | [address] | | | | | | [phone] | | | +--------+ + + + [...] [address] | | | | | | [place] [address] | | | | | | [phone] | | | | | | | [...] | | | is mildly enlarged. 8. Rdrq-bt-qvozcdwr tricuspid regurgitation | | | present. 9. [...] | | | is mildly enlarged. 8. Hzvq-en-zcvaxhge tricuspid regurgitation | | | present. 9. [...] normal. | | | Equivocal Tricuspid Valve: Djva-ps-vbnxxgcr tricuspid regurgitation | | | present. Tricuspid [...] TR Vmax: 3.41 m/s | | | Physician General Internal Medicine: Authenticated by: Jenn Stringer MD Report Date/Time: | | | -- [id number] | | + + + + + | Procedure Note | + + | Brent, Rad Conversion - 05/09/2019 9:34 AM PDT Patient [...] enlarged.7. The right atrium is mildly enlarged.8. Jzyw-ou-ezebycud tricuspid | | regurgitation present.9. The right [...] | valve appears structurally normal. EquivocalTricuspid Valve: Bkph-sz-smkmhkku tricuspid | | regurgitation present.Tricuspid Valve: The [...] (A-L): 39.12 ml/m2LAAs A2C: 23.51 | | [id number] A-L A2C: 79.84 mlLAESV MOD A2C: 77.46 mlLALs A2C: 5.88 cmLAAs A4C: | | 25.35 [id number] A-L A4C: 92.54 mlLAESV MOD A4C: 85.89 mlLALs A4C: 5.89 cmRAAs: | | 19.13 [id number] A-L: 55.80 mlRAESV MOD: 54.64 mlRALs: 5.57 cmTAPSE: 1.70 cmAV | | Env.Ti: 243.99 msAV maxP.60 mmHgAV meanP.43 mmHgAV Vmax: 1.77 m/Edgardo | | Vmean: 1.17 m/Edgardo VTI: 28.74 cmAVA Vmax: 1.68 cm2AVA (VTI): 1.96 [id number] Vmax: | | 0.00 cm2/m2AVAI (VTI): 0.00 cm2/m2LVOT Env.Ti: 249.53 msLVOT maxP.29 mmHgLVOT | | meanP.38 mmHgLVSI Dopp: 25.66 ml/m2LVSV Dopp: 56.46 mlLVOT Vmax: 0.75 | | m/sLVOT Vmean: 0.57 m/sLVOT VTI: 14.25 cmMV E Aram: 1.08 m/sRAP: 15 mmHgRV S': | | 0.09 m/sRVSP: 61.65 mmHgTR maxP.65 mmHgTR Vmax: 3.41 m/s | | Physician General Internal Medicine:Authenticated by: Jenn Stringer MDReport Date/Time: -- [id number] | | IMPRESSION: 1. Atrial fibrillation.2. This was a technically difficult study with | | suboptimal views.3. Overall left ventricular systolic function is normal with, an EF | | about 55 %.4. The right ventricle is mildly enlarged.5. The right ventricular systolic | | function is mildly impaired.6. The left atrium is mildly enlarged.7. The right atrium is | | mildly enlarged.8. Ogvh-uc-xghqrfal tricuspid regurgitation present.9. The right | | [...] |TR Vmax: 3.41 m/s | | | |Physician General Internal Medicine: | |Authenticated by: Jenn Stringer MD | |Report Date/Time: -- [id number] | | | |IMPRESSION: | |1. Atrial [...] right atrium is mildly enlarged. | |8. Uvko-vx-mpkczmgx tricuspid regurgitation present. | |9. The right ventricular systolic pressure (pulmonary artery systolic pressure), as measure d by Doppler, is 61.66mmHg. | + + documented in this encounter Visit Diagnoses Not on filedocumented in this encounter"
--- OUTSIDE RECORDS SUMMARY | ~2020-03-24 | XMS | Encounter Summary ---
Demographics + + + | Address | [address] | | | [place] [address] | + + + | Home Phone | | + + + | Preferred Language | Unknown | + + + | Marital Status | Single | + + + | Baptist Affiliation | Unknown | + + + | Race | Unknown | + + + | Ethnic Group | Unknown | + + + Author + + + | Author | [facility] | | | and [place] | + + + | Organization | [facility] | | | and [place] | + + + | Address | Unknown | + + + | Phone | Unavailable | + + + Support + + + + + | Name | Relationship | Address | Phone | + + + + + | Dennise Hirsch | ECON | [address] | | | | | [place] | | | | | [address] | | + + + + + Care Team Providers + +------+ + | Care Product Manager Medical Device Name | Role | Phone | + [...] + + | 08/28/ | Office | [facility] | AdamserafinCitlali | Paroxysmal atrial | | 2019 | Visit | [facility]IOLOGY [facility] | [address] | fibrillation (HCC) | | | | [address] | [address] | (Primary Dx); Mixed | | | | [address] | [place] [address] | hyperlipidemia; | | | | [place], [place] | [phone] | Essential | | | | [address] | | hypertension; | | | | [phone] | | History of | | | [...] this encounter Patient Instructions Patient Instructions Citlali Adkins, FARM ASSISTANT - 08/28/2019 1:30 PM PST I made [...] find a support program: Free national quitline: 304-KVYZ-TAT (423-955-9021). Hospital quit-smoking programs. [place] [employer]: (978.782.1700). [place] [employer] (072-659-8814). Support at home is important too. Nonsmokers can offer praise and encouragement. If the smo ker in your life finds it hard to quit, encourage them to keep trying. Kcjb-oku-qghukgb medicines Nicotine replacement therapymay make quittingeasier. Certain aids, such as the nicotine patch, gum, and lozenges, are available without a prescription. Itis best to use these un marinaa a doctor s care, though. The skin [...] to quit smoking, try these online resources: Smokefree.gov "Clearing the Air" booklet from the National Cancer [place]: smokefree.gov/sites/defau lt/files/pdf/iknrzwtb-btc-lri-accessible.pdf Date Last Reviewed: 11/01/201619995745-5009 [employer] [address] [place] [address]. All righ ts reserved. This information is [...] 01/16/2019, and also seen by now retired cod clerk Dr. Caldera. Today, I reviewed all previous [...] quit smoking. He was cardioverted by Dr. oMlina 02/11/2019, and was supposed to follow up one month af ter cardioversion, but did make appointment, and then was to be seen 07/10/[address] Stringer . His current and previous testing and procedures are detailed below He was seen in the emergency room, and admitted to the hospital at [facility] from [facility] -2018 with A. fib with RVR and notes reviewed. Echo performed [...] They also suggested a PCP referral to knife operator or infecti ous disease specialist for treatment [...] mokes. He also consumes edible marijuana in brownies about once a month, but denies any current us e of other recreational or illicit drugs. He reported he did not follow-up on getting a referral to treat his hepatitis C, as he was told he would need to stop smoking and drinking alcohol for treatment to be effective, and sabi denton does not wish to do this. He [...] days a week for 6 hours at [employer]. He complains that he urinate small amounts constantly after he takes his diuretic, and a lso has urgency. He drinks coffee all day long when he works at [employer]. REVIEW OF SYSTEMS: Negative except for pertinent [...] current illicit drug use. . Lives in [place]. Works At [employer], 5 days per week for 6 hrs, : 4:30- 1300, uses marijuana [place] once a month.. Outpatient Medications Prior to [...] Severe pulmonary hypertension, RVSP 61.66 mmHg. Trace SD. No pericardial effusion. IVC dilated c onsistent [...] cific T wave abnormalities. Rate 76 bpm, SD 188 ms, QRS 88 lorna-seconds, QTC 423 ms, dennise ng personally reviewed by me EK04/15/2019 ([facility]) atrial fib with RVR, ST and T wave abnormalities to anterolateral leads. Rate 118 bpm, QRS 84 ms, QTC 442 ms tracing personally reviewed by me EK08/28/2019: Sinus rhythm, nonspecific ST-T wave abnormalities to anterolateral leads. Rate 79 bpm, QRS 86 ms, QTC 373 ms, tracing personally reviewed by me and compared to EKG p erformed in April in the [facility] emergency room, sinus rhythm has replaced atrial f ibrillation LABS Labs: 04/15/2019: [facility]: CBC: WBC 6.1, RBC 3.96, hemoglobin [...] maintaining sinus rhythm at 79 bpm on me toprolol 200 mg nightly. His Labs performed [...] weight is probably around 230-233 pounds, but sabi denton has difficulty taking his furosemide on a [...] recommended smoking cessation programs, and also given hi m suggestions and handouts to help him quit [...] combining alcohol with narcotics, as he takes [place] 3 micheal es per day, and drinks [...] contain inadvertent rec ognition errors. Abdias MCKINNEY [facility] Cardiology 08/28/2019 Carlos ented in this encounter Plan of Treatment +--------+---------+ + + + | Date | Type | Specialty | Care Team | Description | +--------+---------+ + + + | 05/13/ | Office | Cardiology | Jed Citlali | | | 2019 | Visit | | [address] | | | | | | [address] | | | | | | [place] [address] | | | | | | [phone] | | | | | | | [...] | | | | | by [employer] Read Only, | | | | | | I[facility] Kevin ([id number]), | | | | | | assignment editor Jairon Amin | | | | | | ([id number]) on 09/04/2019 | | | | | [...]
--- OUTSIDE RECORDS SUMMARY | ~2020-03-24 | XMS | Encounter Summary ---
Demographics + + + | Address | [address] | | | [place] [address] | + + + | Home Phone [...] + | Dennise Hirsch | ECON | [address] | | | | | [place] | | | | | [address] | | + + + + + Care Team Providers + +------+ + | Care Engineer Automated Equipment Name | Role | Phone | + +------+ + | Ashleigh Benavides | PCP | | | PA-C | | | + +------+ + Reason for Visit + + + | Reason | Comments | + + + | Follow-up | 3 week | + + + Encounter Details +--------+---------+ + + + | Date | Type | Department | Care Team | Description | +--------+---------+ + + + | 02/25/ | Office | [facility] | Citlali Adkins | Paroxysmal atrial | | 2019 | Visit | CARDIOLOGY [facility] | [address] | fibrillation (HCC) | | | | [address] | [address] | (Primary Dx); | | | | [address] | [place] [address] | History of | | | | [place] | [phone] | cardioversion; | | | | [address] | | Chronic diastolic | | | | [phone] | | heart failure (HCC); | | [...] | | | | every day smoker; At | | | | | | risk for | | | | | | readmission to | | | | | | hospital | +--------+---------+ + + + Social History [...] + + + | Blood Pressure | 120/66 | 02/26/2020 11:27 AM | | | | | PDT | | + + + + + | Pulse | 97 | 02/26/2020 11:27 AM | | | | | PDT | | + + + + + | Temperature | - | - | | + + + + + | Respiratory Rate | - | - | | + + + + + | Oxygen Saturation | 92% | 02/26/2020 11:27 AM | | | | | PDT | | + + + + + | Inhaled Oxygen | - | - | | | Concentration | | | | + + + + + | Weight | 123 kg (271 lb 1.6 | 02/26/2020 11:27 AM | | | | oz) | PDT | | + + + + + | Height | 166.4 cm (5' 5.5") | 02/26/2020 11:27 AM | | | | | PDT | | + + + + + | Body Mass Index | 44.43 | 02/26/2020 11:27 AM | | | | | PDT | | + + + + + documented in this encounter Patient Instructions Patient Instructions Citlali Adkins FNP - 02/26/2020 11:30 AM PDTI made no changes to medications Stop ibuprofen for pain , as increased bleeding, and use tylenol instead Try to decreased smoking and drinking , and drink 6 bottles of water per day to stay well h ydrated Get your labs done in 4 weeks, about March 27 See me back in 6 weeks Please bring your medication bottles to all clinic visits to help us maintain safe care for you, and ensure accurate medication record documented in this encounter Progress Notes Citlali Adkins, TANK ASSEMBLER - 02/26/2020 11:30 AM PDTFormatting of this note might be differe nt from the original. Date of visit: 02/26/2020 Primary Care Physician: Ashleigh Benavides PA-C CHIEF COMPLAINT: Chief Complaint Patient presents with Follow-up 3 week HISTORY OF PRESENT ILLNESS: Boyd Andersen is a 64 year old man who is here today to follow up on response to torsemide 20 mg BID which I started when I followed up with him 02/05/2020 after his hospital ization 01/10/2020 for Afib with RVR, and heart failure requiring large diuresis He is a patient of Dr.Lindsay Stringer and last seen by her 01/16/2019, and also seen by now r etired supervisor throwing department Dr. Caldera. I saw him last 02/05/2020 when I had advised him to take furosemide as ordered for heart fa ilure, and get urology consult, and to stop drinking beer and smoking. Today, I reviewed all previous documentation available [...] thapa, but that appointment also missed . His previous emergency admission to [facility] was April 15-2018 with A. fib with R VR treated with IV Cardizem, as well as increasing doses of metoprolol during 5-day hospital ization.. Echo performed at the time is detailed below, and normal EF but diastolic dysfun ction, and severe pulmonary hypertension He was also started on Eliquis 5 mg twice daily and was diuresed from 121.4 kg down to 105 kg and was discharged on furosemide twice daily and not requiring any potassium supplem entation. He was also noted not to be compliant to CPAP with history of sleep apnea, and suggested find a mask he could tolerate. They also suggested a PCP referral to outsole cutter machine or infect ious disease specialist for treatment of his hep C. He was discharged on Eliquis 5 mg twice daily, metoprolol succinate 200 mg nightly, furosemide 40 mg twice daily,and potassium 10 mEq daily. He has refused treatment for Hep C as does not want to stop smoking and drinking alcohol w hich would be required. His current and previous testing and procedures are detailed below . He has done well on Torsemide, and reports it has been a more effective diuretic for him, as he feels better, he has less dyspnea with exertion, his weight is down 9 pounds since I s aw him last, and he does not have any swelling to his lower legs. I He does continue to drink 3-6 beers every night, and is continuing to smoke daily, and still occasionally chews tobacco. His heart rate has been better controlled with infrequent palpitations since he was dis charged. He also denies any signs or symptoms of stroke or TIA, or any bleeding since he has been o n Eliquis,and has stopped taking ibuprofen for pain He reports he does not think he will ever stop drinking beer or smoking, and has been u nsuccessful in quitting using nicotine replacement therapy, or Chantix in his past. He also chews tobacco. He also finds it difficult to quit as his also smokes. He still is not interested in pursuing any updated sleep apnea treatment or evaluation He also consumes edible marijuana in [employer] about once a month, but denies any current us e of other recreational or illicit drugs. He reported he still did not follow-up on getting a referral to treat his hepatitis C, as h corrie was told he would need to stop smoking and drinking alcohol for treatment to be effective, and he does not wish to do this. He reports his major robert in life is drinking beer, and rid ing his Shawn. He brought his medications to the clinic today, He still works 5 days a week for 6 hour s at [employer] from 5 am-11 am He drinks coffee all day long when he works at [employer]. He continues used to complain of ongoing fatigue, and lack of energy REVIEW OF SYSTEMS: Negative except for pertinent items noted in HPI. Constitutional: Ongoing Fatigue and lack of energy. Denies unexplained weight loss. Appe tite is good. Weight is labile with fluid retention. Dry weight 231 lbs Denies night swe ats fevers or chills HENT: Denies nosebleeds. Denies [...] current illicit drug use. . Lives in [place]. Works At [employer], 5 days per week for 6 hrs, : 4:30- 1300, uses marijuana brownKambit once a month.. Outpatient Medications Prior to Visit Medication Sig Dispense Refill albuterol 90 mcg/puff inhaler Inhale 2 puffs into the lungs every 4 (four) hours as nee ded for Wheezing. apixaban (ELIQUIS) 5 mg tablet Take 1 tablet by mouth 2 times daily. 60 tablet 11 cetirizine (ZYRTEC) 10 mg tablet Take 10 mg by mouth Daily. HYDROcodone-acetaminophen (NORCO) 5-325 mg per tablet Take 1 tablet by mouth every 6 (s ix) hours as needed for Pain. (Patient taking differently: Take 1 tablet by mouth every 8 ho urs as needed.) magnesium chloride (MAG64) 64 mg EC tablet Take 1 tablet by mouth 2 times daily. 60 tab let 11 metoprolol succinate (TOPROL-XL) 200 mg ER tablet Take 1 tablet by mouth nightly. 30 ta blet 11 potassium chloride (KLOR-CON) 10 MEQ ER tablet Take 1 tablet by mouth 2 times daily. 60 tablet 11 torsemide (DEMADEX) 20 mg tablet Take 1 tablet by mouth 2 times daily. 60 tablet 11 No facility-administered medications prior to visit. PHYSICAL EXAM: Wt Readings from Last 3 Encounters: 02/26/20 123 kg (271 lb 1.6 oz) 02/05/20 127 kg (280 lb) 11/24/19 123.5 kg (272 lb 4.8 oz) Temp Readings from Last 3 Encounters: 11/24/19 36.2 C (97.1 F) BP Readings from Last 3 Encounters: 02/26/20 120/66 02/05/20 130/80 11/24/19 114/68 Pulse Readings from Last 3 Encounters: 02/26/20 97 02/05/20 96 11/24/19 91 Vital signs: 11/10/2015: WT: 273 LB. BP: [...] noted, respirations unl abored HEART: Nondisplaced PMI, irregularly irregular rhythm with controlled rate, S1, S2 normal. No murmurs, rubs or gallops noted. ABDOMEN: Soft, nontender, no organomegaly, masses or bruits. Bowel sounds are normal in a ll 4 quadrants. The abdominal aortic pulsation is not palpable. EXTREMITIES: Trace pedal edema. Radial pulses 2+ bilaterally. Femoral pulses are 2+ bilat erally without bruits. DP and PT pulses are 2+ bilaterally. No clubbing..varicosities to b oth ankles SKIN: Warm and dry, capillary refill [...] dennise ng personally reviewed by me EK04/15/2019 ([facility]) atrial fib with RVR, ST [...] sinus rhythm has replaced atrial fibr illation EK01/09/2020: ( [facility]) Atrial fib with RVR, QRS-T angle, primary T wave abnormality. Ra te 127 bpm, QRS 82 ms, QTC 421 ms and personally reviewed by me and compared to EKG performe d in August 2019, atrial fib has replaced sinus rhythm. EK02/05/2020: Atrial fib with controlled ventricular response, ongoing ST and T wave abnor mality to inferior leads. Rate 89 bpm, QRS 84 ms, QTC 418 ms, tracing personally reviewed mariah moya and similar morphology to EKG performed in the emergency room on January 08, but now rate is better controlled LABS Labs: 04/15/2019: [facility]: CBC: WBC 6.1, RBC 3.96, [...] 4.26, hemoglobin 14.5, hematocrit 42.5, platele ts 189. Labs: 01/09/2020: [facility]: CMP: Sodium 140, potassium 4.1, chloride 105, CO2 30, BUN 18, creat inine 0.97, GFR 78, glucose 138, magnesium 1.9, total bili 0.6, AST 40, ALT 45, alk phos 65, albumin 4. troponin T <0.010. BNP 95, CBC: WBC 7.5, RBC 4.25, hemoglobin 14.4, hematocrit 43.3, platelets 187. Labs: 01/10/2020: [facility]: BMP: Sodium 142, potassium 4, chloride 105, glucose 137, calcium 9. 2, BUN 19, creatinine 1.06, GFR 71. Labs: 01/11/2020 ([facility]): BMP: Sodium 139, potassium 4, chloride 96, CO2 36, glucose 160, calcium 9.5, BUN 24, creatinine 0.94, GFR 81. Magnesium: 1.8. CBC: WBC 16.9, RBC 4.39 , hemoglobin 14.9, hematocrit 44.9, platelets 213. Labs: 01/19/2020: BNP 101 Labs: 02/25/2020: BMP: Sodium 138, potassium 4.3, chloride 98, glucose 89, calcium 9.5, BUN 25, creatinine 1.87, GFR 37. Addendum magnesium 1.7. Called patient 03/01/2020 tell him to decrease his torsemide to 20 mg once daily ASSESSMENT & PLAN: He was here today to follow-up on his response to Torsemide 20 mg BID, He has problems as detailed below. He has felt much improved on torsemide, and has tolerated it well, and his legs are no long er edematous, he is less short of breath, and he has lost 9 pounds since I saw him 3 weeks a go. I received his labs just as our clinic visit ended, and his BMP is detailed above and sh ows a sharp decline in his renal function with a creatinine of 1.87 and a GFR of 37, though BUN only slightly elevated. I discussed the labs with him at the end of our visit, as I previously was going to start h im on spironolactone, which I no longer going to start. I have a feeling the decline in his renal function is secondary to his hospitalization, and given the improvement in his symptoms and weight on the torsemide, I am going to continue i t for a little while longer and repeat his labs in 1 month. He continues to smoke a pack a day, and also to chew tobacco, and drink 3-6 beers daily, and I again discussed with him his ongoing risk of heart attack and stroke with his ongoing smoking, and that smoking and alcohol contribute to atrial fibrillation. I also again discussed with him how poorly he feels being fluid overloaded, and short o f breath, and he does admit that he feels much better he takes his medications consistently, and is not fluid overloaded. I also discussed the very real possibility that he would end up being chronically hospit alized, and not be able to do any of the things in his life that he enjoys. He seems to be somewhat more motivated today to make some changes, and is at least going to consider decreasing the amount he is smokes and drinks. I have encouraged him to continue to [...] can get further assistance in using CPAP , as he complains of ongoing daytime fatigue, but is still not interested in pursuing my refer ral For his cardiac medications, I have continued torsemide 20 mg twice daily metoprolol X L 200 mg nightly, Eliquis 5 mg twice daily for stroke prevention, potassium 10 mEq twice jorge alberto ly for potassium supplementation, and magnesium chloride 64 mg twice daily for low magnesi um levels with leg cramps. I have also again cautioned him against combining alcohol with narcotics, as he takes [place] 3 times per day, and drinks beer every night. I also advised him to stop using ibuprofen when he is on Eliquis due to increased risk of bleeding, and decreasing his renal function I again encouraged him to try and make better lifestyle choices to improve his long-term quality of life, and decrease his cardiovascular and cancer risk factors. I will see him back in 6 weeks to follow up. I ordered a BMP to be performed in 4 weeks, and copies are to be sent to his PCP, Kit Benavides. He told me that he also needed to get labs done for her, and I have said he can combine any of her labs with mine so only gets one lab draw. I discussed with him that if he truly wanted to pursue a more effective treatment of his a trial fibrillation, that I would refer him to an funeral service licensee, Dr. Ray in [facility] for further treatment options. Dr. Ray would want him to get his sleep apnea corrected, and make other lifestyle changes. 1. Paroxysmal atrial fibrillation (HCC) 2. History of cardioversion 3. Chronic diastolic heart failure (HCC) 4. Moderate to severe pulmonary hypertension (HCC) 5. Essential hypertension 6. Mixed hyperlipidemia 7. On apixaban therapy 8. Obstructive sleep apnea syndrome 9. Chronic hepatitis C without hepatic coma (HCC) 10. Chronic obstructive pulmonary disease, unspecified COPD type (HCC) 11. Current every day smoker 12. At risk for readmission to hospital Orders Placed This Encounter Procedures Basic Metabolic Panel The following portions of the patient's history were personally reviewed by me and updated as appropriate: EKG tracings, other specialty provider and PCP notes,any Hospital admission and discharge summaries, any ER records , current and previous cardiac testing and procedure reports and d vickie, medication bottles brought to visit today Allergies, current medications.labs Family history, past medical history, past social history, past surgical history. Problem list. This encounter was dictated with voice recognition software and may contain inadvertent rec ognition errors. Portions of this chart may have been copied from previous notes for continuity of care purp ose Citlali-Michelle Carnaghan CREDIT REPRESENTATIVE [facility] 02/26/2020 docume madison in this encounter Plan of Treatment +--------+---------+ + + + | Date | Type | Specialty | Care Team | Description | +--------+---------+ + + + | 05/13/ | Office | Cardiology | Citlali Adkins | | 2019 | Visit | | [address] | | | | | | [address] | | | | | | [place] [address] | | | | | | [phone] | | | | | | | | +--------+---------+ + + + + +------+--------+ + + | Name | Type | Priori | Associated Diagnoses | Order Schedule | | | | ty | | | + +------+--------+ + + | Basic Metabolic | Lab | Routin | Essential | Expected: | | Panel | | e | hypertension | 03/27/2020, Expires: | | | | | | 02/25/2021 | + +------+--------+ + + documented as of this encounter [...] Tobacco use disorder | + + | At risk for readmission to hospital | + + documented in this encounter
--- OUTSIDE RECORDS SUMMARY | ~2020-03-24 | XMS | Encounter Summary ---
Demographics + + + | Address | [address] | | | [place] [address] | + + + | Home Phone | | + + + | Preferred Language | Unknown | + + + | Marital Status | Single | + + + | Sabianist Affiliation | Unknown | + + + | Race | Unknown | + + + | Ethnic Group | Unknown | + + + Author + + + | Author | [facility] | | | and [place] | + + + | Organization | [facility] | | | and [place] | + + + | Address | Unknown | + + + | Phone | Unavailable | + + + Support + + + + + | Name | Relationship | Address | Phone | + + + + + | Shawanda Hirsch | ECON | [address] | | | | | [place] | | | | | [address] | | + + + + + Care Team Providers + +------+ + | Care Oil Gas And Pipe Tester Name | Role | Phone | [...] Provider Unknown | | | | | [place], [place] | [phone] | | | | | [address] | | | | | | [phone] | | | +--------+ + + + [...] [address] | | | | | | [place] [address] | | | | | | [phone] | | | | | | | | +--------+---------+ + + + documented as of this encounter Visit Diagnoses Not on filedocumented in this encounter"
--- OUTSIDE RECORDS SUMMARY | ~2020-03-24 | XMS | Encounter Summary ---
Demographics + + + | Address | [address] | | | [place] [address] | + + + | Home Phone | | + + + | Preferred Language | Unknown | + + + | Marital Status | Single | + + + | Nondenominational Affiliation | Unknown | + + + | Race | Unknown | + + + | Ethnic Group | Unknown | + + + Author + + + | Author | [facility] | | | and [place] | + + + | Organization | [facility] | | | and [place] | + + + | Address | Unknown | + + + | Phone | Unavailable | + + + Support + + + + + | Name | Relationship | Address | Phone | + + + + + | Shawanda Hirsch | ECON | [address] | | | | | [place] | | | | | [address] | | + + + + + Care Team Providers + +------+ + | Care Print Shop Chief Clerk Name | Role | Phone | + [...] Provider Unknown | | | | | [place], [place] | [phone] | | | | | [address] | | | | | | [phone] | | | +--------+ + + + [...] [address]IA[address] | | | | | | [place] [address] | | | | | | [phone] | | | | | | | | +--------+---------+ + + + documented as of this encounter Visit Diagnoses Not on filedocumented in this encounter"
--- OUTSIDE RECORDS SUMMARY | ~2020-03-24 | XMS | Encounter Summary ---
Demographics + + + | Address | [address] | | | [place] [address] | + + + | Home Phone | | + + + | Preferred Language | Unknown | + + + | Marital Status | Single | + + + | Church Affiliation | Unknown | + + + | Race | Unknown | + + + | Ethnic Group | Unknown | + + + Author + + + | Author | [facility] | | | and [place] | + + + | Organization | [facility] | | | and [place] | + + + | Address | Unknown | + + + | Phone | Unavailable | + + + Support + + + + + | Name | Relationship | Address | Phone | + + + + + | Dennise Hirsch | ECON | [address] | | | | | [place] | | | | | [phone] | | + + + + + Care Team Providers + +------+ + | Care Information Systems Analyst Name | Role | Phone | + +------+ + | Ashleigh Benavides | PCP | | | PA-C | | | + +------+ + Reason for Visit + + + | Reason | Comments | + + + | Follow-up | Hospital | + + + Encounter Details +--------+---------+ + + + | Date | Type | Department | Care Team | Description | +--------+---------+ + + + | 02/04/ | Office | [facility] | Citlali Adkins | Paroxysmal atrial | | 2019 | Visit | [facility] | [address] | fibrillation (HCC) | | | | [address] | [address] | (Primary Dx); | | | | [address] | [place] [address] | History of | | | | [place] | [phone] | cardioversion; | | | | [address] | | Chronic diastolic | | | | [phone] | | heart failure (HCC); | | [...] | | | | every day smoker; | | | | | | Encounter for | | | | | | examination | | | | | | following treatment | | | | | | at hospital; At risk | | | | | | for readmission to | | | | | | hospital; | | | | | | Hypomagnesemia | +--------+---------+ + + + Social History [...] + + + | Blood Pressure | 130/80 | 02/05/2020 9:34 AM | | | | | PDT | | + + + + + | Pulse | 96 | 02/05/2020 9:34 AM | | | | | PDT | | + + + + + | Temperature | - | - | | + + + + + | Respiratory Rate | - | - | | + + + + + | Oxygen Saturation | 94% | 02/05/2020 9:34 AM | | | | | PDT | | + + + + + | Inhaled Oxygen | - | - | | | Concentration | | | | + + + + + | Weight | 127 kg (280 lb) | 02/05/2020 9:34 AM | | | | | PDT | | + + + + + | Height | 166.4 cm (5' 5.5") | 02/05/2020 9:34 AM | | | | | PDT | | + + + + + | Body Mass Index | 45.89 | 02/05/2020 9:34 AM | | | | | PDT | | + + + + + documented in this encounter Patient Instructions Patient Instructions Citlali Adkins, RENO - 02/05/2020 9:30 AM KALI have ordered you non fasting labs to be done at [facility] in 10 days , but can drink water prior to neetu ho labs done I made changes to medications by changing you from Furosemide to Torsemide 20 mg twice jorge alberto ly, Magnesium chloride 64 mg twice daily, and reordered your other medications Stop ibuprofen for pain , as increased bleeding, and use tylenol instead Try to decreased smoking and drinking See me back in 2 weeks Please bring your medication bottles to all clinic visits to help us maintain safe care for you, and ensure accurate medication record documented in this encounter Progress Notes Citlali AdkinsRENO - 02/05/2020 9:30 AM PDTFormatting of this note might be differe nt from the original. Date of visit: 02/05/2020 Primary Care Physician: Ashleigh Benavides PA-C CHIEF COMPLAINT: Chief Complaint Patient presents with Follow-up Hospital HISTORY OF PRESENT ILLNESS: Boyd Andersen is a 63 year old man who is here today to follow up on [facility] 01/10/2020 for Afib with RVR. He is a patient of Dr.Lindsay Stringer and last seen by her 01/16/2019, and also seen by now r etired stem teacher Dr. Caldera. I saw him last 11/24/2019 when I had advised him to take [...] missed . His previous emergency admission to [facility] was April 15-2018 with A. fib with [...] They also suggested a PCP referral to heat and frost insulator helper or infect ious disease specialist for treatment [...] and procedures are detailed below . He admitted to [facility] 01/10/2020 with Afib with RVR and also thought to have some h eart failure, though initial BNP was 95, and chest x-ray did not show any pulmonary edema . He was supposed to transfer to [facility] for higher level of care, but refused transfer, as wis hed to remain in [place]. Transfer notes document ER reported HR 120-130 bpm, BP 155/97, 9 5% RA sat, and 2-3+ pitting edema . He was treated with two diltiazem bolus of 15 and 20 mg, and 80 mg of Lasix with 2 L urine output . He had noted tachypnea at 24 , and tachycardic with any exertion such as getting out of bed with HR 140-150 bpm. Started on po Cardizem 2 00 mg . I reviewed hospitalization records which note that he is extremely noncompliant and did n ot wish to follow a low-sodium diet, have been told by his PCP that she would fire him if he did not follow-up with cardiology recommendations, that he did not take Lasix as prescribed and then he was not interested in improving his health or decreasing his risk of . He was admitted to critical care unit for ongoing diuresis of his acute on chronic right heart failure and he apparently had been in A. fib since Sunday or Sunday with shortness of mary th and increased swelling of lower extremities. Diuresed 3 L of urine with initial furosemi de. His chest x-ray showed a normal cardiac silhouette with no effusions, and pulmonary vas culature was normal. EKG reviewed by myself shows atrial fib with RVR at 127 bpm, and withi n 1 day he was in atrial fib with controlled ventricular response at 63 bpm. He was bradyca rdic at times, but had boluses of Cardizem and PO Cardizem, and was on Metoprolol initially. He diuresed a total of more than 4 L, and he was treated with a Bumex drip. He was dischar ged on Eliquis 5 mg twice daily , metoprolol succinate 200 mg once daily, furosemide 40 mg t wice daily, potassium 10 mEq daily, and has thought he may need a pacemaker, but suspect br adycardia secondary to high levels of Cardizem boluses . He reports today that he has been taking occasions as ordered, but still has gained 10 poun ds since hospital discharge. He does continue to drink 3-6 beers every night, and is contin uing to smoke daily, and still occasionally chews tobacco. He reports increased lower extremity edema, and well as central edema, especially when sabi denton has been standing all day, and still has occasional orthostatic lightheadedness, but denie s any ongoing dizziness or syncope, but still short of breath with more extreme exertion. His heart rate has been better controlled with infrequent palpitations since he [facility]. He also denies any signs or symptoms of stroke or TIA, or any bleeding since he has been o n Eliquis, but also so takes ibuprofen for pain He reports he does not think he will ever stop drinking beer or smoking, and has been u nsuccessful in quitting using nicotine replacement therapy, or Chantix in his past. He also chews tobacco. He also finds it difficult to quit as his also smokes. He also never tried the magnesium oxide as I had suggested, and still has not pursued any updated sleep apnea treatment or evaluation He also consumes edible marijuana in [employer] about once a month, but denies any current us e of other recreational or illicit drugs. He reported he still did not follow-up on getting a referral to treat his hepatitis C, as sabi denton was told he would need to stop smoking and drinking alcohol for treatment to be effective, and he does not wish to do this. He reports his major robert in life is drinking beer, and rid ing his Shawn. He did not bring his medications to the clinic today, but reports he has been taking all of his medications as prescribed since his discharge from the hospital. He still works 5 days a week for 6 hours at [employer] from 5 am-11 am He drinks coffee all day long when he works at [employer]. He continues used to complain of ongoing [...] current illicit drug use. . Lives in [place]. Works At [employer], 5 days per week for 6 hrs, [...] 10 mEq by mouth 2 times daily. No facility-administered medications prior to visit. PHYSICAL EXAM: Wt Readings from Last 3 Encounters: 02/05/20 127 kg (280 lb) 11/24/19 123.5 kg (272 lb 4.8 oz) 08/28/19 122 kg (269 lb) Temp Readings from Last 3 Encounters: 11/24/19 36.2 C (97.1 F) BP Readings from Last 3 Encounters: 02/05/20 130/80 11/24/19 114/68 08/28/19 140/74 Pulse Readings from Last 3 Encounters: 02/05/20 96 11/24/19 91 08/28/19 83 Vital signs: 11/10/2015: WT: 273 LB. BP: 128/68. Pulse 72 GENERAL: Well developed, well nourished, man in no distress. Appears older than stated ag e.Florid complexion HEENT: Normocephalic, atraumatic. EYES: PERRL, EOM [...] Severe pulmonary hypertension, RVSP 61.66 mmHg. Trace MI. No pericardial effusion. IVC dilated c onsistent [...] cific T wave abnormalities. Rate 76 bpm, MI 188 ms, QRS 88 lorna-seconds, QTC 423 ms, dennise ng personally reviewed by me EK04/15/2019 ([facility]) atrial fib with RVR, ST and T wave abnormalities to anterolateral leads. Rate 118 bpm, QRS 84 ms, QTC 442 ms tracing personally reviewed by me EK08/28/2019: Sinus rhythm, nonspecific ST-T wave abnormalities to anterolateral leads. Rate 79 bpm, QRS 86 ms, QTC 373 ms, tracing personally reviewed by me and compared to EKG p erformed in April in the [facility] emergency room, sinus rhythm has replaced atrial fibr illation EK01/09/2020: ( [facility]) Atrial fib with RVR, QRS-T [...] rate is better controlled LABS Labs: 04/15/2019: [facility]: CBC: WBC 6.1, RBC 3.96, [...] hematocrit 42.5, platele ts 189. Labs: 01/09/2020: [facility]: CMP: Sodium 140, potassium 4.1, chloride 105, CO2 30, BUN 18, creat inine 0.97, GFR 78, glucose 138, magnesium 1.9, total bili 0.6, AST 40, ALT 45, alk phos 65, albumin 4. troponin T <0.010. BNP 95, CBC: WBC 7.5, RBC 4.25, hemoglobin 14.4, hematocrit 43.3, platelets 187. Labs: 01/10/2020: [facility]: BMP: Sodium 142, potassium 4, chloride 105, glucose 137, calcium 9. 2, BUN 19, creatinine 1.06, GFR 71. Labs: 01/11/2020 ([facility]): BMP: Sodium 139, potassium 4, chloride 96, CO2 36, glucose 160, calcium 9.5, BUN 24, creatinine 0.94, GFR 81. Magnesium: 1.8. CBC: WBC 16.9, RBC 4.39 , hemoglobin 14.9, hematocrit 44.9, platelets 213. Labs: 01/19/2020: BNP 101 ASSESSMENT & PLAN: He was here today to follow-up on his recent hospitalization for A. fib with RVR on May 8 He has problems as detailed below. His EKG performed in the clinic today now shows atrial fibrillation with controlled vent ricular response of 89 bpm, and as discussed in HPI, he is fluid overloaded, despite his rep ort of taking his diuretic on a daily basis, and continues to have mild dyspnea with exertio n. He continues to smoke a pack a day, and also to chew tobacco, and drink 3-6 beers daily, and I again discussed with him his ongoing risk of heart attack and stroke with his ongoing smoking, and that smoking and alcohol contribute to atrial fibrillation. I also discussed with him how poorly he feels being fluid overloaded, and short of mary th, and he does admit that he feels much better after he has been diuresed. I also discuss ed the very real possibility that he would end up being chronically hospitalized, and not be able to do any [...] further assistance in using CPAP . I have changed his diuretic to torsemide 20 mg twice daily to see if I can get a more eff ective diuresis, and advised him that this would not be effective in correcting his problems unless he stops drinking so much beer. I made no other changes to cardiac medications today , and he should now be on Torsem huma 20 mg twice daily and get a urology consult as discussed, metoprolol XL 200 mg nightly, Eliquis 5 mg twice daily for stroke prevention, potassium 10 mEq twice daily for potassium supplementation, and ordered him magnesium chloride 64 mg twice daily for low magnesium lev els with leg cramps. He would likely benefit from hydralazine to help with his pulmonary hypertension, but suresh l wait until I see how he does with the torsemide. I have also again cautioned him against combining alcohol with narcotics, as he takes [place] 3 times per day, and drinks beer every night. I also advised him to stop using ibuprofen when he is on Eliquis due to increased risk of bleeding I again encouraged him to try and make better lifestyle choices to improve his long-term quality of life, and decrease his cardiovascular and cancer risk factors. I will see him back in 2 weeks to follow up. I ordered a BMP to be performed in 10 days, as well as a magnesium level, and copies are to be sent to his PCP, Ashleigh Benavides. 1. Paroxysmal atrial fibrillation (HCC) 2. History of cardioversion 3. Chronic diastolic heart failure (HCC) 4. Moderate to severe pulmonary hypertension (HCC) 5. Essential hypertension 6. Mixed hyperlipidemia 7. On apixaban therapy 8. Obstructive sleep apnea syndrome 9. Chronic hepatitis C without hepatic coma (HCC) 10. Chronic obstructive pulmonary disease, unspecified COPD type (HCC) 11. Current every day smoker 12. Encounter for examination following treatment at hospital 13. At risk for readmission to hospital 14. Hypomagnesemia Orders Placed This Encounter Procedures Basic Metabolic Panel Magnesium ECG 12 lead The following portions of the patient's history were personally reviewed by me and updated as appropriate: EKG tracings, other specialty provider and PCP notes,any Hospital admission and discharge summaries, any ER records , current and previous cardiac testing and procedure reports and d vickie, medication bottles NOT brought to visit today Allergies, current medications.labs Family history, past medical history, past social history, past surgical history. Problem list. This encounter was dictated with voice recognition software and may contain inadvertent rec ognition errors. Portions of this chart may have been copied from previous notes for continuity of care purp ose Abdias MCKINNEY [facility] Cardiology 02/05/2020 Ayad montaño in this encounter Plan of Treatment +--------+---------+ + + + | Date | Type | Specialty | Care Team | Description | +--------+---------+ + + + | 05/13/ Office | Cardiology | Citlali Adkins | | | 2019 | Visit | | [address] | | | | | | [address] | | | | | | [place] [address] | | | | | | [phone] | | | | | | | | +--------+---------+ + + + + +------+--------+ + + | Name | Type | Priori | Associated Diagnoses | Order Schedule | | | | ty | | | + +------+--------+ + + | Magnesium | Lab | Routin | Hypomagnesemia | Expected: | | | | e | | 02/12/2020, Expires: | | | | | | 02/04/2021 | + +------+--------+ + + documented as of this encounter Procedures + +--------+ + + + | Procedure Name | Priori | Date/Time | Associated Diagnosis | Comments | | | ty | | | | + +--------+ + + + | ECG 12 LEAD | Routin | 02/05/2020 | Paroxysmal atrial | Results for this | | | e | 9:42 AM | fibrillation (HCC) | procedure are in the | | | | PDT | History of | results section. | | | | | cardioversion | | | | | | Chronic diastolic | | | | | | heart failure (HCC) | | | | | | Moderate to severe | | | | | | pulmonary | | | | | | hypertension (HCC) | | | | | | Essential | | | | | | hypertension Mixed | | | | | | hyperlipidemia On | | | | | | apixaban therapy | | | | | | Obstructive sleep | | | | | | apnea syndrome | | | | | | Chronic hepatitis C | | | | | | without hepatic coma | | | | | | (HCC) Chronic | | | | | | obstructive | | | | | | pulmonary disease, | | | | | | unspecified COPD | | | | | | type (HCC) Current | | | | | | every day smoker | | | | | | Encounter for | | | | | | examination | | | | | | following treatment | | | | | | at hospital At risk | | | | | | for readmission to | | | | | | hospital | | + +--------+ + + + documented in this encounter Results ECG 12 lead (02/05/2020 9:42 AM PDT) + + + + + + | Component | Value | Ref Range | Performed | Pathologist | | | | | At | Signature | + + + + + + | VENTRICULAR | 89 | BPM | [facility] | | | RATE EKG | | | | | + + + + + + | ATRIAL RATE | 277 | BPM | [facility] | | + + + + + + | QRS | 84 | ms | [facility] | | | DURATION | | | | | + + + + + + | Q-T | 344 | ms | [facility] | | | INTERVAL | | | | | + + + + + + | Q-T | 418 | ms | [facility] | | | INTERVAL | | | | | | (CORRECTED) | | | | | + + + + + + | QRS AXIS | 102 | degrees | [facility] | | + + + + + + | T AXIS | -49 | degrees | [facility] | | + + + + + + | INTERPRETAT | Atrial | | [facility] | | | ION TEXT | fibrillationRightward | | | | | | axisST & T wave | | | | | | abnormality, consider | | | | | | inferior | | | | | | ischemiaAbnormal ECGWhen | | | | | | compared with ECG of | | | | | | 28-AUG-2019 | | | | | | 13:28,similar morphology | | | | | | Confirmed by DG | | | | | | CITLALI BOJORQUEZ ([id number]) on | | | | | | 02/05/2020 4:24:55 PM | | | | + + [...] Tobacco use disorder | + + | Encounter for examination following treatment at hospital | + + | At risk for readmission to hospital | + + | Hypomagnesemia Disorders of magnesium metabolism | + + documented in this encounter
--- OUTSIDE RECORDS SUMMARY | ~2020-03-24 | XMS | Encounter Summary ---
Demographics + + + | Address | [address] | | | [place] [address] | + + + | Home Phone | | + + + | Preferred Language | Unknown | + + + | Marital Status | Single | + + + | Presybeterian Affiliation | Unknown | + + + | Race | Unknown | + + + | Ethnic Group | Unknown | + + + Author + + + | Author | [facility] | | | and [place] | + + + | Organization | [facility] | | | and [place] | + + + | Address | Unknown | + + + | Phone | Unavailable | + + + Support + + + + + | Name | Relationship | Address | Phone | + + + + + | Shawanda Hirsch | ECON | [address] | | | | | [place] | | | | | [address] | | + + + + + Care Team Providers + +------+ + | Care Heat Treat Supervisor Name | Role | Phone | + +------+ + PCP | Unavailable | + +------+ + Encounter Details +--------+ + + + + | Date | Type | Department | Care Team | Description | +--------+ + + + + | 10/23/ | [facility] | [facility] | Stacey Sadler, | Atrial fibrillation | | 2015 - | Encounter | [facility] | MD [address] | with rapid | | | | CARE FLOOR [address] | [place] [address] | ventricular response | | 10/26/ | | [address] | [phone] | ([facility]); Dyspnea | | 2014 | | [place], [place] | | | | | | [address] | | | | | | [phone] | | | +--------+ + + + [...] 1208 Date of Service: 10/26/141202 Status: Signed Stock Preparation Operator: Doris Becker RN (Registered Nurse) Pt discharged [...] Author: ASHA Aponte Service: (none) Author Type: Grocery Clerk Stocking Filed: 10/26/14 0854 Date of Service: 10/26/14852 Status: Signed Stock Preparation Operator: ASHA Aponte (Grocery Clerk Stocking) CM met w/ pt regarding Advanced Directives. [...] Service: Hospitalist Author Type: Physician Filed: 10/25/14 1159 Date of Service: 10/25/141145 Status: Signed Stock Preparation Operator: Marco Otto MD (Physician) [facility] Service: Hospitalist Progress Note Hospital Day: LOS: [...] yet available. 2. Acute bronchitis. History of alf smoking. He may have COPD. Will continue [...] 10/24/14938 Date of Service: 10/24/14920 Status: Signed Stock Preparation Operator: Marco Otto MD (Physician) [facility] Service: Hospitalist Progress Note Hospital Day: LOS: [...] recommenda tions. 2. Acute bronchitis. 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 He may have COPD. Will continue [...] 10/23/142018 Date of Service: 10/23/142018 Status: Signed Stock Preparation Operator: Janine Cowart RPH (Pharmacist) Clinical Pharmacy Note: [...] Author: ASHA Arora Service: (none) Author Type: Plastic Sheets Finishing Supervisor Filed: 10/23/14 0567 Date of Service: 10/23/14 1616 Status: Signed Stock Preparation Operator: ASHA Arora (Plastic Sheets Finishing Supervisor) 10/23/14 1600 Discharge Planning Evaluation Admitting Diagnosis Afib Readmission No Living Arrangements Spouse/significant other (Ludmila Hirsch [phone]) Type of Residence Private residence House type Mobile home Steps to enter 3 Independent with ADL's Yes Independent with Mobility Yes Home Care Services No Mental Status Oriented 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 Pt is a 58 y.o., male who is a current everyday smoker, 1 ppd. 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 H&P by Stacey Sadler MD at 10/23/14 4633 Author: Stacey Sadler MD Service: Hospitalist Author Type: Physician Filed: 10/23/142002 Date of Service: 10/23/14 8793 Status: Signed Stock Preparation Operator: Stacey Sadler MD (Physician) Related Notes: Original Note by Stacey Sadler MD (Physician) filed at 10/23/14 3516 [facility] Service: Hospitalist Admission History & Physical Pt: Boyd Gloria AGE/SEX: 58 y.o. male Date of Admission: 10/23/2014 Chief Complaint: Sob w a fib History of Present Illness: The patient is a 58 y.o. male with significant past medical history of Shortness of breath from [facility] where he went for treatment. 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 He states that he is very healthy. He does smoke a pack of to bacco a day. He does not believe he has COPD, but he states that for the last 24 hours [facility] he was ambulating or sitting still that [...] taken for this visit.Vitals were reviewed from [facility] and no abnormalities noted. Physical Exam: Physical [...] Calculation (Bezet) 10/23/2014 419 Final Calculated R [place] 10/23/2014 65 Final Calculated T [place] 10/23/2014 -84 Final Diagnosis 10/23/2014 Final Value:Atrial fibrillation Nonspecific T wave abnormality Abnormal ECG No previous ECGs available This ECG contains Unconfirmed Interpretation Statements. See ED Record for Physician Inter pretation. Confirmed by MUSE READ ONLY, -COMPUTER ([id number]), restaurant expeditor YUVAL CARRERA (2) on 10/23/2014 2:34:16 PM ] IMAGING: Xr Chest Ap Portable 10/23/2014 1. No acute cardiopulmonary process. Problem List: Principal Problem: Atrial fibrillation Active Problems: Skipped heart beats SOB (shortness of breath) Tobacco use disorder Morbid obesity Assessment and Plan: 1. Atrial fibrillation with a history of RVR at [facility]. Currently, the sohan ent is rate controlled. [...] PM This entry has been created using [employer] Speech Recognition software and [employer]. The entry has been reviewed and there may still exist sound alike word errors. documented in t his encounter Procedure Notes Nicole Ramirez MD - 10/26/2014 8:02 AM PSTFormatting of this note might be differ ent from the original. Procedures by Nicole Ramirez DO at 10/26/14801 Author: Nicole Ramirez DO Service: Cardiology Author Type: Physician Filed: 10/26/14805 Date of Service: 10/26/14801 Status: Signed Stock Preparation Operator: Nicole Ramirez DO (Physician) Pre-procedure Diagnoses: 1. Atrial fibrillation, persistent (HCC) [427.31] Post-procedure Diagnoses: 1. Atrial fibrillation, persistent (HCC) [427.31] Procedures: 1. ELECTROCARDIOVERSION [VJJ545] Pre-procedure Diagnoses Atrial fibrillation, new onset [427.31] Post-procedure Diagnoses Atrial fibrillation, new onset [427.31] Procedures ELECTROCARDIOVERSION [ZYI508] Expand All Collapse All 58yo WM, new onset Atrial fibrillation, previous electrocardioversion initially succesful, but went back into A fib. Now has been on flecainide 48hrs, cardioversion discussed last ni t with patient, and again this AM, informed consent obtained. Present is RT and Heat Treat Supervisor Nurse. For cardioversion, patches placed A-P, given [...] Date of Service: 10/25/14 1028 Status: Signed Stock Preparation Operator: FAYE Ann (Advanced Registered Nurse Practitioner) Pre-procedure Diagnoses: 1. New onset a-fib (HCC) [427.31] Post-procedure Diagnoses: 1. New onset a-fib (HCC) [427.31] Procedures: 1. NM MYOCARDIAL PERFUSION SPECT - STRESS AND REST [EXY183 (Custom)] [facility] Service: Diagnostic Imaging/Nuclear Medicine Cardiac Stress Test [...] Service: Cardiology Author Type: Physician Filed: 10/24/14 0630 Date of Service: 10/24/14 1352 Status: Signed Stock Preparation Operator: Nicole Ramirez DO (Physician) Pre-procedure Diagnoses: 1. Atrial fibrillation, new onset (HCC) [427.31] Post-procedure Diagnoses: 1. Atrial fibrillation, new onset (HCC) [427.31] Procedures: 1. ELECTROCARDIOVERSION [XWV350] 58yo WM, new onset Atrial fibrillation, less [...] Consults by Nicole Ramirez DO at 10/25/14 1736 Author: Nicole Ramirez DO Service: Cardiology Author Type: Physician Filed: 10/25/14 1743 Date of Service: 10/25/141737 Status: Signed Stock Preparation Operator: Nicole Ramirez DO (Physician) [facility] Service: Cardiology Progress Note Hospital Day: LOS: [...] Date of Service: 10/24/14 1611 Status: Signed Stock Preparation Operator: Nicole Ramirez DO (Physician) 10/24/2014 Deferring pacemaker, [...] 10/23/142138 Date of Service: 10/23/142128 Status: Signed Stock Preparation Operator: Nicole Ramirez DO (Physician) [facility] Service: Cardiology Initial Consult Note Boyd Gloria [...] Notes by Cecilio Villasenor RN at 10/23/14 1074 Author: Cecilio Villasenor RN Service: (none) Author Type: Registered Nurse Filed: 10/23/14 7712 Date of Service: 10/23/14 1347 Status: Addendum Stock Preparation Operator: Cecilio Villasenor RN (Registered Nurse) Related Notes: Original Note by Cecilio Villasenor RN (Registered Nurse) filed at 10/23/14 134 9 Patient reports shortness of breath starting on Sunday. Patient was seen by his primary care doctor, who then sent him to the ED in [place] to be worked up for pneumonia. Hospita l workup showed no pnemonia, but acute bronchitis and afib with rvr with multiple 2.5 second pauses. Cecilio Villasenor RN 10/23/14 7908 Meir Del Rio DO - 10/23/2014 1:46 PM PSTFormatting of this note might be different from t he original. ED Provider Notes by Meir Cantu DO at 10/23/14 5875 Author: Meir Cantu DO Service: Emergency Department Author Type: Physician Filed: 10/24/14 0842 Date of Service: 10/23/14 1346 Status: Signed Stock Preparation Operator: Meir Cantu DO (Physician) [facility] Department of Emergency Medicine [facility] Pertinent History and Concerns: dyspnea since yesterday, a fib with RVR, admitted overnight on cardizem drip, now having pauses up to 3.6 seconds Relevant Labs or Studies: labs and D dimer negative Currently [facility]: Dr. Ramirez, recommended admit to hospitalist (10/23/14 1157 : Yogehs Sosa MD) 1:46 PM History of Present Illness Patient Identification Boyd Gloria is a 58 y.o. male. Patient information was obtained from patient. History/Exam limitations: none. Patient presented to the Emergency Department by: [place] [facility] History of Presenting Illness The patient is a 58 y.o. year old male presenting with Chief Complaint Patient presents with Shortness of Breath . Location- pulmonary Onset- 2 days ago Duration- improving Severity/Character- moderate Worse with- exertion Denies- fever, chills, nausea, vomiting, diaphoresis Context- Pt is a transfer from [facility]. Pt was seen yesterday by his PCP for SOB, at [facility] time he was referred to [facility] ED for pneumonia. Upon arrival to their ED pt was noted to be in A-fib with RVR, new onset. Pt was admitted at that time. Pt was noted to have up to 3.6 second pauses on the telemetry monitor, pt was then transferred to our facility wit h cardiology consult. James Baez, railroad wheels and axle inspector is aware of case. [place]'s dx pt with new onset A-fib with [...] Negative for sore throat CV/Resp: Positive for tpdpebiby-dv-xhlbog, cough, chest pain with cough GI: Negative [...] with RVR. Pt is a transfer f [facility]. After taking a thorough history and prior to performing a physical exam, symptomatically treating the patient, and ordering any necessary labs or diagnostic studies that may aid in narrowing my differential, my initial DDx includes, but is not limited to: b ronchitis, cardiac arrhythmia, pneumonia, vs others. Will order troponin, CXR, and reevaluat e the patient. Relevant lab from [facility]: BMP WNL. CBC WNL. Glucose 170 [...] labs. Troponin is negative. Pt admitted to [facility] bed 4453. Boyd was evaluated in the [...] Old medical records. Nursing notes. No previous [facility] ED visits available in [facility] for review. Laboratory Evaluation Results Procedure Component Value Ref Range Date/Time Troponin I, Lab [[id number]] Collected: 10/23/14 1443 Order Status: Completed Updated: [...] Documented by Meir Cantu DO (10/23/14 16:53:21, [facility] Emergency Department, Emergency Medicine) No acute findings. That preliminary note below was entered in on a wrong patient. ED Interpretation Documented by Meir Cantu DO (10/23/14 15:49:59, [facility] Emergency Department, Emergency Medicine) Cardiomegaly. Mediastinum has [...] List This chart has been created using [employer] Speech Recognition software. The chart has been [...] Notes by Tania Segal RN at 10/23/14 9561 Author: Tania Segal RN Service: (none) Author Type: Registered Nurse Filed: 10/23/14 5867 Date of Service: 10/23/140 Status: Signed Stock Preparation Operator: Tania Segal RN (Registered Nurse) Bed: 1109 [...] [address]IA[address] | | | | | | [place] [address] | | | | | | [phone] | | | | | | | [...] + + | Historically converted procedure from [facility] environment | EXTERNAL LAB | + [...] + | Historically converted procedure from [facility] | EXTERNAL LAB | + + + [...] | | | Present is RT and culture media laboratory assistant nurse. For cardioversion, patches | | | [...] obtained. | | Present is RT and culture media laboratory assistant nurse. | | | | For cardioversion, [...] | | | | | [place] [address] | | | | + + + + + + | Non- | 4.74Comment: Testing | 4.20 - 5.70 | EXTERNAL | | | Red Blood | performed at [facility], [address] | M/uL | LAB | | | Cells | [address], | | | | | Counted | [place] [address] | | | | + + + + + + | Hemoglobin | 15.4Comment: Testing | 13.2 - 17.0 | EXTERNAL | | | | performed at [facility], [address] | g/dL | LAB | | | | [address], | | | | | | [place] [address] | | | | + + + + + + | Hematocrit, | 45.7Comment: Testing | 39.0 - 50.0 % | EXTERNAL | | | POC | performed at [facility], [address] | | LAB | | | | [address], | | | | | | [place] [address] | | | | + + + + + + | MCV | 96.5Comment: Testing | 80.0 - 100.0 fl | EXTERNAL | | | | performed at [facility], [address] | | LAB | | | | [address], | | | | | | [place] [address] | | | | + + + + + + | MCH | 32.5Comment: Testing | 27.0 - 34.0 pg | EXTERNAL | | | | performed at [facility], [address] | | LAB | | | | [address], | | | | | | [place] [address] | | | | + + + + + + | MCHC | 33.7Comment: Testing | 32.0 - 35.5 | EXTERNAL | | | | performed at [facility], [address] | g/dL | LAB | | | | [address], | | | | | | [place] [address] | | | | + + + + + + | RDW-CV | 42.4Comment: Testing | 37 - 53 fl | EXTERNAL | | | | performed at [facility], [address] | | LAB | | | | [address], | | | | | | [place] [address] | | | | + + + + + + | Platelet | 235Comment: Testing | 150 - 400 K/uL | EXTERNAL | | | Count | performed at [facility], [address] | | LAB | | | Plasma | [address], | | | | | | [place] [address] | | | | + + + + + + | MPV | 8.3Comment: Testing | fl | EXTERNAL | | | | performed at [facility], [address] | | LAB | | | | [address], | | | | | | [place] [address] | | | | + + + + + + | Differentia | AUTOMATEDComment: | | EXTERNAL | | | l Type | Testing performed at | | LAB | | | | [facility], [address] | | | | | | [place] | | | | | | [address] | | | | + + + + + + | % Segmented | 60.3Comment: Testing | % | EXTERNAL | | | | performed at [facility], [address] | | LAB | | | Neutrophils | [address], | | | | | | [place] [address] | | | | + + + + + + | % | 25.4Comment: Testing | % | EXTERNAL | | | Lymphocytes | performed at [facility], [address] | | LAB | | | | [address], | | | | | | [place] [address] | | | | + + + + + + | % Monocytes | 8.6Comment: Testing | % | EXTERNAL | | | | performed at [facility], [address] | | LAB | | | | [address], | | | | | | [place] [address] | | | | + + + + + + | % | 4.8Comment: Testing | % | EXTERNAL | | | Eosinophils | performed at [facility], [address] | | LAB | | | | [address], | | | | | | [place] [address] | | | | + + + + + + | % Basophils | 0.9Comment: Testing | % | EXTERNAL | | | | performed at [facility], [address] | | LAB | | | | [address], | | | | | | [place] [address] | | | | + + + + + + | Absolute | 6.3Comment: Testing | 1.9 - 7.4 K/uL | EXTERNAL | | | Segmented | performed at [facility], [address] | | LAB | | | Neutrophils | [address], | | | | | | [place] [address] | | | | + + + + + + | Absolute | 2.7Comment: Testing | 1.0 - 3.9 K/uL | EXTERNAL | | | Lymphocytes | performed at [facility], [address] | | LAB | | | | [address], | | | | | | [place] [address] | | | | + + + + + + | Absolute | 0.9 (H)Comment: Testing | 0 - 0.8 K/uL | EXTERNAL | | | Monocytes | performed at [facility], [address] | | LAB | | | | [address], | | | | | | [place] [address] | | | | + + + + + + | Absolute | 0.5Comment: Testing | 0 - 0.5 K/uL | EXTERNAL | | | Eosinophils | performed at [facility], [address] | | LAB | | | | [address], | | | | | | [place] [address] | | | | + + + + + + | Absolute | 0.1Comment: Testing | 0 - 0.1 K/uL | EXTERNAL | | | Basophils | performed at [facility], [address] | | LAB | | | | [address], | | | | | | [place] [address] | | | | + + + [...] | | | | | [place] [address] | | | | + + + + + + | K | 3.9Comment: Testing | 3.5 - 4.9 | EXTERNAL | | | | performed at [facility], [address] | mmol/L | LAB | | | | [address], | | | | | | [place] [address] | | | | + + + + + + | Cl | 103Comment: Testing | 99 - 109 mmol/L | EXTERNAL | | | | performed at [facility], [address] | | LAB | | | | [address], | | | | | | [place] [address] | | | | + + + + + + | CO2 | 30Comment: Testing | 23 - 32 mmol/L | EXTERNAL | | | | performed at [facility], [address] | | LAB | | | | [address], | | | | | | [place] [address] | | | | + + + + + + | Anion Gap | 7Comment: Testing | 5 - 20 mmol/L | EXTERNAL | | | | performed at [facility], [address] | | LAB | | | | [address], | | | | | | [place] [address] | | | | + + + + + + | Glucose, | 124 (H)Comment: Testing | 65 - 99 mg/dL | EXTERNAL | | | Fasting | performed at [facility], [address] | | LAB | | | | [address], | | | | | | [place] [address] | | | | + + + + + + | BUN | 18Comment: Testing | 8 - 25 mg/dL | EXTERNAL | | | | performed at [facility], [address] | | LAB | | | | [address], | | | | | | [place] [address] | | | | + + + + + + | Creatinine | 0.97Comment: Testing | 0.70 - 1.30 | EXTERNAL | | | | performed at [facility], [address] | mg/dL | LAB | | | | [address], | | | | | | [place] [address] | | | | + + + + + + | BUN/Creatin | 19Comment: Testing | | EXTERNAL | | | ine Ratio | performed at [facility], [address] | | LAB | | | | [address], | | | | | | [place] [address] | | | | + + + + + + | Calcium | 9.4Comment: Testing | 8.5 - 10.5 | EXTERNAL | | | | performed at [facility], [address] | mg/dL | LAB | | | | [address], | | | | | | [place] [address] | | | | + + + + + + | Protein, | 6.6Comment: Testing | 6.3 - 8.2 g/dL | EXTERNAL | | | Total | performed at [facility], [address] | | LAB | | | | [address], | | | | | | [place] [address] | | | | + + + + + + | Albumin | 3.8Comment: Testing | 3.6 - 5.0 g/dL | EXTERNAL | | | | performed at [facility], [address] | | LAB | | | | [address], | | | | | | [place] [address] | | | | + + + + + + | Globulin | 2.8Comment: Testing | 1.3 - 4.9 g/dL | EXTERNAL | | | | performed at [facility], [address] | | LAB | | | | [address], | | | | | | [place] [address] | | | | + + + + + + | A/G Ratio | 1.4Comment: Testing | 1.0 - 2.4 | EXTERNAL | | | | performed at [facility], [address] | | LAB | | | | [address], | | | | | | [place] [address] | | | | + + + + + + | Bilirubin | 0.4Comment: Testing | 0.1 - 1.5 mg/dL | EXTERNAL | | | Total | performed at [facility], [address] | | LAB | | | | [address], | | | | | | [place] [address] | | | | + + + + + + | ALP, | 56Comment: Testing | 35 - 115 U/L | EXTERNAL | | | External | performed at [facility], [address] | | LAB | | | | [address], | | | | | | [place] [address] | | | | + + + + + + | AST | 35Comment: Testing | 10 - 45 U/L | EXTERNAL | | | | performed at [facility], [address] | | LAB | | | | [address], | | | | | | [place] [address] | | | | + + + + + + | ALT | 81 (H)Comment: Testing | 10 - 65 U/L | EXTERNAL | | | | performed at [facility], [address] | | LAB | | | | [address] [facility], | | | | | | [place] [address] | | | | + + + [...] | | | | | | at [facility], [address] | | | | | | [address] [facility], | | | | | | [place] [address] | | | | + + + [...] + + | Historically converted procedure from [facility] environment | EXTERNAL LAB | + [...] | | | + + External Lab: [facility] (10/25/2014 3:34 AM PST) + + + [...] | | | | | [place] [address] | | | | + + + + + + | Non- | 4.64Comment: Testing | 4.20 - 5.70 | EXTERNAL | | | Red Blood | performed at [facility], [address] | M/uL | LAB | | | Cells | [address], | | | | | Counted | [place] [address] | | | | + + + + + + | Hemoglobin | 15.2Comment: Testing | 13.2 - 17.0 | EXTERNAL | | | | performed at [facility], [address] | g/dL | LAB | | | | [address], | | | | | | [place] [address] | | | | + + + + + + | Hematocrit, | 44.8Comment: Testing | 39.0 - 50.0 % | EXTERNAL | | | POC | performed at [facility], [address] | | LAB | | | | [address], | | | | | | [place] [address] | | | | + + + + + + | MCV | 96.7Comment: Testing | 80.0 - 100.0 fl | EXTERNAL | | | | performed at [facility], [address] | | LAB | | | | [address], | | | | | | [place] [address] | | | | + + + + + + | MCH | 32.7Comment: Testing | 27.0 - 34.0 pg | EXTERNAL | | | | performed at [facility], [address] | | LAB | | | | [address], | | | | | | [place] [address] | | | | + + + + + + | MCHC | 33.9Comment: Testing | 32.0 - 35.5 | EXTERNAL | | | | performed at [facility], [address] | g/dL | LAB | | | | [address], | | | | | | [place] [address] | | | | + + + + + + | RDW-CV | 42.4Comment: Testing | 37 - 53 fl | EXTERNAL | | | | performed at [facility], [address] | | LAB | | | | [address], | | | | | | [place] [address] | | | | + + + + + + | Platelet | 214Comment: Testing | 150 - 400 K/uL | EXTERNAL | | | Count | performed at [facility], [address] | | LAB | | | Plasma | [address], | | | | | | [place] [address] | | | | + + + + + + | MPV | 8.2Comment: Testing | fl | EXTERNAL | | | | performed at [facility], [address] | | LAB | | | | [address], | | | | | | [place] [address] | | | | + + + + + + | Differentia | AUTOMATEDComment: | | EXTERNAL | | | l Type | Testing performed at | | LAB | | | | [facility], [address] | | | | | | [place] | | | | | | [address] | | | | + + + + + + | % Segmented | 58.6Comment: Testing | % | EXTERNAL | | | | performed at [facility], [address] | | LAB | | | Neutrophils | [address], | | | | | | [place] [address] | | | | + + + + + + | % | 27.8Comment: Testing | % | EXTERNAL | | | Lymphocytes | performed at [facility], [address] | | LAB | | | | [address], | | | | | | [place] [address] | | | | + + + + + + | % Monocytes | 8.5Comment: Testing | % | EXTERNAL | | | | performed at [facility], [address] | | LAB | | | | [address], | | | | | | [place] [address] | | | | + + + + + + | % | 4.3Comment: Testing | % | EXTERNAL | | | Eosinophils | performed at [facility], [address] | | LAB | | | | [address], | | | | | | [place] [address] | | | | + + + + + + | % Basophils | 0.8Comment: Testing | % | EXTERNAL | | | | performed at [facility], [address] | | LAB | | | | [address], | | | | | | [place], [place] [address] | | | | + + + + + + | Absolute | 5.7Comment: Testing | 1.9 - 7.4 K/uL | EXTERNAL | | | Segmented | performed at [facility], [address] | | LAB | | | Neutrophils | [address], | | | | | | [place], [place] [address] | | | | + + + + + + | Absolute | 2.7Comment: Testing | 1.0 - 3.9 K/uL | EXTERNAL | | | Lymphocytes | performed at [facility], [address] | | LAB | | | | [address], | | | | | | [place] [address] | | | | + + + + + + | Absolute | 0.8Comment: Testing | 0 - 0.8 K/uL | EXTERNAL | | | Monocytes | performed at [facility], [address] | | LAB | | | | [address], | | | | | | [place] [address] | | | | + + + + + + | Absolute | 0.4Comment: Testing | 0 - 0.5 K/uL | EXTERNAL | | | Eosinophils | performed at [facility], [address] | | LAB | | | | [address], | | | | | | [place] [address] | | | | + + + + + + | Absolute | 0.1Comment: Testing | 0 - 0.1 K/uL | EXTERNAL | | | Basophils | performed at [facility], [address] | | LAB | | | | [address], | | | | | | [place] [address] | | | | + + + [...] | | | | | [place] [address] | | | | + + + + + + | K | 4.1Comment: Testing | 3.5 - 4.9 | EXTERNAL | | | | performed at [facility], [address] | mmol/L | LAB | | | | [address], | | | | | | [place] [address] | | | | + + + + + + | Cl | 105Comment: Testing | 99 - 109 mmol/L | EXTERNAL | | | | performed at [facility], [address] | | LAB | | | | [address], | | | | | | [place] [address] | | | | + + + + + + | CO2 | 26Comment: Testing | 23 - 32 mmol/L | EXTERNAL | | | | performed at [facility], [address] | | LAB | | | | [address], | | | | | | [place] [address] | | | | + + + + + + | Anion Gap | 9Comment: Testing | 5 - 20 mmol/L | EXTERNAL | | | | performed at [facility], [address] | | LAB | | | | [address], | | | | | | [place] [address] | | | | + + + + + + | Glucose, | 103 (H)Comment: Testing | 65 - 99 mg/dL | EXTERNAL | | | Fasting | performed at [facility], [address] | | LAB | | | | [address], | | | | | | [place] [address] | | | | + + + + + + | BUN | 24Comment: Testing | 8 - 25 mg/dL | EXTERNAL | | | | performed at [facility], [address] | | LAB | | | | [address], | | | | | | [place] [address] | | | | + + + + + + | Creatinine | 0.85Comment: Testing | 0.70 - 1.30 | EXTERNAL | | | | performed at [facility], [address] | mg/dL | LAB | | | | [address], | | | | | | [place] [address] | | | | + + + + + + | BUN/Creatin | 28Comment: Testing | | EXTERNAL | | | ine Ratio | performed at [facility], [address] | | LAB | | | | [address], | | | | | | [place] [address] | | | | + + + + + + | Calcium | 9.2Comment: Testing | 8.5 - 10.5 | EXTERNAL | | | | performed at [facility], [address] | mg/dL | LAB | | | | [address], | | | | | | [place] [address] | | | | + + + + + + | Protein, | 6.4Comment: Testing | 6.3 - 8.2 g/dL | EXTERNAL | | | Total | performed at [facility], [address] | | LAB | | | | [address], | | | | | | [place] [address] | | | | + + + + + + | Albumin | 3.8Comment: Testing | 3.6 - 5.0 g/dL | EXTERNAL | | | | performed at [facility], [address] | | LAB | | | | [address], | | | | | | [place] [address] | | | | + + + + + + | Globulin | 2.6Comment: Testing | 1.3 - 4.9 g/dL | EXTERNAL | | | | performed at [facility], [address] | | LAB | | | [address], | | | | | | [place] [address] | | | | + + + + + + | A/G Ratio | 1.5Comment: Testing | 1.0 - 2.4 | EXTERNAL | | | | performed at [facility], [address] | | LAB | | | | [address], | | | | | | [place] [address] | | | | + + + + + + | Bilirubin | 0.4Comment: Testing | 0.1 - 1.5 mg/dL | EXTERNAL | | | Total | performed at [facility], [address] | | LAB | | | | [address], | | | | | | [place] [address] | | | | + + + + + + | ALP, | 53Comment: Testing | 35 - 115 U/L | EXTERNAL | | | External | performed at [facility], [address] | | LAB | | | | [address], | | | | | | [place] [address] | | | | + + + + + + | AST | 51 (H)Comment: Testing | 10 - 45 U/L | EXTERNAL | | | | performed at [facility], [address] | | LAB | | | | [address], | | | | | | [place] [address] | | | | + + + + + + | ALT | 88 (H)Comment: Testing | 10 - 65 U/L | EXTERNAL | | | | performed at [facility], [address] | | LAB | | | | [address], | | | | | | [place] [address] | | | | + + + [...] | | | | | [place] [address] | | | | + + + [...] + + | Historically converted procedure from [facility] Epic environment | EXTERNAL LAB | + [...] | 31.85 mmHg TR Vmax: 2.82 m/s Pharmacy Laboratory Technician: BEBETO Authenticated | | | by: Matthew Zabala MD Report Date/Time: 10-24-2014 14:27:54 | | + + + + + | Procedure Note | + + | Brent, Rad Conversion - 04/18/2019 7:41 AM PDT Patient Name: Alec GLORIA of | | : 1955 Performing Physician: Mtathew Zabala | | INDICATIONS A | | [...] maxP.85 | | mmHgTR Vmax: 2.82 m/s Pharmacy Laboratory Technician: BEBETOAuthenticated by: Matthew Holman | | Date/Time: [...] |TR Vmax: 2.82 m/s | | | |Pharmacy Laboratory Technician: BEBETO | |Authenticated by: Matthew Zabala MD [...] | | | Patient | performed at [facility];[address] | | LAB | | | | [address];[place], [place] | | | | | | [address] | | | | + + + [...] | | | | | performed at [facility];[address] | | | | | | [facility];[place], [place] | | | | | | [address] | | | | + + + [...] EXTERNAL | | | | performed at [facility], [address] | | LAB | | | | [address], | | | | | | [place] [address] | | | | + + + + + + | Non- | 4.43Comment: Testing | 4.20 - 5.70 | EXTERNAL | | | Red Blood | performed at [facility], [address] | M/uL | LAB | | | Cells | [address], | | | | | Counted | [place] [address] | | | | + + + + + + | Hemoglobin | 14.4Comment: Testing | 13.2 - 17.0 | EXTERNAL | | | | performed at [facility], [address] | g/dL | LAB | | | | [address], | | | | | | [place] [address] | | | | + + + + + + | Hematocrit, | 42.4Comment: Testing | 39.0 - 50.0 % | EXTERNAL | | | POC | performed at [facility], [address] | | LAB | | | | [address], | | | | | | [place] [address] | | | | + + + + + + | MCV | 95.9Comment: Testing | 80.0 - 100.0 fl | EXTERNAL | | | | performed at [facility], [address] | | LAB | | | | [address], | | | | | | [place] [address] | | | | + + + + + + | MCH | 32.6Comment: Testing | 27.0 - 34.0 pg | EXTERNAL | | | | performed at [facility], [address] | | LAB | | | | [address], | | | | | | [place] [address] | | | | + + + + + + | MCHC | 34.0Comment: Testing | 32.0 - 35.5 | EXTERNAL | | | | performed at [facility], [address] | g/dL | LAB | | | | [address], | | | | | | [place] [address] | | | | + + + + + + | RDW-CV | 43.3Comment: Testing | 37 - 53 fl | EXTERNAL | | | | performed at [facility], [address] | | LAB | | | | [address], | | | | | | [place] [address] | | | | + + + + + + | Platelet | 219Comment: Testing | 150 - 400 K/uL | EXTERNAL | | | Count | performed at [facility], [address] | | LAB | | | Plasma | [address], | | | | | | [place] [address] | | | | + + + + + + | MPV | 8.6Comment: Testing | fl | EXTERNAL | | | | performed at [facility], [address] | | LAB | | | | [address], | | | | | | [place] [address] | | | | + + + + + + | Differentia | AUTOMATEDComment: | | EXTERNAL | | | l Type | Testing performed at | | LAB | | | | [facility], [address] | | | | | | [place] | | | | | | [address] | | | | + + + + + + | % Segmented | 83.8Comment: Testing | % | EXTERNAL | | | | performed at [facility], [address] | | LAB | | | Neutrophils | [address], | | | | | | [place] [address] | | | | + + + + + + | % | 8.6Comment: Testing | % | EXTERNAL | | | Lymphocytes | performed at [facility], [address] | | LAB | | | | [address], | | | | | | [place] [address] | | | | + + + + + + | % Monocytes | 7.0Comment: Testing | % | EXTERNAL | | | | performed at [facility], [address] | | LAB | | | | [address], | | | | | | [place] [address] | | | | + + + + + + | % | 0.4Comment: Testing | % | EXTERNAL | | | Eosinophils | performed at [facility], [address] | | LAB | | | | [address], | | | | | | [place] [address] | | | | + + + + + + | % Basophils | 0.2Comment: Testing | % | EXTERNAL | | | | performed at [facility], [address] | | LAB | | | | [address], | | | | | | [place] [address] | | | | + + + + + + | Absolute | 12.9 (H)Comment: Testing | 1.9 - 7.4 K/uL | EXTERNAL | | | Segmented | performed at [facility], [address] | | LAB | | | [address]ils | [address], | | | | | | [place] [address] | | | | + + + + + + | Absolute | 1.3Comment: Testing | 1.0 - 3.9 K/uL | EXTERNAL | | | Lymphocytes | performed at [facility], [address] | | LAB | | | | [address], | | | | | | [place] [address] | | | | + + + + + + | Absolute | 1.1 (H)Comment: Testing | 0 - 0.8 K/uL | EXTERNAL | | | Monocytes | performed at [facility], [address] | | LAB | | | | [address], | | | | | | [place] [address] | | | | + + + + + + | Absolute | 0.1Comment: Testing | 0 - 0.5 K/uL | EXTERNAL | | | Eosinophils | performed at [facility], [address] | | LAB | | | | [address], | | | | | | [place] [address] | | | | + + + + + + | Absolute | 0.0Comment: Testing | 0 - 0.1 K/uL | EXTERNAL | | | Basophils | performed at [facility], [address] | | LAB | | | | [address], | | | | | | [place] [address] | | | | + + + [...] EXTERNAL | | | | performed at [facility], [address] | uIU/mL | LAB | | | | [address], | | | | | | [place] [address] | | | | + + + [...] EXTERNAL | | | | performed at [facility], [address] | | LAB | | | | [facility], | | | | | | [place] [address] | | | | + + + [...] EXTERNAL | | | | performed at [facility], [address] | | LAB | | | | [address], | | | | | | [place] [address] | | | | + + + [...] + + | Hemoglobin | 5.6Comment: The [place] | 4.0 - 6.0 % | EXTERNAL [...] | | | | | performed at [facility], [address] | | | | | | [address] [facility], | | | | | | [place] [address] | | | | + + + [...] | | | | | performed at [facility], [address] | | | | | | [facility], | | | | | | [place] [address] | | | | + + + [...] | | | | | [place] [address] | | | | + + + + + + | Triglycerid | 127Comment: Testing | mg/dL | EXTERNAL | | | es | performed at [facility], [address] | | LAB | | | | [address], | | | | | | [place] [address] | | | | + + + + + + | HDL | 36 (L)Comment: Testing | mg/dL | EXTERNAL | | | | performed at [facility], [address] | | LAB | | | | [address], | | | | | | [place] [address] | | | | + + + + + + | LDL, | 104 (H)Comment: Testing | mg/dL | EXTERNAL | | | Calculated | performed at [facility], [address] | | LAB | | | | [address], | | | | | | [place] [address] | | | | + + + [...] | | | | | [place] [address] | | | | + + + + + + | K | 4.5Comment: Testing | 3.5 - 4.9 | EXTERNAL | | | | performed at [facility], [address] | mmol/L | LAB | | | | [address], | | | | | | [place] [address] | | | | + + + + + + | Cl | 103Comment: Testing | 99 - 109 mmol/L | EXTERNAL | | | | performed at [facility], [address] | | LAB | | | | [address], | | | | | | [place] [address] | | | | + + + + + + | CO2 | 25Comment: Testing | 23 - 32 mmol/L | EXTERNAL | | | | performed at [facility], [address] | | LAB | | | | [address], | | | | | | [place] [address] | | | | + + + + + + | Anion Gap | 13Comment: Testing | 5 - 20 mmol/L | EXTERNAL | | | | performed at [facility], [address] | | LAB | | | | [address], | | | | | | [place] [address] | | | | + + + + + + | Glucose, | 121 (H)Comment: Testing | 65 - 99 mg/dL | EXTERNAL | | | Fasting | performed at [facility], [address] | | LAB | | | | [address], | | | | | | [place] [address] | | | | + + + + + + | BUN | 24Comment: Testing | 8 - 25 mg/dL | EXTERNAL | | | | performed at [facility], [address] | | LAB | | | [address], | | | | | | [place] [address] | | | | + + + + + + | Creatinine | 0.80Comment: Testing | 0.70 - 1.30 | EXTERNAL | | | | performed at [facility], [address] | mg/dL | LAB | | | | [address], | | | | | | [place] [address] | | | | + + + + + + | BUN/Creatin | 30Comment: Testing | | EXTERNAL | | | ine Ratio | performed at [facility], [address] | | LAB | | | | [address], | | | | | | [place] [address] | | | | + + + + + + | Calcium | 9.6Comment: Testing | 8.5 - 10.5 | EXTERNAL | | | | performed at [facility], [address] | mg/dL | LAB | | | | [address], | | | | | | [place] [address] | | | | + + + + + + | Protein, | 6.8Comment: Testing | 6.3 - 8.2 g/dL | EXTERNAL | | | Total | performed at [facility], [address] | | LAB | | | | [address], | | | | | | [place] [address] | | | | + + + + + + | Albumin | 4.0Comment: Testing | 3.6 - 5.0 g/dL | EXTERNAL | | | | performed at [facility], [address] | | LAB | | | | [address], | | | | | | [place] [address] | | | | + + + + + + | Globulin | 2.8Comment: Testing | 1.3 - 4.9 g/dL | EXTERNAL | | | | performed at [facility], [address] | | LAB | | | | [address], | | | | | | [place] [address] | | | | + + + + + + | A/G Ratio | 1.4Comment: Testing | 1.0 - 2.4 | EXTERNAL | | | | performed at [facility], [address] | | LAB | | | | [address], | | | | | | [place] [address] | | | | + + + + + + | Bilirubin | 0.3Comment: Testing | 0.1 - 1.5 mg/dL | EXTERNAL | | | Total | performed at [facility], [address] | | LAB | | | | [address], | | | | | | [place] [address] | | | | + + + + + + | ALP, | 52Comment: Testing | 35 - 115 U/L | EXTERNAL | | | External | performed at [facility], [address] | | LAB | | | | [address], | | | | | | [place] [address] | | | | + + + + + + | AST | 27Comment: Testing | 10 - 45 U/L | EXTERNAL | | | | performed at [facility], [address] | | LAB | | | | [address], | | | | | | [place] [address] | | | | + + + + + + | ALT | 33Comment: Testing | 10 - 65 U/L | EXTERNAL | | | | performed at [facility], [address] | | LAB | | | | [address], | | | | | | [place] [address] | | | | + + + [...] | | | | | [place] [address] | | | | + + + [...] | | | | | | ACUTE [place] Testing | | | | | | performed at [facility] | | | | | | [facility];[place], [place] | | | | | | [address] | | | | + + + [...] | | | | | | ACUTE [place] Testing | | | | | | performed at [facility];[address] | | | | | | [facility];[place], [place] | | | | | | [address] | | | | + + + [...] | | | | | | ACUTE [place] Testing | | | | | | performed at [facility] | | | | | | [facility];[place], [place] | | | | | | [address] | | | | + + + [...] Kennedy Conversion - 04/18/2019 7:41 AM KAL [id number] yearsXR CHEST 1 | | VIEW10/23/2014 2:16 [...] (500), | | | | | | 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
--- OUTSIDE RECORDS SUMMARY | ~2020-03-24 | XMS | Clinical Summary ---
Demographics + + + | Address | [address] | | | [place] [address] | + + + | Home Phone | | + + + | Preferred Language | Unknown | + + + | Marital Status | Single | + + + | Muslim Affiliation | Unknown | + + + | Race | Unknown | + + + | Ethnic Group | Unknown | + + + Author + + + | Author | [facility] | | | and [place] | + + + | Organization | [facility] | | | and [place] | + + + | Address | Unknown | + + + | Phone | Unavailable | + + + Support + + + + + | Name | Relationship | Address | Phone | + + + + + | Shawanda Hirsch | ECON | [address] | | | | | [place] | | | | | [phone] | | + + + + + Care Team Providers + +------+ + | Care Cellular Equipment Repairer Name | Role | Phone | + [...] | | + + + +---------+------+------+-------+ | magnesium chloride | Take 1 tablet by | 60 | 11 | 06/0 | | Activ | | (MAG64) 64 mg EC | mouth 2 times daily. | tablet | | 4/20 | | e | | tablet | | | | 20 | | | + + + +---------+------+------+-------+ | metoprolol | Take 1 tablet by | 30 | 11 | 06/0 | | Activ | | succinate | mouth nightly. | tablet | | 4/20 | | e | | (TOPROL-XL) 200 mg | | | | 20 | | | | ER tablet | | | | | | | + + + +---------+------+------+-------+ | apixaban (ELIQUIS) | Take 1 tablet by | 60 | 11 | 06/0 | | Activ | | 5 mg tablet | mouth 2 times daily. | tablet | | 4/20 | | e | | | | | | 20 | | | + + + +---------+------+------+-------+ | potassium chloride | Take 1 tablet by | 60 | 11 | 06/2 | | Activ | | (KLOR-CON) 10 MEQ | mouth 2 times daily. | tablet | | 5/20 | | e | | ER tablet | | | | 20 | | | + + + +---------+------+------+-------+ | torsemide | Take 1 tablet by | 60 | 11 | 06/2 | | Activ | | (DEMADEX) 20 mg | mouth Daily. | tablet | | 9/20 | | e | | tablet | | | | 20 | | | + + + +---------+------+------+-------+ | torsemide | Take 1 tablet by | 60 | 11 | 06/0 | 06/2 | Disco | | (DEMADEX) 20 mg | mouth 2 times daily. | tablet | | 4/20 | 9/20 | ntinu | | tablet | | | | 20 | 20 | ed | | | | | | | | (Reor | | | | | | | | mariana | | | | | | | | (no | | | | | | | | Cance | | | | | | | | l Rx | | | | | | | | msg)) | + + + +---------+------+------+-------+ | potassium chloride | Take 1 tablet by | 60 | 11 | 06/0 | 06/2 | Disco | | (KLOR-CON) 10 MEQ | mouth 2 times daily. | tablet | | 4/20 | 5/20 | ntinu | | ER tablet | | | | 20 | 20 | ed | | | | | | | | (Ther | | | | | | | | apy | | | | | | | | compl | | | | | | | | eted) | + + + +---------+------+------+-------+ | spironolactone | Take 0.5 tablets by | 15 | 11 | 06/2 | 06/2 | Disco | | (ALDACTONE) 25 mg | mouth Daily. | tablet | | 5/20 | 5/20 | ntinu | | tablet | | | | 20 | 20 | ed | | | | | | | | (Erro | | | | | | | | r) | + + + +---------+------+------+-------+ Active Problems [...] | 10/23/2014 | + + + Encounters +--------+ + + + + | Date | Type | Specialty | Care Team | Description | +--------+ + + + + | 03/01/ | Telephone | Cardiology | Ricky Adkins | Medication Question | | 2020 | | | [facility] | | +--------+ + + + + | 02/25/ | Office | Cardiology | Ricky Adkins | Paroxysmal atrial | | 2019 | Visit | | [facility] | [...] | | | | | hospital | +--------+ + + + + | 02/04/ | Office | Cardiology | Ricky Adkins | Paroxysmal atrial | | 2020 [...] | | | | | Hypomagnesemia | +--------+ + + + + from Last 3 Months [...] on file | | + + + Last Filed Vital Signs + [...] + + + + Plan of Treatment +--------+---------+ + + + | Date | Type | Specialty | Care Team | Description | +--------+---------+ + + + | 05/13/ | Office | Cardiology | Ricky Adkins | | | 2019 | Visit | | [facility] [address] | | | | | | [address] | | | | | | [place] [address] | | | | | | [phone] | | | | | | | | +--------+---------+ + + + + + + + + | Health Maintenance | Due Date | Last | Comments | | | | Done | | + + + + + | Medication | | | | | Management | 8 | | | + + + + + | Vaccine: | | | | | Pneumococcal 19-64 | 4 | | | | (1 of 1 - PPSV23) | | | | + + + + + | Vaccine: | | | | | Dtap/Tdap/Td (1 - | 7 | | | | Tdap) | | [...] | + + + + + | Med Mgmt: Cr | | 10/26/19 | | | | 6 | 15, | | | | | 10/25/19 | | | | | 15, | | | | | 10/24/19 | | | | | 15 | | + + + + + | Med Mgmt: HCT | | 10/26/19 | | | | 6 | 15, | | | | | 10/25/19 | | | | | 15, | | | | | 10/24/19 | | | | | 15 | | + + + + + | Med Mgmt: HGB | | 10/26/19 | | | | 6 | 15, | | | | | 10/25/19 | | | | | 15, | | | | | 10/24/19 | | | | | 15 | | + + + + + | Med Mgmt: K | | 10/26/19 | | | | 6 | 15, | | | | | 10/25/19 | | | | | 15, | | | | | 10/24/19 | | | | | 15 | | + + + + + | Med Mgmt: Na | | 10/26/19 | | | | 6 | 15, | | | | | 10/25/19 | | | | | 15, | | | | | 10/24/19 | | | | | 15 | | + + + + + | Vaccine: Influenza | | 06/04/20 | | | (#1) | 0 | 19 | | + + + + + | Hepatitis C | Completed | 02/26/20 | | | Screening | | 20, | | | | | 02/05/20 | | | | | 20, | | | | | 11/24/19 | | | | | 20, | | | | | Addition | | | | | al | | | | | history | | | | | exists | | + + + + + Procedures + +--------+ + + + | Procedure Name | Priori | Date/Time | Associated Diagnosis | Comments | | | ty | | | | + +--------+ + + + | LABS - EXTERNAL SCAN | | 02/25/2020 | | Results for this | | | | 12:00 AM | | procedure are in the | | | | PDT | | results section. | + +--------+ + + + | LABS - EXTERNAL SCAN | | 02/25/2020 | | Results for this | | [...] | LABS - EXTERNAL SCAN | | 01/10/2020 | | Results for this | | | | 12:00 AM | | procedure are in the | | | | PDT | | results section. | + +--------+ + + + from Last 3 Months Results LABS - EXTERNAL SCAN (02/25/2020 12:00 AM PDT)Only the most recent of 3 results within the time period is included. + + + | Narrative | Performed At | + + + | Ordered by an | | | unspecified provider. | | + + + ECG 12 lead (02/05/2020 9:42 AM PDT) [...] DG | | | | | | RICKY BOJORQUEZ ([id number]) on | | | | | | [...] | | | + +---------+ + + from Last 3 Months Insurance + +--------+ +--------+ +---------+--------+ | Payer | Benefi | Subscriber | Effect | Phone | Address | Type | | | t Plan | ID | hussein | | | | | | / | | Dates | | | | | | Group | | | | | | + +--------+ +--------+ +---------+--------+ | BCBS | BCBS | [id number] | 09/03/19 | | | POS | | | OOS | 9 | 19-Pre | | | | | | POS | | sent | | | | + +--------+ +--------+ +---------+--------+ | [employer] | [employer] | [id number] | | [phone] | | Medica | [...] Person | Self | [birth year] | [address] | | | al/Fam | | 8 | [phone] | [place], [place] | | | beba | | | 5 (Home) | [phone] | + +--------+ +--------+ + + | Byod Ortega | Person | Self | [birth year] | [address] | | | al/Fam | | 1956 | [phone] | [place], [place] | | | beba | | | 5 (Home) | [phone] | + +--------+ +--------+ + + Advance Directives + + + + + | Type | Date Recorded | Patient | Explanation | | | | 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
--- OUTSIDE RECORDS SUMMARY | ~2020-03-24 | XMS | Encounter Summary ---
Demographics + + + | Address | [address] | | | [place] [address] | + + + | Home Phone | | + + + | Preferred Language | Unknown | + + + | Marital Status | Single | + + + | Sabianist Affiliation | Unknown | + + + | Race | Unknown | + + + | Ethnic Group | Unknown | + + + Author + + + | Author | [facility] | | | and [place] | + + + | Organization | [facility] | | | and [place] | + + + | Address | Unknown | + + + | Phone | Unavailable | + + + Support + + + + + | Name | Relationship | Address | Phone | + + + + + | Dennise Hirsch | ECON | [address] | | | | | [place] | | | | | [phone] | | + + + + + Care Team Providers + +------+ + | Care Horse Groomer Name | Role | Phone | + +------+ + | Ashleigh Benavidse | PCP | | | PA-C | | | + +------+ + Reason for Visit + + + | Reason | Comments | + + + | Follow-up | 3 week | + + + Encounter Details +--------+---------+ + + + | Date | Type | Department | Care Team | Description | +--------+---------+ + + + | 02/25/ | Office | [facility] | Citlali Adkins | Paroxysmal atrial | | 2019 | Visit | CARDIOLOGY VENUS | [address] | fibrillation (HCC) | | | | [address] | [address] | (Primary Dx); | | | | [address] | [place] [address] | History of | | | | [place] | [phone] | cardioversion; | | | | [address] | | Chronic diastolic | | | | [phone] | | heart failure (HCC); | | [...] in this encounter Progress Notes Citlali Adkins, RESEARCH WORKER KITCHEN - 02/26/2020 11:30 AM PDTFormatting of this [...] and also seen by now r etired lead fire protection engineer Dr. Caldera. I saw him last 02/05/2020 [...] missed . His previous emergency admission to [facility] was April 15-2018 with A. fib [...] They also suggested a PCP referral to machine maintenance supervisor or infect ious disease specialist for treatment [...] evaluation He also consumes edible marijuana in [employer] about once a month, but denies any [...] a week for 6 hour s at [employer] from 5 am-11 am He drinks coffee [...] current illicit drug use. . Lives in [place]. Works At [employer], 5 days per week for 6 hrs, : 4:30- 1300, uses marijuana [employer] once a month.. Outpatient Medications Prior to [...] Severe pulmonary hypertension, RVSP 61.66 mmHg. Trace [place]. No pericardial effusion. IVC dilated c onsistent [...] cific T wave abnormalities. Rate 76 bpm, [place] 188 ms, QRS 88 lorna-seconds, QTC 423 ms, dennise ng personally reviewed by me EK04/15/2019 ([facility]) atrial fib with RVR, ST and T wave abnormalities to anterolateral leads. Rate 118 bpm, QRS 84 ms, QTC 442 ms tracing personally reviewed by me EK08/28/2019: Sinus rhythm, nonspecific ST-T wave abnormalities to anterolateral leads. Rate 79 bpm, QRS 86 ms, QTC 373 ms, tracing personally reviewed by me and compared to EKG p erformed in April in the [facility] emergency room, sinus rhythm has replaced atrial fibr illation EK01/09/2020: ( [facility]) Atrial fib with RVR, QRS-T angle, [...] rate is better controlled LABS Labs: 04/15/2019: [facility]: CBC: WBC 6.1, RBC 3.96, hemoglobin [...] hematocrit 42.5, platele ts 189. Labs: 01/09/2020: [facility]: CMP: Sodium 140, potassium 4.1, chloride 105, CO2 30, BUN 18, creat inine 0.97, GFR 78, glucose 138, magnesium 1.9, total bili 0.6, AST 40, ALT 45, alk phos 65, albumin 4. troponin T <0.010. BNP 95, CBC: WBC 7.5, RBC 4.25, hemoglobin 14.4, hematocrit 43.3, platelets 187. Labs: 01/10/2020: [facility]: BMP: Sodium 142, potassium 4, chloride 105, glucose 137, calcium 9. 2, BUN 19, creatinine 1.06, GFR 71. Labs: 01/11/2020 ([facility]): BMP: Sodium 139, potassium 4, chloride 96, [...] combining alcohol with narcotics, as he takes [place] 3 times per day, and drinks beer [...] that I would refer him to an carrot harvester, Dr. Ray in [facility] for further treatment options. Dr. Ray would [...] continuity of care purp ose Citlali-Michelle Carnaghan ENGINEERING PROGRAMMER [facility] 02/26/2020 docume madison in this encounter Plan of Treatment +--------+---------+ + + + | Date | Type | Specialty | Care Team | Description | +--------+---------+ + + + | 05/13/ | Office | Cardiology | Citlali Adkins | | 2019 | Visit | | [address] | | | | | | [address] | | | | | | [place] [address] | | | | | | [phone] | | | | | | | [...]
--- OUTSIDE RECORDS SUMMARY | ~2020-03-24 | XMS | Encounter Summary ---
Demographics + + + | Address | [address] | | | [place] [address] | + + + | Home Phone | | + + + | Preferred Language | Unknown | + + + | Marital Status | Single | + + + | Yarsani Affiliation | Unknown | + + + [...] + | Dennise Hirsch | ECON | [address] | | | | | [place] | | | | | [phone] | | + + + + + Care Team Providers + +------+ + | Care Auditing Clerk Name | Role | Phone | [...] + + | 02/04/ | Office | [facility] | Citlali Adkins | Paroxysmal atrial | | 2019 | Visit | CARDIOLOGY VENUS | [address] | fibrillation (HCC) | | | | [address] | [address] | (Primary Dx); | | | | [address] | [place] [address] | History of | | | | [place] | [phone] | cardioversion; | | | | [address] | | Chronic diastolic | | | | [phone] | | heart failure (HCC); | | [...] non fasting labs to be done at [facility] in 10 days , but can drink [...] is here today to follow up [facility] 01/10/2020 for Afib with RVR. He is a patient of Dr.Lindsay Stringer and last seen by her 01/16/2019, and also seen by now r etired press clipper Dr. Caldera. I saw him last 11/24/2019 [...] missed . His previous emergency admission to [facility] was April 15-2018 with A. fib with [...] They also suggested a PCP referral to restorative care technician or infect ious disease specialist for treatment [...] are detailed below . He admitted to [place] [facility] 01/10/2020 with Afib with RVR and also thought to have some h eart failure, though initial BNP was 95, and chest x-ray did not show any pulmonary edema . He was supposed to transfer to [facility] for higher level of care, but refused transfer, as wis hed to remain in [place]. Transfer notes document ER reported HR 120-130 [...] with infrequent palpitations since he was discha [facility]. He also denies any signs or symptoms [...] evaluation He also consumes edible marijuana in [employer] about once a month, but denies any [...] days a week for 6 hours at [employer] from 5 am-11 am He drinks coffee all day long when he works at [employer]. He continues used to complain of ongoing [...] current illicit drug use. . Lives in [place]. Works At [employer], 5 days per week for 6 hrs, [...] Severe pulmonary hypertension, RVSP 61.66 mmHg. Trace [place]. No pericardial effusion. IVC dilated c onsistent [...] cific T wave abnormalities. Rate 76 bpm, [place] 188 ms, QRS 88 lorna-seconds, QTC 423 ms, dennise ng personally reviewed by me EK04/15/2019 ([facility]) atrial fib with RVR, ST and T wave abnormalities to anterolateral leads. Rate 118 bpm, QRS 84 ms, QTC 442 ms tracing personally reviewed by me EK08/28/2019: Sinus rhythm, nonspecific ST-T wave abnormalities to anterolateral leads. Rate 79 bpm, QRS 86 ms, QTC 373 ms, tracing personally reviewed by me and compared to EKG p erformed in April in the [facility] emergency room, sinus rhythm has replaced atrial fibr illation EK01/09/2020: ( [facility]) Atrial fib with RVR, QRS-T [...] rate is better controlled LABS Labs: 04/15/2019: [facility]: CBC: WBC 6.1, RBC 3.96, [...] hematocrit 42.5, platele ts 189. Labs: 01/09/2020: [facility]: CMP: Sodium 140, potassium 4.1, chloride 105, CO2 30, BUN 18, creat inine 0.97, GFR 78, glucose 138, magnesium 1.9, total bili 0.6, AST 40, ALT 45, alk phos 65, albumin 4. troponin T <0.010. BNP 95, CBC: WBC 7.5, RBC 4.25, hemoglobin 14.4, hematocrit 43.3, platelets 187. Labs: 01/10/2020: [facility]: BMP: Sodium 142, potassium 4, chloride 105, glucose 137, calcium 9. 2, BUN 19, creatinine 1.06, GFR 71. Labs: 01/11/2020 ([facility]): BMP: Sodium 139, potassium 4, chloride [...] combining alcohol with narcotics, as he takes [place] 3 times per day, and drinks beer [...] continuity of care purp ose Abdias [facility] 02/05/2020 Ayad montaño in this encounter Plan of Treatment +--------+---------+ + + + | Date | Type | Specialty | Care Team | Description | +--------+---------+ + + + | 05/13/ Office | Cardiology | Citlali Adkins | | | 2019 | Visit | | [address] | | | | | | [address] | | | | | | [place] [address] | | | | | | [phone] | | | | | | | [...] | | | | | [address]ORQUE[address] ([id number]) on | | | | | | [...]
--- OUTSIDE RECORDS SUMMARY | ~2020-03-24 | XMS | Encounter Summary ---
Demographics + + + | Address | [address] | | | [place] [address] | + + + | Home Phone | | + + + | Preferred Language | Unknown | + + + | Marital Status | Single | + + + | Mosque Affiliation | Unknown | + + + | Race | Unknown | + + + | Ethnic Group | Unknown | + + + Author + + + | Author | [facility] | | | and [place] | + + + | Organization | [facility] | | | and [place] | + + + | Address | Unknown | + + + | Phone | Unavailable | + + + Support + + + + + | Name | Relationship | Address | Phone | + + + + + | Shawanda Hirsch | ECON | [address] | | | | | [place] | | | | | [address] | | + + + + + Care Team Providers + +------+ + | Care Head Waiter/Waitress Banquet Name | Role | Phone | + [...] | | | [address] | [address] [place], [place] | | | | | [place], [place] | [address] | | | | | [address] | | | | | | [phone] | | | +--------+ + + + [...] [address] | | | | | | [place] [address] | | | | | | [phone] | | | | | | | [...] | | | is mildly enlarged. 8. Lhxd-qx-pvthmyjw tricuspid regurgitation | | | present. 9. [...] | | | is mildly enlarged. 8. Zvgq-re-jzfdvfzz tricuspid regurgitation | | | present. 9. [...] normal. | | | Equivocal Tricuspid Valve: Vqgd-ft-hgescylp tricuspid regurgitation | | | present. Tricuspid [...] TR Vmax: 3.41 m/s | | | Pipeline Systems Operator: Authenticated by: Jenn Stringer MD Report Date/Time: | | | -- 24_[id number]:36:0 | | + + + + + [...] enlarged.7. The right atrium is mildly enlarged.8. Bhcc-zu-qrhcpunu tricuspid | | regurgitation present.9. The right [...] | valve appears structurally normal. EquivocalTricuspid Valve: Yjmi-su-xyivpytq tricuspid | | regurgitation present.Tricuspid Valve: The [...] (A-L): 39.12 ml/m2LAAs A2C: 23.51 | | sx4BOUYW A-L A2C: 79.84 mlLAESV MOD A2C: 77.46 mlLALs A2C: 5.88 cmLAAs A4C: | | 25.35 hv7FHBAD A-L A4C: 92.54 mlLAESV MOD A4C: 85.89 mlLALs A4C: 5.89 cmRAAs: | | 19.13 zv4HGKMA A-L: 55.80 mlRAESV MOD: 54.64 mlRALs: 5.57 cmTAPSE: 1.70 cmAV | | Env.Ti: 243.99 msAV maxP.60 mmHgAV meanP.43 mmHgAV Vmax: 1.77 m/Edgardo | | Vmean: 1.17 m/Edgardo VTI: 28.74 cmAVA Vmax: 1.68 cm2AVA (VTI): 1.96 dc8XMIP Vmax: | | 0.00 cm2/m2AVAI (VTI): 0.00 cm2/m2LVOT Env.Ti: 249.53 msLVOT maxP.29 mmHgLVOT | | meanP.38 mmHgLVSI Dopp: 25.66 ml/m2LVSV Dopp: 56.46 mlLVOT Vmax: 0.75 | | m/sLVOT Vmean: 0.57 m/sLVOT VTI: 14.25 cmMV E Aram: 1.08 m/sRAP: 15 mmHgRV S': | | 0.09 m/sRVSP: 61.65 mmHgTR maxP.65 mmHgTR Vmax: 3.41 m/s | | Pipeline Systems Operator:Authenticated by: Jenn Stringer MDReport Date/Time: -- 89_[id number]_88:36:0 | | IMPRESSION: 1. Atrial fibrillation.2. This was a technically difficult study with | | suboptimal views.3. Overall left ventricular systolic function is normal with, an EF | | about 55 %.4. The right ventricle is mildly enlarged.5. The right ventricular systolic | | function is mildly impaired.6. The left atrium is mildly enlarged.7. The right atrium is | | mildly enlarged.8. Ojnc-ji-lllwvmyd tricuspid regurgitation present.9. The right | | [...] |TR Vmax: 3.41 m/s | | | |Pipeline Systems Operator: | |Authenticated by: Jenn Stringer MD | |Report Date/Time: -- 29_[id number]_[id number]:36:0 | | | |IMPRESSION: | |1. Atrial [...] right atrium is mildly enlarged. | |8. Jhcl-ep-tbhpbgnx tricuspid regurgitation present. | |9. The right ventricular systolic pressure (pulmonary artery systolic pressure), as measure d by Doppler, is 61.66mmHg. | + + documented in this encounter Visit Diagnoses Not on filedocumented in this encounter"
--- OUTSIDE RECORDS SUMMARY | ~2020-03-24 | XMS | Encounter Summary ---
Demographics + + + | Address | [address] | | | [place] [address] | + + + | Home Phone | | + + + | Preferred Language | Unknown | + + + | Marital Status | Single | + + + | Cheondoism Affiliation | Unknown | + + + | Race | Unknown | + + + | Ethnic Group | Unknown | + + + Author + + + | Author | [facility] | | | and [place] | + + + | Organization | [facility] | | | and [place] | + + + | Address | Unknown | + + + | Phone | Unavailable | + + + Support + + + + + | Name | Relationship | Address | Phone | + + + + + | Shawanda Hirsch | ECON | [address] | | | | | [place] | | | | | [address] | | + + + + + Care Team Providers + +------+ + | Care [id number] Armor Crewman Name | Role | Phone | + +------+ + | Ashleigh Benavides | PCP | | | PAGail | | | + +------+ + Encounter Details +--------+ + + + + | Date | Type | Department | Care Team | Description | +--------+ + + + + | 02/11/ | Hospital | [facility] | Conversion | Ventricular | | 2019 | Encounter | CENTER CV INTRA OP | Transaction, | premature | | | | [address] | Provider Unknown | depolarization | | | | [place], [place] | [phone] | | | | | [address] | | | | | | [phone] | Jenn Stringer DO | | | | | | [address] | | | | | | [address] [place], [place] | | | | | | [address] | | | | | | | [...] Date of Service: 02/11/19 1140 Status: Signed Pneumatic Jack Operator: Lucian Molina MD (Physician) [facility] Service: Cardiology Admission History & Physical Date of Admission: 02/11/2019 Requesting Physician: Dr. Jenn Stringer MD Reason for Admission: [facility] History Obtained From: patient CHIEF COMPLAINT: Fatigue HISTORY OF PRESENT ILLNESS 59-year-old male who was previously a patient of Dr. Caldera who presents to the cardiology of [facility] to establish care for history of paroxysmal atrial fibrillation. He was last seen on . At that time, he was on flecainide therapy for rhythm control. His LPQSP4WMLS was 0 and he was not on [...] QTC Calculation (Bezet) 423 ms Calculated P [place] 76 degrees Calculated R [place] 73 degrees Calculated T [place] 120 degrees Diagnosis Normal sinus rhythm Possible [...] in t his encounter Procedure Notes Lucian Molina MD - 02/11/2019 10:52 AM PDTFormatting of this note might be differen t from the original. Procedures by Lucian Molina MD at 02/11/191051 Author: Lucian Molina MD Service: Cardiology Author Type: Physician Filed: 02/11/19 1055 Date of Service: 02/11/191051 Status: Signed Pneumatic Jack Operator: Lucian Molina MD (Physician) Pre-procedure Diagnoses: 1. Paroxysmal atrial fibrillation (HCC) [I48.0] Post-procedure Diagnoses: 1. Paroxysmal atrial fibrillation (HCC) [I48.0] Procedures: 1. ELECTRICAL CARDIOVERSION [QCX0566 (Custom)] DATE OF SERVICE February 11, 2019 [...] [address] | | | | | | [place] [address] | | | | | | [phone] | | | | | | | [...] + + | [facility] Epic environment | EXTERNAL LAB | [...]
--- OUTSIDE RECORDS SUMMARY | ~2020-03-24 | XMS | Clinical Summary ---
Demographics + + + | Address | [address] | | | [place] [address] | + + + | Home Phone | | + + + | Preferred Language | Unknown | + + + | Marital Status | Single | + + + | Methodist Affiliation | Unknown | + + + | Race | Unknown | + + + | Ethnic Group | Unknown | + + + Author + + + | Author | [facility] | | | and [place] | + + + | Organization | [facility] | | | and [place] | + + + | Address | Unknown | + + + | Phone | Unavailable | + + + Support + + + + + | Name | Relationship | Address | Phone | + + + + + | Shawanda Hirsch | ECON | [address] | | | | | [place] | | | | | [address] | | + + + + + Care Team Providers + +------+ + | Care Ships Or Barges Loader Name | Role | Phone | + [...] | | | | | [place] [address] | | | | | | [phone] | | | | | | | [...] | | | | | RICK[place] BO[place]ORQUE[place] ([id number]) on | | | | | | [...] +--------+ +---------+--------+ | BCBS | BCBS | [id number] | 09/03/19 | | | POS | | | OOS | 9 | 19-Pre | | | | | | POS | | sent | | | | + +--------+ +--------+ +---------+--------+ | [employer] | [employer] | [id number] | | [phone] | | Medica | [...] Person | Self | [birth year] | [address] | | | al/Fam | | [phone] | [place], [place] | | | beba | | | 5 (Home) | [address] | + +--------+ +--------+ + + | Boyd Ortega | Person | Self | [birth year] | [address] | | | al/Fam | | [phone] | [phone] | [place], [place] | | | beba | | | 5 (Home) | [address] | + +--------+ +--------+ + + Advance Directives + + + + + | Type | Date Recorded | Patient | Explanation | | | | Utilities Manager | | + + + + + | Power of | | | | | Foil Stamp Operator | | | | + + + + + | Advance | | | | | Directive | | | | + + + + +
--- OUTSIDE RECORDS SUMMARY | ~2020-03-24 | XMS | Encounter Summary ---
Demographics + + + | Address | [address] | | | [place] [address] | + + + | Home Phone | | + + + | Preferred Language | Unknown | + + + | Marital Status | Single | + + + | Congregation Affiliation | Unknown | + + + | Race | Unknown | + + + | Ethnic Group | Unknown | + + + Author + + + | Author | [facility] | | | and [place] | + + + | Organization | [facility] | | | and [place] | + + + | Address | Unknown | + + + | Phone | Unavailable | + + + Support + + + + + | Name | Relationship | Address | Phone | + + + + + | Shawanda Hirsch | ECON | [address] | | | | | [place] | | | | | [address] | | + + + + + Care Team Providers + +------+ + | Care Powerhouse Tender Name | Role | Phone | + [...] Provider Unknown | | | | | [place], [place] | [phone] | | | | | [address] | | | | | | [phone] | | | +--------+ + + + [...] | 05/13/ | Office | Cardiology | Citlail Adkins | | | 2019 | Visit | | [address] | | | | | | [address] | | | | | | [place] [address] | | | | | | [phone] | | | | | | | | +--------+---------+ + + + documented as of this encounter Visit Diagnoses Not on filedocumented in this encounter"
--- OUTSIDE RECORDS SUMMARY | ~2020-03-24 | XMS | Encounter Summary ---
Demographics + + + | Address | [address] | | | [place] [address] | + + + | Home Phone | | + + + | Preferred Language | Unknown | + + + | Marital Status | Single | + + + | Evangelical Affiliation | Unknown | + + + | Race | Unknown | + + + | Ethnic Group | Unknown | + + + Author + + + | Author | [facility] | | | and [place] | + + + | Organization | [facility] | | | and [place] | + + + | Address | Unknown | + + + | Phone | Unavailable | + + + Support + + + + + | Name | Relationship | Address | Phone | + + + + + | Shawanda Hirsch | ECON | [address] | | | | | [place] | | | | | [address] | | + + + + + Care Team Providers + +------+ + | Care Lockstitch Binder Name | Role | Phone | + [...] Provider Unknown | | | | | [place], [place] | [phone] | | | | | [address] | | | | | | [phone] | | | +--------+ + + + [...] [address] | | | | | | [place] [address] | | | | | | [phone] | | | | | | | | +--------+---------+ + + + documented as of this encounter Visit Diagnoses Not on filedocumented in this encounter"
--- OUTSIDE RECORDS SUMMARY | ~2020-03-24 | XMS | Encounter Summary ---
Demographics + + + | Address | [address] | | | [place] [address] | + + + | Home Phone | | + + + | Preferred Language | Unknown | + + + | Marital Status | Single | + + + | Sabianism Affiliation | Unknown | + + + | Race | Unknown | + + + | Ethnic Group | Unknown | + + + Author + + + | Author | [facility] | | | and [place] | + + + | Organization | [facility] | | | and [place] | + + + | Address | Unknown | + + + | Phone | Unavailable | + + + Support + + + + + | Name | Relationship | Address | Phone | + + + + + | Dennise Hirsch | ECON | [address] | | | | | [place] | | | | | [phone] | | + + + + + Care Team Providers + +------+ + | Care Clinical Leader Name | Role | Phone | [...] + + | 08/28/ | Office | [facility] | [place] | Paroxysmal atrial | | 2019 | Visit | [facility] | [address] | fibrillation (HCC) | | | | [address] | KEVIN ARREOLA F | (Primary Dx); Mixed | | | | [address] | [place] [address] | hyperlipidemia; | | | | [place], [place] | [phone] | Essential | | | | [address] | | hypertension; | | | | [phone] | | History of | | | [...] encounter Patient Instructions Patient Instructions Citlali Adkins, FILM MASKER - 08/28/2019 1:30 PM PST I made [...] find a support program: Free national quitline: 891-OAZX-CQU (186-450-7664). Hospital quit-smoking programs. [employer]: (899.144.1329). [employer] (565-007-4436). Support at home is important too. Nonsmokers can offer praise and encouragement. If the smo ker in your life finds it hard to quit, encourage them to keep trying. Gyts-oyv-vegxsfj medicines Nicotine replacement therapymay make quittingeasier. Certain [...] the Air" booklet from the National Cancer [place]: smokefree.gov/sites/defau lt/files/pdf/axiipgiz-ckr-rlh-accessible.pdf Date Last Reviewed: 11/01/201619994434-0829 The [employer]. [address] [place] [address]. All righ ts reserved. This information is [...] 01/16/2019, and also seen by now retired manager interventional Dr. Caldera. Today, I reviewed all previous [...] room, and admitted to the hospital at [facility] -2018 with A. fib with RVR and [...] They also suggested a PCP referral to prefitter or infecti ous disease specialist for treatment [...] days a week for 6 hours at [employer]. He complains that he urinate small amounts constantly after he takes his diuretic, and a lso has urgency. He drinks coffee all day long when he works at [employer]. REVIEW OF SYSTEMS: Negative except for pertinent [...] current illicit drug use. . Lives in [place]. Works At [employer], 5 days per week for 6 hrs, : 4:30- 1300, uses marijuana [employer] once a month.. Outpatient Medications Prior to [...] Severe pulmonary hypertension, RVSP 61.66 mmHg. Trace ND. No pericardial effusion. IVC dilated c onsistent [...] cific T wave abnormalities. Rate 76 bpm, ND 188 ms, QRS 88 lorna-seconds, QTC 423 ms, dennise ng personally reviewed by me EK04/15/2019 ([facility] ER) atrial fib with RVR, ST and T wave abnormalities to anterolateral leads. Rate 118 bpm, QRS 84 ms, QTC 442 ms tracing personally reviewed by me EK08/28/2019: Sinus rhythm, nonspecific ST-T wave abnormalities to anterolateral leads. Rate 79 bpm, QRS 86 ms, QTC 373 ms, tracing personally reviewed by me and compared to EKG p erformed in April in the [facility] emergency room, sinus rhythm has replaced atrial f ibrillation LABS Labs: 04/15/2019: [facility] ER: CBC: WBC 6.1, RBC 3.96, [...] combining alcohol with narcotics, as he takes [place] 3 micheal es per day, and drinks [...] Abdias MCKINNEY [facility] 08/28/2019 Carlos ented in this encounter [...] LIAO | | | | | | [place] [address] | | | | | | [phone] | | | | | | | [...] | | | | | by [facility] [place] Read Only, | | | | | | [facility] Kevin ([id number]), | | | | | | editor sound Jairon Amin | | | | | | ([id number]) on 09/04/2019 | | | | | [...]
--- OUTSIDE RECORDS SUMMARY | 2020-03-24 18:30 | XMS ---
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 [facility] VISIT COUNT (12 MO.) 3 CLEMENTINE Shanks TOTAL 3 NOTE: Visits indicate total known visits. ED/UCC VISIT TRACKING (12 MO.) 03/24/2020 18:27 [facility] [place] TYPE: Emergency COMPLAINT: - SOB 01/09/2020 19:56 [facility] [place] TYPE: Emergency COMPLAINT: - SOB 04/15/2019 18:51 [facility] [place] TYPE: Emergency COMPLAINT: - SOB, BILAT LEG SWELLING INPATIENT VISIT TRACKING (12 MO.) 01/10/2020 14:23 [facility] [place] TYPE: Critical Care COMPLAINT: - ACUTE/CHRONIC HF DIAGNOSES: - Other fdc (current) drug therapy - Patient's noncompliance with other medical treatment and susy - Body mass index (BMI) 40.0-44.9, adult - Unspecified viral hepatitis C without hepatic coma - terminal makeup operator (current) use of anticoagulants - Other secondary pulmonary hypertension - Bradycardia, unspecified - Rheumatic tricuspid insufficiency - Other secondary pulmonary hypertension - Chronic obstructive pulmonary disease, unspecified - Unspecified viral hepatitis C without hepatic coma - terminal makeup operator (current) use of opiate analgesic - Chronic atrial fibrillation, unspecified - Patient's noncompliance with other medical treatment and susy - terminal makeup operator (current) use of anticoagulants - Other fdc (current) drug therapy - Obstructive sleep apnea (adult) (pediatric) - Essential (primary) hypertension - Morbid (severe) obesity due to excess calories - Contact with and (suspected) exposure to other viral communic - Chronic obstructive pulmonary disease, unspecified - Rheumatic tricuspid insufficiency - Bradycardia, unspecified - Nicotine dependence, unspecified, uncomplicated - Morbid (severe) obesity due to excess calories - Obstructive sleep apnea (adult) (pediatric) - Nicotine dependence, unspecified, uncomplicated - Body mass index (BMI) 40.0-44.9, adult - MCC (current) use of opiate analgesic - Acute on chronic right heart failure - Essential (primary) hypertension - Chronic atrial fibrillation, unspecified 04/15/2019 22:29 [facility] [place] TYPE: Medical Surgical COMPLAINT: - AFIB W/RVR,CHF DIAGNOSES: - Hyperlipidemia, unspecified - Hypertensive heart disease with heart failure - terminal makeup operator (current) use of aspirin - Acute on chronic diastolic (congestive) heart failure - Chronic obstructive pulmonary disease, unspecified - Chronic atrial fibrillation - Other fdc (current) drug therapy - terminal makeup operator (current) use of opiate analgesic - Other obesity - Hypomagnesemia - Obstructive sleep apnea (adult) (pediatric) - Body mass index (BMI) 37.0-37.9, adult - Unspecified atrial fibrillation - Patient's noncompliance with other medical treatment and susy - Chronic viral hepatitis C - Chronic pain syndrome - Opioid dependence, uncomplicated - Nicotine dependence, cigarettes, uncomplicated [email or web address]
[2020-03-24] MEDS ORDERED: MAG6464 MG PO (18:40)
[2020-03-24] MEDS ORDERED: TORSEMIDE20 MG PO (18:40)
--- NOTE | 2020-03-24 19:09 | EKG ---
[facility] [address] [facility] [place] [address] Signed Atrial fibrillation T wave abnormality, consider inferior ischemia Abnormal ECG When compared with ECG of 10-JAN-2020 04:34, No significant change was found Confirmed by GORDON VALADEZ MD ([id number]) on 03/24/2020 7:09:42 PM Electronically Signed By: GORDON VALADEZ MD 03/24/20 1909 PATIENT NAME: ADRIA GLORIA Electrocardiogram DATE OF : 59 PHYSICIAN: GORDON VALADEZ MD REPORT #: [id number] REPORT IS CONFIDENTIAL AND NOT TO BE RELEASED WITHOUT AUTHORIZATION
--- NOTE | 2020-03-24 21:45 | NUR ---
PATIENT ARRIVED TO THE UNIT VIA STRETCHER. PATIENT TRANSFERED INDEPENDENTLY. STANDING WEIGHT OBTAINED. PATIENT'S VS STABLE. PATIENT HAS MILD SOB WITH MINIMAL ACTIVITY. PATIENT SAT AT EDGE OF BED. SNACK PROVIDED PER DIET ORDERS. DISCUSSED PLAN OF CARE, MEDS, FLUID RESTRICTION, DIET ORDERS, ETC. PATIENT AGREEABLE AT THIS TIME. PATIENT DOES REPORT BEING A DNR, STATING "IF I CAN'T WAKE UP AND FEED MYSELF IN THE MORNING, I DON'T WANT IT". PATIENT WILL ASK HIS NEXT OF KIN TO BRING IN A COPY OF POLST FORM.
--- NOTE | 2020-03-24 22:15 | NUR ---
MEDS GIVEN PER ORDER, BUMEX STARTED AND VERIFIED WITH ENGAGEMENT LEAD. PATIENT HAS OPEN SORES AND SCABS ON HIS EDWARD LOWER EXTREMITITES. THESE WERE CLEANED AND BACITRACIN APPLIED. OPEN SORE NOTED ON ABD, POSSIBLE INSECT BITE. AREA IS RED. WOUNDS ALSO CLEANED. REDNESS IN GROIN AND UNDER PANIS NOTED. NYSTATIN ORDERED. PATIENT DENIES ANY SOURCE OF INJURY, STATES "THEY JUST SHOW UP". EDWARD LOWER EXTREMITITES ARE DRY. 3+ EDEMA UP TO THE KNEE. NUMBNESS & TINGLING NOTED IN EDWARD LOWER EXTREMITITES. PATIENT LUNG SOUNDS ARE DIFFICULT TO AUSCITATE, DIMINISHED THROUGHOUT WITH CRACKLES IN EDWARD LOWER LOBES. PATIENT REPORTS ORDERS FOR CPAP AT HOME, REFUSES TO ATTEMPT CPAP AT ALL. AGREES TO NC IF NEEDED. PATIENT RECEIVED PRN NORCO IN ED, REPORTS PAIN WELL CONTROLLED AT 4/10.
--- NOTE | 2020-03-24 22:57 | NUR ---
PT DESATURATING TO 80% WHILE SLEEPING, WELL BRADYCARDIA DOWN TO THE 30'S. 2L O2 PLACED ON PT. 200ML URINE EMPTIED FROM URINAL.
--- NOTE | 2020-03-24 23:39 | NUR ---
PATIENT DID REQUIRE 2L NC FOR DESAT WHILE SLEEPING. PATIENT'S HR ALSO IRREGULAR, 30-80, AFIB. WITH 2.5-3 SECOND PAUSES. STABLE BP. PATIENT VOIDED 200 MLS SINCE ARRIVAL. NOW APPEARS TO BE SLEEPING SOUNDLY. CALL LIGHT IN REACH.
--- NOTE | 2020-03-25 01:15 | NUR ---
PATIENT WAKES EASILY TO VOICE. DENIES ANY NEEDS. IV SITE WNL. BUMEX INFUSING PER ORDER. VS STABLE.
--- NOTE | 2020-03-25 02:10 | NUR ---
PATIENT APPEARS TO BE SLEEPING SOUNDLY. VS STABLE. URNAL EMPTIED. IV SITE WNL, BUMEX INFUSING PER ORDER.
--- NOTE | 2020-03-25 03:36 | NUR ---
PATIENT HAS BEEN UP TO THE EDGE OF THE BED FREQUENTLY TO VOID. IV SITE IN RIGHT HAND BECAME UNSECURED AND APPEARED TO BE LEAKING. DRESSING REENFORCED. SITE FLUSHES WITH SMALL AMOUNT OF LEAKING. BUMEX STOPPED. SECOND SITE ESTABLISHED IN LEFT UPPER ARM, BUMEX RESTARTED IN THIS SITE. PATIENT DENIES ANY NEEDS. VS STABLE. ALLOWED PATIENT TO REST.
--- NOTE | 2020-03-25 06:30 | NUR ---
PATIENT UP TO STANDING SCALE. PATIENT TOLERATED WELL. BREAKFAST ORDER RECEIVED. VS STABLE. PATIENT DENIED ANY NEEDS AT THIS TIME. CALL LIGHT IN REACH.
--- NOTE | 2020-03-25 08:05 | NUR ---
PT SITTING UP AT THE EDGE OF THE BED TO EAT BREAKFAST. PT IS ALERT AND ORIENTED X4. PT REPORTS CRONIC PAIN IN BILAT LEGS IS 7/10 AND HE REQUESTS TO HAVE NORCO.
--- NOTE | 2020-03-25 08:30 | NUR ---
CALLED TO UPDATE ON PT REQUEST FOR NORCO PER HIS HOME MEDS. SHE GIVES ORDER FOR NORCO SCHEDULED PER HIS MED REC.
--- NOTE | 2020-03-25 09:45 | NUR ---
PT SLEEPING, WAKES EASILY TO TAKE PO MEDS, THEN BACK TO SLEEP QUICKLY. 2L O2 PLACED PER PT DESATURATION TO LOW 80'S ON ROOM AIR WHILE SLEEPING. PT VOIDS FREQUENTLY INTO THE URINAL AT THE BEDSIDE.
[2020-03-25] MEDS ORDERED: POTASSIUM CHLO10 ME2 PO (09:59)
--- NOTE | 2020-03-25 11:07 | NUR ---
PT SITTING UP AT THE BEDSIDE. PT REPORTS PAIN HAS IMPROVED AFTER 1 TAB OF NORCO. PT STATES ASKS WHEN LUNCH WILL BE READY, PT GIVEN MENUE AND ROOM PHONE AND EDUCATED ON HOW TO ORDER FOOD. PT STATES HE HAS NO OTHER NEEDS AT THIS TIME.
--- NOTE | 2020-03-25 12:03 | NUR ---
SPOKE WITH PATIENT IN ROOM. PATIENT LIVES WITH SIG OTHER. IS EMPLOYED AND DENIES USING ANY DME. STATES SOMEONE TOLD HIM HE SHOULD USES CPAP BUT HE DOESN'T. HE IS EMPLOYED, DRIVES. HAS PCP. DENIES FINANCIAL STRAIN TO AFFORD MEDS, FOOD OR UTILITIES. PATIENT PLANS TO RETURN HOME AT DISCHARGE AND FEELS SAFE TO DO SO. PATIENT ASKS FOR ROOM TEMP TO TURNED DOWN AND STARTS FALLING ASLEEP WHILE ANSWERING QUESTIONS.
--- NOTE | 2020-03-25 17:32 | NUR ---
PT SITTING UP AT THE BEDSIDE EATING DINNER. PT REPORTS PAIN IS TOLLERABLE AT THIS TIME.
--- NOTE | 2020-03-25 18:12 | NUR ---
INTO PT ROOM TO KELLEUCSS PLAN TO DISCHARGE PT TO HOME TOMORROW MORNING INSTEAD OF TONIGHT. PT IS AGREEABLE TO THIS, HE STATES "I WOULD PROBABLY DRINK TOO MUCH FLUID IF I GO HOME". PT REQUESTS AND IS GIVEN A VERBAL ORDER FOR A BEER THIS EVENING. PT NORMALLY DRINKS SEVERAL (2-6) BEERS AT HOME DAILY. PT IS TO REMAIN ON BUMEX DRIP OVER NIGHT. VITALS ARE WNL. PT IS ALERT AND ORIENTED X4.
--- NOTE | 2020-03-25 19:30 | NUR ---
SHIFT REPORT RECEIVED. PATIENT RESTING ON THE SIDE OF HIS BED. ON THE PHONE WITH A FAMILY MEMBER.
--- NOTE | 2020-03-25 20:30 | NUR ---
PATIENT PROVIDED WITH EVENING MEDS AND PRN NORCO PER REQUEST. PATIENT REPORTS FEELING "ALRIGHT" THIS EVENING. DENIES SOB. LUNG SOUNDS ARE DIMINSIHED, CRACKLES IN LLL. PATIENT ON 2L NC DUE TO FREQUENTLY NAPPING AND SLEEP APNEA. WOUNDS APPEAR CLEAN ON LEGS AND ABD. PATIENT REFUSED NYSTATIN POWDER. RN PROVIDED WRITTEN CHF EDUCATION PACKET. SAT FOR 30 MINS AT BEDSIDE A DISCUSSED FLUID INTAKE, SODIUM REDUCTION, ETC. PATIENT ASKED APPROPRATE QUESTIONS AND WAS INVOLVED WITH EDUCATION. WILL CONTINUE TO REENFORCE. PATIENT GIVEN A SNACK AND DENIED FURTHER NEEDS. BUMEX INFUSING PER ORDER, SITE WNL.
--- NOTE | 2020-03-25 22:00 | NUR ---
PATIENT APPEARS TO BE SLEEPING SOUNDLY. 2L NC IN PLACE. CALL LIGHT IN REACH.
--- NOTE | 2020-03-26 02:16 | NUR ---
PATIENT WOKE AND REPORTS BEING VERY THIRSTY. PROVIDED PATIENT WITH SMALL SIP OF WATER AND ENCOURAGED HIM TO REST UNTIL BREAKFAST TO START HIS FLUID OVER FOR THE DAY. PATIENT IS AGREEABLE. URNAL EMPTIED. CALL LIGHT IN REACH.
--- NOTE | 2020-03-26 05:19 | NUR ---
PATIENT PROVIDED WITH A CUP OF COFFEE. REMINDED PATIENT OF FLUID RESTRICTION AND SPACING OUT HIS ORAL INTAKE. PATIENT VERBALIZED UNDERSTANDING AND REVIEWED FR CHART WITH RN. PATIENT REPORTS FEELING WELL THIS MORNING AND IS EXCITED TO GO HOME.
--- NOTE | 2020-03-26 06:13 | NUR ---
morning weight done. breakfast ordered. offered patient a shower and/or clean gown. patient declined.
--- NOTE | 2020-03-26 08:29 | NUR ---
PT UP AMBULATES TO THE BATHROOM INDEPENDENTLY TO DO AM CARES. PT IS ALERT AND ORIENTED X4. PT ABLE TO EAT 100% OF BREAKFAST. PT DENIES SOB AND NAUSEA, REPORTS BASELINE CRONIC PAIN IN BILAT KNEES AT 6/10 1 TAB NORCO GIVEN.
--- NOTE | 2020-03-26 11:10 | NUR ---
PT GIVEN DISCHARGE INSTRUCTIONS, ALL QUESTIONS ANSWERED, PT EXPRESSES INTENT OF "TAKING BETTER CARE OF MYSELF". SALINE LOCK REMOVED, TIP OF CATH INTACT, NO REDNESS OR SWELLING NOTED, PT DENIES PAIN AT THE SITE. PT GIVEN A TAXI RIDE TICKET TO GET HOME. PT ABLE TO AMBULATE AND DRESS SELF INDEPENDENTLY. PT DENIES SOB, AND NAUSEA, REPORTS CRONIC PAIN IS TOLLERABLE. PT GIVEN A PAIR OF COMPRESSION HOSE FOR HOME USE, EDUCATED ON HOW TO USE. PT REMAINS ALERT AND ORIENTED X4, COOPERATIVE AND POLITE.
== END 2020-03-26 11:15 | disposition home or self-care (01) ==
LOC: ED 18:26 → CCU 18:28
PROVIDERS: ADMIT Internal Medicine
DX: I11.0 Hypertensive heart disease with heart failure (principal); I50.33 Acute on chronic diastolic (congestive) heart failure; I07.1 Rheumatic tricuspid insufficiency; I27.20 Pulmonary hypertension, unspecified; I48.20 Chronic atrial fibrillation, unspecified; J44.9 Chronic obstructive pulmonary disease, unspecified; F17.200 Nicotine dependence, unspecified, uncomplicated; Z79.01 Long term (current) use of anticoagulants; Z86.19 Personal history of other infectious and parasitic diseases
CPT/HCPCS: 36415; 71045; 80048; 80053; 83735; 83880; 84484; 85025; 93005; 93010; 96365; 96366; 96374; 96375; 99285-25; C9803; G0378; J1940; J3490; U0002

== ENCOUNTER 2020-10-04 16:03 | Observation (INO) | payer BC ==
[~2020-10-04] VITALS: Ht 167.6 cm; Wt 115.2 kg
[~2020-10-04 16:03] MED LIST changes: +MAG6464 MG PO; +POTASSIUM CHLO10 ME2 PO; +TORSEMIDE20 MG PO
--- OUTSIDE RECORDS SUMMARY | 2020-10-04 16:06 | XMS ---
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 Cassie VISIT COUNT (12 MO.) Hesham Shanks TOTAL 3 NOTE: Visits indicate total known visits. ED/UCC VISIT TRACKING (12 MO.) 10/04/2020 16:03 CLE[facility]INE [facility] [place] TYPE: Emergency COMPLAINT: - SOB, CHEST PAIN 03/24/2020 18:27 CLE[facility] [place] TYPE: Emergency COMPLAINT: - SOB 01/09/2020 19:56 CLE[facility] Cody [place] TYPE: Emergency COMPLAINT: - SOB INPATIENT VISIT TRACKING (12 MO.) 03/24/2020 18:28 CLE[facility] Cody [place] TYPE: Observation COMPLAINT: - CHF DIAGNOSES: - Hypertensive heart disease with heart failure - Nicotine dependence, unspecified, uncomplicated - Rheumatic tricuspid insufficiency - Encounter for screening for other viral diseases - Chronic atrial fibrillation, unspecified - senior living (current) use of anticoagulants - Chronic obstructive pulmonary disease, unspecified - Shortness of breath - Personal history of other infectious and parasitic diseases - Pulmonary hypertension, unspecified - Acute on chronic diastolic (congestive) heart failure 01/10/2020 14:23 CLE[facility]INE [facility] [place] TYPE: Critical Care COMPLAINT: - ACUTE/CHRONIC HF DIAGNOSES: - Other fci (current) drug therapy - Patient's noncompliance with other medical treatment and regimen - Body mass index [BMI]40.0-44.9, adult - Unspecified viral hepatitis C without hepatic coma - senior living (current) use of anticoagulants - Other secondary pulmonary hypertension - Bradycardia, unspecified - Rheumatic tricuspid insufficiency - Other secondary pulmonary hypertension - Chronic obstructive pulmonary disease, unspecified - Unspecified viral hepatitis C without hepatic coma - senior living (current) use of opiate analgesic - Chronic atrial fibrillation, unspecified - Patient's noncompliance with other medical treatment and regimen - senior living (current) use of anticoagulants - Other tank terminal gauger (current) drug therapy - Obstructive sleep apnea (adult) (pediatric) - Essential (primary) hypertension - Morbid (severe) obesity due to excess calories - Contact with and (suspected) exposure to other viral communicable diseases - Chronic obstructive pulmonary disease, unspecified - Rheumatic tricuspid insufficiency - Bradycardia, unspecified - Nicotine dependence, unspecified, uncomplicated - Morbid (severe) obesity due to excess calories - Obstructive sleep apnea (adult) (pediatric) - Nicotine dependence, unspecified, uncomplicated - Body mass index [BMI]40.0-44.9, adult - senior living (current) use of opiate analgesic - Acute on chronic right heart failure - Essential (primary) hypertension - Chronic atrial fibrillation, unspecified [email or web address]
[2020-10-04] MEDS ORDERED: PREDNISONE20 MG PO (18:25)
--- NOTE | 2020-10-04 20:40 | NUR ---
PT TO ROOM 116 FROM ED VIA STRETCHER WITH ENGINE SETTER. ALERT AND ORIENTED. PT ABLE TO TRANSFER SELF TO STANDING SCALE AND THEN TO BED. INCREASED RR NOTED WITH ACTIVITY, HOWEVER PT DENIES FEELING SOB. Sp02 93-95% ON 0.5 L/NC. RR 20. TELE AND CPOX PLACED PER ORDER. PT DENIES PAIN OR NAUSEA. SANDWICH BOX PROVIDED PER REQUEST. PT ORIENTED TO ROOM AND NURSE CALL LIGHT. ENCOURAGED PT TO USE NURSE CALL LIGHT WITH ACTIVITY FOR SAFETY. PT VERBALIZES UNDERSTANDING.
--- NOTE | 2020-10-04 22:05 | NUR ---
EVENING ASSESSMENT COMPLETE. SCHEDULED MEDS ADMINISTERED PER EMAR. PT RESTING IN BED, REPORTS HE IS COMFORTABLE. TELE #[address] HR IRREGULAR. PT DENIES SOB OR CHEST PAIN. ADDITIONAL SANDWICH BOX PROVIDED PER REQUEST. URINAL EMPTIED OF 250 ML CLEAR YELLOW URINE. DENIES FURTHER NEEDS. CALL LIGHT IN REACH. BED ALARM PLACED FOR SAFETY.
--- NOTE | 2020-10-04 22:39 | EKG ---
[facility] [address] [facility] [place] [address] Signed Atrial fibrillation with rapid ventricular response T wave abnormality, consider inferior ischemia Abnormal ECG When compared with ECG of 24-MAR-2020 18:35, No significant change was found Confirmed by GORDON VALADEZ MD ([id number]) on 10/04/2020 10:38:52 PM Electronically Signed By: GORDON VALADEZ MD 10/04/20 2239 PATIENT NAME: GLORIAARDIA Electrocardiogram DATE OF : 59 PHYSICIAN: GORDON VALADEZ MD REPORT #: [id number] REPORT IS CONFIDENTIAL AND NOT TO BE RELEASED WITHOUT AUTHORIZATION
--- NOTE | 2020-10-04 23:58 | NUR ---
RECEIVED CALL FROM CCU, PT TELE SHOWING SEVERAL PAUSES PER RN. WOKE PT UP TO GET BLOOD PRESSURE. CPOX READING 93-95% OXYGEN. PT STATED THAT HIS HEART "IS ALL OVER THE PLACE" WHEN THIS RN REPORTED TO HIM THE RECENT "PAUSES" ON THE TEL.
--- NOTE | 2020-10-05 00:21 | NUR ---
PT RESTING IN BED WITH EYES CLOSED, NAD. RESPIRATIONS EVEN AND UNLABORED. SpO2 94% ON 0.5L/NC. HR 70'S. BED ALARM FOR SAFETY. CALL LIGHT IN REACH.
--- NOTE | 2020-10-05 02:51 | NUR ---
VS AND I&O COMPLETE. PT REPORTS HE IS RESTING WELL. DOES C/O FEELING "A LITTLE" SOB. PT LYING FLAT IN BED, REFUSES TO ELEVATE HOB. SpO2 93-94% ON 0.5L/NC. HR 70'S AND IRREGULAR. RESPIRATIONS EVEN AND UNLABORED. ASSESSMENT COMPLETE. DENIES FURTHER NEEDS. CALL LIGHT IN REACH.
--- NOTE | 2020-10-05 06:41 | NUR ---
VS AND I&O COMPLETE. PT REPORTS MILD SOB. DENIES CP. TELE #[address] HR IRREGULAR. 0.5L/NC IN PLACE. SpO2 93-95%. PIV IN LEFT HAND PULLED ON ACCIDENT. TIP IN TACT. COFFEE PROVIDED. PT DENIES FURTHER NEEDS. CALL LIGHT IN REACH.
--- NOTE | 2020-10-05 08:45 | NUR ---
PATIENT UP IN THE CHAIR AND IS ALERT AND ORIENTED. DENIES PAIN. IV SITE WNL AND FLUSHES WELL. LUNGS DIM. THROUGHOUT AND CRACKLES IN THE BASES. PT. HAS A DRY COUGH THAT HE STATES IS NORMAL. TRACE EDEMA BLE. PT. LEFT RESTING IN CHAIR EATING WITH CALL LIGHT IN REACH.
--- NOTE | 2020-10-05 09:30 | NUR ---
CALL RECIEVED FROM CCU STATING PT HEART RSE DIPPED TO 29. THIS NURSE TO BEDSIDE TO FIND PT SLEEPING IN CHAIR. PT DENIES ANY SYMPTOMS RELATED TO HEART RATE DECREASE D/T SLEEPING. ASSITED PT BACK TO BED. PT IS UNSTABLE ON FEET AND IS SOB QUICKLY AFTER STANDING. EDUCATED PT ON IMPORTANCE OF IMPROVING HIS SOB BEFORE DISCHARGING. PT IS AGREEABLE EVEN THOUGH HE WANTS TO GO TO WORK TOMORROW. PT ON RA AND SATURATIONS 93% ON RA. DR VALAEDZ NOTIFIED OF HEART RATE. NEW ORDERS RECEIVED.
--- NOTE | 2020-10-05 10:02 | NUR ---
PATIENT SITTING UP IN BED WATCHING TV. FRESH WATER GIVEN. VITALS AND I&O'S CHARTED. CALL LIGHT IN REACH. NO FURTHER NEEDS AT THIS TIME.
--- NOTE | 2020-10-05 10:55 | NUR ---
PATIENT REPORTS 5/10 PAIN IN HIS LEGS THAT IS CHRONIC. HE ATTRIBUTES TO ARTHRITIS. ADMIN. 650MG OF TYLENOL. URINAL EMPTIED OF 375ML DILUTE YELLOW URINE. PT. LEFT RESTING IN BED WITH CALL LIGHT IN REACH.
--- NOTE | 2020-10-05 11:34 | NUR ---
TELE SHOWED HR OF 29. THIS NURSE TO BEDSIDE. PT FOUND SLEEPING. W/O S/SX FROM BRADYCARDIA.
[2020-10-05] MEDS ORDERED: LISINOPRIL10 MG PO (11:53)
[2020-10-05] MEDS ORDERED: SPIRONOLACTONE25 MG PO (11:53)
[2020-10-05] MEDS ORDERED: ANORO ELLIPTA1 EACH INH (11:54)
[2020-10-05] MEDS ORDERED: XARELTO20 MG PO (11:55)
--- NOTE | 2020-10-05 13:55 | NUR ---
PATIENT SITTING ON EDGE OF BED. FRESH WATER GIVEN. CALL LIGHT IN REACH. NO FURTHER NEEDS AT THIS TIME.
[2020-10-05] MEDS ORDERED: METOPROLOL SUC100 MG PO (15:16)
[2020-10-05] MEDS ORDERED: NICOTINE LOZENGE4 MG BUCCAL (15:16)
--- NOTE | 2020-10-05 16:18 | NUR ---
MED REC COMPLETE
== END 2020-10-05 16:21 | disposition home or self-care (01) ==
LOC: ED 16:03 → MS 16:04
PROVIDERS: ADMIT Internal Medicine; ATTEND Internal Medicine
DX: I11.0 Hypertensive heart disease with heart failure (principal); I50.33 Acute on chronic diastolic (congestive) heart failure; I48.20 Chronic atrial fibrillation, unspecified; J44.9 Chronic obstructive pulmonary disease, unspecified; I27.20 Pulmonary hypertension, unspecified; B19.20 Unspecified viral hepatitis C without hepatic coma; R00.1 Bradycardia, unspecified; T45.515A Adverse effect of anticoagulants, initial encounter; F17.200 Nicotine dependence, unspecified, uncomplicated; Z79.51 Long term (current) use of inhaled steroids; Z79.01 Long term (current) use of anticoagulants; Z20.822 Contact with and (suspected) exposure to COVID-19; Z99.81 Dependence on supplemental oxygen; Z79.899 Other long term (current) drug therapy; Z91.19 Patient's noncompliance with other medical treatment and regimen
CPT/HCPCS: 36415; 71045; 71046; 80048; 80053; 83735; 83880; 84484; 85025; 85610; 93005; 93010; 94640; 94762; 96374; 96375; 99285-25; 99406; C9803; G0378; J1940; J2930; J7512; U0003

== ENCOUNTER 2021-04-02 18:08 | Emergency (ER) | payer BC ==
[~2021-04-02] VITALS: Ht 167.6 cm; Wt 120.2 kg
[~2021-04-02 18:08] MED LIST changes: +ANORO ELLIPTA1 EACH INH; +NICOTINE LOZENGE4 MG BUCCAL; +SPIRONOLACTONE25 MG PO; +XARELTO20 MG PO
--- OUTSIDE RECORDS SUMMARY | 2021-04-02 18:12 | XMS ---
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 Cassie VISIT COUNT (12 MO.) 2 CLEMENTINE Shanks TOTAL 2 NOTE: Visits indicate total known visits. ED/UCC VISIT TRACKING (12 MO.) 04/02/2021 18:09 CLE[facility] [place] TYPE: Emergency COMPLAINT: - SOB, LEG SWELLING 10/04/2020 16:03 CLE[facility] [place] TYPE: Emergency COMPLAINT: - SOB, CHEST PAIN INPATIENT VISIT TRACKING (12 MO.) 10/04/2020 16:04 CLEMENTINE Cody [place] TYPE: Observation COMPLAINT: - R SIDED HEART FAILURE DIAGNOSES: - Hypertensive heart disease with heart failure - Chronic obstructive pulmonary disease, unspecified - Acute on chronic diastolic (congestive) heart failure - Nicotine dependence, unspecified, uncomplicated - Patient's noncompliance with other medical treatment and regimen - Chronic atrial fibrillation, unspecified - Chronic pulmonary embolism - [facility] (current) use of inhaled steroids - Unspecified viral hepatitis C without hepatic coma - Other jail (current) drug therapy - terminal operations supervisor (current) use of anticoagulants - Pulmonary hypertension, unspecified - Chronic obstructive pulmonary disease with (acute) exacerbation - Dependence on supplemental oxygen - Adverse effect of anticoagulants, initial encounter - Bradycardia, unspecified [email or web address]
--- NOTE | 2021-04-02 19:22 | EKG ---
[facility] [address] [facility] [place] [address] Signed Atrial fibrillation Rightward axis T wave abnormality, consider inferior ischemia Abnormal ECG When compared with ECG of 04-OCT-2020 16:12, No significant change was found Confirmed by GORDON VALADEZ MD ([id number]) on 04/02/2021 7:22:11 PM Electronically Signed By: GORDON VALADEZ MD 04/02/211921 PATIENT NAME: GLORIAADRIA Electrocardiogram DATE OF : 59 PHYSICIAN: GORDON VALADEZ MD REPORT #: [id number] REPORT IS CONFIDENTIAL AND NOT TO BE RELEASED WITHOUT AUTHORIZATION
[2021-04-02] MEDS ORDERED: TORSEMIDE20 MG PO (20:19)
== END 2021-04-02 20:31 | disposition home or self-care (01) ==
LOC: ED 18:08
DX: I11.0 Hypertensive heart disease with heart failure (principal); I50.9 Heart failure, unspecified; E87.70 Fluid overload, unspecified; Z20.822 Contact with and (suspected) exposure to COVID-19; I48.91 Unspecified atrial fibrillation; J44.9 Chronic obstructive pulmonary disease, unspecified; F17.200 Nicotine dependence, unspecified, uncomplicated; Z79.899 Other long term (current) drug therapy
CPT/HCPCS: 71045; 80053; 83735; 84484; 85025; 85610; 93005; 93010; 96374; 99285-25; C9803; J1940; U0003

== ENCOUNTER 2021-05-25 13:10 | Emergency (ER) | payer OTHER, BC ==
[~2021-05-25] VITALS: Ht 167.6 cm; Wt 120.2 kg
[2021-05-25] MEDS ORDERED: HYDROCODON-ACE1 EA10 PO (16:20)
== END 2021-05-25 16:53 | disposition home or self-care (01) ==
LOC: ED 13:10
DX: S69.92XA Unspecified injury of left wrist, hand and finger(s), initial encounter (principal); W22.8XXA Striking against or struck by other objects, initial encounter; Y99.0 Civilian activity done for income or pay; I48.91 Unspecified atrial fibrillation; J44.9 Chronic obstructive pulmonary disease, unspecified; I10 Essential (primary) hypertension; F17.200 Nicotine dependence, unspecified, uncomplicated; Z79.899 Other long term (current) drug therapy; Z79.01 Long term (current) use of anticoagulants
CPT/HCPCS: 73110; 96372; 99283; J1170

== ENCOUNTER 2021-08-20 06:49 | Inpatient (IN) | payer BC ==
[~2021-08-20] VITALS: Ht 167.6 cm; Wt 117.5 kg
[~2021-08-20 06:49] MED LIST changes: +HYDROCODON-ACE1 EA10 PO
--- OUTSIDE RECORDS SUMMARY | 2021-08-20 06:52 | XMS ---
PreManage Notification: ADRIA GLORIA Security [employer] Director Events No recent Security Events currently on file CRITERIA MET - ALYSIA CARE PROVIDERS MARY GOLDEN Physician Automation Control Integrator 10/17/2018-Current PHONE: [phone] [facility] Current PHONE: [phone] Char has no Care Guidelines for this patient. Cassie VISIT COUNT (12 MO.) Marcy Shanks TOTAL 4 NOTE: Visits indicate total known visits. ED/UCC VISIT TRACKING (12 MO.) 08/20/2021 06:50 CLE[facility] Cody [place] TYPE: Emergency COMPLAINT: - SOB 05/25/2021 13:13 CLE[facility]INE [facility] [place] TYPE: Emergency COMPLAINT: - L WRIST INJURY DIAGNOSES: - Unspecified atrial fibrillation - Nicotine dependence, unspecified, uncomplicated - Chronic obstructive pulmonary disease, unspecified - oysterman (current) use of anticoagulants - Striking against or struck by other objects, initial encounter - Essential (primary) hypertension - Pain in left wrist - Unspecified injury of left wrist, hand and finger(s), initial encounter - Civilian activity done for income or pay - Other oil heaterman (current) drug therapy 04/02/2021 18:09 CLE[facility] [place] TYPE: Emergency COMPLAINT: - SOB, LEG SWELLING DIAGNOSES: - Nicotine dependence, unspecified, uncomplicated - Shortness of breath - Heart failure, unspecified - Fluid overload, unspecified - Hypertensive heart disease with heart failure - Unspecified atrial fibrillation - Chronic obstructive pulmonary disease, unspecified - Other residential (current) drug therapy 10/04/2020 16:03 CLE[facility]INE Cody [place] TYPE: Emergency [...] fibrillation, unspecified - Chronic pulmonary embolism - oysterman (current) use of inhaled steroids - Unspecified viral hepatitis C without hepatic coma - Other oil heaterman (current) drug therapy - oysterman (current) use of anticoagulants - Pulmonary hypertension, unspecified - Chronic obstructive pulmonary disease with (acute) exacerbation - Dependence on supplemental oxygen - Adverse effect of anticoagulants, initial encounter - Bradycardia, unspecified [email or web address]
--- NOTE | 2021-08-20 12:29 | NUR ---
Report received from JOSE Frost, pt stable on 2L via NC, will be transfered to the floor via stretcher.
[2021-08-20] MEDS ORDERED: TORSEMIDE20 MG PO (12:40)
--- NOTE | 2021-08-20 12:45 | NUR ---
Pt arrives to the Med-Surg floor via stretcher, able to ind transfer to bed. Pt now sitting up on side of bed w/ call light in reach, eating lunch. VSS on 2L. Admission and assesment complete, meds given per providers orders
--- NOTE | 2021-08-20 14:00 | NUR ---
Pt resting in bed safely w/ call light in reach and eyes closed, RR even on 2L via NC
[2021-08-20] MEDS ORDERED: POTASSIUM CHLO10 ME1 PO (15:16)
--- NOTE | 2021-08-20 15:17 | NUR ---
MED REC COMPLETE
--- NOTE | 2021-08-20 16:00 | NUR ---
RT in room assesing pt, pt sitting up in chair safely no needs at this time.
--- NOTE | 2021-08-20 16:19 | NUR ---
PATIENT STATES HE TOOK CPAP BACK HE GOT LESS SLEEP WITH IT. NONCOMPLIANT CPAP USERS TEND TO EXPERIENCE ISSUES WITH CHF.
--- NOTE | 2021-08-20 16:45 | NUR ---
this rn walking by pts room. humera rn running into pts room. pt in restroom using urinal, per humera pts hr in afib and tached up to 180. pt had accountable 1700ml out, not including the amount of urine on floor and in toilet as well. this rn discussed with pt and educated pt about calling staff before getting up to pee. this rn asked pt to go back to bed in order to put bed alram on, pt refused, wants to sit in chair. urinals brought to pts bedside at this time. this rn reitered to pt to use call light. aware.
--- NOTE | 2021-08-20 18:18 | EKG ---
[facility] [address] [facility] [place] [address] Signed Atrial fibrillation Rightward axis Nonspecific ST and T wave abnormality Abnormal ECG When compared with ECG of 02-APR-2021 18:28, No significant change was found Confirmed by GORDON VALADEZ MD ([id number]) on 08/20/2021 6:18:42 PM Electronically Signed By: GORDON VALADEZ MD 08/20/211817 PATIENT NAME: ADRIA GLORIA Electrocardiogram DATE OF : 59 PHYSICIAN: GORDON VALADEZ MD REPORT #: [id number] REPORT IS CONFIDENTIAL AND NOT TO BE RELEASED WITHOUT AUTHORIZATION
--- NOTE | 2021-08-20 18:47 | NUR ---
PT STANDING AT BEDSIDE TO USE URINAL, HR INCREASED TO 180, PT DENIES CP OR SOB. PT NOW SITTING UP IN CHAIR SAFELY W/ CALL LIGHT IN REACH. DR. VALADEZ NOTIFIED, TORB FOR AN ADDITIONAL 1X DOSE OF 5MG IV METOPROLOL.
--- NOTE | 2021-08-20 19:28 | NUR ---
REPORT RECEIVED DAY SHIFT RN. PT SITTING IN RECLINER ALERT AND ORIENTED. DENIES NEEDS. WHITE BOARD UPDATED. CALL LIGHT IN REACH.
--- NOTE | 2021-08-20 21:18 | NUR ---
EVENING ASSESSMENT COMPLETE. PT DENIES PAIN OR NAUSEA. DENIES SOB. O2 2L/NC IN PLACE. SpO2 94%. RESPIRATIONS EVEN. AUDIBLE WHEEZE NOTED. TELE #[address] HR 90-100'S. PT DENIES CHEST PAIN OR DISCOMFORT. PT REPORTS FEELING DROWSY HE HAS NOT BEEN ABLE TO SLEEP THE LAST FEW DAYS. HOB ELEVATED. BED ALARM FOR SAFETY. PT DENIES QUESTIONS OR CONCERNS. CALL LIGHT IN REACH.
--- NOTE | 2021-08-20 22:48 | NUR ---
BED ALARM SOUNDING. PT ON SIDE OF BED TO VOID 200 ML YELLOW URINE. INCONTINENT ON FLOOR. PT HAD OXYGEN REMOVED. SATS LOW 80'S. PT WHEEZY WITH INCREASED RESPIRATIONS. OXYGEN PUT BACK ON, PT STATES "I'M ALWAYS SHORT OF BREATH" WHEN ASKED. SpO2 >90% BEFORE LEAVING ROOM. HR NOTED IN 130'S WITH ACTIVITY. BACK TO 90'S-100'S. NO FURTHER NEEDS AT THIS TIME. BED ALARM FOR SAFETY. CALL LIGHT IN REACH.
--- NOTE | 2021-08-21 | NUR ---
PT RESTING ON RIGHT SIDE WITH EYES CLOSED. RESPIRATOINS EVEN. SpO2 95% ON 2L/NC. TELE #9. HR 100'S.
--- NOTE | 2021-08-21 01:30 | NUR ---
PT UP TO SIDE OF BED TO VOID 250 ML CLEAR YELLOW URINE. UP TO RECLINER WITH MINIMAL SBA. VS AND I&O COMPLETE. COFFEE PROVIDED. NO FURTHER NEEDS. CALL LIGHT IN REACH.
--- NOTE | 2021-08-21 03:02 | NUR ---
CALL LIGHT ANSWERED. URINAL EMPTIED. PT BACK TO BED. ASSESSMENT COMPLETE. WHEEZES HEARD THROUGH OUT. PT REPORTS SOB THAT WORSENS WITH ACTIVITY. NON PRODUCTIVE COUGH. 2L/NC IN PLACE. TELE #9. HR 70'S. NO FURTHER NEEDS. CALL LIGHT IN REACH.
--- NOTE | 2021-08-21 03:30 | NUR ---
RT NOTIFIED THIS RN REQUESTING A "PAIN PILL". PRN FOR PAIN ADMINISTERED PER EMAR FOR C/O FEET AND "SIDE PAIN FROM COUGHING". NO FURTHER NEEDS. CALL LIGHT IN REACH.
--- NOTE | 2021-08-21 05:05 | NUR ---
BED ALARM SOUNDING. PT SITTING ON SIDE OF BED TO VOID 200 ML YELLOW URINE. REPORTS FEELING SOB. OXYGEN NOT IN PLACE. SpO2 MID 70'S. OXYGEN REPLACED, TITRATED TO BRING SATS >90%. PT ABLE TO RECOVER QUICKLY. SpO2 93% ON 2L/NC. PT SITTING IN RECLINER. REPORTS BREATHING IMPROVED. CALL LIGHT IN REACH.
--- NOTE | 2021-08-21 06:35 | NUR ---
PT SITTING IN RECLINER. VS AND I&O COMPLETE. DAILY WEIGHT OBTAINED. BREAKFAST ORDERED. PT DENIES FURTHER NEEDS. CALL LIGHT IN REACH.
--- NOTE | 2021-08-21 07:30 | NUR ---
Shift report received from JOSE Darling, pt sitting up in chair w/ call light in reach watching TV. Pt denies any needs, anxious to go home. Pt offered nicotine replacement as he stated he would like a cigarette, but pt declined offer.
--- NOTE | 2021-08-21 09:00 | NUR ---
PATIENT IS 90% ON ONE LITER OF OXYGEN. PATIENT GIVEN I/S AND ABLE TO RETURN DEMONSTRATE HOW TO USE.
--- NOTE | 2021-08-21 10:00 | NUR ---
Pt sitting up in chair w/ call light in reach, watching TV. Morning assesment complete and scheduled meds given per provider orders. Pt having increased cough and mucus production, provider notified. Pt anxious to go home, attempted to educate pt on current diagnosis and oxygen requirements, but pt states he feels much better and just needs to go home and have a cigarette. Updated provider, pt denies any further needs at this time.
--- NOTE | 2021-08-21 12:00 | NUR ---
Pt sitting up in chair w/ call light in reach watching TV, pt ate 100% of his lunch but states he is still hungry, called down for a fruit to plate. No further needs at this time
--- NOTE | 2021-08-21 14:33 | NUR ---
Pt is sitting up in chair w/ call light in reach watching TV, SO in room visiting. Scheduled medication given per provider order, pt denies any needs at this time
--- NOTE | 2021-08-21 18:02 | NUR ---
Pt sitting up in chair w/ call light in reach, pt asked if he can go home yet, attempted to educate pt again on his current diagnosis as well as the risks of going home too soon. Pt offered and declined nicotine replacements again. Pt denies any further needs at this time.
--- NOTE | 2021-08-21 19:30 | NUR ---
REPORT RECEIVED FROM OFFGOING RN, AMANDA.
--- NOTE | 2021-08-21 20:25 | NUR ---
PATIENT RATES PAIN AT A 5/10 IN HIS FEET. PATIENT GIVEN PRN PAIN MEDICATION PER ORDER. PATIENT IS RESTING IN RECLINER WATCHING TV. PATIENT REQUESTED SANDWICH BOX AND FRUIT. FLOAT RN TO GET PATIENT FOOD. CALL LIGHT IN REACH.
--- NOTE | 2021-08-21 20:43 | NUR ---
emptied 600 ml from urinal. pt sitting in chair requesting something to eat. pt provided with a sandwich box and a fruit dish for snack. requesting coffee.
--- NOTE | 2021-08-21 22:40 | NUR ---
PT ASSESSMENT COMPLETE. PT STATES PAIN SLIGHTLY IMPROVED AFTER RECENTPAIN MED ADMINISTRATION. REPORTS SLIGHT SOB. DENIES NASUEA. TELE #[address], AFIB, HR 80'S-90S. O2 IN PLACE @ 2 LPM. PT WITH COUGH NOTIED THROUGHOUT ASSESSMENT. PT SITTING UP IN CHAIR, LEGS IN DEPENDENT POSITION, VIRTUALIZATION ARCHITECT ENCOURAGED PT TO ELEVATE HIS LEGS. PT STATES HE KEEPS THEM PROPPED ON BED, WILL ELEVATE WHEN ASSESSMENT FINISHED. IV SL, FLUSHED, WNL, PATENT. PT DENIES FURTHER NEEDS AT THIS TIME. CALL LIGHT IN REACH.
--- NOTE | 2021-08-21 23:54 | NUR ---
WALKED BY THE ROOM AND PATIENT WAVED AND ASKED FOR WARM BLANKET. PROVIDED. EMPTIED URINAL.
--- NOTE | 2021-08-22 00:30 | NUR ---
PT REQUESTS PRN PAIN MEDCIATION. ADMINISTERED, SEE EMAR. PT DENIES FURTHER NEEDS. STATES HE WILL GO TO SLEEP SOON. CALL LIGHT IN REACH.
--- NOTE | 2021-08-22 02:30 | NUR ---
PT RESTING IN BED, EYES CLOSED. RESPIRATIONS EVEN AND UNLABORED. APPEARS TO BE SLEEPING. CALL LIGHT IN REACH.
--- NOTE | 2021-08-22 06:36 | NUR ---
PT RESTING IN CHAIR WITH EYES CLOSED. WAKES EASILY TO VOICE. PT STATES HE SLEPT IN CHAIR DUE TO SOB WHILE LAYING FLAT. LUNG SOUNDS WITH RHONCI AND WHEEZE. RHONCI CLEAR WITH COUGH. O2 IN PLACE AT 2LPM VIA NC. 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 TELE #[address], AFIB, HR 80'S-90'S. BLE EDMEA 1+. PT ENCOURAGED TO ELEVATE EXTREMITIES. PT STATES UNDERSTANDING. IV FLUSHED WITH 10 ML NS, WNL, PATENT. PT DEMONSTRATES APPROPRIATE IS USE. PT STATES THAT HE WOULD LIKE TO GO HOME TODAY. POC AND CURRENT ILLNESS DISCUSSED. PT STATES UNDERSTANDING. PT STATES THAT PAIN BILATERAL FEET CONTINUES, RATES 6/. PRN PAIN MED ADMINISTERED. PT DENIES FURTHER NEEDS AT THIS TIME. CALL LIGHT IN REACH.
--- NOTE | 2021-08-22 07:26 | NUR ---
PT UP IN THE RECLINER AT TIME OF SHIFT EXCHANGE. DENIES NEEDS OR DOSCOMFORTS. CALL LIGHT IN REACH.
--- NOTE | 2021-08-22 09:42 | NUR ---
PT CONTINIES UP IN THE CHAIR EATS 100% OF MORNING MEAL, CALLS KITCHEN FOR ADDITIONAL ITEMS. SHOWER IS SET UP AND PERSONAL CARE ITEMS PROVIDED.
--- NOTE | 2021-08-22 11:02 | NUR ---
Patient is in chair with call light in reach.
--- NOTE | 2021-08-22 11:43 | NUR ---
Patient's BP WAS 89/51. Pulse was 97. RN was notified of low BP.
--- NOTE | 2021-08-22 11:46 | NUR ---
DR JOSHI NOTIFIED OF LOW BP.
--- NOTE | 2021-08-22 15:06 | NUR ---
PT UP INDEPENDANT IN THE ROOM CONTINUES IN THE CHAIR THIS SHIFT WATCHING TV. DENIES NEEDS
--- NOTE | 2021-08-22 15:10 | NUR ---
INTO PATIENT ROOM TO COMPLETE ASSESSMENT. PATIENT SITTING UP IN CHAIR WATCHING TV, HOLLAND GARCIA AT BEDSIDE. PATIENT STATES HE LIVES AT HOME WITH HIS GIRLFRIEND. PATIENT HAS HAD NO ISSUES WITH MOBILITY PRIOR TO THIS ADMISSION AND DOES NOT REQUIRE ANY DME. DENIES FINANCIAL NEEDS STATING "I NORMALLY RIDE A [employer] AND WORK." PATIENT STATES HIS GIRLFRIEND SHAMA IS ALSO EMPLOYEED. PATIENT DENIES THE USE OF HOME OXYGEN. PATIENT ASKING WHEN HE WILL BE ABLE TO GO HOME STATING "I SMOKE AT HOME AND DO THE SAME THING I AM HERE." DEMOGRAPHIC INFORMATION CONFIRMED. WILL CONTINUE TO FOLLOW UP WITH PATIENT DURING HIS STAY.
--- NOTE | 2021-08-22 18:01 | NUR ---
PT CONTINUES UP IN THE CHAIR WATCHING TV. EATS 100% OF EVENING MEAL DENIES NEED OF ANYTHING ELSE AT THIS TIME
--- NOTE | 2021-08-22 18:39 | NUR ---
Patient is in chair with call light in reach.
--- NOTE | 2021-08-22 19:10 | NUR ---
BEDSIDE REPORT RECEIVED FROM OFFGOING RNHOLLAND.
--- NOTE | 2021-08-22 21:03 | NUR ---
PT ASSESSMENT COMPLETE. PT RESTING IN BED WATCHING TV. PT DROWSY, STATES HE DID NOT SLEEP WELL LAST NIGHT. PT REPORTS PAIN 8/10 TO BILATERAL FEET. PRN ADMINISTERED, SEE EMAR. TELE# 9 AFIB, HR 80'S-90'S. O2 IN PLACE AT 1 LPM VIA NC. WHEEZE THROUGHOUT ALL LUNG RODARTE. PT WITH COUGHING FIT DURING ASSESSMENT, PT REPORTS THICK WHITE SPUTUM PRODUCTION. SOB FOLLOWING COUGHING FIT, TAKES A FEW MINUTES OF DEEP BREATHING TO RECOVER. SA02 93% ON 1 LPM. BLE WITH 1+ PITTING EDEMA. LEGS ELEVATED AT THIS TIME. IV FLUSHED, WNL, PATENT. EDUCATION PROVDED TO PT REGARDING NEW FLUID RESTRICTION ORDER. PT HESISTANT, EXPRESSES FRUSTRATION AT BEING IN THE HOSPITAL. STATES, "I DRINK COFFE ALL DAY AND BEER ALL NIGHT!" PT ICE WATER REFILLED. PT REQUESTS SNACK TO BE PROVIDED. FURTHER NEEDS DENIED. CALL LIGHT INR EACH.
--- NOTE | 2021-08-23 00:26 | NUR ---
PT RESTING IN BED WITH EYES CLOSED. REPSPIRATIONS EVEN AND UNLABORED. 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 CALL LIGHT IN REACH.
--- NOTE | 2021-08-23 02:35 | NUR ---
GRAY TENDER TO ROOM FOR SCHEDULED MEDICATION ADMINISTRATION. PT RESTING IN BED WITH EYES CLOSED. RESPIRATIONS EVEN AND UNLABORED. PT STARTLES AWAKE TO TOUCH. VS OBTAINED, WNL. PT INITIALLY DROWSY UPON WAKING, BUT THEN WAKES UP FULLY. LUNG SOUNDS WITH WHEEZE THROUGHOUT. NO COUGH NOTED DURING ASSESSMENT. O2 IN PLACE @ 1 LPM. TELE # [address], AFIB. HR 60'S-80'S. BLE WITH 2+ EDEMA. IV SL. PT REQUESTS WARM BLANKET. STATES THAT HE IS GOING TO SIT AT EDGE OF BED AND USE THE URINAL. DENIES FURTHER NEEDS. CALL LIGHT IN REACH.
--- NOTE | 2021-08-23 03:00 | NUR ---
PT UTLIZES CALL LIGHT, REQUESTS COFFEE. PROVIDED. PT SITTING UP IN CHAIR WATCHING TV. STATES THAT HE WILL GO BACK TO BED SHORTLY. EDUCATION PROVIDED REGARDING FLUID RESTRICTION. PT REMAINS HESITANT. JOKES, "YOU GUYS ARE BEING MEAN!" PT DENIES FURTHER NEEDS CALL LIGHT IN REACH.
--- NOTE | 2021-08-23 07:25 | NUR ---
PT UP IN RECLINER RESTING EYES CLOSED AT TIME OF SHIFT EXCHANGE
--- NOTE | 2021-08-23 08:55 | NUR ---
PT TOLERATES 100% MORNING MEAL SITTING UP IN RECLINER. DRY, BUT PRODUCTIVE COUGH. SATS 90% ON 1 LITER. PT HAD REMOVED 02 FOR MEAL, SPOT CHECKED ON ROOM AIR 85% EDUCATION PROVIDED SATS RECOVER QUICKLY ON 1 LPM. LUNGS STILL TIGHT AND WHEEZY, PT DENIES SOB. FLUID RESTRICTION REVIEWED PT VERBALIZES UNDERSTANDING.
--- NOTE | 2021-08-23 09:18 | NUR ---
PATIENT SITTING IN CHAIR WATCHING TV. VITALS AND I&O'S CHARTED. PATIENT REFUSED SHOWER. AM CARE DONE. CALL LIGHT IN REACH. NO FURTHER NEEDS AT THIS TIME.
--- NOTE | 2021-08-23 11:58 | NUR ---
PT UP IN THE CHAIR THIS ENTIRE SHIFT. REPORTS HE IS GOING HOME TODAY. DISCUSSED 02 NEEDS WITH THIS PT AND REASON FOR IN PT STATUS, ENCOURAGED HIM TO COMPLY WITH TREATMENT
--- NOTE | 2021-08-23 12:33 | NUR ---
PT SITTING UP ON EDGE OF BED VISITING HIS DAUGHTER WEARING NO 02. SPOT CHECKED SATS 85%. EDUCATION PROVIDED, PT VERBALIZES UNDERSTANDING AND AGREES TO WEAR 02, SATS RECOVER QUICKLY WHEN 02 REPLACED AT 1 LPM.
--- NOTE | 2021-08-23 14:20 | NUR ---
PT SITTING UP ON EDGE OF BED WATCHING TV STATES HE IS DISSAPPOINTED HE'S NOT GOING HOME TODAY, BUT VERBALIZES UNDERSTANDING. CONTINUES TO WEAR 02 REQUESTED
--- NOTE | 2021-08-23 14:27 | NUR ---
PATIENT SITTING ON EDGE OF BED LOOKING OUTSIDE. VITALS AND I&O'S CHARTED. CALL LIGHT IN REACH. NO FURTHER NEEDS AT THIS TIME.
--- NOTE | 2021-08-23 16:00 | NUR ---
Spoke with pt. He denies needs and states his issue is he has meds at [facility] he cannot [facility]ord as they at $1600. Informed I suresh speak with Pharmacy and see if they can make any recommendations. He states he works at [employer] and has [employer] insurance and they are no longer paying for most meds. Will ask Pharmacy if they can assist.
--- NOTE | 2021-08-23 17:08 | NUR ---
PT HAS EMPTY TO GO CUP FROM A LARGE COFFEE AT CHAIRSIDE. AGREES HE DRANK IT WITHOUT REGAURD TO FLUID RESTRICTION, DESPITE EDUCATION PROVIDED. EATING EVENING MEAL AT THIS TIME
--- NOTE | 2021-08-23 17:52 | NUR ---
PATIENT SITTING UP IN CHAIR WATCHIG TV. VITALS AND I&O'S CHARTED. CALL LIGHT IN REACH. NO FURTHER NEEDS AT THIS TIME.
--- NOTE | 2021-08-23 19:57 | NUR ---
RECEIVED REPORT FROM DAY SHIFT RN. PATIENT IS RESTING IN BED WATCHING TV. PATIENT DENIES ANY NEEDS. CALL LIGHT IN REACH.
--- NOTE | 2021-08-23 21:07 | NUR ---
PATIENT ASSESMENT COMPLETED. PATIENTS VITALS TAKEN AND RECORDED. PATIENTS URINAL EMPTIED. INTAKE AND OUTPUT RECORDED. PATIENTS SCHEDULED MEDICATIONS GIVEN PER ORDER. PATIENT RATES PAIN AT A 6/10 IN HIS FEET. PRN PAIN MEDICATION GIVEN PER ORDER. PATIENT REMAINS ON 1L VIA NC. PATIENT DENIES ANY SOB. PATIENT DENIES ANY FURTHER NEEDS. SNACK PROVIDED. CALL LIGHT IN REACH.
--- NOTE | 2021-08-23 23:32 | NUR ---
SCHEDULED MEDICATION GIVEN PER ORDER. PATIENT IS UP RESTING IN RECLINER. PATIENT DENIES ANY FURTHER NEEDS. CALL LIGHT IN REACH.,
--- NOTE | 2021-08-24 02:25 | NUR ---
PATIENT WAS FOUND TO HAVE OXYGEN OFF. PATIENT IS 92% ON RA. PATIENT IS RESTING IN BED. VITALS TAKEN AND REECORDED. SCHEDULED MEDICATION GIVEN PER ORDER. PATIENT RATES PAIN AT A 7/10 IN HIS FEET. PRN PAIN MEDICATION GIVEN PER ORDER. PATIENT DENIES ANY FURTHER NEEDS. CALL LIGHT IN REACH.
--- NOTE | 2021-08-24 04:18 | NUR ---
PATIENT IS RESTING IN BED WITH EYES CLSOED, RR 19. TELE # 9, HR 96. CALL LIGHTIN REACH. PATIENT REMAINS ON RA.
--- NOTE | 2021-08-24 06:17 | NUR ---
PATIENTS VITALS TAKEN AND RECORDED. URINAL EMPTIED. INTAKE AND OUTPUT RECORDED. SCHEDULED MEDICATIONS GIVEN PER ORDER. PATIENT REMAINS ON RA. PATIENT DENIES ANY NEEDS. CALL LIGHT IN REACH.
--- NOTE | 2021-08-24 07:46 | NUR ---
PATIENT IS SITTING ON SIDE OF BED. I EMPTIED URINAL. PATIENT VOIDED 300ML. HE DOES NOT NEED ANYTHING ELSE AT THIS TIME. CALL LIGHT IN REACH.
--- NOTE | 2021-08-24 12:00 | NUR ---
Spoke with Boyd. He is wanting to go home. He states Hussain from pharmacy was able to solve his medication issues.
--- NOTE | 2021-08-24 12:00 | NUR ---
RN IN ROOM TO ROUND SITTING UP IN BED, LUNCH TRAY HAS BEEN DELIVERED STATES HES STILL HUNGRY SALAD ORDERED, WAITING FOR THE DOCTOR TO SEE HIM.
--- NOTE | 2021-08-24 12:51 | NUR ---
PATIENT IS SITTING UP ON SIDE OF BED LOOKING OUT WINDOW. HE ATE 100% OF LUNCH AND REQUESTED MORE FOOD. I CALLED DOWN TO DIETARY AND THEY ARE GOING TO SEND MORE FOOD UP. PATIENT DOES NOT NEED ANYTHING ELSE AT THIS TIME. CALL LIGHT IN REACH.
[2021-08-24] MEDS ORDERED: DOXYCYCLINE HY100 MG PO (13:50)
[2021-08-24] MEDS ORDERED: NICOTINE LOZENGE4 MG BUCCAL (13:51)
[2021-08-24] MEDS ORDERED: AEROECLIPSE II1 EACH MISC (13:51)
[2021-08-24] MEDS ORDERED: IPRAT-ALBUT 0.5-3 ML INH (13:51)
[2021-08-24] MEDS ORDERED: WARFARIN SODIU7.5 MG PO (13:52)
[2021-08-24] MEDS ORDERED: METOPROLOL SUC100 MG PO (13:52)
[2021-08-24] MEDS ORDERED: PREDNISONE20 MG PO (13:54)
--- NOTE | 2021-08-24 14:07 | NUR ---
PT SITTING ON SIDE OF BED, LOOKING OUT WINDOW. PT FRIENDLY, TIRED OF BEING HERE. SAID HE IS WAITING FOR VISIT FROM DR JOSHI-HOPING FOR DC. GAVE PT A G.POST, ENCOURAGEMENT AND PRAYED AT HIS REQUEST. WILL FOLLOW NEEDED
--- NOTE | 2021-08-24 14:30 | NUR ---
Spoke Dr. Lopez and he states pt will need a nebulizer. UPdated pt told me yesterday he has a nebulizer at home. In and spoke with pt and he states he has nebulizer meds and was confused as he also uses an inhaler he does not have a nebulizer. One was ordered last week through his pcp, but he only got the meds and did not get the machine. Sent Face sheet, Rx, dc summary, H&P to [facility]. Received a return call fron Gerda and she states they will not be able to get auth until tomorrow. Spoke with Dr. Lopez and ok for pt to dc to home and [facility] will deliver the nebulizer to the pts home in the am. Pt aware and will use his inhalers. Rx given to have neb refilled when he uses his box he picked up last week.
--- NOTE | 2021-08-26 10:35 | NUR ---
Called and spoke with Boyd Mayberry's girlfriend. Nebulizer was not delivered. Updated I spoke with [facility] yesterday and they had not received auth. They stated it can take 7 days for auth. They are now closed until Sunday for the holiday weekend. Let Shawanda know I called [facility] and they do have nebulizers in stock to purchase over the counter. They are 1/3 of the cost. She states she will call [facility].
== END 2021-08-24 15:48 | disposition home or self-care (01) | DRG 291 ==
LOC: ED 06:49 → MS 06:51
PROVIDERS: ADMIT Internal Medicine; ATTEND Internal Medicine
DX: I11.0 Hypertensive heart disease with heart failure (principal); I50.33 Acute on chronic diastolic (congestive) heart failure; J96.01 Acute respiratory failure with hypoxia; J44.1 Chronic obstructive pulmonary disease with (acute) exacerbation; I48.21 Permanent atrial fibrillation; G47.33 Obstructive sleep apnea (adult) (pediatric); Z20.822 Contact with and (suspected) exposure to COVID-19; I07.1 Rheumatic tricuspid insufficiency; I27.20 Pulmonary hypertension, unspecified; B18.2 Chronic viral hepatitis C; F17.210 Nicotine dependence, cigarettes, uncomplicated; Z90.49 Acquired absence of other specified parts of digestive tract; Z98.890 Other specified postprocedural states; Z79.899 Other long term (current) drug therapy; Z96.22 Myringotomy tube(s) status; Z79.01 Long term (current) use of anticoagulants; Z91.14 Patient's other noncompliance with medication regimen; Z90.89 Acquired absence of other organs; Z79.51 Long term (current) use of inhaled steroids
CPT/HCPCS: 71045; 80048; 80053; 83880; 84484; 85025; 85610; 93306; 94640; 94644; 94760; A9270; C9803; J1650; J1940; J2920; J2930; U0003

== ENCOUNTER 2021-12-30 19:40 | Emergency (ER) | payer BC ==
[~2021-12-30] VITALS: Ht 167.6 cm; Wt 117.5 kg
[~2021-12-30 19:40] MED LIST changes: +AEROECLIPSE II1 EACH MISC; +DOXYCYCLINE HY100 MG PO; +IPRAT-ALBUT 0.5-3 ML INH; +POTASSIUM CHLO10 ME1 PO; +WARFARIN SODIU7.5 MG PO
--- OUTSIDE RECORDS SUMMARY | 2021-12-30 19:42 | XMS ---
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 Cassie VISIT COUNT (12 MO.) Marcy Shanks TOTAL 4 NOTE: Visits indicate total known visits. ED/UCC VISIT TRACKING (12 MO.) 12/30/2021 19:40 [facility] TYPE: Emergency COMPLAINT: - WOUND CHECK 08/20/2021 06:50 [facility] TYPE: Emergency COMPLAINT: - SOB 05/25/2021 13:13 [facility] [place] TYPE: Emergency COMPLAINT: - L WRIST INJURY DIAGNOSES: - Unspecified atrial fibrillation - Nicotine dependence, unspecified, uncomplicated - Chronic obstructive pulmonary disease, unspecified - residential (current) use of anticoagulants - Striking against or struck by other objects, initial encounter - Essential (primary) hypertension - Pain in left wrist - Unspecified injury of left wrist, hand and finger(s), initial encounter - Civilian activity done for income or pay - Other correction (current) drug therapy 04/02/2021 18:09 [facility] [place] TYPE: Emergency COMPLAINT: - SOB, LEG SWELLING DIAGNOSES: - Nicotine dependence, unspecified, uncomplicated - Shortness of breath - Heart failure, unspecified - Fluid overload, unspecified - Hypertensive heart disease with heart failure - Unspecified atrial fibrillation - Chronic obstructive pulmonary disease, unspecified - Other correction (current) drug therapy INPATIENT VISIT TRACKING (12 MO.) 08/22/2021 11:45 [facility] TYPE: Medical Surgical COMPLAINT: - RESPIRATORY FAILURE DIAGNOSES: - Acute on chronic diastolic (congestive) heart failure - Acute respiratory failure with hypoxia - Other specified postprocedural states - Acquired absence of other organs - Myringotomy tube(s) status - Obstructive sleep apnea (adult) (pediatric) - residential (current) use of inhaled steroids - Permanent atrial fibrillation - Patient's other noncompliance with medication regimen - Chronic obstructive pulmonary disease with (acute) exacerbation - Pulmonary hypertension, unspecified - Chronic viral hepatitis C - Hypertensive heart disease with heart failure - Rheumatic tricuspid insufficiency - Contact with and (suspected) exposure to COVID-19 - Nicotine dependence, cigarettes, uncomplicated - Acquired absence of other specified parts of digestive tract - 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
--- NOTE | 2021-12-31 06:24 | EKG ---
[facility] [address] [place] [address] Signed Atrial fibrillation with rapid ventricular response Rightward axis Abnormal QRS-T angle, consider primary T wave abnormality Abnormal ECG When compared with ECG of 20-AUG-2021 07:09, No significant change was found Confirmed by GORDON VALADEZ MD ([id number]) on 12/31/2021 6:24:20 AM Electronically Signed By: GORDON VALADEZ MD 12/31/21 0624 PATIENT NAME: FAIZANADRIA MARTHA Electrocardiogram DATE OF : 59 PHYSICIAN: GORDON VALADEZ MD REPORT #: [id number] REPORT IS CONFIDENTIAL AND NOT TO BE RELEASED WITHOUT AUTHORIZATION
== END 2021-12-31 00:11 | disposition short-term general hospital (02) ==
LOC: ED 19:40
DX: I48.91 Unspecified atrial fibrillation (principal); J44.9 Chronic obstructive pulmonary disease, unspecified; I87.8 Other specified disorders of veins; I10 Essential (primary) hypertension; F17.200 Nicotine dependence, unspecified, uncomplicated; Z79.01 Long term (current) use of anticoagulants; Z79.899 Other long term (current) drug therapy; Z79.51 Long term (current) use of inhaled steroids; Z20.822 Contact with and (suspected) exposure to COVID-19
CPT/HCPCS: 36415; 71045; 80053; 83605; 84484; 85025; 85610; 87040; 87502; 93005; 93010; 94640; 96374; 96375; 96376; 99285-25; C9803; J2270; J2405; J7030; U0003